=== PATIENT | female | born 1955 | race Caucasian/White ===

== ENCOUNTER 2016-09-13 17:02 | Inpatient (IN) | payer MEDICAID ==
[2016-09-13] VITALS (8 sets, daily range): BP systolic 85–119; BP diastolic 50–73; PULSE 99–142; RESP 16–20; TEMP 99.1–103; O2SAT 94–97
[~2016-09-13] VITALS: Ht 149.9 cm; Wt 50.1 kg
[~2016-09-13 17:02] MED LIST: 1-ME1LIQ PO; BENA40TA PO; ERGO2000 PO; SIMV40TA PO
[2016-09-13] MEDS ORDERED: SODIUM CHLOR 0.9% 1000 ML INJ 1,000 ML IV ONE ×2 (17:28)
[2016-09-13] MEDS ORDERED: SODIUM CHLOR 0.9% 1000 ML INJ 100 ML IV ONE (17:28)
[2016-09-13] MEDS ORDERED: ACETAMINOPHEN 325 MG TAB PO ONE (17:30)
[2016-09-13] MEDS ORDERED: CEFEPIME INJ 2,000 MG in SODIUM CHLORIDE 0.9% INJ 100 ML IV ONE (17:30)
--- NOTE | 2016-09-13 17:34 | PD ---
HPI Chief Complaint: Fever Time Seen by Provider: 17:17 Travel History International Travel<30 days: No Contact w/Intl Traveler<30days: No Traveled to known affect area: No History of Present Illness HPI The patient is a 61-year-old female who presents to the emergency department with her daughter for fever. The patient speaks limited Uzbek, however, the daughter translates per her request. The daughter states the patient has a history of endometrial stage II C cancers who is status post hysterectomy and currently undergoing chemotherapy by her oncologist, Dr. Gill. The patient last received chemotherapy on August 28. The patient has been complaining of urinary symptoms or last several days with frequency and urgency, however, with very little urine output. The patient then developed a fever earlier today, measured as 103.2 in the waiting room at the emergency department. The patient denies any sore throat, cough, but does complain of mild nausea. She denies any vomiting, diarrhea, or abdominal pain. She does have a history of chronic left knee pain. Patient denies any posterior neck pain. Symptoms are moderate, there are no current alleviating or exacerbating factors. The patient's primary physician is located in [place], [place]. PFSH Past Medical History Cancer: Yes (L BREAST 2003, UTERINE ) Cardiovascular Problems: No High Cholesterol: Yes Chemotherapy: Yes (last done 10 years ago ) Diabetes: No Endocrine: No Genitourinary: No Hepatitis: No Hiatal Hernia: No Immune Disorder: No Musculoskeletal: No Neurologic: No Psychiatric: No Reproductive: No Respiratory: No Immunizations Current: Yes Radiation Therapy: Yes (last done 10 years ago ) Thyroid Disease: No Past Surgical History Abdominal Surgery: Yes (CHOLECYSTECTOMY 1996) AICD: No Gynecologic Surgery: Yes (HYSTERECTOMY FEB 2014) Joint Replacement: No Pacemaker: No Thoracic Surgery: Yes (L BREAST MASTECTOMY WITH CHEMO/RADIATION 2003) Social History Tobacco Use: No Substance Use: No Allergies-Medications (Allergen,Severity, Reaction): Coded Allergies: Paclitaxel (Verified Allergy, Severe, Shortness of Breath, 09/13/16) Vancomycin (Unverified Allergy, Mild, ITCHING, 09/13/16) Reported Meds & Prescriptions Reported Meds & Active Scripts Active Reported K-Tab (Potassium Chloride) 10 Meq Tab 10 Meq PO DAILY Simvastatin 40 Mg Tab 40 Mg PO HS Drisdol (Ergocalciferol) 50,000 Unit Cap 50,000 Units PO Q7D Benazepril (Benazepril HCl) 40 Mg Tab 40 Mg PO DAILY Amlodipine (Amlodipine Besylate) 10 Mg Tab 10 Mg PO DAILY Review of Systems Except as stated in HPI: all other systems reviewed are Neg General / Constitutional: Positive: Fever, Chills HENT: No: Headaches, Sore Throat Respiratory: No: Cough, Shortness of Breath Gastrointestinal: Positive: Nausea, No: Vomiting, Diarrhea, Abdominal Pain Genitourinary: Positive: Urgency, Frequency, Decreased Urinary Output Musculoskeletal: Positive: Arthralgias Skin: No Rash Physical Exam Narrative GENERAL: Awake, alert, pleasant 61-year-old female who appears her stated age and is in no acute respiratory distress. SKIN: Warm and dry. HEAD: Atraumatic. Normocephalic. EYES: Pupils equal and round. No scleral icterus. No injection or drainage. ENT: No nasal bleeding or discharge. Mild erythema but no exudate. NECK: Trachea midline. No JVD. CARDIOVASCULAR: Regular, tachycardic with a heart rate in the 130s. Port in place right chest wall. RESPIRATORY: No accessory muscle use. Clear to auscultation. Breath sounds equal bilaterally. GASTROINTESTINAL: Abdomen soft, mild suprapubic tenderness. No rebound tenderness, guarding, or rigidity. Back: No CVA tenderness. MUSCULOSKELETAL: No obvious deformities. No clubbing. No cyanosis. No edema. Full range of motion with the left lower extremity with flexion of the hip and knee, no erythema over the left knee to suggest septic joint. Calves are soft bilaterally. NEUROLOGICAL: Awake and alert. No obvious cranial nerve deficits. Motor grossly within normal limits. Normal speech. PSYCHIATRIC: Appropriate mood and affect; insight and judgment normal. Data Data Last Documented VS Vital Signs Date Time Temp Pulse Resp B/P Pulse Ox O2 Delivery O2 Flow Rate FiO2 09/13/16 19:17 95 Room Air 09/13/16 17:19 130 20 119/61 09/13/16 17:04 103.0 Orders Electrocardiogram (09/13/16 17:28) Complete Blood Count With Diff (09/13/16 17:28) Comprehensive Metabolic Panel (09/13/16 17:28) Lactic Acid Sepsis Protocol (09/13/16 17:28) Magnesium (Mg) (09/13/16 17:28) Lipase (09/13/16 17:28) Urinalysis - C+S If Indicated (09/13/16 17:28) Influenzae A/B Antigen (09/13/16 17:28) Blood Culture (09/13/16 17:28) Chest, Single Ap (09/13/16 17:28) Blood Gas Venous (Vbg) (09/13/16 17:28) Blood Glucose (09/13/16 17:28) Ecg Monitoring (09/13/16:) Iv Access Insert/Monitor (09/13/16:28) Oximetry (09/13/16 17:28) Oxygen Administration (09/13/16 17:28) Acetaminophen (Tylenol) (09/13/16 17:30) Sodium Chlor 0.9% 1000 Ml Inj (Ns 1000 M (09/13/16 17:28) Sodium Chlor 0.9% 1000 Ml Inj (Ns 1000 M (09/13/16 17:28) Sodium Chlor 0.9% 1000 Ml Inj (Ns 1000 M (09/13/16 17:28) Cefepime Inj (Maxipime Inj) (09/13/16 17:30) Urine Culture (09/13/16 17:30) Admit Order (Ed Use Only) (09/13/16 19:33) Labs Laboratory Tests Test 09/13/16 09/13/16 09/13/16 17:30 17:40 17:50 Urine Color YELLOW Urine Turbidity CLEAR Urine pH 6.0 Urine Specific [place] 1.014 Urine Protein TRACE mg/dL Urine Glucose (UA) NEG mg/dL Urine Ketones NEG mg/dL Urine Occult Blood NEG Urine Nitrite NEG Urine Bilirubin NEG Urine Urobilinogen LESS THAN 2.0 MG/DL Urine Leukocyte Esterase MOD Urine WBC 11 /hpf Urine WBC Clumps RARE Urine Bacteria RARE /hpf Urine Hyaline Casts 2 /lpf Urine Mucus FEW /lpf Microscopic Urinalysis Comment CATH-CULTURE IND White Blood Count 3.4 TH/MM3 Red Blood Count 4.30 MIL/MM3 Hemoglobin 11.9 GM/DL Hematocrit 35.0 % Mean Corpuscular Volume 81.3 FL Mean Corpuscular Hemoglobin 27.7 PG Mean Corpuscular Hemoglobin 34.1 % Concent Red Cell Distribution Width 17.7 % Platelet Count 178 TH/MM3 Mean Platelet Volume 7.5 FL Neutrophils (%) (Auto) 87.4 % Lymphocytes (%) (Auto) 8.4 % Monocytes (%) (Auto) 3.7 % Eosinophils (%) (Auto) 0.5 % Basophils (%) (Auto) 0.0 % Neutrophils # (Auto) 3.0 TH/MM3 Lymphocytes # (Auto) 0.3 TH/MM3 Monocytes # (Auto) 0.1 TH/MM3 Eosinophils # (Auto) 0.0 TH/MM3 Basophils # (Auto) 0.0 TH/MM3 CBC Comment AUTO DIFF Sodium Level 133 MEQ/L Potassium Level 3.6 MEQ/L Chloride Level 96 MEQ/L Carbon Dioxide Level 27.9 MEQ/L Anion Gap 9 MEQ/L Blood Urea Nitrogen 12 MG/DL Creatinine 0.97 MG/DL Estimat Glomerular Filtration 58 ML/MIN Rate Random Glucose 207 MG/DL Lactic Acid Level 1.6 mmol/L Calcium Level 8.7 MG/DL Magnesium Level 1.3 MG/DL Total Bilirubin 0.4 MG/DL Aspartate Amino Transf 16 U/L (AST/SGOT) Alanine Aminotransferase 11 U/L (ALT/SGPT) Alkaline Phosphatase 76 U/L Total Protein 7.0 GM/DL Albumin 2.9 GM/DL Lipase 152 U/L Blood Gas Puncture Site VEIN Blood Gas Patient Temperature 98.6 Venous Blood pH 7.51 Venous Blood Partial Pressure 33 mmHg CO2 Venous Blood Partial Pressure 43 mmHg O2 Venous Blood HCO3 26 mmol/L Venous Blood Oxygen Saturation 79 % Venous Blood Oxygen Content 13.0 Vol % Venous Blood Base Excess 3.0 mmol/L Oxygen Delivery Device ROOM AIR Blood Gas Inspired Oxygen 21 % MDM Medical Decision Making Medical Screen Exam Complete: Yes Emergency Medical Condition: Yes Medical Record Reviewed: Yes Interpretation(s) EKG reveals sinus tachycardia with a heart rate of 119. LVH. Nonspecific ST depression, may be rate related. Last Impressions Chest X-Ray 09/13/16 4528 Signed Impressions: Service Date/Time: Tuesday, September 13, 2016 17:47 - CONCLUSION: No acute disease. Olayinka Kincaid MD Date/Time Procedure Status Source Growth 09/13/16 17:30 Urine Culture Received Urine Clean Catch Pending 09/13/16 17:40 Aerobic Blood Culture Received Blood Peripheral Pending 09/13/16 17:40 Anaerobic Blood Culture Received Blood Peripheral Pending 09/13/16 17:45 Aerobic Blood Culture Received Blood Peripheral Pending 09/13/16 17:45 Anaerobic Blood Culture Received Blood Peripheral Pending Laboratory Tests Test 09/13/16 09/13/16 09/13/16 17:30 17:40 17:50 Urine Color YELLOW Urine Turbidity CLEAR Urine pH 6.0 Urine Specific [place] 1.014 Urine Protein TRACE mg/dL Urine Glucose (UA) NEG mg/dL Urine Ketones NEG mg/dL Urine Occult Blood NEG Urine Nitrite NEG Urine Bilirubin NEG Urine Urobilinogen LESS THAN 2.0 MG/DL Urine Leukocyte Esterase MOD Urine WBC 11 /hpf Urine WBC Clumps RARE Urine Bacteria RARE /hpf Urine Hyaline Casts 2 /lpf Urine Mucus FEW /lpf Microscopic Urinalysis Comment CATH-CULTURE IND White Blood Count 3.4 TH/MM3 Red Blood Count 4.30 MIL/MM3 Hemoglobin 11.9 GM/DL Hematocrit 35.0 % Mean Corpuscular Volume 81.3 FL Mean Corpuscular Hemoglobin 27.7 PG Mean Corpuscular Hemoglobin 34.1 % Concent Red Cell Distribution Width 17.7 % Platelet Count 178 TH/MM3 Mean Platelet Volume 7.5 FL Neutrophils (%) (Auto) 87.4 % Lymphocytes (%) (Auto) 8.4 % Monocytes (%) (Auto) 3.7 % Eosinophils (%) (Auto) 0.5 % Basophils (%) (Auto) 0.0 % Neutrophils # (Auto) 3.0 TH/MM3 Lymphocytes # (Auto) 0.3 TH/MM3 Monocytes # (Auto) 0.1 TH/MM3 Eosinophils # (Auto) 0.0 TH/MM3 Basophils # (Auto) 0.0 TH/MM3 CBC Comment AUTO DIFF Sodium Level 133 MEQ/L Potassium Level 3.6 MEQ/L Chloride Level 96 MEQ/L Carbon Dioxide Level 27.9 MEQ/L Anion Gap 9 MEQ/L Blood Urea Nitrogen 12 MG/DL Creatinine 0.97 MG/DL Estimat Glomerular Filtration 58 ML/MIN Rate Random Glucose 207 MG/DL Lactic Acid Level 1.6 mmol/L Calcium Level 8.7 MG/DL Magnesium Level 1.3 MG/DL Total Bilirubin 0.4 MG/DL Aspartate Amino Transf 16 U/L (AST/SGOT) Alanine Aminotransferase 11 U/L (ALT/SGPT) Alkaline Phosphatase 76 U/L Total Protein 7.0 GM/DL Albumin 2.9 GM/DL Lipase 152 U/L Blood Gas Puncture Site VEIN Blood Gas Patient Temperature 98.6 Venous Blood pH 7.51 Venous Blood Partial Pressure 33 mmHg CO2 Venous Blood Partial Pressure 43 mmHg O2 Venous Blood HCO3 26 mmol/L Venous Blood Oxygen Saturation 79 % Venous Blood Oxygen Content 13.0 Vol % Venous Blood Base Excess 3.0 mmol/L Oxygen Delivery Device ROOM AIR Blood Gas Inspired Oxygen 21 % Differential Diagnosis Differential diagnosis includes sepsis, severe sepsis, septic shock, probable nephritis, UTI, neutropenic fever, pneumonia, influenza, dehydration. Narrative Course The patient's port was accessed, labs are drawn and sent, and the patient was placed on cardiac telemetry monitoring and continuous pulse oximetry monitoring. Chest x-ray was obtained. Lactic acid and blood cultures were sent to lab. UA was sent to lab. After cultures were obtained, cefepime 2 g IV was administered as the patient has a history of recent chemotherapy. The patient was also administered 3 L of IV fluids. Patient received Tylenol 650 mg orally for fever. The patient's chest x-ray was negative. UA is positive for WBCs, patient meets sepsis criteria. Blood cultures were pending. Influenza screen was pending. The patient will be admitted as she has a white count of 3.4, is immunocompromised with recent chemotherapy, and is septic. The on-call medical service was paged for admission. I discussed the patient Dr. Hale who agrees with admission. Patient will need admission until cultures are resulted and her symptoms have improved. Sepsis Criteria SIRS Criteria (2 or more): Temp > 100.9 or < 96.8, Heart rate over 90, WBC > 00774, < 4000 or > 10% bands Sepsis Criteria (SIRS+source): Infect source susp/known Criteria Outcome: Meets sepsis criteria Physician Communication Physician Communication The on-call medical service was paged for admission. I discussed the patient with Dr. Hale who agrees with admission. Diagnosis Primary Impression: Sepsis Qualified Code: A41.9 - Sepsis, due to unspecified organism Additional Impressions: UTI (urinary tract infection) Qualified Code: N30.00 - Acute cystitis without hematuria S/P chemotherapy, time since less than 4 weeks Condition: Stable Stewart Salinas MD Sep 13, 2016 17:34
--- NOTE | 2016-09-13 18:21 | RADRPT ---
EXAM DATE/TIME: 09/13/2016 17:47 [facility] COMPARISON: No previous studies available for comparison. INDICATIONS : Fever starting today MEDICAL HISTORY : Endometrial cancer SURGICAL HISTORY : Port placement ENCOUNTER: Initial ACUITY: 1 day PAIN SCORE: 0/10 LOCATION: Bilateral chest FINDINGS: A single view of the chest demonstrates the lungs to be symmetrically aerated without evidence of mas s, infiltrate or effusion. There is a CT compatible [id number] in place from the right internal j ugular approach. The cardiomediastinal contours are unremarkable. Osseous structures are intact. Cli ps are seen in the right upper quadrant of the abdomen presumably from prior cholecystectomy. CONCLUSION: No acute disease. Olayinka Kincaid MD on September 13, 2016 at 18:19 Board Certified Radiologist. This report was verified electronically.
[2016-09-13 18:30] LABS: BLOOD GAS VENOUS HCO3 26 mmol/L (22-26); BLOOD GAS VENOUS O2 HGB SAT 79 % (70-76); BLOOD GAS VENOUS PCO2 33 mmHg (44-48); BLOOD GAS VENOUS PO2 43 mmHg (35-40); BLOOD GAS VENOUS pH 7.51 (7.360-7.400); TEMP CORR TO 98.6
[2016-09-13 18:31] LABS: CRITICAL VALUE YES; DRAW SITE VEIN; FIO2 21 %; OXYGEN DEVICE ROOM AIR; STAT YES
[2016-09-13 18:40] LABS: BACTERIA, URINE RARE /hpf; BLOOD, URINE NEG (NEG); GLUCOSE,URINE NEG (NEG); HYALINE CAST, URINE 2 /lpf (RARE); KETONE, URINE NEG (NEG); MUCUS URINE FEW /lpf (OCC); NITRITE,URINE NEG (NEG); URINE COLOR YELLOW (YELLW/STRAW)
[2016-09-13 18:40] LABS: EOSINOPHIL % 0.5 % (0.0-4.0); LYMPH % 8.4 % (9.0-44.0); LYMPHOCYTE # 0.3 TH/MM3 (1.0-4.8); MEAN CELL VOLUME 81.3 FL (80.0-100.0); MEAN CORPUSCULAR HEMOGLOBIN 27.7 PG (27.0-34.0); MEAN CORPUSCULAR HGB CONC 34.1 % (32.0-36.0); MONO % 3.7 % (0.0-8.0); NEUT % 87.4 % (16.0-70.0); PLATELET COUNT 178 TH/MM3 (150-450); RED CELL DISTRIBUTION WIDTH 17.7 % (11.6-17.2); WHITE BLOOD COUNT 3.4 TH/MM3 (4.0-11.0)
[2016-09-13] MEDS ORDERED: K-TA10TA PO (18:40)
[2016-09-13] MEDS ORDERED: AMLO10TA2 PO (18:40)
[2016-09-13] MEDS ORDERED: SIMV40TA PO (18:40)
[2016-09-13] MEDS ORDERED: DRIS50002 PO (18:40)
[2016-09-13] MEDS ORDERED: BENA40TA PO (18:40)
[2016-09-13 18:41] LABS: COMMENT (UR) CATH-CULTURE IND; CULTURE IF INDICATED CATH CULTURE IND
[2016-09-13 18:50] LABS: ANION GAP 9 MEQ/L (5-15); AST (GOT) 16 U/L (15-37); BICARBONATE 27.9 MEQ/L (21.0-32.0); BLOOD UREA NITROGEN 12 MG/DL (7-18); CHLORIDE 96 MEQ/L (98-107); GLOMERULAR FILTRATION RATE 58 ML/MIN (>89); HEMO FLAGS AUTO DIFF; MAGNESIUM 1.3 MG/DL (1.5-2.5); POTASSIUM 3.6 MEQ/L (3.5-5.1); SODIUM (NA) 133 MEQ/L (136-145)
[2016-09-13 18:53] LABS: ALKALINE PHOSPHATASE 76 U/L (45-117); ALT (GPT) 11 U/L (10-53); TOTAL BILIRUBIN ADULT 0.4 MG/DL (0.2-1.0)
[2016-09-13] MEDS ORDERED: ONDANSETRON HCL 4 MG/2 ML VIAL IVP PRN (19:45)
[2016-09-13] MEDS ORDERED: NALOXONE HCL 0.4 MG/ML AMP IV PRN (19:45)
[2016-09-13] MEDS ORDERED: SODIUM CHLORIDE 0.9% FLUSH 5 ML FLUSH FLUSH PRN (19:45)
[2016-09-13] MEDS: SODIUM CHLORIDE 0.9% FLUSH 5 ML FLUSH FLUSH SCH (21:00)
[2016-09-13 21:20] LABS: CRENATED RBCS 1+ (NORMAL); KERATOCYTES 1+ (NORMAL); OVALOCYTES 1+ (NORMAL)
[2016-09-13 21:21] LABS: SCAN/DIFF AUTO DIFF CONFIRMED
--- NOTE | 2016-09-13 23:36 | HHI.HP ---
[facility] Admission Diagnosis sepsis, UTI, status post chemotherapy Diagnoses: Chief Complaint: Fever Travel History International Travel<30 Days: No Contact w/Intl Traveler <30 Da: No Traveled to Known Affected Are: No Sepsis Criteria SIRS Criteria (2 or more): Temp > 100.9 or < 96.8, Heart rate over 90 Sepsis Criteria (SIRS+source): Infect source susp/known History of Present Illness This is a 61-year-old female patient who is primarily Serbian-speaking translation per patient's daughter per patient request. Patient with past medical history which includes left breast cancer diagnosed 2003 status post left breast mastectomy chemotherapy and radiation, hyperlipidemia, hypertension , endometrial cancer diagnosed 2013 status post hysterectomy, currently undergoing chemotherapy. Patient's most recent chemotherapy was August 28, 2016. Patient reports that earlier today she began to have fever at home it was 101.9 and an elevated to 102 patient proceeded to the emergency department in the emergency room waiting room temperature noted to be 103.1. Patient also reports for the past approximately month she's been having dysuria as well as increased frequency of urination. Patient describes the dysuria more of a burning sensation after she urinates and while urinating. Patient also has had mild nausea. Patient denies cough or sputum production patient also denies shortness of breath chest pain diarrhea or constipation. Review of Systems Except as stated in HPI: all other systems reviewed are Neg Past Family Social History Past Medical History left breast cancer diagnosed 2003 status post left breast mastectomy chemotherapy and radiation, hyperlipidemia, hypertension, endometrial cancer diagnosed 2013 status post hysterectomy, currently undergoing chemotherapy Past Surgical History Left breast mastectomy 2003, cholecystectomy, tubal ligation, upper endoscopy, hysterectomy February 2014, bunionectomy, surgical repair of wrist fracture status post fall Reported Medications K-Tab (Potassium Chloride) 10 Meq Tab 10 Meq PO DAILY Simvastatin 40 Mg Tab 40 Mg PO HS Drisdol (Ergocalciferol) 50,000 Unit Cap 50,000 Units PO Q7D Benazepril (Benazepril HCl) 40 Mg Tab 40 Mg PO DAILY Amlodipine (Amlodipine Besylate) 10 Mg Tab 10 Mg PO DAILY Allergies: Coded Allergies: Paclitaxel (Verified Allergy, Severe, Shortness of Breath, 09/13/16) Vancomycin (Unverified Allergy, Mild, ITCHING, 09/13/16) Active Ordered Medications Current Medications Medications (Trade) Dose Ordered Sig/Tasha Route Start Time Stop Time Status Last Admin (NS Flush) 2 ml UNSCH PRN FLUSH 09/13/16 19:45 (NS Flush) 2 ml BID FLUSH 09/13/16 21:00 (Zofran Inj) 4 mg Q6H PRN IVP 09/13/16 19:45 (Lovenox Inj) 40 mg Q24H SQ 09/14/16 09:00 Naloxone HCl 0.4 mg 0.4 mg UNSCH PRN IV 09/13/16 19:45 Cefepime HCl 2000 mg/Sodium Chloride 100 ml @ 200 mls/hr Q8H IV 09/14/16 01:00 09/14/16 00:36 (NS 1000 ml Inj) 1,000 ml @ 100 mls/hr Q10H IV 09/14/16 00:00 09/14/16 00:36 Family History Mother has CAD status post [place] Also reports that ovarian as well as breast cancer run in the family patient's aunt and cousins Social History Denies EtOH use tobacco use or illicit drug use Physical Exam Vital Signs Vital Signs Date Time Temp Pulse Resp B/P Pulse Ox O2 Delivery O2 Flow Rate FiO2 09/13/16 22:45 99.3 99 17 85/50 95 09/13/16 21:52 102 16 104/66 96 09/13/16 20:56 99.1 112 16 110/68 97 09/13/16 19:30 124 18 108/66 96 09/13/16 19:17 95 Room Air 09/13/16 19:17 95 Room Air 09/13/16 17:50 95 Room Air 09/13/16 17:19 130 20 119/61 94 09/13/16 17:04 103.0 142 18 119/73 95 Physical Exam GENERAL: This is a 61-year-old female patient, in no apparent distress. SKIN: No rashes, ecchymoses or lesions. Cool and dry. HEAD: Atraumatic. Normocephalic. No temporal or scalp tenderness. EYES: Extraocular motions intact. No scleral icterus. No injection or drainage. ENT: Nose without bleeding, purulent drainage or septal hematoma. Throat without erythema, tonsillar hypertrophy or exudate. Uvula midline. Airway patent. NECK: Trachea midline. No JVD or lymphadenopathy. Supple, nontender, no meningeal signs. CARDIOVASCULAR: Regular rate and rhythm without murmurs, gallops, or rubs. RESPIRATORY: Clear to auscultation. Breath sounds equal bilaterally. No wheezes , rales, or rhonchi. GASTROINTESTINAL: Abdomen soft, non-tender, nondistended. No guarding. MUSCULOSKELETAL: Extremities without clubbing, cyanosis, or edema. No joint tenderness, effusion, or edema noted. No calf tenderness. Negative Homans sign bilaterally. NEUROLOGICAL: Awake and alert. No focal deficits identified. Motor and sensory grossly within normal limits. 4-5 out of 5 muscle strength in all muscle groups. Normal speech. Laboratory Laboratory Tests Test 09/13/16 09/13/16 09/13/16 17:30 17:40 17:50 Urine Color YELLOW Urine Turbidity CLEAR Urine pH 6.0 Urine Specific [place] 1.014 Urine Protein TRACE Urine Glucose (UA) NEG Urine Ketones NEG Urine Occult Blood NEG Urine Nitrite NEG Urine Bilirubin NEG Urine Urobilinogen LESS THAN 2.0 Urine Leukocyte Esterase MOD Urine WBC 11 Urine WBC Clumps RARE Urine Bacteria RARE Urine Hyaline Casts 2 Urine Mucus FEW Microscopic Urinalysis Comment CATH-CULTURE IND White Blood Count 3.4 Red Blood Count 4.30 Hemoglobin 11.9 Hematocrit 35.0 Mean Corpuscular Volume 81.3 Mean Corpuscular Hemoglobin 27.7 Mean Corpuscular Hemoglobin 34.1 Concent Red Cell Distribution Width 17.7 Platelet Count 178 Mean Platelet Volume 7.5 Neutrophils (%) (Auto) 87.4 Lymphocytes (%) (Auto) 8.4 Monocytes (%) (Auto) 3.7 Eosinophils (%) (Auto) 0.5 Basophils (%) (Auto) 0.0 Neutrophils # (Auto) 3.0 Lymphocytes # (Auto) 0.3 Monocytes # (Auto) 0.1 Eosinophils # (Auto) 0.0 Basophils # (Auto) 0.0 CBC Comment AUTO DIFF Differential Comment AUTO DIFF CONFIRMED Ovalocytes 1+ Crenated Cell 1+ Keratocytes 1+ Sodium Level 133 Potassium Level 3.6 Chloride Level 96 Carbon Dioxide Level 27.9 Anion Gap 9 Blood Urea Nitrogen 12 Creatinine 0.97 Estimat Glomerular Filtration 58 Rate Random Glucose 207 Lactic Acid Level 1.6 Calcium Level 8.7 Magnesium Level 1.3 Total Bilirubin 0.4 Aspartate Amino Transf 16 (AST/SGOT) Alanine Aminotransferase 11 (ALT/SGPT) Alkaline Phosphatase 76 Total Protein 7.0 Albumin 2.9 Lipase 152 Blood Gas Puncture Site VEIN Blood Gas Patient Temperature 98.6 Venous Blood pH 7.51 Venous Blood Partial Pressure 33 CO2 Venous Blood Partial Pressure 43 O2 Venous Blood HCO3 26 Venous Blood Oxygen Saturation 79 Venous Blood Oxygen Content 13.0 Venous Blood Base Excess 3.0 Oxygen Delivery Device ROOM AIR Blood Gas Inspired Oxygen 21 Date/Time Procedure Status Source Growth 09/13/16 20:11 Influenza Types A,B Antigen (AILEEN) - Final Complete Nasal Aspirate NEGATIVE FOR FLU A AND B ANTIGEN.... 09/13/16 17:45 Aerobic Blood Culture Received Blood Peripheral Pending 09/13/16 17:45 Anaerobic Blood Culture Received Blood Peripheral Pending 09/13/16 17:30 Urine Culture Worksheet Urine Clean Catch Pending Result Diagram: 09/13/16 1740 09/13/16 1740 Imaging Last Impressions Chest X-Ray 09/13/16 1728 Signed Impressions: Service Date/Time: Tuesday, September 13, 2016 17:47 - CONCLUSION: No acute disease. Olayinka Kincaid MD Septic Shock Reassessment Heart: Regular rate and rhythm Lungs: Clear Skin: Warm, Dry Peripheral Pulses: Bounding Right Radial Bounding Left Radial Bounding Right Dorsalis Pedis Bounding Left Dorsalis Pedis Capillary Refill: Brisk Assessment and Plan Assessment and Plan This is a 61-year-old female patient who is primarily Serbian-speaking translation per patient's daughter per patient request. Patient with past medical history which includes left breast cancer diagnosed 2003 status post left breast mastectomy chemotherapy and radiation, hyperlipidemia, hypertension , endometrial cancer diagnosed 2013 status post hysterectomy, currently undergoing chemotherapy. Patient's most recent chemotherapy was August 28, 2016. Patient reports that earlier today she began to have fever at home it was 101.9 and an elevated to 102 patient proceeded to the emergency department in the emergency room waiting room temperature noted to be 103.1. Sepsis, temperature 103.1, tachycardia and positive UA Continue cefepime IV Continue IV fluids status post bolus given in emergency department Blood cultures 2 obtained and pending Urine culture pending Chest x-ray reviewed by myself as well as Dr. Hale: no acute findings Hypertension takes enalapril and Norvasc at home will hold as patient is hypotensive at this time Hyperlipidemia continue atorvastatin 40 daily at bedtime DVT prophylaxis with Lovenox Discussed plan of care with patient and daughter ear provider and RN Written by Christina William, acting as scribe for Dr. Hale on 09/14/16 at 01: 36. All or portions of this note were transcribed by scribe [Christina William]. I , Dr. Mayda Hale personally performed the history, physical exam, and medical decision making; and confirmed the accuracy of the information in the transcribed note. Authenticated by Dr. Mayda Hale on 09/14/16 at 0136 Physician Certification 2 Midnight Certification Type: Admission for Inpatient Services Order for Inpatient Services The services are ordered in accordance with Medicare regulations or non- Medicare payer requirements, as applicable. In the case of services not specified as inpatient-only, they are appropriately provided as inpatient services in accordance with the 2-midnight benchmark. Estimated LOS (days): 3 days is the estimated time the patient will need to remain in the hospital, assuming treatment plan goals are met and no additional complications. Post-Hospital Plan: Not yet determined Christina William Sep 13, 2016 23:36 Mayda Hale MD Oct 02, 2016 08:16
[2016-09-14] VITALS (7 sets, daily range): BP systolic 93–99; BP diastolic 56–65; PULSE 85–114; RESP 16–18; TEMP 96.9–103.1; O2SAT 98–100
[2016-09-14] MEDS: CEFEPIME INJ 2,000 MG in SODIUM CHLORIDE 0.9% INJ 100 ML IV SCH ×3 (00:36→22:33)
[2016-09-14] MEDS: SODIUM CHLOR 0.9% 1000 ML INJ 1,000 ML IV SCH ×3 (00:36→22:34)
[2016-09-14] MEDS: ACETAMINOPHEN 325 MG TAB PO PRN (03:59)
[2016-09-14] MEDS ORDERED: LISINOPRIL 20 MG TAB PO SCH (09:00)
[2016-09-14] MEDS: SODIUM CHLORIDE 0.9% FLUSH 5 ML FLUSH FLUSH SCH ×2 (09:00→21:00)
[2016-09-14] MEDS: POTASSIUM CHLORIDE 10 MEQ CONTROLLED RELEASE TAB PO SCH (09:17)
[2016-09-14] MEDS: ENOXAPARIN SODIUM 40 MG/0.4 ML SYRINGE SQ SCH (09:17)
[2016-09-14 09:44] LABS: AUTOMATED NEUTROPHIL # 2.1 TH/MM3 (1.8-7.7); BASOPHIL % 0.3 % (0.0-2.0); EOSINOPHIL # 0.1 TH/MM3 (0-0.4); EOSINOPHIL % 2.7 % (0.0-4.0); HEMATOCRIT 32.5 % (35.0-46.0); HEMO FLAGS DIFF FINAL; LYMPHOCYTE # 0.6 TH/MM3 (1.0-4.8); MEAN CELL VOLUME 82.1 FL (80.0-100.0); MEAN CORPUSCULAR HEMOGLOBIN 27.6 PG (27.0-34.0); MEAN CORPUSCULAR HGB CONC 33.6 % (32.0-36.0); MONO % 7.5 % (0.0-8.0); NEUT % 69.5 % (16.0-70.0); PLATELET COUNT 171 TH/MM3 (150-450); RED BLOOD COUNT 3.95 MIL/MM3 (4.00-5.30); RED CELL DISTRIBUTION WIDTH 17.8 % (11.6-17.2)
--- NOTE | 2016-09-14 09:48 | HHI.PR ---
Subjective Remarks resting comfortably with no distress. T max 103.1. denies pain but has some urinary urgency. daughter at the bedside. Objective Vitals Vital Signs Date Time Temp Pulse Resp B/P Pulse Ox O2 Delivery O2 Flow Rate FiO2 09/14/16 08:00 96.9 89 16 98/56 98 09/14/16 06:00 99.7 09/14/16 04:00 103.1 114 17 94/56 100 09/13/16 22:45 99.3 99 17 85/50 95 09/13/16 22:30 102 09/13/16 21:52 102 16 104/66 96 09/13/16 20:56 99.1 112 16 110/68 97 09/13/16 19:30 124 18 108/66 96 09/13/16 19:17 95 Room Air 09/13/16 19:17 95 Room Air 09/13/16 17:50 95 Room Air 09/13/16 17:19 130 20 119/61 94 09/13/16 17:04 103.0 142 18 119/73 95 I/O 09/13/16 09/13/16 09/13/16 09/14/16 09/14/16 09/14/16 07:00 15:00 23:00 07:00 15:00 23:00 Intake Total 470 ml Balance 470 ml Intake IV Total 470 ml # Voids 3 # Bowel Movements 2 Result Diagram: 09/13/16 1740 09/13/16 1740 Imaging Last Impressions Chest X-Ray 09/13/16 1728 Signed Impressions: Service Date/Time: Tuesday, September 13, 2016 17:47 - CONCLUSION: No acute disease. Olayinka Kincaid MD Objective Remarks GENERAL: This is a well-nourished, well-developed patient, in no apparent distress. CARDIOVASCULAR: Regular rate and regular rhythm without murmurs, gallops, or rubs. RESPIRATORY: Clear to auscultation. Breath sounds equal bilaterally. No wheezes , rales, or rhonchi. GASTROINTESTINAL: Abdomen soft, non-tender, nondistended. Normal, active bowel sounds MUSCULOSKELETAL: Extremities without clubbing, cyanosis, or edema. NEURO: Alert & Oriented x4 to person, place, time, situation. Moves all ext x4 Procedures none Medications and IVs Current Medications Acetaminophen 650 mg 650 mg ONCE ONCE PO Last administered on 2/17/17at 18:31 ; Start 09/13/16 at 17:30; Stop 09/13/16 at 17:31; Status DC Sodium Chloride 1,000 ml @ 1,000 mls/hr Q1H ONCE IV Last administered on 18:31; Start 09/13/16 at 17:28; Stop 09/13/16 at 18:27; Status DC Sodium Chloride 1,000 ml @ 1,000 mls/hr Q1H ONCE IV Last administered on 18:31; Start 09/13/16 at 17:28; Stop 09/13/16 at 18:27; Status DC Sodium Chloride 100 ml @ 1,000 mls/hr Q6M ONCE IV Last administered on 18:32; Start 09/13/16 at 17:28; Stop 09/13/16 at 17:33; Status DC Cefepime HCl/ Sodium Chloride (Maxipime Inj/NS Inj) 100 ml @ 200 mls/hr ONCE ONCE IV Last administered on 09/13/16 20:08; Start 09/13/16 at 17:30; Stop at 17:59; Status DC IV Flush (NS Flush) 2 ml UNSCH PRN FLUSH FLUSH AFTER USING IV ACCESS; Start at 19:45 IV Flush (NS Flush) 2 ml BID FLUSH ; Start 09/13/16 at 21:00 Ondansetron HCl (Zofran Inj) 4 mg Q6H PRN IVP NAUSEA OR VOMITING Last administered on 09/14/16 03:06; Start 09/13/16 at 19:45 Enoxaparin Sodium (Lovenox Inj) 40 mg Q24H SQ Last administered on 09/14/16 09 :17; Start 09/14/16 at 09:00 Naloxone HCl 0.4 mg 0.4 mg UNSCH PRN IV SEE LABEL COMMENTS; Start 09/13/16 at 19:45 Cefepime HCl 2000 mg/Sodium Chloride 100 ml @ 200 mls/hr Q8H IV Last administered on 09/14/16 09:17; Start 09/14/16 at 01:00 Sodium Chloride (NS 1000 ml Inj) 1,000 ml @ 100 mls/hr Q10H IV Last administered on 09/14/16 00:36; Start 09/14/16 at 00:00 Amlodipine Besylate (Norvasc) 10 mg DAILY PO ; Start 09/14/16 at 09:00; Stop at 09:00; Status DC Lisinopril (Prinivil) 40 mg DAILY PO ; Start 09/14/16 at 09:00; Stop 09/14/16 at 09:00; Status DC Potassium Chloride (KCl) 10 meq DAILY PO Last administered on 09/14/16 09:17; Start 09/14/16 at 09:00 Pravastatin Sodium (Pravachol) 80 mg HS PO CM; Start 09/14/16 at 21:00 Acetaminophen (Tylenol) 650 mg Q4H PRN PO fever >101 Last administered on 03:59; Start 09/14/16 at 03:45 A/P Assessment and Plan A/P Sepsis, fever, tachycardia and positive UA Continue cefepime IV Continue IV fluids Blood cultures 2 obtained and pending Urine culture pending Chest x-ray reviewed with no acute findings Hypertension takes enalapril and Norvasc at home will hold as patient is hypotensive at this time Hyperlipidemia continue atorvastatin 40 daily at bedtime history of breast and endometrial cancer- f/u as outpatient DVT prophylaxis with Billy Benton MD Sep 14, 2016 09:48
[2016-09-14 10:02] LABS: BICARBONATE 25.1 MEQ/L (21.0-32.0); POTASSIUM 3.3 MEQ/L (3.5-5.1)
[2016-09-14] MEDS ORDERED: POTASSIUM CHLORIDE 10 MEQ CONTROLLED RELEASE TAB PO ONE (13:15)
--- NOTE | 2016-09-14 16:41 | EKG ---
Date Performed: 09/13/2016 Time Performed: 19:12:16 PTAGE: 61 years EKG: SINUS TACHYCARDIA Increased precordial voltage ABNORMAL ECG NO PREVIOUS TRACING DOCTOR: Micah Mendez Interpretating Date/Time 09/14/2016 16:40:13
[2016-09-14] MEDS: PRAVASTATIN SOD 40 MG TAB PO SCH (22:32)
[2016-09-15] VITALS (7 sets, daily range): BP systolic 103–112; BP diastolic 65–76; PULSE 89–101; RESP 14–18; TEMP 97.9–99.4; O2SAT 96–98
[2016-09-15] MEDS: SODIUM CHLOR 0.9% 1000 ML INJ 1,000 ML IV SCH ×2 (05:44→20:51)
--- NOTE | 2016-09-15 07:59 | HHI.PR ---
Subjective Remarks resting comfortably with no distress. had a low grade fever last night. denies pain. has urinary frequency. Objective Vitals Vital Signs Date Time Temp Pulse Resp B/P Pulse Ox O2 Delivery O2 Flow Rate FiO2 09/15/16 04:00 98.1 89 17 106/66 97 09/15/16 00:00 97.9 96 18 103/65 97 09/14/16 20:00 99.3 106 18 99/65 98 09/14/16 16:00 100.6 99 18 99/61 99 09/14/16 12:00 99.1 90 16 93/56 99 09/14/16 08:44 85 09/14/16 08:00 96.9 89 16 98/56 98 I/O 09/14/16 09/14/16 09/14/16 09/15/16 09/15/16 09/15/16 07:00 15:00 23:00 07:00 15:00 23:00 Intake Total 1070 ml 1006 ml 720 ml Balance 1070 ml 1006 ml 720 ml Intake Oral 600 ml 120 ml 720 ml IV Total 470 ml 886 ml # Voids 3 4 2 # Bowel Movements 2 3 Result Diagram: 09/14/16 0820 09/14/16 0820 Imaging Last Impressions Chest X-Ray 09/13/16 1728 Signed Impressions: Service Date/Time: Tuesday, September 13, 2016 17:47 - CONCLUSION: No acute disease. Olayinka Kincaid MD Objective Remarks GENERAL: This is a well-nourished, well-developed patient, in no apparent distress. CARDIOVASCULAR: Regular rate and regular rhythm without murmurs, gallops, or rubs. RESPIRATORY: Clear to auscultation. Breath sounds equal bilaterally. No wheezes , rales, or rhonchi. GASTROINTESTINAL: Abdomen soft, non-tender, nondistended. Normal, active bowel sounds MUSCULOSKELETAL: Extremities without clubbing, cyanosis, or edema. NEURO: Alert & Oriented x4 to person, place, time, situation. Moves all ext x4 Procedures none Medications and IVs Current Medications Acetaminophen 650 mg 650 mg ONCE ONCE PO Last administered on 09/13/16t 18:31 ; Start 09/13/16 at 17:30; Stop 09/13/16 at 17:31; Status DC Sodium Chloride 1,000 ml @ 1,000 mls/hr Q1H ONCE IV Last administered on 18:31; Start 09/13/16 at 17:28; Stop 09/13/16 at 18:27; Status DC Sodium Chloride 1,000 ml @ 1,000 mls/hr Q1H ONCE IV Last administered on 18:31; Start 09/13/16 at 17:28; Stop 09/13/16 at 18:27; Status DC Sodium Chloride 100 ml @ 1,000 mls/hr Q6M ONCE IV Last administered on 18:32; Start 09/13/16 at 17:28; Stop 09/13/16 at 17:33; Status DC Cefepime HCl/ Sodium Chloride (Maxipime Inj/NS Inj) 100 ml @ 200 mls/hr ONCE ONCE IV Last administered on 09/13/16 20:08; Start 09/13/16 at 17:30; Stop at 17:59; Status DC IV Flush (NS Flush) 2 ml UNSCH PRN FLUSH FLUSH AFTER USING IV ACCESS; Start at 19:45 IV Flush (NS Flush) 2 ml BID FLUSH ; Start 09/13/16 at 21:00 Ondansetron HCl (Zofran Inj) 4 mg Q6H PRN IVP NAUSEA OR VOMITING Last administered on 09/14/16 03:06; Start 09/13/16 at 19:45 Enoxaparin Sodium (Lovenox Inj) 40 mg Q24H SQ Last administered on 09/14/16 09 :17; Start 09/14/16 at 09:00 Naloxone HCl 0.4 mg 0.4 mg UNSCH PRN IV SEE LABEL COMMENTS; Start 09/13/16 at 19:45 Cefepime HCl 2000 mg/Sodium Chloride 100 ml @ 200 mls/hr Q8H IV Last administered on 09/14/16 09:17; Start 09/14/16 at 01:00; Stop 09/14/16 at 10:31 ; Status DC Sodium Chloride (NS 1000 ml Inj) 1,000 ml @ 100 mls/hr Q10H IV Last administered on 09/15/16 05:44; Start 09/14/16 at 00:00 Amlodipine Besylate (Norvasc) 10 mg DAILY PO ; Start 09/14/16 at 09:00; Stop at 09:00; Status DC Lisinopril (Prinivil) 40 mg DAILY PO ; Start 09/14/16 at 09:00; Stop 09/14/16 at 09:00; Status DC Potassium Chloride (KCl) 10 meq DAILY PO Last administered on 09/14/16 09:17; Start 09/14/16 at 09:00 Pravastatin Sodium (Pravachol) 80 mg HS PO CM Last administered on 09/14/16 22: 32; Start 09/14/16 at 21:00 Acetaminophen 650 mg 650 mg Q4H PRN PO fever >101 Last administered on 03:59; Start 09/14/16 at 03:45 Cefepime HCl/ Sodium Chloride (Maxipime Inj/NS Inj) 100 ml @ 200 mls/hr Q12H IV Last administered on 09/14/16 22:33; Start 09/14/16 at 21:00 Potassium Chloride (KCl) 30 meq ONCE ONCE PO Last administered on 09/14/16 16 :27; Start 09/14/16 at 13:15; Stop 09/14/16 at 13:16; Status DC A/P Assessment and Plan A/P Sepsis, fever, tachycardia and positive UA Continue cefepime IV Continue IV fluids Blood cultures and UC negative so far Chest x-ray reviewed with no acute findings Hypertension takes enalapril and Norvasc at home will hold as patient is hypotensive at this time Hyperlipidemia continue atorvastatin 40 daily at bedtime history of breast and endometrial cancer- f/u as outpatient DVT prophylaxis with Lovenox Discharge Planning possible dc home in am if no recurrent fever and stable. Billy Amaya MD Sep 15, 2016 07:59
[2016-09-15] MEDS: CEFEPIME INJ 2,000 MG in SODIUM CHLORIDE 0.9% INJ 100 ML IV SCH ×2 (08:40→20:49)
[2016-09-15] MEDS: SODIUM CHLORIDE 0.9% FLUSH 5 ML FLUSH FLUSH SCH ×2 (08:41→20:49)
[2016-09-15] MEDS: POTASSIUM CHLORIDE 10 MEQ CONTROLLED RELEASE TAB PO SCH (08:41)
[2016-09-15] MEDS: ENOXAPARIN SODIUM 40 MG/0.4 ML SYRINGE SQ SCH (08:41)
[2016-09-15 11:26] LABS: AUTOMATED NEUTROPHIL # 1.9 TH/MM3 (1.8-7.7); BASOPHIL % 0.6 % (0.0-2.0); EOSINOPHIL # 0.1 TH/MM3 (0-0.4); EOSINOPHIL % 3.3 % (0.0-4.0); HEMATOCRIT 32.8 % (35.0-46.0); HEMO FLAGS DIFF FINAL; LYMPH % 24.7 % (9.0-44.0); LYMPHOCYTE # 0.8 TH/MM3 (1.0-4.8); MEAN CELL VOLUME 81.7 FL (80.0-100.0); MEAN CORPUSCULAR HEMOGLOBIN 27.7 PG (27.0-34.0); MEAN CORPUSCULAR HGB CONC 33.9 % (32.0-36.0); MONO % 10.4 % (0.0-8.0); PLATELET COUNT 193 TH/MM3 (150-450); RED BLOOD COUNT 4.02 MIL/MM3 (4.00-5.30); RED CELL DISTRIBUTION WIDTH 17.7 % (11.6-17.2); WHITE BLOOD COUNT 3.1 TH/MM3 (4.0-11.0)
[2016-09-15] MEDS: PRAVASTATIN SOD 40 MG TAB PO SCH (20:49)
[2016-09-15] MEDS: ACETAMINOPHEN 325 MG TAB PO PRN (21:00)
[2016-09-16] VITALS: BP 116/72; PULSE 90; RESP 16; TEMP 97.4; O2SAT 97
[2016-09-16 04:00] VITALS: BP 114/86; PULSE 71; PULSE 86; RESP 17; TEMP 96.8; O2SAT 99
[2016-09-16 07:16] VITALS: PULSE 97
[2016-09-16 08:00] VITALS: BP 125/88; PULSE 98; RESP 18; TEMP 96.6; O2SAT 98
[2016-09-16 08:05] VITALS: PULSE 77
[2016-09-16 09:12] VITALS: PULSE 103
[2016-09-16] MEDS: SODIUM CHLORIDE 0.9% FLUSH 5 ML FLUSH FLUSH SCH (09:26)
[2016-09-16] MEDS: SODIUM CHLOR 0.9% 1000 ML INJ 1,000 ML IV SCH (09:26)
[2016-09-16] MEDS: CEFEPIME INJ 2,000 MG in SODIUM CHLORIDE 0.9% INJ 100 ML IV SCH (09:26)
[2016-09-16] MEDS: POTASSIUM CHLORIDE 10 MEQ CONTROLLED RELEASE TAB PO SCH (09:27)
[2016-09-16] MEDS ORDERED: CIPR-9 PO (09:30)
[2016-09-16] MEDS: ENOXAPARIN SODIUM 40 MG/0.4 ML SYRINGE SQ SCH (09:31)
--- NOTE | 2016-09-16 09:32 | HHI.DCPOC ---
Discharge Care Plan Diagnosis: (1) UTI (urinary tract infection) (2) Sepsis Your Health Problems Are: Urinary Difficulties Goals to Promote Your Health * To prevent worsening of your condition and complications * To maintain your health at the optimal level Directions to Meet Your Goals Take your medications as prescribed Follow your dietary instruction Follow activity as directed Keep your appointments as scheduled Take your immunizations and boosters as scheduled If your symptoms worsen call your PCP, if no PCP go to Urgent Care Center or Emergency Room Smoking is Dangerous to Your Health. Avoid second hand smoke Call the 24-hour hour crisis hotline for domestic abuse at Bilyl Amaya MD Sep 16, 2016 09:32
--- NOTE | 2016-09-16 09:32 | HHI.PR ---
Subjective Remarks resting comfortably with no distress. afebrile. denies pain. overall doing fine. d/w the RN and no acute issues over night. daughter at the bedside. Objective Vitals Vital Signs Date Time Temp Pulse Resp B/P Pulse Ox O2 Delivery O2 Flow Rate FiO2 09/16/16 04:00 96.8 86 17 114/86 99 09/16/16 04:00 71 09/16/16 00:00 97.4 90 16 116/72 97 09/15/16 20:00 98.4 96 17 112/71 97 09/15/16 16:00 99.4 97 14 104/70 98 09/15/16 12:00 98.1 101 16 112/68 98 I/O 09/15/16 09/15/16 09/15/16 09/16/16 09/16/16 09/16/16 07:00 15:00 23:00 07:00 15:00 23:00 Intake Total 720 ml 600 ml 240 ml Balance 720 ml 600 ml 240 ml Intake Oral 720 ml 600 ml 240 ml # Voids 2 3 6 # Bowel Movements 1 0 Result Diagram: 09/15/16 1041 09/14/16 0820 Imaging Last Impressions Chest X-Ray 09/13/16 1728 Signed Impressions: Service Date/Time: Tuesday, September 13, 2016 17:47 - CONCLUSION: No acute disease. Olayinka Kincaid MD Objective Remarks GENERAL: This is a well-nourished, well-developed patient, in no apparent distress. CARDIOVASCULAR: Regular rate and regular rhythm without murmurs, gallops, or rubs. RESPIRATORY: Clear to auscultation. Breath sounds equal bilaterally. No wheezes , rales, or rhonchi. GASTROINTESTINAL: Abdomen soft, non-tender, nondistended. Normal, active bowel sounds MUSCULOSKELETAL: Extremities without clubbing, cyanosis, or edema. NEURO: Alert & Oriented x4 to person, place, time, situation. Moves all ext x4 Procedures none Medications and IVs Current Medications Acetaminophen 650 mg 650 mg ONCE ONCE PO Last administered on 09/13/16 18:31 ; Start 09/13/16 at 17:30; Stop 09/13/16 at 17:31; Status DC Sodium Chloride 1,000 ml @ 1,000 mls/hr Q1H ONCE IV Last administered on 18:31; Start 09/13/16 at 17:28; Stop 09/13/16 at 18:27; Status DC Sodium Chloride 1,000 ml @ 1,000 mls/hr Q1H ONCE IV Last administered on 18:31; Start 09/13/16 at 17:28; Stop 09/13/16 at 18:27; Status DC Sodium Chloride 100 ml @ 1,000 mls/hr Q6M ONCE IV Last administered on 18:32; Start 09/13/16 at 17:28; Stop 09/13/16 at 17:33; Status DC Cefepime HCl/ Sodium Chloride (Maxipime Inj/NS Inj) 100 ml @ 200 mls/hr ONCE ONCE IV Last administered on 09/13/16 20:08; Start 09/13/16 at 17:30; Stop at 17:59; Status DC IV Flush (NS Flush) 2 ml UNSCH PRN FLUSH FLUSH AFTER USING IV ACCESS; Start at 19:45 IV Flush (NS Flush) 2 ml BID FLUSH Last administered on 09/15/16 08:41; Start 09/13/16 at 21:00 Ondansetron HCl (Zofran Inj) 4 mg Q6H PRN IVP NAUSEA OR VOMITING Last administered on 09/14/16 03:06; Start 09/13/16 at 19:45 Enoxaparin Sodium (Lovenox Inj) 40 mg Q24H SQ Last administered on 09/15/16 08 :41; Start 09/14/16 at 09:00 Naloxone HCl 0.4 mg 0.4 mg UNSCH PRN IV SEE LABEL COMMENTS; Start 09/13/16 at 19:45 Cefepime HCl 2000 mg/Sodium Chloride 100 ml @ 200 mls/hr Q8H IV Last administered on 09/14/16 09:17; Start 09/14/16 at 01:00; Stop 09/14/16 at 10:31 ; Status DC Sodium Chloride (NS 1000 ml Inj) 1,000 ml @ 100 mls/hr Q10H IV Last administered on 09/15/16 20:51; Start 09/14/16 at 00:00 Amlodipine Besylate (Norvasc) 10 mg DAILY PO ; Start 09/14/16 at 09:00; Stop at 09:00; Status DC Lisinopril (Prinivil) 40 mg DAILY PO ; Start 09/14/16 at 09:00; Stop 09/14/16 at 09:00; Status DC Potassium Chloride (KCl) 10 meq DAILY PO Last administered on 09/15/16 08:41; Start 09/14/16 at 09:00 Pravastatin Sodium (Pravachol) 80 mg HS PO CM Last administered on 09/15/16 20: 49; Start 09/14/16 at 21:00 Acetaminophen 650 mg 650 mg Q4H PRN PO fever >101 Last administered on 21:00; Start 09/14/16 at 03:45 Cefepime HCl/ Sodium Chloride (Maxipime Inj/NS Inj) 100 ml @ 200 mls/hr Q12H IV Last administered on 09/15/16 20:49; Start 09/14/16 at 21:00 Potassium Chloride (KCl) 30 meq ONCE ONCE PO Last administered on 09/14/16 16 :27; Start 09/14/16 at 13:15; Stop 09/14/16 at 13:16; Status DC A/P Assessment and Plan A/P Sepsis, fever, tachycardia and positive UA- resolved switch to po antibiotic Blood cultures and UC negative so far Chest x-ray reviewed with no acute findings Hypertension takes enalapril and Norvasc at home will hold at this time due to low-normal BP- f/u as outpatient with pcp. Hyperlipidemia continue atorvastatin 40 daily at bedtime history of breast and endometrial cancer- f/u as outpatient DVT prophylaxis with Lovenox Discharge Planning dc home today. see med list. f/u; pcp and [employer] SAL[employer]PRESENT[employer]IVE/oncology. d/w the patient, her daughter and RN. Billy Amaya MD Sep 16, 2016 09:32
--- NOTE | 2016-09-16 09:33 | HHI.DS ---
Discharge Summary Admission Date Sep 13, 2016 at 19:35 Discharge Date: Sep 16, 2016 Admitting Diagnosis sepsis, UTI, status post chemotherapy (1) Sepsis ICD Code: A41.9 Diagnosis: Principal (2) UTI (urinary tract infection) ICD Code: N39.0 Diagnosis: Principal Procedures none Brief History - From Admission This is a 61-year-old female patient who is primarily Faroese-speaking translation per patient's daughter per patient request. Patient with past medical history which includes left breast cancer diagnosed 2003 status post left breast mastectomy chemotherapy and radiation, hyperlipidemia, hypertension , endometrial cancer diagnosed 2013 status post hysterectomy, currently undergoing chemotherapy. Patient's most recent chemotherapy was August 28, 2016. Patient reports that earlier today she began to have fever at home it was 101.9 and an elevated to 102 patient proceeded to the emergency department in the emergency room waiting room temperature noted to be 103.1. Patient also reports for the past approximately month she's been having dysuria as well as increased frequency of urination. Patient describes the dysuria more of a burning sensation after she urinates and while urinating. Patient also has had mild nausea. Patient denies cough or sputum production patient also denies shortness of breath chest pain diarrhea or constipation. CBC/BMP: 09/15/16 1041 09/14/16 0820 Significant Findings Laboratory Tests Test 09/13/16 09/13/16 09/13/16 09/14/16 17:30 17:40 17:50 08:20 Urine Leukocyte Esterase MOD (NEG) Urine WBC 11 /hpf (0-5) Urine WBC Clumps RARE (NONE) Urine Bacteria RARE /hpf (NONE) Urine Mucus FEW /lpf (OCC) White Blood Count 3.4 TH/MM3 3.0 TH/MM3 (4.0-11.0) (4.0-11.0) Red Cell Distribution Width 17.7 % 17.8 % (11.6-17.2) (11.6-17.2) Neutrophils (%) (Auto) 87.4 % (16.0-70.0) Lymphocytes (%) (Auto) 8.4 % (9.0-44.0) Lymphocytes # (Auto) 0.3 TH/MM3 0.6 TH/MM3 (1.0-4.8) (1.0-4.8) Ovalocytes 1+ (NORMAL) Crenated Cell 1+ (NORMAL) Keratocytes 1+ (NORMAL) Sodium Level 133 MEQ/L (136-145) Chloride Level 96 MEQ/L (98-107) Estimat Glomerular Filtration 58 ML/MIN (>89) 60 ML/MIN (>89) Rate Random Glucose 207 MG/DL (74-106) Magnesium Level 1.3 MG/DL (1.5-2.5) Albumin 2.9 GM/DL (3.4-5.0) Venous Blood pH 7.51 (7.360-7.400) Venous Blood Partial Pressure 33 mmHg (44-48) CO2 Venous Blood Partial Pressure 43 mmHg (35-40) O2 Venous Blood Oxygen Saturation 79 % (70-76) Venous Blood Base Excess 3.0 mmol/L (-2-2) Red Blood Count 3.95 MIL/MM3 (4.00-5.30) Hemoglobin 10.9 GM/DL (11.6-15.3) Hematocrit 32.5 % (35.0-46.0) Potassium Level 3.3 MEQ/L (3.5-5.1) Calcium Level 8.1 MG/DL (8.5-10.1) Test 09/15/16 10:41 White Blood Count 3.1 TH/MM3 (4.0-11.0) Hemoglobin 11.1 GM/DL (11.6-15.3) Hematocrit 32.8 % (35.0-46.0) Red Cell Distribution Width 17.7 % (11.6-17.2) Monocytes (%) (Auto) 10.4 % (0.0-8.0) Lymphocytes # (Auto) 0.8 TH/MM3 (1.0-4.8) Imaging Last Impressions Chest X-Ray 09/13/16 8078 Signed Impressions: Service Date/Time: Tuesday, September 13, 2016 17:47 - CONCLUSION: No acute disease. Olayinka Kincaid MD PE at Discharge GENERAL: This is a well-nourished, well-developed patient, in no apparent distress. CARDIOVASCULAR: Regular rate and regular rhythm without murmurs, gallops, or rubs. RESPIRATORY: Clear to auscultation. Breath sounds equal bilaterally. No wheezes , rales, or rhonchi. GASTROINTESTINAL: Abdomen soft, non-tender, nondistended. Normal, active bowel sounds MUSCULOSKELETAL: Extremities without clubbing, cyanosis, or edema. NEURO: Alert & Oriented x4 to person, place, time, situation. Moves all ext x4 Hospital Course Sepsis, fever, tachycardia and positive UA- resolved switch to po antibiotic Blood cultures and UC negative so far Chest x-ray reviewed with no acute findings Hypertension takes enalapril and Norvasc at home will hold at this time due to low-normal BP- f/u as outpatient with pcp. Hyperlipidemia continue atorvastatin 40 daily at bedtime history of breast and endometrial cancer- f/u as outpatient DVT prophylaxis with Lovenox Pt Condition on Discharge: Good Discharge Disposition: Discharge Home Discharge Time: <= 30 minutes Discharge Instructions DIET: Follow Instructions for: Heart Healthy Diet Activities you can perform: Regular-No Restrictions Follow up Referrals: Oncology PCP Follow-up New Medications: Ciprofloxacin (Cipro) 500 Mg Tab 500 MG PO BID Infection Days 5 Ref 0 TAB Continued Medications: Ergocalciferol (Drisdol) 50,000 Unit Cap 28920 UNITS PO Q7D Nutritional Supplement #30 Ref 0 CAP Potassium Chloride ER (K-Tab) 10 Meq Tab 10 MEQ PO DAILY Electrolyte Replacement #30 Ref 0 TAB Simvastatin (Simvastatin) 40 Mg Tab 40 MG PO HS Cholesterol Management #30 Ref 0 TAB Discontinued Medications: Amlodipine (Amlodipine) 10 Mg Tab 10 MG PO DAILY Blood Pressure Management #30 Ref 0 TAB Benazepril (Benazepril) 40 Mg Tab 40 MG PO DAILY Blood Pressure Management #30 Ref 0 TAB Billy Amaya MD Sep 16, 2016 09:32
[2016-11-12] MEDS ORDERED: METF500T PO (22:58)
== END 2016-09-16 11:49 | disposition home or self-care (01) | DRG 872 ==
LOC: NEPA 17:02 → NEDA 19:35 → HOCA 22:23
PROVIDERS: ADMIT Internal Medicine; ATTEND Internal Medicine
DX: A41.9 Sepsis, unspecified organism (principal); I10 Essential (primary) hypertension; N39.0 Urinary tract infection, site not specified; E78.5 Hyperlipidemia, unspecified; C54.1 Malignant neoplasm of endometrium
CPT/HCPCS: 71010; 80048; 80053; 81001; 82805; 83605; 83690; 83735; 85025; 87040; 87086; 87804; 93005; 96360; J0692; J1650; J2405; J7030

== ENCOUNTER 2016-11-02 21:25 | Inpatient (IN) | payer MEDICAID ==
[~2016-11-02] VITALS: Ht 149.9 cm; Wt 49.0 kg
[~2016-11-02 21:25] MED LIST changes: -1-ME1LIQ PO; -BENA40TA PO; +CIPR-9 PO; +DRIS50002 PO; -ERGO2000 PO; +K-TA10TA PO
[2016-11-02 21:27] VITALS: BP 146/85; PULSE 141; RESP 16; TEMP 97.6; O2SAT 98
[2016-11-02 21:47] VITALS: BP 128/78; PULSE 128; RESP 34; O2SAT 98
[2016-11-02] MEDS ORDERED: AMLO5TAB2 PO (21:50)
[2016-11-02] MEDS ORDERED: [UNRECOGNIZED DRUG - CODE] (21:50)
[2016-11-02] MEDS ORDERED: SODIUM CHLOR 0.9% 1000 ML INJ 1,000 ML IV ONE (21:56)
[2016-11-02] MEDS ORDERED: SODIUM CHLOR 0.9% 1000 ML INJ 800 ML IV ONE (21:56)
--- NOTE | 2016-11-02 22:05 | PD ---
HPI Chief Complaint: GI Complaint Time Seen by Provider: 21:50 Travel History International Travel<30 days: No Contact w/Intl Traveler<30days: No Traveled to known affect area: No History of Present Illness HPI This is a 61-year-old female who has a history of endometrial cancer followed by Dr. Gill on chemotherapy, last treatment one week ago who presents to the emergency department with 3 days of nausea, vomiting and loose stools, constant , moderate severity associated with diffuse abdominal discomfort with 1 day of left lower extremity swelling. Her daughter reports that her left leg became purple earlier today. Now it appears to have better color but it is quite painful and swollen. She's never had a blood clot in the past. The patient denies any fevers or chills. PFSH Past Medical History Cancer: Yes (L BREAST 2003, UTERINE ) Cardiovascular Problems: No High Cholesterol: Yes Chemotherapy: Yes (DOXO) Diabetes: No Endocrine: No Gastrointestinal Disorders: Yes Genitourinary: No Hepatitis: No Hiatal Hernia: No Hypertension: Yes Immune Disorder: No Musculoskeletal: No Neurologic: No Psychiatric: No Reproductive: No Respiratory: No Immunizations Current: Yes Radiation Therapy: Yes (last done 10 years ago ) Thyroid Disease: No Past Surgical History Abdominal Surgery: Yes (CHOLECYSTECTOMY 1996) AICD: No Gynecologic Surgery: Yes (HYSTERECTOMY FEB 2014) Hysterectomy: Yes Joint Replacement: No Pacemaker: No Thoracic Surgery: Yes (L BREAST MASTECTOMY WITH CHEMO/RADIATION 2003) Other Surgery: Yes Social History Alcohol Use: No Tobacco Use: No Substance Use: No Allergies-Medications (Allergen,Severity, Reaction): Coded Allergies: Paclitaxel (Verified Allergy, Severe, Shortness of Breath, 11/02/16) Vancomycin (Unverified Allergy, Mild, ITCHING, 11/02/16) Reported Meds & Prescriptions Reported Meds & Active Scripts Active Reported Adriamycin (Doxorubicin HCl) 2 Mg/Ml Inj Unknown Dose Amlodipine (Amlodipine Besylate) 5 Mg Tab 5 Mg PO DAILY K-Tab (Potassium Chloride) 10 Meq Tab 10 Meq PO DAILY Simvastatin 40 Mg Tab 40 Mg PO HS Review of Systems Except as stated in HPI: all other systems reviewed are Neg Physical Exam Narrative GENERAL: Frail elderly female in no acute distress. SKIN: Dry with skin tenting. HEAD: Atraumatic. Normocephalic. EYES: Pupils equal and round. No injection or drainage. ENT: Dry mucous membranes. NECK: Trachea midline. CARDIOVASCULAR: Tachycardic. No murmur appreciated. 2+ left DP pulse with normal capillary refill. RESPIRATORY: Clear to auscultation. Breath sounds equal bilaterally. GASTROINTESTINAL: Abdomen soft, mildly diffusely tender with no rebound or guarding. MUSCULOSKELETAL: Tense edema of the left lower extremity NEUROLOGICAL: Awake and alert. No obvious cranial nerve deficits. Moving all extremities. PSYCHIATRIC: Appropriate mood and affect; insight and judgment normal. Data Data Last Documented VS Vital Signs Date Time Temp Pulse Resp B/P Pulse Ox O2 Delivery O2 Flow Rate FiO2 11/02/16 21:47 128 34 128/78 98 Room Air 11/02/16 21:27 97.6 Orders Electrocardiogram (11/02/16 21:56) Complete Blood Count With Diff (11/02/16 21:56) Comprehensive Metabolic Panel (11/02/16 21:56) Lactic Acid Sepsis Protocol (11/02/16 21:56) Lipase (11/02/16 21:56) Urinalysis - C+S If Indicated (11/02/16 21:56) Blood Culture (11/02/16 21:56) Blood Glucose (11/02/16 21:56) Ecg Monitoring (11/02/16 21:56) Iv Access Insert/Monitor (11/02/16 21:56) Oximetry (11/02/16 21:56) Oxygen Administration (11/02/16 21:56) Sodium Chlor 0.9% 1000 Ml Inj (Ns 1000 M (11/02/16 21:56) Sodium Chlor 0.9% 1000 Ml Inj (Ns 1000 M (11/02/16 21:56) Us Leg Venous Doppler (11/02/16 ) Prothrombin Time / Inr (Pt) (11/02/16 22:32) Act Partial Throm Time (Ptt) (11/02/16 22:32) Ondansetron Inj (Zofran Inj) (11/02/16 22:45) Ct Abd/Pel W/O Iv Contrast (11/02/16 ) Act Partial Throm Time (Ptt) (11/02/16 23:44) Admit Order (Ed Use Only) (11/03/16 01:55) Heparin Infusion BEN.Q1H (11/03/16 01:55) Heparin Inj (Heparin Inj) (11/03/16 02:00) Heparin-D5w Inj (Heparin-D5w Inj) (11/03/16 02:00) Cbc No Diff, Includes Plts (11/03/16 01:55) Cbc No Diff, Includes Plts (11/06/16 06:00) Act Partial Throm Time (Ptt) (11/03/16 08:55) Occult Blood (Hemoccult) Stool (11/03/16 01:55) Labs Laboratory Tests Test 11/02/16 11/03/16 22:20 00:15 White Blood Count 9.8 TH/MM3 Red Blood Count 3.58 MIL/MM3 Hemoglobin 9.9 GM/DL Hematocrit 28.8 % Mean Corpuscular Volume 80.5 FL Mean Corpuscular Hemoglobin 27.6 PG Mean Corpuscular Hemoglobin 34.3 % Concent Red Cell Distribution Width 17.7 % Platelet Count 227 TH/MM3 Mean Platelet Volume 7.7 FL Neutrophils (%) (Auto) 93.9 % Lymphocytes (%) (Auto) 3.4 % Monocytes (%) (Auto) 2.6 % Eosinophils (%) (Auto) 0.0 % Basophils (%) (Auto) 0.1 % Neutrophils # (Auto) 9.2 TH/MM3 Lymphocytes # (Auto) 0.3 TH/MM3 Monocytes # (Auto) 0.3 TH/MM3 Eosinophils # (Auto) 0.0 TH/MM3 Basophils # (Auto) 0.0 TH/MM3 CBC Comment DIFF FINAL Differential Comment Prothrombin Time 12.8 SEC Prothromb Time International 1.2 RATIO Ratio Activated Partial 97.7 SEC 30.7 SEC Thromboplast Time Sodium Level 128 MEQ/L Potassium Level 3.0 MEQ/L Chloride Level 88 MEQ/L Carbon Dioxide Level 27.7 MEQ/L Anion Gap 12 MEQ/L Blood Urea Nitrogen 12 MG/DL Creatinine 1.49 MG/DL Estimat Glomerular Filtration 36 ML/MIN Rate Random Glucose 203 MG/DL Lactic Acid Level 1.5 mmol/L Calcium Level 9.6 MG/DL Total Bilirubin 0.6 MG/DL Aspartate Amino Transf 16 U/L (AST/SGOT) Alanine Aminotransferase 10 U/L (ALT/SGPT) Alkaline Phosphatase 82 U/L Total Protein 7.5 GM/DL Albumin 3.0 GM/DL Lipase 198 U/L MDM Medical Decision Making Medical Screen Exam Complete: Yes Emergency Medical Condition: Yes Interpretation(s) Afebrile, tachycardic, mild hypertension Anemia similar to prior 93% neutrophils Hyponatremia Hypokalemia Renal insufficiency GFR is 36 Lactic acid is normal Lipase is normal Last 24 hours Impressions Lower Extremity Ultrasound 11/02/16 0000 Signed Impressions: Service Date/Time: Wednesday, November 02, 2016 22:35 - CONCLUSION: Acute DVT throughout the left lower extremity. Olayinka Kincaid MD CT abdomen and pelvis: Mass at the left psoas and iliacus muscle Differential Diagnosis DVT, cellulitis, sepsis, dehydration, bowel obstruction Narrative Course This is a 61-year-old female who presents to the emergency department with left lower extremity swelling, nausea, vomiting and loose stools. She is placed on a monitor and an IV was established. She was tachycardic and clinically appears dehydrated. She was given 2 L of IV hydration. Labs demonstrate some dehydration with hyponatremia and renal insufficiency. Ultrasound of the left lower extremity demonstrates an extensive acute DVT. Patient was started on heparin. CT abdomen and pelvis demonstrates a left pelvic mass. Patient will be admitted for continued hydration and anticoagulation. Physician Communication Physician Communication Discussed with Dr. Ramirez Diagnosis Primary Impression: DVT (deep venous thrombosis) Qualified Code: I82.402 - Acute deep vein thrombosis (DVT) of left lower extremity, unspecified vein Additional Impression: Dehydration Admitting Information Admitting Physician Requests: Admit Emy Parsons MD Nov 02, 2016 22:05
[2016-11-02] MEDS ORDERED: ONDANSETRON HCL 4 MG/2 ML VIAL IV PUSH ONE (22:45)
[2016-11-02 22:55] LABS: ANION GAP 12 MEQ/L (5-15); AST (GOT) 16 U/L (15-37); AUTOMATED NEUTROPHIL # 9.2 TH/MM3 (1.8-7.7); BASOPHIL % 0.1 % (0.0-2.0); BICARBONATE 27.7 MEQ/L (21.0-32.0); BLOOD UREA NITROGEN 12 MG/DL (7-18); CHLORIDE 88 MEQ/L (98-107); GLOMERULAR FILTRATION RATE 36 ML/MIN (>89); HEMATOCRIT 28.8 % (35.0-46.0); HEMO FLAGS DIFF FINAL; LYMPH % 3.4 % (9.0-44.0); LYMPHOCYTE # 0.3 TH/MM3 (1.0-4.8); MEAN CELL VOLUME 80.5 FL (80.0-100.0); MEAN CORPUSCULAR HEMOGLOBIN 27.6 PG (27.0-34.0); MEAN CORPUSCULAR HGB CONC 34.3 % (32.0-36.0); MONO % 2.6 % (0.0-8.0); NEUT % 93.9 % (16.0-70.0); PLATELET COUNT 227 TH/MM3 (150-450); RED BLOOD COUNT 3.58 MIL/MM3 (4.00-5.30); RED CELL DISTRIBUTION WIDTH 17.7 % (11.6-17.2); SODIUM (NA) 128 MEQ/L (136-145); WHITE BLOOD COUNT 9.8 TH/MM3 (4.0-11.0)
[2016-11-02 22:58] LABS: ALKALINE PHOSPHATASE 82 U/L (45-117); ALT (GPT) 10 U/L (10-53); TOTAL BILIRUBIN ADULT 0.6 MG/DL (0.2-1.0)
[2016-11-02 23:01] LABS: INTERNATIONAL NORMALIZED RATIO 1.2 RATIO; PROTHROMBIN TIME - PATIENT 12.8 SEC (9.8-11.6)
[2016-11-02 23:31] LABS: APTT (PATIENT) 97.7 SEC (24.3-30.1)
--- NOTE | 2016-11-02 23:40 | RADRPT ---
EXAM DATE/TIME: 11/02/2016 22:35 [facility] COMPARISON: No previous studies available for comparison. INDICATIONS : Left leg swelling. MEDICAL HISTORY : Hypercholesterolemia. Carcinoma, breast. Hypertension. Hearing loss. Chemotherapy. Radiation thera py. Uterine cancer. Blood transfusion. SURGICAL HISTORY : Cholecystectomy. Hysterectomy. Mastectomy, left. Bunionectomy. Right wrist fracture repair. ENCOUNTER: Initial ACUITY: 1 day PAIN SCORE: 3/10 LOCATION: Left leg. TECHNIQUE: Venous ultrasound of the leg was performed from the inguinal ligament to the proximal calf. Real-allison e, color Doppler and spectral tracing, compression and augmentation techniques were used. FINDINGS: There is occlusive thrombus in the external iliac vein through to the peroneal vein including the com mon femoral vein, femoral vein, greater saphenous vein, and popliteal veins. The veins do appear enla rged consistent with acute thrombus.CONCLUSION: Acute DVT throughout the left lower extremity. Olayinka Kincaid MD on November 02, 2016 at 23:37 Board Certified Radiologist. This report was verified electronically.
--- NOTE | 2016-11-03 00:54 | RADRPT ---
EXAM DATE/TIME: 11/03/2016 00:18 [place] Corrected on: November 03, 2016; [facility] COMPARISON: No previous studies available for comparison. INDICATIONS : Diffuse abdominal pain with nausea, vomiting and diarrhea x3 days. Left leg swelling today. ORAL CONTRAST: No oral contrast ingested. RADIATION DOSE: 4.85 CTDIvol (mGy) MEDICAL HISTORY : Left breast cancer. Endometrial cancer. SURGICAL HISTORY : Hysterectomy. Cholecystectomy. ENCOUNTER: Initial ACUITY: 3 days PAIN SCALE: 8/10 LOCATION: Bilateral abdomen. TECHNIQUE: Volumetric scanning of the abdomen and pelvis was performed. Using automated exposure control and ad justment of the mA and/or kV according to patient size, radiation dose was kept as low as reasonably achievable to obtain optimal diagnostic quality images. FINDINGS: LOWER CHEST: The visualized lower lungs are clear. The patient is status post left mastectomy. LIVER: Homogeneous density without lesion. There is no dilation of the biliary tree. The patient is status post cholecystectomy. SPLEEN: Normal size without lesion. PANCREAS: Within normal limits. KIDNEYS: There is severe dilatation of the left collecting system and proximal left ureter. The more distal le ft ureter is not dilated. The transition occurs at the level of a low density mass at the left psoas. The right kidney is unremarkable. ADRENAL GLANDS: Within normal limits. VASCULAR: There is no aortic aneurysm. Atherosclerotic calcifications are seen throughout the arterial system. BOWEL/MESENTERY: The stomach, small bowel, and colon demonstrate no acute abnormality. There is a moderate amount of a scites seen. There is increased density seen throughout the mesentery. ABDOMINAL WALL: Within normal limits. RETROPERITONEUM: There is a 5 cm low-density mass seen at the posterior left psoas muscle. This appears to extend into the left iliacus muscle with the left iliacus muscle appearing larger than the right side. BLADDER: No wall thickening or mass. REPRODUCTIVE: The patient is status post hysterectomy. INGUINAL: There is no lymphadenopathy or hernia. Some induration seen around the fat at the left femoral vessel s at the left groin. This is likely secondary to edema. MUSCULOSKELETAL: Within normal limits for patient age. CONCLUSION: 1. Left retroperitoneal low-density mass at the left psoas and iliacus muscle. This is nonspecific. A metastatic lesion could have this appearance. Abscess or old hemorrhage could have this appearance. No high density material to suggest acute hemorrhage is present. This is likely causing the dilatatio n of the left collecting system and proximal left ureter. It also may be contributing to the left low er extremity edema. 2. Moderate ascites with increased density seen throughout the mesentery concerning for omental cakin g and metastatic disease. Olayinka Kincaid MD on November 03, 2016 at 0:43 Board Certified Radiologist. This report was verified electronically. Olayinka Kincaid MD on November 03, 2016 at 0:56 Board Certified Radiologist. This report was verified electronically.
[2016-11-03 01:27] LABS: APTT (PATIENT) 30.7 SEC (24.3-30.1)
[2016-11-03] MEDS ORDERED: HEPARIN SODIUM - IV 10,000 UNITS/10 ML VIAL IV ONE (02:00)
[2016-11-03] MEDS ORDERED: ACETAMINOPHEN 325 MG TAB PO PRN (02:15)
[2016-11-03] MEDS ORDERED: PANTOPRAZOLE SODIUM 40 MG VIAL IV PUSH ONE (02:15)
[2016-11-03] MEDS ORDERED: BISACODYL 10 MG SUPP RECTAL PRN (02:15)
[2016-11-03] MEDS ORDERED: SODIUM CHLORIDE 0.9% FLUSH 10 ML FLUSH IV FLUSH PRN (02:15)
[2016-11-03] MEDS ORDERED: MORPHINE SULFATE 4 MG/ML INJ IV PRN (02:15)
--- NOTE | 2016-11-03 02:46 | HHI.HP ---
HPI Service [facility] Primary Care Physician Juancarlos Corrigan MD Admission Diagnosis dehydration, dvt Diagnoses: (1) DVT (deep venous thrombosis) Diagnosis: Principal (2) LAST (acute kidney injury) Diagnosis: Principal (3) Nausea & vomiting Diagnosis: Principal (4) Hyperglycemia Diagnosis: Principal (5) Hyponatremia Diagnosis: Principal (6) Hypokalemia Diagnosis: Principal (7) Endometrial ca Diagnosis: Principal Travel History International Travel<30 Days: No Contact w/Intl Traveler <30 Da: No Traveled to Known Affected Are: No History of Present Illness This is a 61-year-old female with a PMH of Endometrial CA, Breast CA s/ p Chemo/Radiation 2003 and HTN who is brought into the ER by her Daughter for complaints of abdominal pain, nausea and vomiting x1 day. Currently on Chemo, following w/ Dr. Gill, states last Chemo was on Friday, next Chemo scheduled for November 13. Pt states she also noted swelling to left leg and significant pain starting earlier today. Denies fever, chills or diarrhea. On arrival, BP 146/85, HR 141, O2 sat 98% on RA, Afebrile. WBC normal, elevated neutrophil count. Hgb 9.9. Creatinine 1.49, produces 0.95 on 09/14/16. Na 128. K+ 3.0. BS 203. Lactic Acid 1.5. CT Abd/Pelvis w/ left retroperitoneal mass, likely causing dilatation of left collecting system and proximal left ureter, likely contributing to left lower extremity edema, moderate ascites with increased density of mesentery concerning for omental caking and metastatic disease. LLE Doppler w/ acute DVT throughout left lower extremity. No h/o DVT/PE. Started on Heparin gtt in ER. Review of Systems Except as stated in HPI: all other systems reviewed are Neg ROS: 14 point review of systems otherwise negative. Past Family Social History Past Medical History PMH: Endometrial CA on Chemo, Breast CA s/p Chemo/Radiation 2003 and HTN Past Surgical History PAST SURGICAL HISTORY: Cholecystectomy, Hysterectomy, Left Breast Mastectomy s/ p Chemo/Radiation Allergies: Coded Allergies: Paclitaxel (Verified Allergy, Severe, Shortness of Breath, 11/02/16) Vancomycin (Unverified Allergy, Mild, ITCHING, 11/02/16) Family History PAST FAMILY HISTORY: Reviewed. No h/o DM or CAD Social History PAST SOCIAL HISTORY: Negative for alcohol, tobacco or drugs. Physical Exam Vital Signs Vital Signs Date Time Temp Pulse Resp B/P Pulse Ox O2 Delivery O2 Flow Rate FiO2 11/02/16 21:47 128 34 128/78 98 Room Air 11/02/16 21:27 97.6 141 16 146/85 98 Room Air Physical Exam PE: GENERAL: Very pleasant middle-aged female in no acute distress, thin. Daughter at bedside. HEENT: PERRLA, EOMI. No scleral icterus or conjunctival pallor. No lid lag or facial droop. CARDIOVASCULAR: Regular rate and rhythm. No obvious murmurs to auscultation. No chest tenderness to palpation. RESPIRATORY: No obvious rhonchi or wheezing. Clear to auscultation. Breath sounds equal bilaterally. GASTROINTESTINAL: Abdomen soft, mild generalized tenderness to palpation, nondistended. BS normal. MUSCULOSKELETAL: Extremities without clubbing, cyanosis, or edema RLE. LLE w/ + edema, tenderness to palpation. No obvious deformities. NEUROLOGICAL: Awake, alert and oriented x4. No focal neurologic deficits. Moving both upper and lower extremities spontaneously. Laboratory Laboratory Tests Test 11/02/16 11/03/16 22:20 00:15 White Blood Count 9.8 Red Blood Count 3.58 Hemoglobin 9.9 Hematocrit 28.8 Mean Corpuscular Volume 80.5 Mean Corpuscular Hemoglobin 27.6 Mean Corpuscular Hemoglobin 34.3 Concent Red Cell Distribution Width 17.7 Platelet Count 227 Mean Platelet Volume 7.7 Neutrophils (%) (Auto) 93.9 Lymphocytes (%) (Auto) 3.4 Monocytes (%) (Auto) 2.6 Eosinophils (%) (Auto) 0.0 Basophils (%) (Auto) 0.1 Neutrophils # (Auto) 9.2 Lymphocytes # (Auto) 0.3 Monocytes # (Auto) 0.3 Eosinophils # (Auto) 0.0 Basophils # (Auto) 0.0 CBC Comment DIFF FINAL Differential Comment Prothrombin Time 12.8 Prothromb Time International 1.2 Ratio Activated Partial 97.7 30.7 Thromboplast Time Sodium Level 128 Potassium Level 3.0 Chloride Level 88 Carbon Dioxide Level 27.7 Anion Gap 12 Blood Urea Nitrogen 12 Creatinine 1.49 Estimat Glomerular Filtration 36 Rate Random Glucose 203 Lactic Acid Level 1.5 Calcium Level 9.6 Total Bilirubin 0.6 Aspartate Amino Transf 16 (AST/SGOT) Alanine Aminotransferase 10 (ALT/SGPT) Alkaline Phosphatase 82 Total Protein 7.5 Albumin 3.0 Lipase 198 Date/Time Procedure Status Source Growth 11/02/16 22:20 Aerobic Blood Culture Received Blood Peripheral Pending 11/02/16 22:20 Anaerobic Blood Culture Received Blood Peripheral Pending Result Diagram: 11/02/16221911/02/162219 Assessment and Plan Problem List: (1) DVT (deep venous thrombosis) ICD Code: I82.409 Status: Acute (2) Nausea & vomiting ICD Code: R11.2 Status: Acute (3) LAST (acute kidney injury) ICD Code: N17.9 Status: Acute (4) Hyponatremia ICD Code: E87.1 Status: Acute (5) Hypokalemia ICD Code: E87.6 Status: Acute (6) Hyperglycemia ICD Code: R73.9 Status: Acute (7) Endometrial ca ICD Code: C54.1 Status: Acute Assessment and Plan A/P: 1. LLE DVT: acute onset of LLE swelling/pain, LLE Doppler w/ acute DVT throughout left lower extremity, images reviewed by me. No h/o DVT/PE, likely secondary to compression from abdominal mass noted on CT Abd/Pelvis. Started on Heparin gtt in ER, will continue. 2. Nausea/Vomiting: acute onset of nausea/vomiting, unable to take PO, IVF, diet as tolerated, Protonix IV, analgesics/antiemetics as needed. 3. LAST: Creatinine 1.49, previously 0.95 on 09/14/16, likely secondary to dehydration from nausea/vomiting. Check UA, IVF for hydration, repeat labs in a.m. 4. Hyponatremia: Na 128, likely secondary to above. IVF for hydration, repeat labs in am. 5. Hypokalemia: K+ 3.0, will replace and recheck in am, additional replacement as needed. 6. Hyperglycemia: BS 203, no h/o DM. Check Hgb A1c, sliding scale w/ Accu- Cheks as needed. 7. Endometrial CA: On Chemo, following w/ Dr. Gill as outpatient, last Chemo on Friday, next session November 13. Will consult as needed. 8. DVT Prophylaxis: On Heparin gtt for Acute DVT as above. 9. Social work for d/c planning as needed. 10. Case discussed w/ ER physician at length. Physician Certification 2 Midnight Certification Type: Admission for Inpatient Services Order for Inpatient Services The services are ordered in accordance with Medicare regulations or non- Medicare payer requirements, as applicable. In the case of services not specified as inpatient-only, they are appropriately provided as inpatient services in accordance with the 2-midnight benchmark. Estimated LOS (days): 2 days is the estimated time the patient will need to remain in the hospital, assuming treatment plan goals are met and no additional complications. Post-Hospital Plan: Not yet determined Anita Brennan MD Nov 03, 2016 02:46
[2016-11-03] MEDS: ONDANSETRON HCL 4 MG/2 ML VIAL IV PUSH PRN ×3 (03:06→20:27)
[2016-11-03] MEDS: HEPARIN-D5W INJ 250 ML IV SCH (03:09)
[2016-11-03 03:11] VITALS: BP 133/86; PULSE 101; RESP 17; O2SAT 97
[2016-11-03 03:31] LABS: BACTERIA, URINE RARE /hpf; BLOOD, URINE SMALL (NEG); GLUCOSE,URINE NEG (NEG); KETONE, URINE NEG (NEG); MUCUS URINE FEW /lpf (OCC); NITRITE,URINE NEG (NEG); PH, URINE 6.5 (5.0-8.5); URINE COLOR YELLOW (YELLW/STRAW)
[2016-11-03 03:37] LABS: COMMENT (UR) CATH-CULTURE IND; CULTURE IF INDICATED CATH CULTURE IND
[2016-11-03 03:46] LABS: HEMATOCRIT 28.6 % (35.0-46.0); MEAN CELL VOLUME 79.2 FL (80.0-100.0); MEAN CORPUSCULAR HEMOGLOBIN 28.4 PG (27.0-34.0); MEAN CORPUSCULAR HGB CONC 35.8 % (32.0-36.0); PLATELET COUNT 245 TH/MM3 (150-450); RED BLOOD COUNT 3.61 MIL/MM3 (4.00-5.30); WHITE BLOOD COUNT 8.4 TH/MM3 (4.0-11.0)
[2016-11-03] MEDS: POTASSIUM CHLOR 20 MEQ PREMIX 100 ML IV SCH ×4 (04:45→12:29)
[2016-11-03 05:06] LABS: REVIEW FLAG FINAL
[2016-11-03] MEDS: SODIUM CHLOR 0.9% 1000 ML INJ 1,000 ML IV SCH ×3 (05:39→20:36)
[2016-11-03 06:30] VITALS: BP 125/76; PULSE 107; RESP 18; TEMP 97.7; O2SAT 100
[2016-11-03 07:11] LABS: ALKALINE PHOSPHATASE 66 U/L (45-117); ALT (GPT) 10 U/L (10-53); ANION GAP 9 MEQ/L (5-15); AST (GOT) 16 U/L (15-37); BLOOD UREA NITROGEN 9 MG/DL (7-18); CHLORIDE 98 MEQ/L (98-107); GLOMERULAR FILTRATION RATE 46 ML/MIN (>89); SODIUM (NA) 134 MEQ/L (136-145); TOTAL BILIRUBIN ADULT 0.4 MG/DL (0.2-1.0)
[2016-11-03 07:20] LABS: AUTOMATED NEUTROPHIL # 5.2 TH/MM3 (1.8-7.7); BASOPHIL % 0.2 % (0.0-2.0); EOSINOPHIL % 0.2 % (0.0-4.0); HEMATOCRIT 24.6 % (35.0-46.0); HEMO FLAGS DIFF FINAL; LYMPH % 12.5 % (9.0-44.0); LYMPHOCYTE # 0.8 TH/MM3 (1.0-4.8); MEAN CELL VOLUME 80.8 FL (80.0-100.0); MEAN CORPUSCULAR HEMOGLOBIN 27.5 PG (27.0-34.0); NEUT % 83.1 % (16.0-70.0); PLATELET COUNT 184 TH/MM3 (150-450); RED BLOOD COUNT 3.04 MIL/MM3 (4.00-5.30); RED CELL DISTRIBUTION WIDTH 17.7 % (11.6-17.2); WHITE BLOOD COUNT 6.3 TH/MM3 (4.0-11.0)
[2016-11-03 07:22] LABS: POTASSIUM 2.9 MEQ/L (3.5-5.1)
[2016-11-03 07:50] VITALS: BP 125/75; PULSE 96; RESP 20; TEMP 97.9; O2SAT 97
[2016-11-03 09:44] LABS: APTT (PATIENT) 49.2 SEC (24.3-30.1)
[2016-11-03] MEDS: ACETAMINOPHEN/HYDROcodone 325 MG/5 MG TAB PO PRN ×3 (09:59→18:07)
[2016-11-03] MEDS: SODIUM CHLORIDE 0.9% FLUSH 10 ML FLUSH IV FLUSH SCH ×2 (10:00→20:27)
--- NOTE | 2016-11-03 10:23 | EKG ---
Date Performed: 11/02/2016 Time Performed: 21:50:20 PTAGE: 61 years EKG: SINUS TACHYCARDIA NONSPECIFIC T-WAVE ABNORMALITY ABNORMAL RHYTHM ECG Compared to prior trac ing no significant change PREVIOUS TRACING : 09/13/2016 19.12 DOCTOR: Deejay Richard Interpretating Date/Time 11/03/2016 10:21:58
[2016-11-03] MEDS: MAGNESIUM SULFATE 1 GM PREMIX 100 ML IV SCH ×2 (11:22→13:32)
[2016-11-03 11:50] VITALS: BP 107/74; PULSE 96; RESP 20; TEMP 98.2; O2SAT 98
--- NOTE | 2016-11-03 13:26 | HHI.PR ---
Subjective Remarks Patient seen and examined. She agreed for her daughter to interpret. She complains of heartburn. She has chronic abdominal pain. Awaiting to receive a pain medication. Reports some cramps in the legs bilaterally. Denies vaginal bleeding. She tolerated minimal amount of her breakfast. Some nausea, no vomiting. Objective Vitals Vital Signs Date Time Temp Pulse Resp B/P Pulse Ox O2 Delivery O2 Flow Rate FiO2 11/03/16 07:50 97.9 96 20 125/75 97 11/03/16 06:30 97.7 107 18 125/76 100 11/03/16 03:11 101 17 133/86 97 Room Air 11/02/16 21:47 128 34 128/78 98 Room Air 11/02/16 21:27 97.6 141 16 146/85 98 Room Air Result Diagram: 11/03/16 0530 11/03/16 0530 Imaging Last Impressions Lower Extremity Ultrasound 11/02/16 0000 Signed Impressions: Service Date/Time: Wednesday, November 02, 2016 22:35 - CONCLUSION: Acute DVT throughout the left lower extremity. Olayinka Kincaid MD Abdomen/Pelvis CT 11/02/16 0000 Signed Impressions: Service Date/Time: Thursday, November 03, 2016 00:18 - CONCLUSION: 1. Left retroperitoneal low-density mass at the left psoas and iliacus muscle. This is nonspecific. A metastatic lesion could have this appearance. Abscess or old hemorrhage could have this appearance. No high density material to suggest acute hemorrhage is present. This is likely causing the dilatation of the left collecting system and proximal left ureter. It also may be contributing to the left lower extremity edema. 2. Moderate ascites with increased density seen throughout the mesentery concerning for omental caking and metastatic disease. Olayinka Kincaid MD Objective Remarks GENERAL: Patient appearing older than stated age, in no apparent distress. CARDIOVASCULAR: Normal rate and regular rhythm without murmurs, gallops, or rubs. RESPIRATORY: Good respiratory efforts. Breath sounds equal and clear to auscultation bilaterally. GASTROINTESTINAL: Abdomen soft, mild tenderness to palpation in the suprapubic area. Normal active bowel sounds MUSCULOSKELETAL: Left lower extremity is edematous up to the knees. Mild tenderness to palpation. NEURO: Alert & Oriented x4 to person, place, time, situation. Moves all ext x4 PSYCH: Appropriate mood and affect. A/P Problem List: (1) DVT (deep venous thrombosis) ICD Code: I82.409 Status: Acute (2) Nausea & vomiting ICD Code: R11.2 Status: Acute (3) LAST (acute kidney injury) ICD Code: N17.9 Status: Acute (4) Hyponatremia ICD Code: E87.1 Status: Acute (5) Hypokalemia ICD Code: E87.6 Status: Acute (6) Hyperglycemia ICD Code: R73.9 Status: Acute (7) Endometrial ca ICD Code: C54.1 Status: Acute Assessment and Plan 61-year-old female with history of recurrent uterine carcinoma and pelvic tumors admitted with new onset left lower extremity DVT, nausea, vomiting, dehydration and electrolyte abnormalities. LLE DVT: Acute onset of LLE swelling/pain, LLE Doppler w/ acute DVT throughout left lower extremity. No h/o DVT/PE, likely secondary to compression from abdominal mass noted on CT Abd/Pelvis. Patient has been more sedentary since she started Radiation. - Started on Heparin gtt in ER, will continue. Will consider transitioning to Lovenox or other anticoagulants pending further input from oncologist. H/O Uterine carcinoma recurrence/pelvic tumors: Currently undergoing radiation. She denies any vaginal bleeding since September. This has been an issue for her. No prior imaging here for comparison to rule out progression - Consult the patient oncologist, Dr. Gill for assistance. Nausea/Vomiting: acute onset of nausea/vomiting, unable to take PO, IVF, diet as tolerated, Protonix IV, analgesics/antiemetics as needed. LAST: Creatinine 1.49 on admission, previously 0.95 on 09/14/16, likely secondary to dehydration from nausea/vomiting. Mass also causing some dilation of the left collecting system. IVF for hydration, follow-up labs. Hyponatremia: Likely secondary to above. IVF for hydration, repeat labs in am. Hypokalemia: Replace and recheck in am, additional replacement as needed. Hypomagnesemia: Replace and monitor Hyperglycemia: BS 203, no h/o DM. Check Hgb A1c, sliding scale w/ Accu-Cheks as needed. DVT Prophylaxis: On Heparin gtt for Acute DVT as above. Problem Qualifiers (1) DVT (deep venous thrombosis): Qualified Code: I82.402 - Acute deep vein thrombosis (DVT) of left lower extremity, unspecified vein Iván Dorado MD Nov 03, 2016 13:26
[2016-11-03 13:30] LABS: HEMOGLOBIN A1a 3.5 %; HEMOGLOBIN A1b 1.8 %; HEMOGLOBIN Ao 81.5 %; HEMOGLOBIN LA1C 1.9 %
[2016-11-03 16:30] LABS: APTT (PATIENT) 54.4 SEC (24.3-30.1)
[2016-11-03 20:00] VITALS: BP 109/69; PULSE 92; RESP 16; TEMP 97.8; O2SAT 96
[2016-11-03] MEDS: PANTOPRAZOLE SODIUM 40 MG VIAL IV PUSH SCH (20:27)
[2016-11-04] VITALS (10 sets, daily range): BP systolic 98–134; BP diastolic 60–83; PULSE 76–104; RESP 14–20; TEMP 97.1–99.4; O2SAT 95–100
[2016-11-04] MEDS: ACETAMINOPHEN/HYDROcodone 325 MG/5 MG TAB PO PRN (04:54)
[2016-11-04 06:57] LABS: HEMATOCRIT 21.8 % (35.0-46.0); MEAN CELL VOLUME 81.7 FL (80.0-100.0); MEAN CORPUSCULAR HEMOGLOBIN 27.3 PG (27.0-34.0); MEAN CORPUSCULAR HGB CONC 33.4 % (32.0-36.0); PLATELET COUNT 172 TH/MM3 (150-450); RED BLOOD COUNT 2.67 MIL/MM3 (4.00-5.30); RED CELL DISTRIBUTION WIDTH 18.3 % (11.6-17.2); REVIEW FLAG FINAL; WHITE BLOOD COUNT 4.1 TH/MM3 (4.0-11.0)
[2016-11-04 07:11] LABS: BICARBONATE 25.2 MEQ/L (21.0-32.0); MAGNESIUM 1.5 MG/DL (1.5-2.5); POTASSIUM 3.6 MEQ/L (3.5-5.1)
[2016-11-04] MEDS: PANTOPRAZOLE SODIUM 40 MG VIAL IV PUSH SCH ×2 (07:55→20:47)
[2016-11-04] MEDS: SODIUM CHLORIDE 0.9% FLUSH 10 ML FLUSH IV FLUSH SCH ×2 (07:55→20:47)
[2016-11-04] MEDS: HEPARIN-D5W INJ 250 ML IV SCH (07:55)
[2016-11-04] MEDS: ONDANSETRON HCL 4 MG/2 ML VIAL IV PUSH PRN (08:02)
[2016-11-04] MEDS: SODIUM CHLOR 0.9% 1000 ML INJ 1,000 ML IV SCH ×2 (08:09→20:47)
[2016-11-04] MEDS ORDERED: SODIUM CHLOR 0.9% 250 ML INJ 250 ML IV ONE (08:15)
[2016-11-04] MEDS ORDERED: diphenhydrAMINE HCL 25 MG CAP PO PRN ×2 (08:15→13:15)
[2016-11-04] MEDS ORDERED: ACETAMINOPHEN 325 MG TAB PO PRN ×2 (08:15→13:15)
--- NOTE | 2016-11-04 09:22 | PD.CONS ---
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 She recently completed treatment with radiation of vaginal recurrent disease to control bleeding. Once she completed radiation she was restarted on IV chemo her last dose (and first since completed radiation ) was 10/23/16 Doxil. Her daughter reports that her mother was having nausea and vomiting with swelling to LLE that was causing her pain and pressure. She was brought to [place] ER for further evaluation. Ms. Lawson states that the nausea and vomiting started with the radiation and has continued since completed treatment. Imaging in ER shown LLE DVT, she was started on Heparin gtt and admitted for management. She was also found to have LAST and dehydration. Review of Systems Constitutional: COMPLAINS OF: Change in appetite Gastrointestinal: COMPLAINS OF: Diarrhea, Nausea, Vomiting LLE swelling and pain Past Family Social History Allergies: Coded Allergies: Paclitaxel (Verified Allergy, Severe, Shortness of Breath, 11/02/16) Vancomycin (Unverified Allergy, Mild, ITCHING, 11/02/16) Past Medical History endometrial cancer stage 3C grade 3 breast cancer HTN Past Surgical History RA lap hyst with BSO jahaira Left breast mastectomy Reported Medications Per EMR Active Ordered Medications Current Medications Sodium Chloride 1,000 ml @ 1,000 mls/hr Q1H ONCE IV Last administered on 22:31; Start 11/02/16 at 21:56; Stop 11/02/16 at 22:55; Status DC Sodium Chloride (NS 1000 ml Inj) 800 ml @ 1,000 mls/hr Q48M ONCE IV Last administered on 11/03/16 00:22; Start 11/02/16 at 21:56; Stop 11/02/16 at 22:43; Status DC Ondansetron HCl (Zofran Inj) 4 mg ONCE ONCE IV PUSH Last administered on 22:44; Start 11/02/16 at 22:45; Stop 11/02/16 at 22:46; Status DC Heparin Sodium (Porcine) 4000 units 4,000 units ONCE ONCE IV Last administered on 11/03/16 03:07; Start 11/03/16 at 02:00; Stop 11/03/16 at 02:01; Status DC Heparin Sodium/ Dextrose (Heparin-D5W Inj) 250 ml @ 0 mls/hr TITRATE IV Last administered on 11/04/16 07:55; Start 11/03/16 at 02:00 Pantoprazole Sodium (Protonix Inj) 40 mg ONCE ONCE IV PUSH Last administered on 11/03/16 03:06; Start 11/03/16 at 02:15; Stop 11/03/16 at 02:16; Status DC Pantoprazole Sodium (Protonix Inj) 40 mg Q12H IV PUSH Last administered on 11/04 07:55; Start 11/03/16 at 21:00 Ondansetron HCl 4 mg 4 mg Q6H PRN IV PUSH NAUSEA/VOMITING Last administered on 11/04/16 08:02; Start 11/03/16 at 02:15 Sodium Chloride (NS 1000 ml Inj) 1,000 ml @ 100 mls/hr Q10H IV Last administered on 11/03/16 20:36; Start 11/03/16 at 02:09 Sodium Chloride (NS Flush) 2 ml UNSCH PRN IV FLUSH FLUSH AFTER USING IV ACCESS ; Start 11/03/16 at 02:15 Sodium Chloride (NS Flush) 2 ml BID IV FLUSH Last administered on 11/04/16 07: 55; Start 11/03/16 at 09:00 Bisacodyl (Dulcolax Supp) 10 mg DAILY PRN RECTAL CONSTIPATION; Start 11/03/16 at 02:15 Acetaminophen (Tylenol) 650 mg Q6H PRN PO FEVER/PAIN SCALE 1 TO 2; Start at 02:15 Acetaminophen/ Hydrocodone Bitart ([place] 5-325 Mg) 1 tab Q4H PRN PO PAIN SCALE 3 TO 5 Last administered on 11/04/16 04:54; Start 11/03/16 at 02:15 Morphine Sulfate 2 mg 2 mg Q3H PRN IV Pain 6-10; Start 11/03/16 at 02:15 Potassium Chloride 100 ml @ 50 mls/hr Q2H IV Last administered on 11/03/16 04: 45; Start 11/03/16 at 02:45; Stop 11/03/16 at 06:44; Status DC Potassium Chloride 100 ml @ 50 mls/hr Q2H IV Last administered on 11/03/16 12: 29; Start 11/03/16 at 09:00; Stop 11/03/16 at 12:59; Status DC Magnesium Sulfate/ Dextrose 100 ml @ 100 mls/hr Q1H IV Last administered on t 13:32; Start 11/03/16 at 10:00; Stop 11/03/16 at 11:59; Status DC Sodium Chloride (NS 250 ml Inj) 250 ml @ 15 mls/hr ONCE ONCE IV ; Start at 08:15; Stop 11/05/16 at 00:54 Acetaminophen (Tylenol) 650 mg Q4H PRN PO SEE LABEL COMMENTS; Start 11/04/16 at 08:15; Stop 11/04/16 at 12:16 Diphenhydramine HCl (Benadryl) 25 mg Q4H PRN PO SEE LABEL COMMENTS; Start 11/04 at 08:15; Stop 11/04/16 at 12:16 Social History has a daughter denies any tobacco, alcohol Physical Exam Vital Signs Vital Signs Date Time Temp Pulse Resp B/P Pulse Ox O2 Delivery O2 Flow Rate FiO2 11/04/16 08:00 97.4 85 14 109/69 96 11/04/16 04:00 97.5 88 17 99/66 95 11/04/16 00:00 97.1 80 17 98/60 95 11/03/16 20:00 97.8 92 16 109/69 96 11/03/16 11:50 98.2 96 20 107/74 98 Physical Exam GENERAL: This is a well-nourished, well-developed patient, in no apparent distress. SKIN: No rashes, ecchymoses or lesions. Cool and dry. HEAD: Atraumatic. Normocephalic. No temporal or scalp tenderness. EYES: Pupils equal round and reactive. Extraocular motions intact. CARDIOVASCULAR: Regular rate and rhythm without murmurs, gallops, or rubs. RESPIRATORY: Clear to auscultation. Breath sounds equal bilaterally. No wheezes , rales, or rhonchi. MUSCULOSKELETAL: LLE with swelling from thigh to foot, equal DP pulses NEUROLOGICAL: Awake and alert. Laboratory Laboratory Tests Test 11/03/16 11/03/16 11/04/16 09:00 15:50 04:55 Activated Partial 49.2 54.4 77.0 Thromboplast Time White Blood Count 4.1 Red Blood Count 2.67 Hemoglobin 7.3 Hematocrit 21.8 Mean Corpuscular Volume 81.7 Mean Corpuscular Hemoglobin 27.3 Mean Corpuscular Hemoglobin 33.4 Concent Red Cell Distribution Width 18.3 Platelet Count 172 Mean Platelet Volume 7.6 Sodium Level 139 Potassium Level 3.6 Chloride Level 104 Carbon Dioxide Level 25.2 Anion Gap 10 Blood Urea Nitrogen 8 Creatinine 1.16 Estimat Glomerular Filtration 47 Rate Random Glucose 89 Calcium Level 8.2 Magnesium Level 1.5 Date/Time Procedure Status Source Growth 11/03/16 02:40 Urine Culture Received Urine Catheterized Urine Pending 11/02/16 22:20 Aerobic Blood Culture - Preliminary Resulted Blood Peripheral NO GROWTH IN 1 DAY 11/02/16 22:20 Anaerobic Blood Culture - Preliminary Resulted Blood Peripheral NO GROWTH IN 1 DAY Result Diagram: 11/04/16 0455 11/04/16 0455 Imaging Last Impressions Lower Extremity Ultrasound 11/02/16 0000 Signed Impressions: Service Date/Time: Wednesday, November 02, 2016 22:35 - CONCLUSION: Acute DVT throughout the left lower extremity. Olayinka Kincaid MD Abdomen/Pelvis CT 11/02/16 0000 Signed Impressions: Service Date/Time: Thursday, November 03, 2016 00:18 - CONCLUSION: 1. Left retroperitoneal low-density mass at the left psoas and iliacus muscle. This is nonspecific. A metastatic lesion could have this appearance. Abscess or old hemorrhage could have this appearance. No high density material to suggest acute hemorrhage is present. This is likely causing the dilatation of the left collecting system and proximal left ureter. It also may be contributing to the left lower extremity edema. 2. Moderate ascites with increased density seen throughout the mesentery concerning for omental caking and metastatic disease. Olayinka Kincaid MD Assessment and Plan Problem List: (1) Dehydration Status: Acute Plan: IVF supportive care encourage intake (2) DVT (deep venous thrombosis) Status: Acute Plan: on Heparin gtt will consult hem/onc for treatment and management. (3) LAST (acute kidney injury) Status: Acute Plan: IVF continue to monitor labs (4) Endometrial ca Status: Chronic Plan: will continue IV Doxil once discharged from hospital she has only had 2 cycles of Doxil, with radiation between the cycles 1 and 2, it is still too early to know how she is responding to treatment. (5) Anemia Status: Acute Plan: transfuse 2 units PRBCs monitor labs can be related to recent treatment with chemo Problem Qualifiers (1) DVT (deep venous thrombosis): Qualified Code: I82.402 - Acute deep vein thrombosis (DVT) of left lower extremity, unspecified vein (2) Anemia: Qualified Code: D64.9 - Anemia, unspecified type Lynn Ruiz [facility] Nov 04, 2016 09:22
--- NOTE | 2016-11-04 11:50 | HHI.PR ---
Subjective Remarks Patient seen and examined with her daughter at bedside. She does not want bsa/aml compliance officer service. Her daughter is translating for her. She reports feeling overall better. No nausea or vomiting. Tolerated most of breakfast. No vaginal bleeding. H&H down to 7.3/21.8. Blood transfusion has been ordered by oncologist. Objective Vitals Vital Signs Date Time Temp Pulse Resp B/P Pulse Ox O2 Delivery O2 Flow Rate FiO2 11/04/16 08:00 97.4 85 14 109/69 96 11/04/16 04:00 97.5 88 17 99/66 95 11/04/16 00:00 97.1 80 17 98/60 95 11/03/16 20:00 97.8 92 16 109/69 96 I/O 11/03/16 11/03/16 11/03/16 11/04/16 11/04/16 11/04/16 07:00 15:00 23:00 07:00 15:00 23:00 Intake Total 1440 ml 1112 ml 932 ml Balance 1440 ml 1112 ml 932 ml Intake Oral 240 ml 240 ml 60 ml IV Total 1200 ml 872 ml 872 ml # Voids 5 1 2 1 # Bowel Movements 0 0 0 Result Diagram: 11/04/16 0455 11/04/16 0455 Objective Remarks GENERAL: Patient appearing older than stated age, in no apparent distress. CARDIOVASCULAR: Normal rate and regular rhythm without murmurs, gallops, or rubs. RESPIRATORY: Good respiratory efforts. Breath sounds equal and clear to auscultation bilaterally. GASTROINTESTINAL: Abdomen soft, nontender, nondistended. Normal active bowel sounds MUSCULOSKELETAL: Left lower extremity is edematous up to the knees. Mild tenderness to palpation. NEURO: Alert & Oriented x4 to person, place, time, situation. Moves all ext x4 PSYCH: Appropriate mood and affect. A/P Problem List: (1) DVT (deep venous thrombosis) ICD Code: I82.409 Status: Acute (2) Nausea & vomiting ICD Code: R11.2 Status: Acute (3) LAST (acute kidney injury) ICD Code: N17.9 Status: Acute (4) Hyponatremia ICD Code: E87.1 Status: Acute (5) Hypokalemia ICD Code: E87.6 Status: Acute (6) Hyperglycemia ICD Code: R73.9 Status: Acute (7) Endometrial ca ICD Code: C54.1 Status: Chronic Assessment and Plan 61-year-old female with history of recurrent uterine carcinoma and pelvic tumors admitted with new onset left lower extremity DVT, nausea, vomiting, dehydration and electrolyte abnormalities. LLE DVT: Acute onset of LLE swelling/pain, LLE Doppler w/ acute DVT throughout left lower extremity. No h/o DVT/PE, likely secondary to compression from abdominal mass noted on CT Abd/Pelvis. Patient has been more sedentary since she started Radiation. - Started on Heparin gtt in ER, will continue. Hematology consulted for anticoagulation recs. H/O Uterine carcinoma recurrence/pelvic tumors: Currently undergoing radiation/ chemotherapy. She denies any vaginal bleeding since September. Too early to tell if she is responding to therapy - Oncologist, Dr. Gill following. Nausea/Vomiting: Resolved. diet as tolerated, analgesics/antiemetics as needed. LAST: Creatinine 1.49 on admission, previously 0.95 on 09/14/16, likely secondary to dehydration from nausea/vomiting. Mass also causing some dilation of the left collecting system. IVF for hydration, follow-up labs. Hyponatremia: Likely secondary to above. IVF for hydration, repeat labs in am. Hypokalemia: Replace and recheck in am, additional replacement as needed. Hypomagnesemia: Replace and monitor Hyperglycemia/New onset diabetes: BS 203, no h/o DM. Hgb A1c 6.9, sliding scale w/ Accu-Cheks as needed. Diabetic diet. May try diet and lifestyle modification +/- Metformin on discharge. Asymptomatic bacteriuria: Urine growing staph aureus species, 15-20k CFU's. Patient is asymptomatic. We'll repeat urinalysis and culture if indicated. DVT Prophylaxis: On Heparin gtt for Acute DVT as above. Problem Qualifiers (1) DVT (deep venous thrombosis): Qualified Code: I82.402 - Acute deep vein thrombosis (DVT) of left lower extremity, unspecified vein Iván Dorado MD Nov 04, 2016 11:50
[2016-11-04 14:10] LABS: APTT (PATIENT) 55.5 SEC (24.3-30.1)
[2016-11-04] MEDS: MAGNESIUM SULFATE 1 GM PREMIX 100 ML IV SCH ×2 (16:31→21:08)
[2016-11-04 20:47] LABS: APTT (PATIENT) 68.6 SEC (24.3-30.1)
[2016-11-04] MEDS ORDERED: MAGNESIUM SULFATE 1 GM PREMIX 100 ML IV ONE (21:00)
--- NOTE | 2016-11-04 22:58 | MB ---
cc: MARIA ELENA SALVADOR M.D. DATE OF CONSULTATION 11/04/16 REASON FOR CONSULTATION Consult requested by nurse practitioner, Lynn Ruiz for evaluation of acute DVT of the left lower extremity. HISTORY OF PRESENT ILLNESS Kiera is a pleasant 61-year-old female. She speaks Belarusian. Her daughter was present in the room who acted as bead filler. The patient was diagnosed with endometrial cancer 2 to 3 years ago for which she underwent surgery followed by chemotherapy by Dr. Gill. I believe it was in 2013. She was doing fine up until recently, she presented with vaginal bleeding and she was found to have recurrent disease with intra-abdominal metastasis. She was started on Doxil chemotherapy and then she had palliative radiation therapy to stop the bleeding. The bleeding successfully was stopped once she completed radiation treatment. Doxil chemotherapy was resumed recently. The patient was brought into the emergency room complaining of abdominal pain, nausea, vomiting and swelling of the left lower extremity. In the emergency room she had a Doppler ultrasound which showed acute DVT throughout the left lower extremity. The patient was started on heparin and she is admitted to the hospital. I have been asked to see the patient for further evaluation. The patient denies any previous history of thromboembolic disease. She does not have any family history of thromboembolic disease either. She had a CT scan of the abdomen which showed left retroperitoneal mass which is consistent with metastatic disease. However, abscess old hemorrhage could not be ruled out. There is a dilatation of the left collecting system and proximal left ureter. It may also be contributing to the left lower extremity edema. There are moderate ascites with increased density seen throughout the mesentery concerning for omental caking and metastatic disease. REVIEW OF SYSTEMS The patient states that her nausea and vomiting has improved but she still has abdominal pain. She is also complaining of severe swelling of the left lower extremity. She denies any chest pains or shortness of breath. When she came in her creatinine was elevated at 1.59 with hydration. It is improving and now it is 1.16. GFR is 47. The rest of the review of systems is negative. PAST MEDICAL HISTORY Endometrial cancer in 2013, breast cancer in 2004, hypertension. PAST SURGICAL HISTORY Cholecystectomy, complete hysterectomy, left mastectomy. ALLERGIES TAXOL AND VANCOMYCIN. MEDICATIONS Please see EMR. FAMILY HISTORY Family history is noncontributory. SOCIAL HISTORY The patient does not smoke cigarettes, does not drink alcohol. PHYSICAL EXAMINATION GENERAL: This is a well-developed, well-nourished female in no apparent distress. VITAL SIGNS: Temperature 98.5, heart rate is 98, blood pressure 134/83, O2 sat 98%. HEENT: PERRLA, EOMI, anicteric. No oral lesions are noted. NECK: Supple. LYMPH NODE SURVEY: There is no cervical, supraclavicular or axillary lymphadenopathy noted. LUNGS: Lungs are clear. No wheezing, rhonchi or rales. HEART: Heart is regular rate and rhythm. ABDOMEN: Abdomen is soft, diffusely tender. EXTREMITIES: Extensive swelling of the left lower extremity noted. NEUROLOGIC: Awake, alert, oriented x3. SKIN: No significant lesions noted. ASSESSMENT 1. Extensive acute DVT of the left lower extremity. This is most likely due to hypercoagulable state from malignancy as well as decreased mobilization due to recurrent endometrial cancer. 2. Recurrent endometrial cancer status post palliative radiation therapy, currently on palliative chemotherapy. PLAN I have reviewed her available records and I had an extensive discussion with the patient and daughter regarding the extensive acute DVT of the left lower extremity. She has no personal or family history of thromboembolic disease. Most likely the cause of thrombosis is hypercoagulable state from disseminated malignancy as well as mechanical obstruction by the pelvic tumor on the left side. Also immobilization may be contributing to the DVT as well. The patient has severe swelling of the left lower extremity and my recommendation is to consult interventional radiologist for catheter directed thrombolysis of the acute DVT. At this time continue with the heparin. Once her creatinine becomes normal then she could be placed on oral anticoagulant. The choices are Coumadin versus newer anticoagulant medications such as Xarelto or Eliquis. Further recommendations based on her hospital stay. Thank you for asking my opinion. Thong Salvador MD /[facility] /7:31 PM /10:37 PM
[2016-11-05] VITALS (9 sets, daily range): BP systolic 102–162; BP diastolic 67–91; PULSE 79–110; RESP 16–20; TEMP 96.9–100.3; O2SAT 90–100
[2016-11-05] MEDS: SODIUM CHLOR 0.9% 1000 ML INJ 1,000 ML IV SCH ×2 (04:46→14:09)
[2016-11-05 05:39] LABS: HEMATOCRIT 30.7 % (35.0-46.0); MEAN CELL VOLUME 80.9 FL (80.0-100.0); MEAN CORPUSCULAR HEMOGLOBIN 28.9 PG (27.0-34.0); MEAN CORPUSCULAR HGB CONC 35.7 % (32.0-36.0); PLATELET COUNT 200 TH/MM3 (150-450); RED BLOOD COUNT 3.79 MIL/MM3 (4.00-5.30); RED CELL DISTRIBUTION WIDTH 19.3 % (11.6-17.2); REVIEW FLAG FINAL; WHITE BLOOD COUNT 5.1 TH/MM3 (4.0-11.0)
[2016-11-05 06:05] LABS: BICARBONATE 24.7 MEQ/L (21.0-32.0); POTASSIUM 3.6 MEQ/L (3.5-5.1)
[2016-11-05] MEDS: PANTOPRAZOLE SODIUM 40 MG VIAL IV PUSH SCH ×2 (08:14→20:08)
[2016-11-05] MEDS: SODIUM CHLORIDE 0.9% FLUSH 10 ML FLUSH IV FLUSH SCH ×2 (08:14→20:08)
[2016-11-05] MEDS: DOCUSATE SODIUM 100 MG CAP PO SCH ×2 (08:17→20:08)
--- NOTE | 2016-11-05 09:35 | MB ---
cc: CECILIA PENA KELLY L. MD DATE OF CONSULTATION: 11/05/2016 REASON FOR CONSULTATION: Recurrent endometrial cancer. Patient known to us reason for hospitalization new onset deep vein thrombosis, anemia, dehydration, failure to thrive. HISTORY: This patient is seen her findings history are reviewed by me. She is counseled and examined by me in conjunction with our nurse practitioner (CAROL Horvath), I agree with her findings, assessment and plan of care. This is 61-year-old female under our care. She has known recurrent stage III CEA uterine papillary serous carcinoma systemic disease including disease manifesting and the central pelvis upper vagina with some with some bleeding. She was initiated on single-agent liposomal doxorubicin chemotherapy. She received one cycle, but was more troubled by the vaginal bleeding so we disrupted systemic chemotherapy and she underwent palliative pelvic radiation treatment which did reduce the bleeding. After completing the pelvic radiation sheet reinitiated Doxil. She had her last treatment on October 23 2016 (which would be her second total liposomal doxorubicin infusion). Communication is again facilitated by the presence of her daughter who is excellent with a Telugu and Honduran noted that her mom had been progressively feeling weaker and weaker and noticed swelling and pain in her left leg, appetite oral intake was diminished, she was brought to the emergency room found on exam and imaging to have a obviously swollen left lower extremity markedly so compared to right lower extremity the imaging confirmed deep vein thrombosis. She was anemic upon presentation hemoglobin of seven and findings suggesting dehydration. Since then she has been provide she has been admitted provided supportive care, IV hydration, correction of electrolytes transfusion, her hemoglobin this morning was 11. Her urine output is improving an overall she is improving in how she is feeling. PAST MEDICAL HISTORY/PAST SURGICAL HISTORY/REVIEW OF SYSTEMS/ FAMILY HISTORY/MEDICATIONS/ALLERGIES; Are all reviewed and as are documented in the chart. PHYSICAL EXAMINATION: On exam she said up on the edge of the bag. She is in bright spirits. She is in no acute distress. She states that she is feeling better compared to when she presented to the hospital pertinent on exam is clearly a markedly dilated lower extremity that extends from ankle all the way to the hip consistent with findings of deep vein thrombosis. DISCUSSION: In discussion with her and her family member. She is scheduled for thrombolysis procedure today with interventional radiology, certainly we hope that goes well that may help of expedite some improvement with the swelling. With respect to overall cancer care. We will continue the single agent Liposomal doxorubicin as it is too soon in her treatment to determine the efficacy she has tolerated the previous infusions without adverse effect. Discussion ensued questions were answered. They expressed good understanding, I am very grateful for the excellent care while she is in the hospital. We have no new or additional recommendations at this time from an oncology standpoint. ASSESSMENT 1. Recurrent stage III C uterine papillary serous carcinoma with ongoing treatment as summarized above. 2. Admitted the hospital with on new onset deep vein thrombosis in numbered 3. Additional issues anemia, dehydration, electrolyte abnormalities, failure to thrive. 4. Discussion. PLAN 1. Continue current management as steps taken for hydration, transfusion, correction of electrolytes, supportive care, have improved her overall status. She is to move forward with interventional radiology for possible thrombolysis today. 2. Continue present management. Follow up with us as an outpatient as well. 3. Continue treatment with single-agent, liposomal doxorubicin. 3. Thank for the consultation. We will follow along in her care. 4. Hematology/Oncology has been consulted for evaluation and management of her deep vein thrombosis. MD ISABELA Arreguin/angel /8:27 AM /9:24 AM
[2016-11-05] MEDS ORDERED: fentaNYL CITRATE 250 MCG/5 ML AMP ONE (11:10)
[2016-11-05] MEDS ORDERED: MIDAZOLAM HCL 5 MG/5 ML VIAL ONE (11:10)
[2016-11-05] MEDS ORDERED: ceFAZolin 2 GM PREMIX 50 ML ONE (11:14)
[2016-11-05 11:59] LABS: APTT (PATIENT) 96.3 SEC (24.3-30.1)
[2016-11-05] MEDS ORDERED: SODIUM BICARBONATE 154 MEQ/1000 ML NS IV SCH ×2 (13:00)
[2016-11-05 13:04] LABS: APTT (PATIENT) 58.9 SEC (24.3-30.1)
[2016-11-05] MEDS ORDERED: MIDAZOLAM HCL 2 MG/2 ML VIAL ONE (13:11)
[2016-11-05] MEDS ORDERED: ALTEPLASE RECOMBINANT 2 MG VIAL OTHER ONE (13:20)
[2016-11-05] MEDS ORDERED: IOHEXOL 350 MG/ML 50 ML BTL (for RAD DIAG) IV ONE (14:39)
[2016-11-05] MEDS ORDERED: SODIUM CHLORIDE 0.9% FLUSH 10 ML FLUSH IVF PRN (14:45)
--- NOTE | 2016-11-05 15:48 | PD.ONC.PN ---
Subjective Subjective Remarks T-max 100.3 this AM. s/p TPA administration in IR. Resting comfortably in ROPU with daughter at bedside. Objective Data Date Time Temp Pulse Resp B/P Pulse Ox O2 Delivery O2 Flow Rate FiO2 11/05/16 15:30 98 20 118/91 92 11/05/16 15:00 99 20 160/81 92 11/05/16 14:45 79 20 162/81 90 11/05/16 08:00 96.9 88 18 114/78 96 11/05/16 06:00 97.9 11/05/16 04:00 100.3 110 19 119/75 95 11/05/16 00:00 97.4 91 18 122/81 96 11/04/16 20:00 97.7 104 20 132/83 100 11/04/16 18:12 98.5 98 16 134/83 98 11/04/16 17:34 98.3 89 16 128/78 98 11/04/16 16:00 97.6 78 14 108/67 97 11/05/16 11/05/16 11/05/16 07:00 15:00 23:00 Intake Total 240 ml Balance 240 ml Result Diagram: 11/05/16 0450 11/05/16 0450 Laboratory Results Laboratory Tests Test 11/04/16 11/05/16 11/05/16 11/05/16 20:15 04:50 08:10 12:41 Activated Partial 68.6 SEC 96.3 SEC 58.9 SEC Thromboplast Time White Blood Count 5.1 TH/MM3 Red Blood Count 3.79 MIL/MM3 Hemoglobin 11.0 GM/DL Hematocrit 30.7 % Mean Corpuscular Volume 80.9 FL Mean Corpuscular Hemoglobin 28.9 PG Mean Corpuscular Hemoglobin 35.7 % Concent Red Cell Distribution Width 19.3 % Platelet Count 200 TH/MM3 Mean Platelet Volume 7.8 FL Sodium Level 137 MEQ/L Potassium Level 3.6 MEQ/L Chloride Level 102 MEQ/L Carbon Dioxide Level 24.7 MEQ/L Anion Gap 10 MEQ/L Blood Urea Nitrogen 8 MG/DL Creatinine 1.26 MG/DL Estimat Glomerular Filtration 43 ML/MIN Rate Random Glucose 100 MG/DL Calcium Level 8.0 MG/DL Culture Results Microbiology Date/Time Procedure Status Source Growth 11/02/16 22:15 Aerobic Blood Culture - Preliminary Resulted Blood Peripheral NO GROWTH IN 3 DAYS 11/02/16 22:15 Anaerobic Blood Culture - Preliminary Resulted Blood Peripheral NO GROWTH IN 3 DAYS 11/02/16 22:20 Aerobic Blood Culture - Preliminary Resulted Blood Peripheral NO GROWTH IN 3 DAYS 11/02/16 22:20 Anaerobic Blood Culture - Preliminary Resulted Blood Peripheral NO GROWTH IN 3 DAYS 11/03/16 02:40 Urine Culture - Final Complete Urine Catheterized Urine Staphylococcus Aureus Administered Medications Medications (Trade) Dose Ordered Sig/Tasha Route PRN Reason Start Time Stop Time Status Last Admin Dose Admin Heparin Sodium/ Dextrose (Heparin-D5W Inj) 250 ml @ 0 mls/hr TITRATE IV 11/03/16 02:00 11/04/16 07:55 Pantoprazole Sodium (Protonix Inj) 40 mg Q12H IV PUSH 11/03/16 21:00 11/05/16 08:14 Ondansetron HCl 4 mg 4 mg Q6H PRN IV PUSH NAUSEA/VOMITING 11/03/16 02:15 11/04/16 08:02 Sodium Chloride (NS 1000 ml Inj) 1,000 ml @ 100 mls/hr Q10H IV 11/03/16 02:09 11/05/16 04:46 Sodium Chloride (NS Flush) 2 ml BID IV FLUSH 11/03/16 09:00 11/05/16 08:14 Acetaminophen (Tylenol) 650 mg Q6H PRN PO FEVER/PAIN SCALE 1 TO 2 11/03/16 02:15 11/05/16 04:45 Acetaminophen/ Hydrocodone Bitart 1 tab 1 tab Q4H PRN PO PAIN SCALE 3 TO 5 11/03/16 02:15 11/04/16 04:54 Sodium Bicarbonate/ Sodium Chloride (Sodium Bicarbonate 8.4% Inj/NS 1000 ml Inj) 1,000 ml @ 0 mls/hr TITRATE IV 11/05/16 13:00 11/06/16 12:59 11/05/16 12:45 Objective Remarks GENERAL: Middle aged female, lying supine in bed, covered in multiple blankets. SKIN: Warm and dry., some oozing of blood from line, right chest wall. HEAD: Normocephalic. EYES: No injection or drainage. NECK: Supple, trachea midline. CARDIOVASCULAR: Regular rate and rhythm RESPIRATORY: Breath sounds equal bilaterally. No accessory muscle use. GASTROINTESTINAL: Abdomen soft, non-tender, nondistended. EXTREMITIES: No cyanosis MUSCULOSKELETAL: Adequate muscle tone. NEUROLOGICAL: awake and alert Assessment/Plan Problem List: (1) DVT (deep venous thrombosis) Status: Acute Plan: 11/05: catheter directed thrombolysis in IR. continue heparin per protocol. --Extensive acute DVT of the left lower extremity. --most likely due to hypercoagulable state from malignancy as well as decreased mobilization due to recurrent endometrial cancer. ++severe swelling of the left lower extremity therefore underwent catheter directed thrombolysis of the acute DVT on 11/06 in IR --Once her creatinine becomes normal then she could be placed on oral anticoagulant. Assessment 61y/o female with endometrial cancer admitted with abdominal pain, nausea vomiting and swelling of the LLE. Hematology consulted for acute DVT of the left lower extremity. h/o Endometrial cancer in 2013, breast cancer in 2003, hypertension. --Cholecystectomy, complete hysterectomy, left mastectomy. Attending Statement less leg swelling and pain s/p TPA and IVC filter d/w Radiologist. continue heparin/ d/w pt and daughter. Problem Qualifiers (1) DVT (deep venous thrombosis): Qualified Code: I82.402 - Acute deep vein thrombosis (DVT) of left lower extremity, unspecified vein [place] Nov 05, 2016 15:48 Vel Salvador MD Nov 05, 2016 20:41
--- NOTE | 2016-11-05 16:15 | RADRPT ---
EXAM DATE/TIME: 11/05/2016 11:18 [facility] COMPARISON: No previous studies available for comparison. INDICATIONS : Patient with left leg DVT in need of IVC filter placement. MEDICAL HISTORY : HTN Dyslipidemia Hx breast cancer 2003 Endometrial cancer 2013 Left leg DVT SURGICAL HISTORY : Left mastectomy 2003 Cholecystectomy 1996 Hysterectomy 2013 Right wrist repair Bunionectomy ENCOUNTER: Initial ACUITY: 4 - 6 days PAIN SCORE: 7/10 LOCATION: abdomen FLUORO TIME: 18.8 minutes IMAGE SERIES: 3 ACCESS SITE: Right Internal jugular vein SEDATION TIME: 120 minutes CONTRAST: 1.) 20 cc Omnipaque (iohexol) 350 MEDICATION(S): 1.) 6 mg midazolam (Versed) IV 2.) 300 mcg fentanyl (Sublimaze) IV DEVICE(S): 1.) Inferior vena cava Bard Chaves filter PROCEDURE : 1. Ultrasound-guided venipuncture. 2. Inferior venacavogram. 3. Inferior vena cava filter placement. 4. Conscious sedation with continuous EKG and oximetry monitoring. The risks, benefits and alternatives to the procedure were explained and verbal and written consent w as obtained. The site was prepped in sterile fashion. Full sterile technique was used, including ca p, mask, sterile gloves and gown and a large sterile sheet. Hand hygiene and 2% chlorhexidine and/or betadine/alcohol prep was utilized per protocol for cutaneous antisepsis. The skin and subcutaneous tissues were infiltrated with local anesthetic solution. With ultrasound and fluoroscopic guidance the targeted vein was punctured and a vascular sheath was p laced. Inferior venacavogram was performed to demonstrate level of renal veins. No caval thrombus was identified. The prescribed filter was deployed in the infrarenal inferior vena cava. Following deplo yment the filter was identified in good position. Conscious sedation was performed with the prescribed dosages and duration as above in the presence of an independent trained radiology nurse to assist in the monitoring of the patient. EKG and oximetry remained stable throughout the procedure. The patient tolerated the procedure well and there were n o complications. The patient was sent to post anesthesia recovery in stable condition. CONCLUSION: Uncomplicated inferior vena cava filter placement as above. Jerry Cerna MD on November 05, 2016 at 16:13 Board Certified Radiologist. This report was verified electronically.
--- NOTE | 2016-11-05 16:15 | RADRPT ---
EXAM DATE/TIME: 11/05/2016 11:18 [facility] COMPARISON: No previous studies available for comparison. INDICATIONS : Patient in need of central line for access. MEDICAL HISTORY : HTN Dyslipidemia Hx breast cancer 2003 Endometrial cancer 2013 Left leg DVT SURGICAL HISTORY : Left mastectomy 2003 Cholecystectomy 1996 Hysterectomy 2013 Right wrist repair Bunionectomy ENCOUNTER: Initial ACUITY: 4-6 days PAIN SCORE: 7/10 LOCATION: abdomen FLUORO TIME: 18.8 minutes IMAGE SERIES: 2 SEDATION TIME: 120minutes ACCESS: Right internal jugular vein MEDICATION(S): 1.) 6 mg midazolam (Versed) IV 2.) 300 mcg fentanyl (Sublimaze) IV DEVICE(S): 1.) 7 Setswana triple lumen 16 cm Arrow central line PROCEDURE : 1. Ultrasound guided venipuncture. 2. Fluoroscopic guidance. 3. Central line placement. The risks, benefits and alternatives to the procedure were explained and verbal and written consent w as obtained. The site was prepped in sterile fashion. Full sterile technique was used, including ca p, mask, sterile gloves and gown and a large sterile sheet. Hand hygiene and 2% chlorhexidine prep w as utilized per protocol for cutaneous antisepsis with appropriate dry time for site. The skin and subcutaneous tissues were infiltrated with local anesthetic solution. A suitable site a fernanda the vein was selected with ultrasound and fluoroscopic guidance. A small incision was made. Th e vein was accessed under direct ultrasound visualization using the micropuncture technique. The ulises ropuncture set was exchanged for a 0.035 wire. The tract was dilated. The catheter was advanced int o position under direct fluoroscopic visualization. The catheter was fixed in place with suture and a sterile dressing was applied. The patient tolerated the procedure well and there were no complications. CONCLUSION: Uncomplicated line placement as above. Jerry Cerna MD on November 05, 2016 at 16:13 Board Certified Radiologist. This report was verified electronically.
--- NOTE | 2016-11-05 16:18 | RADRPT ---
EXAM DATE/TIME: 11/05/2016 11:18 [place] Corrected on: November 05, 2016; [facility] COMPARISON: No previous studies available for comparison. INDICATIONS : Patient with left lower extremity DVT in need of venogram with thrombectomy. MEDICAL HISTORY : Endometrial cancer, Chemotherapy, Vaginal bleeding, Intra-abdominal metastasis, Breast cancer, HTN SURGICAL HISTORY : Cholecystectomy, Complete hysterectomy, Left mastectomy ENCOUNTER: Initial ACUITY: 1 day PAIN SCORE: 7/10 LOCATION: abdomen FLUORO TIME: 18.8 minutes IMAGE SERIES: 10 ACCESS SITE: Left Popliteal vein CONTRAST: 50 cc Omnipaque (iohexol) 350 MEDICATION(S): 1.) 6 mg midazolam (Versed) IV 2.) 300 mcg fentanyl (Sublimaze) IV 3.) Activase 20 mg administered intravenously. DEVICE(S): 1.) Left Superficial femoral vein, Common femoral vein, and Common iliac vein Mechanical thrombecto my [id number] Thrombectomy set 2.) Left Common iliac vein BAKER BISCUIT Balloon Inspector Dials [id number] 3.) Left Popliteal vein Syvek pad PROCEDURE : 1. Ultrasound-guided venipuncture. 2. Venogram. 3. Pulse spray thrombolysis delivered with an AngioJet. 4. Mechanical thrombectomy of the left superficial femoral vein, left common femoral vein and left il iac vein. 5. Percutaneous transluminal angioplasty of the left iliac vein was performed using a 12 mm balloon. The risks, benefits and alternatives to the procedure were explained and verbal and written consent w as obtained. The site was prepped in sterile fashion. Full sterile technique was used, including ca p, mask, sterile gloves and gown and a large sterile sheet. Hand hygiene and 2% chlorhexidine and/or betadine/alcohol prep was utilized per protocol for cutaneous antisepsis. The skin and subcutaneous tissues were infiltrated with local anesthetic solution. With ultrasound guidance the left popliteal vein was punctured and positive contrast was injected to demonstrate the venous anatomy of the affected extremity. Extensive thrombosis present throughout the deep venous system extending from the knee to the pelvis. A guidewire was advanced into the inferior vena cava and position confirmed. A pulse spray catheter w as then used to deliver a total of 20 mg of Activase into the left superficial femoral vein, left com mon femoral vein and left iliac vein. The Activase was left in place for 20 minutes for thrombolysis. The Possis AngioJet was then advanced into the venous system and mechanical thrombectomy performed fr om the knee to the pelvis. Venogram following thrombectomy demonstrated persistent narrowing in the iliac vein. A 12 mm x 4 cm a ngioplasty balloon was then advanced and placed across the iliac stenosis. At least 3 balloon dilatat ions were performed. A patent channel was reestablished through the iliac vein. Completion venogram demonstrates significant decrease in thrombus and reestablishment of a straight l ine channel through the deep venous system. CONCLUSION: Uncomplicated venogram as above. Extensive DVT noted in the left superficial femoral, common femoral and iliac veins. Flow reestablished in the left superficial femoral, common femoral and iliac veins following pulse sp ray thrombolysis, mechanical thrombectomy and left iliac BAKER BISCUIT. Patient tolerated procedure well. Heparin to be restarted 2 hours post procedure. Jerry Cerna MD on November 05, 2016 at 16:14 Board Certified Radiologist. This report was verified electronically. Jerry Cerna MD on November 05, 2016 at 16:34 Board Certified Radiologist. This report was verified electronically.
[2016-11-05 17:26] LABS: APTT (PATIENT) 35.7 SEC (24.3-30.1)
--- NOTE | 2016-11-05 17:35 | HHI.PR ---
Subjective Remarks Patient underwent catheter directed thrombolysis of the acute DVT. She is seen after the procedure. Her daughter at bedside. They report the left leg is still swollen but less tense. Pain is controlled. No new issues. Objective Vitals Vital Signs Date Time Temp Pulse Resp B/P Pulse Ox O2 Delivery O2 Flow Rate FiO2 11/05/16 16:00 98 20 102/77 92 11/05/16 16:00 99.3 108 18 105/67 100 11/05/16 15:30 98 20 118/91 92 11/05/16 15:00 99 20 160/81 92 11/05/16 14:45 79 20 162/81 90 11/05/16 08:00 96.9 88 18 114/78 96 11/05/16 06:00 97.9 11/05/16 04:00 100.3 110 19 119/75 95 11/05/16 00:00 97.4 91 18 122/81 96 11/04/16 20:00 97.7 104 20 132/83 100 11/04/16 18:12 98.5 98 16 134/83 98 11/04/16 17:34 98.3 89 16 128/78 98 I/O 11/04/16 11/04/16 11/04/16 11/05/16 11/05/16 11/05/16 07:00 15:00 23:00 07:00 15:00 23:00 Intake Total 932 ml 360 ml 240 ml 240 ml Balance 932 ml 360 ml 240 ml 240 ml Intake Oral 60 ml 360 ml 240 ml 240 ml IV Total 872 ml # Voids 2 4 2 # Bowel Movements 0 1 Result Diagram: 11/05/16 0450 11/05/16 0450 Objective Remarks GENERAL: Patient appearing older than stated age, in no apparent distress. CARDIOVASCULAR: Normal rate and regular rhythm without murmurs, gallops, or rubs. RESPIRATORY: Good respiratory efforts. Breath sounds equal and clear to auscultation bilaterally. GASTROINTESTINAL: Abdomen soft, nontender, nondistended. Normal active bowel sounds MUSCULOSKELETAL: Left lower extremity is edematous up to the thigh. Less tense compared to yesterday. Mild tenderness to palpation. NEURO: Alert & Oriented x4 to person, place, time, situation. Moves all ext x4 PSYCH: Appropriate mood and affect. A/P Problem List: (1) DVT (deep venous thrombosis) ICD Code: I82.409 Status: Acute (2) Nausea & vomiting ICD Code: R11.2 Status: Acute (3) LAST (acute kidney injury) ICD Code: N17.9 Status: Acute (4) Hyponatremia ICD Code: E87.1 Status: Acute (5) Hypokalemia ICD Code: E87.6 Status: Acute (6) Hyperglycemia ICD Code: R73.9 Status: Acute (7) Endometrial ca ICD Code: C54.1 Status: Chronic Assessment and Plan 61-year-old female with history of recurrent uterine carcinoma and pelvic tumors admitted with new onset left lower extremity DVT, nausea, vomiting, dehydration and electrolyte abnormalities. LLE DVT: Acute onset of LLE swelling/pain, LLE Doppler w/ acute DVT throughout left lower extremity. No h/o DVT/PE, secondary to hypercoagulable state and patient has been more sedentary since she started Radiation. - Started on Heparin gtt in ER - Appreciate hematology following. Patient underwent catheter directed thrombolysis of the acute DVT on 11/06 in IR. - Plan to transition to oral anticoagulant once her renal functions improved. H/O Uterine carcinoma recurrence/pelvic tumors: Currently undergoing radiation/ chemotherapy. She denies any vaginal bleeding since September. Too early to tell if she is responding to therapy - Oncologist, Dr. Gill following. Nausea/Vomiting: Resolved. diet as tolerated, analgesics/antiemetics as needed. LAST: Creatinine 1.49 on admission, previously 0.95 on 09/14/16, likely secondary to dehydration from nausea/vomiting. Mass also causing some dilation of the left collecting system. IVF for hydration. Will obtain renal ultrasound to better assess degree of hydronephrosis and obstruction. Hyponatremia: Likely secondary to above. IVF for hydration, repeat labs in am. Hypokalemia: Replace and recheck in am, additional replacement as needed. Hypomagnesemia: Replace and monitor Hyperglycemia/New onset diabetes: BS 203, no h/o DM. Hgb A1c 6.9, sliding scale w/ Accu-Cheks as needed. Diabetic diet. May try diet and lifestyle modification +/- Metformin on discharge. Asymptomatic bacteriuria: Urine growing staph aureus species, 15-20k CFU's. Patient is largely asymptomatic. We'll treat with Rocephin for now given her immunocompromise state and repeat a urinalysis. Anticipate a short treatment course. DVT Prophylaxis: On Heparin gtt for Acute DVT as above. Problem Qualifiers (1) DVT (deep venous thrombosis): Qualified Code: I82.402 - Acute deep vein thrombosis (DVT) of left lower extremity, unspecified vein Iván Dorado MD Nov 05, 2016 17:35
[2016-11-05] MEDS: cefTRIAXone INJ 1,000 MG in SODIUM CHLORIDE 0.9% INJ 100 ML IV SCH (18:00)
[2016-11-05] MEDS: HEPARIN-D5W INJ 250 ML IV SCH (18:11)
[2016-11-05] MEDS: ONDANSETRON HCL 4 MG/2 ML VIAL IV PUSH PRN (18:14)
[2016-11-05] MEDS: ACETAMINOPHEN/HYDROcodone 325 MG/5 MG TAB PO PRN (18:14)
--- NOTE | 2016-11-05 19:13 | RADRPT ---
EXAM DATE/TIME: 11/05/2016 17:59 [facility] COMPARISON: CT ABDOMEN & PELVIS W/O CONTRAST, November 03, 2016, 0:18. INDICATIONS : Increased BUN and Creatinine.. Abdominal pain and abnormal CT demonstrating severe dilatation of left collecting system and proximal ureter with a low density mass in the left psoas and iliac is muscula ture. MEDICAL HISTORY : Hypercholesterolemia. Hypertension. Hearing loss. Left breast cancer. Uterine cancer. Chemotherapy. Radiation therapy. Blood transfusion. SURGICAL HISTORY : Hysterectomy. Cholecystectomy. Mastectomy, left. Bunionectomy. Right wrist fracture repair. ENCOUNTER: Initial ACUITY: 1 day PAIN SCORE: 6/10 LOCATION: Bilateral flank MEASUREMENTS: RIGHT KIDNEY: 9.8 x 4.7 x 3.7 cm LEFT KIDNEY: 11.7 x 6.0 x 5.6 cm FINDINGS: RIGHT KIDNEY: The right kidney is mildly small and atrophic in appearance with increased echogenicity compared to t he adjacent liver. There is no focal mass or hydronephrosis. No renal calculi. There is adjacent asci nj. LEFT KIDNEY: The left kidney is normal in size and shape with moderate hydronephrosis. There is no focal lesion. T here is dilatation of the proximal ureter. BLADDER: A Glass catheters present in the bladder. CONCLUSION: 1. Moderate left hydronephrosis. 2. Smaller right kidney with increased echogenicity which could indicate medical renal disease. 3. Glass catheter in the bladder. Regis Jansen MD on November 05, 2016 at 19:09 Board Certified Radiologist. This report was verified electronically.
[2016-11-05 23:14] LABS: APTT (PATIENT) 40.1 SEC (24.3-30.1)
[2016-11-06] VITALS: BP 112/76; PULSE 92; RESP 16; TEMP 96; O2SAT 94
[2016-11-06] MEDS: SODIUM CHLOR 0.9% 1000 ML INJ 1,000 ML IV SCH ×3 (00:09→20:32)
[2016-11-06 04:48] VITALS: BP 107/73; PULSE 103; RESP 16; TEMP 98.1; O2SAT 99
[2016-11-06 05:03] LABS: HEMATOCRIT 28.6 % (35.0-46.0); MEAN CELL VOLUME 80.9 FL (80.0-100.0); MEAN CORPUSCULAR HEMOGLOBIN 27.5 PG (27.0-34.0); PLATELET COUNT 161 TH/MM3 (150-450); RED BLOOD COUNT 3.53 MIL/MM3 (4.00-5.30); RED CELL DISTRIBUTION WIDTH 19.7 % (11.6-17.2); REVIEW FLAG FINAL; WHITE BLOOD COUNT 4.5 TH/MM3 (4.0-11.0)
[2016-11-06 05:11] LABS: APTT (PATIENT) 47.3 SEC (24.3-30.1)
[2016-11-06 05:26] LABS: BICARBONATE 30.1 MEQ/L (21.0-32.0); POTASSIUM 3.4 MEQ/L (3.5-5.1)
--- NOTE | 2016-11-06 07:54 | PD.ONC.PN ---
Subjective Subjective Remarks HOME STAGER/ONC Pt is resting in bed states that she her leg swelling is improved s/p filter placement and TPA administration. Dr. Salvador is following no complaints once discharged from hospital and cleared by hem/onc will continue with Doxil for recurrent endometrial cancer. Objective Data Date Time Temp Pulse Resp B/P Pulse Ox O2 Delivery O2 Flow Rate FiO2 11/06/16 04:48 98.1 103 16 107/73 99 11/06/16 00:00 96.0 92 16 112/76 94 11/05/16 20:00 98.5 104 16 117/77 98 11/05/16 16:00 98 20 102/77 92 11/05/16 16:00 99.3 108 18 105/67 100 11/05/16 15:30 98 20 118/91 92 11/05/16 15:00 99 20 160/81 92 11/05/16 14:45 79 20 162/81 90 11/05/16 08:00 96.9 88 18 114/78 96 11/06/16 11/06/16 11/06/16 07:00 15:00 23:00 Intake Total 150 ml Output Total 450 ml Balance -300 ml Result Diagram: 11/06/16 0445 11/06/16 0445 Laboratory Results Laboratory Tests Test 11/05/16 11/05/16 11/05/16 11/05/16 08:10 12:41 16:45 22:45 Activated Partial 96.3 SEC 58.9 SEC 35.7 SEC 40.1 SEC Thromboplast Time Test 11/06/16 11/06/16 04:44 04:45 Activated Partial 47.3 SEC Thromboplast Time White Blood Count 4.5 TH/MM3 Red Blood Count 3.53 MIL/MM3 Hemoglobin 9.7 GM/DL Hematocrit 28.6 % Mean Corpuscular Volume 80.9 FL Mean Corpuscular Hemoglobin 27.5 PG Mean Corpuscular Hemoglobin 34.0 % Concent Red Cell Distribution Width 19.7 % Platelet Count 161 TH/MM3 Mean Platelet Volume 7.5 FL Sodium Level 140 MEQ/L Potassium Level 3.4 MEQ/L Chloride Level 103 MEQ/L Carbon Dioxide Level 30.1 MEQ/L Anion Gap 7 MEQ/L Blood Urea Nitrogen 11 MG/DL Creatinine 1.20 MG/DL Estimat Glomerular Filtration 46 ML/MIN Rate Random Glucose 94 MG/DL Calcium Level 8.3 MG/DL Administered Medications Medications (Trade) Dose Ordered Sig/Tasha Route PRN Reason Start Time Stop Time Status Last Admin Dose Admin Heparin Sodium/ Dextrose (Heparin-D5W Inj) 250 ml @ 0 mls/hr TITRATE IV 11/03/16 02:00 11/05/16 18:11 Pantoprazole Sodium (Protonix Inj) 40 mg Q12H IV PUSH 11/03/16 21:00 11/05/16 20:08 Ondansetron HCl 4 mg 4 mg Q6H PRN IV PUSH NAUSEA/VOMITING 11/03/16 02:15 11/05/16 18:14 Sodium Chloride (NS 1000 ml Inj) 1,000 ml @ 100 mls/hr Q10H IV 11/03/16 02:09 11/05/16 04:46 Sodium Chloride (NS Flush) 2 ml BID IV FLUSH 11/03/16 09:00 11/05/16 08:14 Acetaminophen (Tylenol) 650 mg Q6H PRN PO FEVER/PAIN SCALE 1 TO 2 11/03/16 02:15 11/05/16 04:45 Acetaminophen/ Hydrocodone Bitart (Arcade 5-325 Mg) 1 tab Q4H PRN PO PAIN SCALE 3 TO 5 11/03/16 02:15 11/05/16 18:14 Docusate Sodium 100 mg 100 mg BID PO 11/05/16 09:00 11/05/16 20:08 Sodium Bicarbonate 154 meq/Sodium Chloride 1,000 ml @ 0 mls/hr TITRATE IV 11/05/16 13:00 11/06/16 12:59 11/05/16 12:45 Ceftriaxone Sodium/Sodium Chloride (Rocephin Inj/NS Inj) 100 ml @ 200 mls/hr Q24H IV 11/05/16 18:00 11/05/16 18:00 Objective Remarks GENERAL: Well-nourished, well-developed patient. SKIN: Warm and dry. HEAD: Normocephalic. EYES: No scleral icterus. No injection or drainage. CARDIOVASCULAR: Regular rate and rhythm without murmurs. RESPIRATORY: Breath sounds equal bilaterally. No accessory muscle use. EXTREMITIES: left leg with swelling overall improvement MUSCULOSKELETAL: Adequate muscle tone. NEUROLOGICAL: No obvious focal deficit. Awake, alert, and oriented x3. PSYCHIATRIC: Appropriate mood and affect; insight and judgment normal. Assessment/Plan Problem List: (1) DVT (deep venous thrombosis) Status: Acute Plan: 11/06: s/p catheter directed thrombolysis in IR. continue heparin per protocol. will change to oral anticoagulant once creat has normalized. --Extensive acute DVT of the left lower extremity. --most likely due to hypercoagulable state from malignancy as well as decreased mobilization due to recurrent endometrial cancer. (2) Endometrial ca Status: Chronic Plan: will continue Doxil once she is cleared and discharged from hospital s/p 2 cycles of IV Doxil and radiation for vaginal mass causing bleeding. pt denies any vaginal bleeding since completion of radiation. Assessment 61y/o female with endometrial cancer admitted with abdominal pain, nausea vomiting and swelling of the LLE. Hematology consulted for acute DVT of the left lower extremity. h/o Endometrial cancer in 2013, breast cancer in 2003, hypertension. --Cholecystectomy, complete hysterectomy, left mastectomy. Attending Statement D/W: Dr. Gill and DR. Salvador Problem Qualifiers (1) DVT (deep venous thrombosis): Qualified Code: I82.402 - Acute deep vein thrombosis (DVT) of left lower extremity, unspecified vein Lynn Ruiz Nov 06, 2016 07:53
[2016-11-06 08:00] VITALS: BP 107/76; PULSE 122; RESP 20; TEMP 97.2; O2SAT 96
[2016-11-06] MEDS: DOCUSATE SODIUM 100 MG CAP PO SCH ×2 (08:05→20:17)
[2016-11-06] MEDS: SODIUM CHLORIDE 0.9% FLUSH 10 ML FLUSH IV FLUSH SCH ×2 (08:06→20:16)
[2016-11-06] MEDS: PANTOPRAZOLE SODIUM 40 MG VIAL IV PUSH SCH ×2 (08:06→20:17)
[2016-11-06] MEDS ORDERED: POTASSIUM CHLORIDE 10 MEQ CONTROLLED RELEASE TAB PO ONE (08:15)
[2016-11-06 08:46] LABS: MAGNESIUM 1.6 MG/DL (1.5-2.5)
[2016-11-06] MEDS: SODIUM CHLORIDE 0.9% FLUSH 10 ML FLUSH IVF SCH (09:00)
--- NOTE | 2016-11-06 10:08 | PD.ONC.PN ---
Subjective Subjective Remarks no bleeding less pain and swelling left leg Objective Data Date Time Temp Pulse Resp B/P Pulse Ox O2 Delivery O2 Flow Rate FiO2 11/06/16 04:48 98.1 103 16 107/73 99 11/06/16 00:00 96.0 92 16 112/76 94 11/05/16 20:00 98.5 104 16 117/77 98 11/05/16 16:00 98 20 102/77 92 11/05/16 16:00 99.3 108 18 105/67 100 11/05/16 15:30 98 20 118/91 92 11/05/16 15:00 99 20 160/81 92 11/05/16 14:45 79 20 162/81 90 11/06/16 11/06/16 11/06/16 07:00 15:00 23:00 Intake Total 150 ml Output Total 450 ml Balance -300 ml Result Diagram: 11/06/16 0445 11/06/16 0445 Laboratory Results Laboratory Tests Test 11/05/16 11/05/16 11/05/16 11/06/16 12:41 16:45 22:45 04:44 Activated Partial 58.9 SEC 35.7 SEC 40.1 SEC 47.3 SEC Thromboplast Time Test 11/06/16 04:45 White Blood Count 4.5 TH/MM3 Red Blood Count 3.53 MIL/MM3 Hemoglobin 9.7 GM/DL Hematocrit 28.6 % Mean Corpuscular Volume 80.9 FL Mean Corpuscular Hemoglobin 27.5 PG Mean Corpuscular Hemoglobin 34.0 % Concent Red Cell Distribution Width 19.7 % Platelet Count 161 TH/MM3 Mean Platelet Volume 7.5 FL Sodium Level 140 MEQ/L Potassium Level 3.4 MEQ/L Chloride Level 103 MEQ/L Carbon Dioxide Level 30.1 MEQ/L Anion Gap 7 MEQ/L Blood Urea Nitrogen 11 MG/DL Creatinine 1.20 MG/DL Estimat Glomerular Filtration 46 ML/MIN Rate Random Glucose 94 MG/DL Calcium Level 8.3 MG/DL Magnesium Level 1.6 MG/DL Administered Medications Medications (Trade) Dose Ordered Sig/Tasha Route PRN Reason Start Time Stop Time Status Last Admin Dose Admin Heparin Sodium/ Dextrose (Heparin-D5W Inj) 250 ml @ 0 mls/hr TITRATE IV 11/03/16 02:00 11/05/16 18:11 Pantoprazole Sodium (Protonix Inj) 40 mg Q12H IV PUSH 11/03/16 21:00 11/06/16 08:06 Ondansetron HCl 4 mg 4 mg Q6H PRN IV PUSH NAUSEA/VOMITING 11/03/16 02:15 11/05/16 18:14 Sodium Chloride (NS 1000 ml Inj) 1,000 ml @ 100 mls/hr Q10H IV 11/03/16 02:09 11/05/16 04:46 Sodium Chloride (NS Flush) 2 ml BID IV FLUSH 11/03/16 09:00 11/06/16 08:06 Acetaminophen (Tylenol) 650 mg Q6H PRN PO FEVER/PAIN SCALE 1 TO 2 11/03/16 02:15 11/05/16 04:45 Acetaminophen/ Hydrocodone Bitart ([place] 5-325 Mg) 1 tab Q4H PRN PO PAIN SCALE 3 TO 5 11/03/16 02:15 11/05/16 18:14 Docusate Sodium 100 mg 100 mg BID PO 11/05/16 09:00 11/06/16 08:05 Sodium Bicarbonate 154 meq/Sodium Chloride 1,000 ml @ 0 mls/hr TITRATE IV 11/05/16 13:00 11/06/16 12:59 11/05/16 12:45 Ceftriaxone Sodium/Sodium Chloride (Rocephin Inj/NS Inj) 100 ml @ 200 mls/hr Q24H IV 11/05/16 18:00 11/05/16 18:00 Objective Remarks GENERAL: Middle aged female, lying supine in bed, covered in multiple blankets. SKIN: Warm and dry., some oozing of blood from line, right chest wall. HEAD: Normocephalic. EYES: No injection or drainage. NECK: Supple, trachea midline. CARDIOVASCULAR: Regular rate and rhythm RESPIRATORY: Breath sounds equal bilaterally. No accessory muscle use. GASTROINTESTINAL: Abdomen soft, non-tender, nondistended. EXTREMITIES: No cyanosis, LLE edema improved. NEUROLOGICAL: awake and alert Assessment/Plan Problem List: (1) DVT (deep venous thrombosis) Status: Acute Plan: 11/06 s/p IVC filter and cath directed TPA thrombolysis. She has good results continue heparin. start eliquis tomorrow or friday if no further procedure. I will be OOT. DR Acevedo to follow. 11/05: s/p catheter directed thrombolysis in IR. continue heparin per protocol. will change to oral anticoagulant once creat has normalized. --Extensive acute DVT of the left lower extremity. --most likely due to hypercoagulable state from malignancy as well as decreased mobilization due to recurrent endometrial cancer. (2) Endometrial ca Status: Chronic Plan: will continue Doxil once she is cleared and discharged from hospital s/p 2 cycles of IV Doxil and radiation for vaginal mass causing bleeding. pt denies any vaginal bleeding since completion of radiation. Assessment 61y/o female with endometrial cancer admitted with abdominal pain, nausea vomiting and swelling of the LLE. Hematology consulted for acute DVT of the left lower extremity. h/o Endometrial cancer in 2013, breast cancer in 2003, hypertension. --Cholecystectomy, complete hysterectomy, left mastectomy. Problem Qualifiers (1) DVT (deep venous thrombosis): Qualified Code: I82.402 - Acute deep vein thrombosis (DVT) of left lower extremity, unspecified vein Vel Salvador MD Nov 06, 2016 10:08
--- NOTE | 2016-11-06 10:08 | HHI.PR ---
Subjective Remarks Patient reports she is doing ok. Left leg is less painful. No fevers or chills. Objective Vitals Vital Signs Date Time Temp Pulse Resp B/P Pulse Ox O2 Delivery O2 Flow Rate FiO2 11/06/16 04:48 98.1 103 16 107/73 99 11/06/16 00:00 96.0 92 16 112/76 94 11/05/16 20:00 98.5 104 16 117/77 98 11/05/16 16:00 98 20 102/77 92 11/05/16 16:00 99.3 108 18 105/67 100 11/05/16 15:30 98 20 118/91 92 11/05/16 15:00 99 20 160/81 92 11/05/16 14:45 79 20 162/81 90 I/O 11/05/16 11/05/16 11/05/16 11/06/16 11/06/16 11/06/16 07:00 15:00 23:00 07:00 15:00 23:00 Intake Total 240 ml 150 ml Output Total 450 ml Balance 240 ml -300 ml Intake Oral 240 ml 150 ml Output Urine Total 450 ml # Voids 2 # Bowel Movements 0 Result Diagram: 11/06/16 0445 11/06/16 0445 Objective Remarks GENERAL: Patient appearing older than stated age, in no apparent distress. CARDIOVASCULAR: Normal rate and regular rhythm without murmurs, gallops, or rubs. RESPIRATORY: Good respiratory efforts. Breath sounds equal and clear to auscultation bilaterally. GASTROINTESTINAL: Abdomen soft, nontender, nondistended. Normal active bowel sounds MUSCULOSKELETAL: Left lower extremity is edematous up to the thigh. Less tense compared to yesterday. Mild tenderness to palpation. NEURO: Alert & Oriented x4 to person, place, time, situation. Moves all ext x4 PSYCH: Appropriate mood and affect. A/P Problem List: (1) DVT (deep venous thrombosis) ICD Code: I82.409 Status: Acute (2) Nausea & vomiting ICD Code: R11.2 Status: Acute (3) LAST (acute kidney injury) ICD Code: N17.9 Status: Acute (4) Hyponatremia ICD Code: E87.1 Status: Acute (5) Hypokalemia ICD Code: E87.6 Status: Acute (6) Hyperglycemia ICD Code: R73.9 Status: Acute (7) Endometrial ca ICD Code: C54.1 Status: Chronic Assessment and Plan 61-year-old female with history of recurrent uterine carcinoma and pelvic tumors admitted with new onset left lower extremity DVT, nausea, vomiting, dehydration and electrolyte abnormalities. LLE DVT: Acute onset of LLE swelling/pain, LLE Doppler w/ acute DVT throughout left lower extremity. No h/o DVT/PE, secondary to hypercoagulable state and patient has been more sedentary since she started Radiation. - Started on Heparin gtt in ER - Appreciate hematology following. Patient underwent catheter directed thrombolysis of the acute DVT on 11/06 in IR. - Hematology following with plan to transition to oral anticoagulant H/O Uterine carcinoma recurrence/pelvic tumors: Currently undergoing radiation/ chemotherapy. She denies any vaginal bleeding since September. Too early to tell if she is responding to therapy - Oncologist, Dr. Gill following. Nausea/Vomiting: Resolved. diet as tolerated, analgesics/antiemetics as needed. LAST: Creatinine 1.49 on admission, previously 0.95 on 09/14/16, likely secondary to dehydration from nausea/vomiting. Mass also causing some hydronephrosis. - Improving. Continue to monitor. Hypokalemia: Replace and recheck in am, additional replacement as needed. Hyperglycemia/New onset diabetes: BS 203, no h/o DM. Hgb A1c 6.9, sliding scale w/ Accu-Cheks as needed. Diabetic diet. May try diet and lifestyle modification +/- Metformin on discharge. Asymptomatic bacteriuria: Urine growing staph aureus species, 15-20k CFU's. Patient is largely asymptomatic. We'll treat with Rocephin for now given her immunocompromise state and repeat a urinalysis DVT Prophylaxis: On Heparin gtt for Acute DVT as above. Problem Qualifiers (1) DVT (deep venous thrombosis): Qualified Code: I82.402 - Acute deep vein thrombosis (DVT) of left lower extremity, unspecified vein Iván Dorado MD Nov 06, 2016 10:08 (1) DVT (deep venous thrombosis): Qualified Code: I82.402 - Acute deep vein thrombosis (DVT) of left lower extremity, unspecified vein Iván Dorado MD Nov 06, 2016 10:08
[2016-11-06 11:28] LABS: BACTERIA, URINE RARE /hpf; BLOOD, URINE SMALL (NEG); COMMENT (UR) CULTURE INDICATED; CULTURE IF INDICATED CULTURE INDICATED; GLUCOSE,URINE NEG (NEG); KETONE, URINE NEG (NEG); MUCUS URINE FEW /lpf (OCC); NITRITE,URINE NEG (NEG); PH, URINE 6.5 (5.0-8.5); SQUAMOUS EPITHELIAL CELL URINE <1 /hpf (0-5); URINE COLOR LIGHT-YELLOW (YELLW/STRAW)
[2016-11-06 12:00] VITALS: BP 102/66; PULSE 105; RESP 20; TEMP 98.6; O2SAT 99
[2016-11-06] MEDS: cefTRIAXone INJ 1,000 MG in SODIUM CHLORIDE 0.9% INJ 100 ML IV SCH (17:22)
[2016-11-06 18:00] VITALS: BP 118/78; PULSE 120; RESP 20; TEMP 98.6; O2SAT 99
[2016-11-06] MEDS: ACETAMINOPHEN/HYDROcodone 325 MG/5 MG TAB PO PRN (20:16)
[2016-11-06] MEDS: ONDANSETRON HCL 4 MG/2 ML VIAL IV PUSH PRN (20:32)
[2016-11-06 21:21] VITALS: BP 110/78; PULSE 111; RESP 16; TEMP 99.5; O2SAT 100
[2016-11-07 00:06] VITALS: BP 117/74; PULSE 105; RESP 16; TEMP 98.1; O2SAT 100
[2016-11-07] MEDS: SODIUM CHLOR 0.9% 1000 ML INJ 1,000 ML IV SCH ×2 (05:25→21:32)
[2016-11-07] MEDS: ACETAMINOPHEN/HYDROcodone 325 MG/5 MG TAB PO PRN ×2 (05:29→21:24)
[2016-11-07 05:30] VITALS: BP 123/80; PULSE 101; RESP 16; TEMP 98.2; O2SAT 99
[2016-11-07 06:41] LABS: HEMATOCRIT 27.1 % (35.0-46.0); MEAN CELL VOLUME 81.5 FL (80.0-100.0); MEAN CORPUSCULAR HEMOGLOBIN 27.6 PG (27.0-34.0); MEAN CORPUSCULAR HGB CONC 33.9 % (32.0-36.0); PLATELET COUNT 161 TH/MM3 (150-450); RED BLOOD COUNT 3.32 MIL/MM3 (4.00-5.30); RED CELL DISTRIBUTION WIDTH 19.5 % (11.6-17.2); REVIEW FLAG FINAL; WHITE BLOOD COUNT 3.3 TH/MM3 (4.0-11.0)
[2016-11-07 06:57] LABS: APTT (PATIENT) 41.8 SEC (24.3-30.1)
[2016-11-07 07:29] LABS: BICARBONATE 31.2 MEQ/L (21.0-32.0); POTASSIUM 3.5 MEQ/L (3.5-5.1)
[2016-11-07 08:00] VITALS: BP 112/78; PULSE 98; RESP 18; TEMP 97.6; O2SAT 100
[2016-11-07] MEDS: SODIUM CHLORIDE 0.9% FLUSH 10 ML FLUSH IVF SCH (09:00)
[2016-11-07] MEDS: PANTOPRAZOLE SODIUM 40 MG VIAL IV PUSH SCH ×2 (10:48→21:25)
[2016-11-07] MEDS: SODIUM CHLORIDE 0.9% FLUSH 10 ML FLUSH IV FLUSH SCH ×2 (10:49→21:26)
[2016-11-07] MEDS: DOCUSATE SODIUM 100 MG CAP PO SCH ×2 (10:49→21:25)
[2016-11-07 12:00] VITALS: BP 129/75; PULSE 99; RESP 18; TEMP 98.1; O2SAT 100
--- NOTE | 2016-11-07 13:04 | HHI.PR ---
Subjective Remarks Patient reports she is feeling okay today. Pain in the left leg is less. Leg is more soft and less tense. No dysuria, no fevers or lower abdominal pain. Objective Vitals Vital Signs Date Time Temp Pulse Resp B/P Pulse Ox O2 Delivery O2 Flow Rate FiO2 11/07/16 08:00 97.6 98 18 112/78 100 11/07/16 05:30 98.2 101 16 123/80 99 11/07/16 00:06 98.1 105 16 117/74 100 11/06/16 21:21 99.5 111 16 110/78 100 11/06/16 18:00 98.6 120 20 118/78 99 I/O 11/06/16 11/06/16 11/06/16 11/07/16 11/07/16 11/07/16 07:00 15:00 23:00 07:00 15:00 23:00 Intake Total 150 ml 1280 ml 990 ml Output Total 450 ml Balance -300 ml 1280 ml 990 ml Intake Oral 150 ml 1040 ml 150 ml IV Total 240 ml 840 ml Output Urine Total 450 ml # Voids 6 1 # Bowel Movements 0 1 1 Result Diagram: 11/07/16 0530 11/07/16 0530 Objective Remarks GENERAL: Patient appearing older than stated age, in no apparent distress. CARDIOVASCULAR: Normal rate and regular rhythm without murmurs, gallops, or rubs. RESPIRATORY: Good respiratory efforts. Breath sounds equal and clear to auscultation bilaterally. GASTROINTESTINAL: Abdomen soft, nontender, nondistended. Normal active bowel sounds MUSCULOSKELETAL: Left lower extremity is edematous up to the thigh. Less tense. Mild tenderness to palpation. NEURO: Alert & Oriented x4 to person, place, time, situation. Moves all ext x4 PSYCH: Appropriate mood and affect. A/P Problem List: (1) DVT (deep venous thrombosis) ICD Code: I82.409 Status: Acute (2) Nausea & vomiting ICD Code: R11.2 Status: Acute (3) LAST (acute kidney injury) ICD Code: N17.9 Status: Acute (4) Hyponatremia ICD Code: E87.1 Status: Acute (5) Hypokalemia ICD Code: E87.6 Status: Acute (6) Hyperglycemia ICD Code: R73.9 Status: Acute (7) Endometrial ca ICD Code: C54.1 Status: Chronic Assessment and Plan 61-year-old female with history of recurrent uterine carcinoma and pelvic tumors admitted with new onset left lower extremity DVT, nausea, vomiting, dehydration and electrolyte abnormalities. LLE DVT: Acute onset of LLE swelling/pain, LLE Doppler w/ acute DVT throughout left lower extremity. No h/o DVT/PE, secondary to hypercoagulable state and patient has been more sedentary since she started Radiation. - Started on Heparin gtt in ER - Appreciate hematology following. Patient underwent catheter directed thrombolysis of the acute DVT on 11/06 in IR. -Transition to Eliquis today per hematology recommendations. H/O Uterine carcinoma recurrence/pelvic tumors: Currently undergoing radiation/ chemotherapy. She denies any vaginal bleeding since September. Too early to tell if she is responding to therapy - Oncologist, Dr. Gill following. Nausea/Vomiting: Resolved. diet as tolerated, analgesics/antiemetics as needed. LAST: Creatinine 1.49 on admission, previously 0.95 on 09/14/16, likely secondary to dehydration from nausea/vomiting. Mass also causing some hydronephrosis. -Resolved. Continue to monitor. Hypokalemia: Resolved. Hyperglycemia/New onset diabetes: BS 203, no h/o DM. Hgb A1c 6.9, sliding scale w/ Accu-Cheks as needed. Diabetic diet. May try diet and lifestyle modification +/- Metformin on discharge. Asymptomatic bacteriuria: Urine growing staph aureus species, 15-20k CFU's. Patient is largely asymptomatic. Continue Rocephin. So far repeat urinalysis is negative. DVT Prophylaxis: Patient is on Eliquis Discharge Planning Probable discharge tomorrow if she remains stable. Problem Qualifiers (1) DVT (deep venous thrombosis): Qualified Code: I82.402 - Acute deep vein thrombosis (DVT) of left lower extremity, unspecified vein Iván Dorado MD Nov 07, 2016 13:04
[2016-11-07] MEDS: APIXABAN 5 MG TABLET PO SCH ×2 (14:11→21:24)
--- NOTE | 2016-11-07 15:36 | PD.ONC.PN ---
Subjective Subjective Remarks patient is resting in bed with daughter at bedside no complaints Objective Data Date Time Temp Pulse Resp B/P Pulse Ox O2 Delivery O2 Flow Rate FiO2 11/07/16 12:00 98.1 99 18 129/75 100 11/07/16 08:00 97.6 98 18 112/78 100 11/07/16 05:30 98.2 101 16 123/80 99 11/07/16 00:06 98.1 105 16 117/74 100 11/06/16 21:21 99.5 111 16 110/78 100 11/06/16 18:00 98.6 120 20 118/78 99 11/07/16 11/07/16 11/07/16 07:00 15:00 23:00 Intake Total 990 ml 720 ml Balance 990 ml 720 ml Result Diagram: 11/07/16 0530 11/07/16 0530 Laboratory Results Laboratory Tests Test 11/07/16 05:30 White Blood Count 3.3 TH/MM3 Red Blood Count 3.32 MIL/MM3 Hemoglobin 9.2 GM/DL Hematocrit 27.1 % Mean Corpuscular Volume 81.5 FL Mean Corpuscular Hemoglobin 27.6 PG Mean Corpuscular Hemoglobin 33.9 % Concent Red Cell Distribution Width 19.5 % Platelet Count 161 TH/MM3 Mean Platelet Volume 7.8 FL Activated Partial 41.8 SEC Thromboplast Time Sodium Level 139 MEQ/L Potassium Level 3.5 MEQ/L Chloride Level 102 MEQ/L Carbon Dioxide Level 31.2 MEQ/L Anion Gap 6 MEQ/L Blood Urea Nitrogen 8 MG/DL Creatinine 0.98 MG/DL Estimat Glomerular Filtration 58 ML/MIN Rate Random Glucose 96 MG/DL Calcium Level 8.1 MG/DL Culture Results Microbiology Date/Time Procedure Status Source Growth 11/06/16 08:10 Urine Culture - Preliminary Resulted Urine Clean Catch NO GROWTH IN 24 HOURS. Administered Medications Medications (Trade) Dose Ordered Sig/Tasha Route PRN Reason Start Time Stop Time Status Last Admin Dose Admin Pantoprazole Sodium (Protonix Inj) 40 mg Q12H IV PUSH 11/03/16 21:00 11/07/16 10:48 Ondansetron HCl 4 mg 4 mg Q6H PRN IV PUSH NAUSEA/VOMITING 11/03/16 02:15 11/06/16 20:32 Sodium Chloride (NS 1000 ml Inj) 1,000 ml @ 100 mls/hr Q10H IV 11/03/16 02:09 11/07/16 05:25 Sodium Chloride (NS Flush) 2 ml BID IV FLUSH 11/03/16 09:00 11/07/16 10:49 Acetaminophen (Tylenol) 650 mg Q6H PRN PO FEVER/PAIN SCALE 1 TO 2 11/03/16 02:15 11/05/16 04:45 Acetaminophen/ Hydrocodone Bitart ([place] 5-325 Mg) 1 tab Q4H PRN PO PAIN SCALE 3 TO 5 11/03/16 02:15 11/07/16 05:29 Docusate Sodium 100 mg 100 mg BID PO 11/05/16 09:00 11/07/16 10:49 Ceftriaxone Sodium/Sodium Chloride (Rocephin Inj/NS Inj) 100 ml @ 200 mls/hr Q24H IV 11/05/16 18:00 11/06/16 17:22 Apixaban (Eliquis) 10 mg BID PO 11/07/16 14:00 11/14/16 10:00 11/07/16 14:11 Objective Remarks GENERAL: Well-nourished, well-developed patient. SKIN: Warm and dry. HEAD: Normocephalic. EYES: No scleral icterus. No injection or drainage. EXTREMITIES: edema to LLE MUSCULOSKELETAL: Adequate muscle tone. NEUROLOGICAL: No obvious focal deficit. Awake, alert, and oriented x3. PSYCHIATRIC: Appropriate mood and affect; insight and judgment normal. Assessment/Plan Problem List: (1) DVT (deep venous thrombosis) Status: Acute Plan: 11/07: pt will be started on oral anticoagulant prior to discharge home creat improved Eliquist ordered and pt may be discharged in next 24 hours 11/06 s/p IVC filter and cath directed TPA thrombolysis. She has good results continue heparin. start eliquis tomorrow or deb if no further procedure. I will be OOT. DR Acevedo to follow. 11/05: s/p catheter directed thrombolysis in IR. continue heparin per protocol. will change to oral anticoagulant once creat has normalized. --Extensive acute DVT of the left lower extremity. --most likely due to hypercoagulable state from malignancy as well as decreased mobilization due to recurrent endometrial cancer. (2) Endometrial ca Status: Chronic Plan: 11/07: ok to be discharged home once Ok'd with hem/onc and med team confirmed with daughter that she will continue with weekly lab work as scheduled once discharged. 11/06: will continue Doxil once she is cleared and discharged from hospital s/p 2 cycles of IV Doxil and radiation for vaginal mass causing bleeding. pt denies any vaginal bleeding since completion of radiation. Assessment 61y/o female with endometrial cancer admitted with abdominal pain, nausea vomiting and swelling of the LLE. Hematology consulted for acute DVT of the left lower extremity. h/o Endometrial cancer in 2013, breast cancer in 2003, hypertension. --Cholecystectomy, complete hysterectomy, left mastectomy. Problem Qualifiers (1) DVT (deep venous thrombosis): Qualified Code: I82.402 - Acute deep vein thrombosis (DVT) of left lower extremity, unspecified vein Lynn Ruiz Nov 07, 2016 15:36
[2016-11-07 16:00] VITALS: BP 118/84; PULSE 110; RESP 20; TEMP 99; O2SAT 97
[2016-11-07 20:00] VITALS: BP 132/81; PULSE 111; RESP 16; TEMP 99.4; O2SAT 99
[2016-11-07] MEDS: ONDANSETRON HCL 4 MG/2 ML VIAL IV PUSH PRN (21:25)
[2016-11-07] MEDS: cefTRIAXone INJ 1,000 MG in SODIUM CHLORIDE 0.9% INJ 100 ML IV SCH (21:26)
[2016-11-08 00:06] VITALS: BP 126/73; PULSE 102; RESP 16; TEMP 97.7; O2SAT 100
[2016-11-08] MEDS: SODIUM CHLOR 0.9% 1000 ML INJ 1,000 ML IV SCH (04:37)
[2016-11-08 05:19] VITALS: BP 118/79; PULSE 100; RESP 16; TEMP 98.9; O2SAT 100
[2016-11-08 05:36] LABS: AUTOMATED NEUTROPHIL # 1.5 TH/MM3 (1.8-7.7); BASOPHIL % 0.9 % (0.0-2.0); EOSINOPHIL # 0.1 TH/MM3 (0-0.4); EOSINOPHIL % 3.6 % (0.0-4.0); HEMATOCRIT 25.5 % (35.0-46.0); HEMO FLAGS DIFF FINAL; LYMPH % 18.7 % (9.0-44.0); LYMPHOCYTE # 0.4 TH/MM3 (1.0-4.8); MEAN CELL VOLUME 82.4 FL (80.0-100.0); MEAN CORPUSCULAR HEMOGLOBIN 27.2 PG (27.0-34.0); MONO % 11.9 % (0.0-8.0); NEUT % 64.9 % (16.0-70.0); PLATELET COUNT 151 TH/MM3 (150-450); RED BLOOD COUNT 3.09 MIL/MM3 (4.00-5.30); RED CELL DISTRIBUTION WIDTH 19.3 % (11.6-17.2); WHITE BLOOD COUNT 2.4 TH/MM3 (4.0-11.0)
[2016-11-08 05:49] LABS: ALT (GPT) 6 U/L (10-53); ANION GAP 6 MEQ/L (5-15); AST (GOT) 18 U/L (15-37); BICARBONATE 31.9 MEQ/L (21.0-32.0); BLOOD UREA NITROGEN 7 MG/DL (7-18); CHLORIDE 102 MEQ/L (98-107); GLOMERULAR FILTRATION RATE 64 ML/MIN (>89); POTASSIUM 3.7 MEQ/L (3.5-5.1); SODIUM (NA) 140 MEQ/L (136-145)
[2016-11-08 05:51] LABS: ALKALINE PHOSPHATASE 71 U/L (45-117); TOTAL BILIRUBIN ADULT 0.2 MG/DL (0.2-1.0)
[2016-11-08 08:00] VITALS: BP 121/84; PULSE 90; RESP 16; TEMP 97.1; O2SAT 97
[2016-11-08] MEDS: ACETAMINOPHEN/HYDROcodone 325 MG/5 MG TAB PO PRN ×2 (10:01→18:19)
[2016-11-08] MEDS: PANTOPRAZOLE SODIUM 40 MG VIAL IV PUSH SCH (10:02)
[2016-11-08] MEDS: APIXABAN 5 MG TABLET PO SCH (10:02)
[2016-11-08] MEDS: DOCUSATE SODIUM 100 MG CAP PO SCH (10:02)
[2016-11-08] MEDS: SODIUM CHLORIDE 0.9% FLUSH 10 ML FLUSH IVF SCH (10:03)
[2016-11-08] MEDS: SODIUM CHLORIDE 0.9% FLUSH 10 ML FLUSH IV FLUSH SCH (10:03)
[2016-11-08 12:00] VITALS: BP 126/82; PULSE 102; RESP 16; TEMP 96.7; O2SAT 100
[2016-11-08] MEDS ORDERED: ZOFR4TAB3 SL ×2 (12:27→17:34)
[2016-11-08] MEDS ORDERED: APIX5TAB PO ×2 (12:27→17:34)
[2016-11-08] MEDS ORDERED: HYDR-3516 PO (12:27)
[2016-11-08] MEDS ORDERED: PROT40TA PO ×2 (12:27→17:34)
--- NOTE | 2016-11-08 12:27 | HHI.DCPOC ---
Discharge Care Plan Diagnosis: (1) DVT (deep venous thrombosis) (2) Dehydration (3) LAST (acute kidney injury) (4) Anemia (5) Nausea & vomiting (6) UTI (urinary tract infection) Goals to Promote Your Health * To prevent worsening of your condition and complications * To maintain your health at the optimal level Directions to Meet Your Goals Take your medications as prescribed Follow your dietary instruction Follow activity as directed Keep your appointments as scheduled Take your immunizations and boosters as scheduled If your symptoms worsen call your PCP, if no PCP go to Urgent Care Center or Emergency Room Smoking is Dangerous to Your Health. Avoid second hand smoke Call the 24-hour hour crisis hotline for domestic abuse at Iván Dorado MD Nov 08, 2016 12:27
[2016-11-08] MEDS ORDERED: BACT800T5 PO ×2 (12:28→17:34)
--- NOTE | 2016-11-08 12:29 | HHI.DS ---
Discharge Summary Admission Date Nov 03, 2016 at 01:57 Discharge Date: Nov 08, 2016 Admitting Diagnosis dehydration, dvt (1) DVT (deep venous thrombosis) ICD Code: I82.409 (2) Nausea & vomiting ICD Code: R11.2 (3) LAST (acute kidney injury) ICD Code: N17.9 (4) Hyponatremia ICD Code: E87.1 (5) Hypokalemia ICD Code: E87.6 (6) Hyperglycemia ICD Code: R73.9 (7) Endometrial ca ICD Code: C54.1 Procedures Thrombolysis Brief History - From Admission This is a 61-year-old female with a PMH of Endometrial CA, Breast CA s/ p Chemo/Radiation 2003 and HTN who is brought into the ER by her Daughter for complaints of abdominal pain, nausea and vomiting x1 day. Currently on Chemo, following w/ Dr. Gill, states last Chemo was on Friday, next Chemo scheduled for November 13. Pt states she also noted swelling to left leg and significant pain starting earlier today. Denies fever, chills or diarrhea. On arrival, BP 146/85, HR 141, O2 sat 98% on RA, Afebrile. WBC normal, elevated neutrophil count. Hgb 9.9. Creatinine 1.49, produces 0.95 on 09/14/16. Na 128. K+ 3.0. BS 203. Lactic Acid 1.5. CT Abd/Pelvis w/ left retroperitoneal mass, likely causing dilatation of left collecting system and proximal left ureter, likely contributing to left lower extremity edema, moderate ascites with increased density of mesentery concerning for omental caking and metastatic disease. LLE Doppler w/ acute DVT throughout left lower extremity. No h/o DVT/PE. Started on Heparin gtt in ER. CBC/BMP: 11/08/16 0441 11/08/16 0441 Significant Findings Laboratory Tests Test 11/05/16 11/05/16 11/05/16 11/06/16 12:41 16:45 22:45 04:44 Activated Partial 58.9 SEC 35.7 SEC 40.1 SEC 47.3 SEC Thromboplast Time (24.3-30.1) (24.3-30.1) (24.3-30.1) (24.3-30.1) Test 11/06/16 11/06/16 11/07/16 11/08/16 04:45 08:10 05:30 04:41 Red Blood Count 3.53 MIL/MM3 3.32 MIL/MM3 3.09 MIL/MM3 (4.00-5.30) (4.00-5.30) (4.00-5.30) Hemoglobin 9.7 GM/DL 9.2 GM/DL 8.4 GM/DL (11.6-15.3) (11.6-15.3) (11.6-15.3) Hematocrit 28.6 % 27.1 % 25.5 % (35.0-46.0) (35.0-46.0) (35.0-46.0) Red Cell Distribution Width 19.7 % 19.5 % 19.3 % (11.6-17.2) (11.6-17.2) (11.6-17.2) Potassium Level 3.4 MEQ/L (3.5-5.1) Creatinine 1.20 MG/DL (0.50-1.00) Estimat Glomerular Filtration 46 ML/MIN (>89) 58 ML/MIN (>89) 64 ML/MIN (>89) Rate Calcium Level 8.3 MG/DL 8.1 MG/DL 8.2 MG/DL (8.5-10.1) (8.5-10.1) (8.5-10.1) Urine Occult Blood SMALL (NEG) Urine Leukocyte Esterase SMALL (NEG) Urine RBC 18 /hpf (0-3) Urine WBC 12 /hpf (0-5) Urine Bacteria RARE /hpf (NONE) Urine Mucus FEW /lpf (OCC) White Blood Count 3.3 TH/MM3 2.4 TH/MM3 (4.0-11.0) (4.0-11.0) Activated Partial 41.8 SEC Thromboplast Time (24.3-30.1) Monocytes (%) (Auto) 11.9 % (0.0-8.0) Neutrophils # (Auto) 1.5 TH/MM3 (1.8-7.7) Lymphocytes # (Auto) 0.4 TH/MM3 (1.0-4.8) Alanine Aminotransferase 6 U/L (10-53) (ALT/SGPT) Total Protein 5.5 GM/DL (6.4-8.2) Albumin 1.9 GM/DL (3.4-5.0) Imaging Last Impressions Venogram 11/05/16 Signed Impressions: Service Date/Time: Saturday, November 05, 2016 11:18 - CONCLUSION: Uncomplicated venogram as above. Extensive DVT noted in the left superficial femoral, common femoral and iliac veins. Flow reestablished in the left superficial femoral, common femoral and iliac veins following pulse spray thrombolysis, mechanical thrombectomy and left iliac [employer]. Patient tolerated procedure well. Heparin to be restarted 2 hours post procedure. Jerry Cerna MD Renal Ultrasound 11/05/16 Signed Impressions: Service Date/Time: Saturday, November 05, 2016 17:59 - CONCLUSION: 1. Moderate left hydronephrosis. 2. Smaller right kidney with increased echogenicity which could indicate medical renal disease. 3. Glass catheter in the bladder. Regis Jansen MD IVC Filter Placement X-Ray 11/05/16 Signed Impressions: Service Date/Time: Saturday, November 05, 2016 11:18 - CONCLUSION: Uncomplicated inferior vena cava filter placement as above. Jerry Cerna MD Central Venous Line 11/05/16 Signed Impressions: Service Date/Time: Saturday, November 05, 2016 11:18 - CONCLUSION: Uncomplicated line placement as above. Jerry Cerna MD Lower Extremity Ultrasound 11/02/16 Signed Impressions: Service Date/Time: Wednesday, November 02, 2016 22:35 - CONCLUSION: Acute DVT throughout the left lower extremity. Olayinka Kincaid MD Abdomen/Pelvis CT 11/02/16 Signed Impressions: Service Date/Time: Thursday, November 03, 2016 00:18 - CONCLUSION: 1. Left retroperitoneal low-density mass at the left psoas and iliacus muscle. This is nonspecific. A metastatic lesion could have this appearance. Abscess or old hemorrhage could have this appearance. No high density material to suggest acute hemorrhage is present. This is likely causing the dilatation of the left collecting system and proximal left ureter. It also may be contributing to the left lower extremity edema. 2. Moderate ascites with increased density seen throughout the mesentery concerning for omental caking and metastatic disease. Olayinka Kincaid MD PE at Discharge GENERAL: Patient appearing older than stated age, in no apparent distress. CARDIOVASCULAR: Normal rate and regular rhythm without murmurs, gallops, or rubs. RESPIRATORY: Good respiratory efforts. Breath sounds equal and clear to auscultation bilaterally. GASTROINTESTINAL: Abdomen soft, nontender, nondistended. Normal active bowel sounds MUSCULOSKELETAL: Left lower extremity is edematous up to the thigh. Less tense. Mild tenderness to palpation. NEURO: Alert & Oriented x4 to person, place, time, situation. Moves all ext x4 PSYCH: Appropriate mood and affect. Pt update on day of discharge Patient reports she is feeling OK. Pain is controlled. No shortness of breath. Swelling improved. No fevers. Fells comfortable with going home. Hospital Course 61-year-old female with history of recurrent uterine carcinoma and pelvic tumors admitted with new onset left lower extremity DVT, nausea, vomiting, dehydration and electrolyte abnormalities. Evaluations and treatment course as detailed below: LLE DVT: Acute onset of LLE swelling/pain, LLE Doppler w/ acute DVT throughout left lower extremity. No h/o DVT/PE, secondary to hypercoagulable state and patient has been more sedentary since she started Radiation. Patient was started on Heparin drip. She was followed by Hematology. She underwent catheter directed thrombolysis of the acute DVT on 11/06 in IR. Patient was transitioned to Eliquis. H/O Uterine carcinoma recurrence/pelvic tumors: Currently undergoing radiation/ chemotherapy. She denies any vaginal bleeding since September. Too early to tell if she is responding to therapy. Patient was followed by her [facility] oncologist. She will resume chemotherapy after discharge. Nausea/Vomiting: Resolved. diet as tolerated, analgesics/antiemetics as needed. LAST: Creatinine 1.49 on admission, previously 0.95 on 09/14/16, likely secondary to dehydration from nausea/vomiting. Mass also causing some hydronephrosis. -Resolved with hydration. Hypokalemia: Resolved. Hyperglycemia/New onset diabetes: BS 203, no h/o DM. Hgb A1c 6.9, sliding scale w/ Accu-Cheks as needed. Diabetic diet. Metformin sent to the patient's pharmacy. Advised outpatient follow up. Asymptomatic bacteriuria: Urine growing staph aureus species, 15-20k CFU's. Patient is largely asymptomatic. She was treated with Rocephin and discharged on Bactrim per sensitivity profile. Pt Condition on Discharge: Stable Discharge Disposition: Discharge Home Discharge Time: > 30 minutes Discharge Instructions DIET: Follow Instructions for: As Tolerated, No Restrictions Activities you can perform: Regular-No Restrictions Follow up Referrals: [facility] Oncology with Jackelin Gill MD New Medications: Metformin (Metformin) 500 Mg Tab 500 MG PO BIDPC With meals Blood Sugar Management #60 Ref 0 TAB Ondansetron Odt (Zofran Odt) 4 Mg Tab 4 MG SL Q6HR PRN Nausea/Vomiting #30 Ref 0 TAB Pantoprazole (Protonix) 40 Mg Tab 40 MG PO DAILY Reflux #30 Ref 0 TAB Sulfamethoxazole-Trimethoprim (Bactrim DS) 800-160 Mg Tab 1 TAB PO BID Infection #6 Ref 0 TAB Apixaban (Eliquis) 5 Mg Tab 10 MG PO BID #12 TAB Apixaban (Eliquis) 5 Mg Tab 5 MG PO BID #60 TAB Hydrocodone-Acetaminophen (Hydrocodone-Acetaminophen) 5-325 mg Tab 1 TAB PO Q4H PRN PAIN GREATER THAN 5 #30 TAB Continued Medications: Doxorubicin HCl (Adriamycin) 2 Mg/Ml Inj Unknown Dose Potassium Chloride ER (K-Tab) 10 Meq Tab 10 MEQ PO DAILY Electrolyte Replacement #30 Ref 0 TAB Simvastatin (Simvastatin) 40 Mg Tab 40 MG PO HS Cholesterol Management #30 Ref 0 TAB Discontinued Medications: Amlodipine (Amlodipine) 5 Mg Tab 5 MG PO DAILY Blood Pressure Management #30 Ref 0 TAB Iván Dorado MD Nov 08, 2016 12:29
[2016-11-08 16:00] VITALS: BP 124/79; PULSE 105; RESP 16; TEMP 98.5; O2SAT 97
[2016-11-08] MEDS: ONDANSETRON HCL 4 MG/2 ML VIAL IV PUSH PRN (18:18)
[2016-11-12] MEDS ORDERED: METF500T PO (22:58)
[2016-11-14] MEDS ORDERED: APIXABAN 5 MG TABLET PO SCH (21:00)
== END 2016-11-08 18:35 | disposition home or self-care (01) | DRG 271 ==
LOC: NEPE 21:25 → NEDA 11-03 01:57 → HOCA 11-03 06:33
PROVIDERS: ADMIT Family Medicine; ATTEND Family Medicine
PROC: 30233N1 Transfusion of Nonautologous Red Blood Cells into Peripheral Vein, Percutaneous Approach (ICD-10-PCS; 2016-11-04)
PROC: 06CN3ZZ Extirpation of Matter from Left Femoral Vein, Percutaneous Approach (ICD-10-PCS; principal; 2016-11-05)
PROC: 06CD3ZZ Extirpation of Matter from Left Common Iliac Vein, Percutaneous Approach (ICD-10-PCS; 2016-11-05)
PROC: 047D3ZZ Dilation of Left Common Iliac Artery, Percutaneous Approach (ICD-10-PCS; 2016-11-05)
PROC: 06H03DZ Insertion of Intraluminal Device into Inferior Vena Cava, Percutaneous Approach (ICD-10-PCS; 2016-11-05)
PROC: 3E03317 Introduction of Other Thrombolytic into Peripheral Vein, Percutaneous Approach (ICD-10-PCS; 2016-11-05)
PROC: B5191ZZ Fluoroscopy of Inferior Vena Cava using Low Osmolar Contrast (ICD-10-PCS; 2016-11-05)
PROC: B543ZZA Ultrasonography of Right Jugular Veins, Guidance (ICD-10-PCS; 2016-11-05)
PROC: 02HV33Z Insertion of Infusion Device into Superior Vena Cava, Percutaneous Approach (ICD-10-PCS; 2016-11-05)
PROC: B543ZZA Ultrasonography of Right Jugular Veins, Guidance (ICD-10-PCS; 2016-11-05)
PROC: B513YZA Fluoroscopy of Right Jugular Veins using Other Contrast, Guidance (ICD-10-PCS; 2016-11-05)
DX: I82.412 Acute embolism and thrombosis of left femoral vein (principal); E87.1 Hypo-osmolality and hyponatremia; R18.0 Malignant ascites; N17.9 Acute kidney failure, unspecified; C78.6 Secondary malignant neoplasm of retroperitoneum and peritoneum; D68.59 Other primary thrombophilia; I82.432 Acute embolism and thrombosis of left popliteal vein; E83.42 Hypomagnesemia; N13.30 Unspecified hydronephrosis; E86.0 Dehydration; D64.81 Anemia due to antineoplastic chemotherapy; I10 Essential (primary) hypertension; C54.1 Malignant neoplasm of endometrium; I82.812 Embolism and thrombosis of superficial veins of left lower extremity; R19.00 Intra-abdominal and pelvic swelling, mass and lump, unspecified site; R73.9 Hyperglycemia, unspecified; E87.6 Hypokalemia; E11.65 Type 2 diabetes mellitus with hyperglycemia; R82.71 Bacteriuria; R62.7 Adult failure to thrive; T45.1X5A Adverse effect of antineoplastic and immunosuppressive drugs, initial encounter; Z85.3 Personal history of malignant neoplasm of breast; Z92.3 Personal history of irradiation; Z90.12 Acquired absence of left breast and nipple
CPT/HCPCS: 36430; 36556; 37187; 37191; 37212; 74176; 76775; 76937; 77001; 80048; 80053; 81001; 83036; 83605; 83690; 83735; 85025; 85027; 85347; 85610; 85730; 86403; 86850; 86900; 86901; 86920; 87040; 87077; 87086; 87186; 93005; 93971; 96361; 96374; 99152; 99153; C1725; C1757; C1769; C1880; C1887; C1894; C9113; J0690; J0696; J1644; J2250; J2405; J2997; J3010; J3475; J3480; J7030; P9016; Q9967

== ENCOUNTER 2016-11-18 12:36 | Inpatient (IN) | payer MEDICAID ==
[~2016-11-18] VITALS: Ht 149.9 cm; Wt 47.2 kg
[2016-11-18] VITALS (9 sets, daily range): BP systolic 124–164; BP diastolic 71–102; PULSE 101–138; RESP 13–22; TEMP 97–97.7; O2SAT 95–98
[~2016-11-18 12:36] MED LIST changes: +APIX5TAB PO; +BACT800T5 PO; -CIPR-9 PO; -DRIS50002 PO; +HYDR-3516 PO; +METF500T PO; +PROT40TA PO; +ZOFR4TAB3 SL; +[UNRECOGNIZED DRUG - CODE]
--- NOTE | 2016-11-18 13:02 | PD ---
HPI Chief Complaint: Abdominal Pain Time Seen by Provider: 13:02 Travel History International Travel<30 days: No Contact w/Intl Traveler<30days: No History of Present Illness HPI 61-year-old female with history of hypertension, endometrial cancer, DVT (admit 11/02/16, DC'd 11/08) followed by Dr. Deepak SILVER presents to the ED for evaluation of anorexia, nausea, vomiting, abdominal pain, right-sided back pain and shortness of breath. The patient is [place]-speaking only, daughter is at bedside and helps provide the history. Daughter states that the patient has been unable to keep anything down for 3-4 days. She states that even drinking water induces nausea despite by mouth Zofran. She states her mother's also been complaining of increasing abdominal pain and swelling. She endorses small , hard NBNB stools daily. Endorses increasing dyspnea. She denies chest pain, dysuria, hematuria, vaginal bleeding. Endorses swelling of the left leg which is improved since her previous discharge. PCP Dr. Shekhar WOO Past Medical History Cancer: Yes (L BREAST 2003, UTERINE ) Cardiovascular Problems: No High Cholesterol: Yes Chemotherapy: Yes (Last Chemo 10/23) Diabetes: No Endocrine: No Gastrointestinal Disorders: Yes Genitourinary: No Hepatitis: No Hiatal Hernia: No Hypertension: Yes Immune Disorder: No Musculoskeletal: No Neurologic: No Psychiatric: No Reproductive: No Respiratory: No Immunizations Current: Yes Radiation Therapy: Yes (last done 10 years ago . Just started 10 treatments ) Thyroid Disease: No Past Surgical History Abdominal Surgery: Yes (CHOLECYSTECTOMY 1996) AICD: No Gynecologic Surgery: Yes (HYSTERECTOMY FEB 2014) Hysterectomy: Yes Joint Replacement: No Pacemaker: No Thoracic Surgery: Yes (L BREAST MASTECTOMY WITH CHEMO/RADIATION 2003) Other Surgery: Yes Social History Alcohol Use: No Tobacco Use: No Substance Use: No Allergies-Medications (Allergen,Severity, Reaction): Coded Allergies: Paclitaxel (Verified Allergy, Severe, Shortness of Breath, 11/18/16) Vancomycin (Unverified Allergy, Mild, ITCHING, 11/18/16) Reported Meds & Prescriptions Reported Meds & Active Scripts Active Metformin (Metformin HCl) 500 Mg Tab 500 Mg PO BIDPC With meals Bactrim DS (Sulfamethoxazole-Trimethoprim) 800-160 Mg Tab 1 Tab PO BID Zofran Odt (Ondansetron Odt) 4 Mg Tab 4 Mg SL Q6HR PRN Protonix (Pantoprazole Sodium) 40 Mg Tab 40 Mg PO DAILY Eliquis (Apixaban) 5 Mg Tab 5 Mg PO BID Eliquis (Apixaban) 5 Mg Tab 10 Mg PO BID Hydrocodone-Acetaminophen 5-325 mg Tab 1 Tab PO Q4H PRN Reported Adriamycin (Doxorubicin HCl) 2 Mg/Ml Inj Unknown Dose K-Tab (Potassium Chloride) 10 Meq Tab 10 Meq PO DAILY Simvastatin 40 Mg Tab 40 Mg PO HS Review of Systems Except as stated in HPI: all other systems reviewed are Neg Physical Exam Narrative GENERAL: Frail female in no acute distress. SKIN: Focused skin assessment warm/dry. HEAD: Normocephalic. EYES: No scleral icterus. No injection or drainage. NECK: Supple, trachea midline. No JVD or lymphadenopathy. CARDIOVASCULAR: Regular rate and rhythm without murmurs, gallops, or rubs. RESPIRATORY: Breath sounds clear and equal bilaterally. No accessory muscle use. GASTROINTESTINAL: Abdomen protuberant, tense. No fluid wave. MUSCULOSKELETAL: No cyanosis, or edema. 2+ edema of the left leg to the mid calf. Negative Homans sign. BACK: No obvious deformity. + right sided CVA tenderness. Data Data Last Documented VS Vital Signs Date Time Temp Pulse Resp B/P Pulse Ox O2 Delivery O2 Flow Rate FiO2 11/18/16 14:30 121 22 139/86 97 Room Air 11/18/16 12:40 97.7 Orders Complete Blood Count With Diff (11/18/16 13:10) Comprehensive Metabolic Panel (11/18/16 13:10) Lipase (11/18/16 13:10) Lactic Acid (11/18/16 13:10) Prothrombin Time / Inr (Pt) (11/18/16 13:10) Act Partial Throm Time (Ptt) (11/18/16 13:10) Urinalysis - C+S If Indicated (11/18/16 13:10) Iv Access Insert/Monitor (11/18/16 13:10) Ecg Monitoring (11/18/16 13:10) Oximetry (11/18/16 13:10) NPO (11/18/16 13:10) Morphine Inj (Morphine Inj) (11/18/16 13:15) Ondansetron Inj (Zofran Inj) (11/18/16 13:15) Sodium Chlor 0.9% 1000 Ml Inj (Ns 1000 M (11/18/16 13:10) Sodium Chloride 0.9% Flush (Ns Flush) (11/18/16 13:15) Electrocardiogram (11/18/16 13:10) Chest, Single Ap (11/18/16 13:10) Ct Pulmonary Angiogram (11/18/16 13:26) Sodium Chloride 0.9% Flush (Ns Flush) (11/18/16 13:30) Ct Abd/Pel W Iv Contrast(Rout) (11/18/16 13:29) Troponin I (11/18/16 13:30) Urine Culture (11/18/16 13:37) Iodixanol 320 Inj (Rad Ct) (Visipaque 32 (11/18/16 15:44) Admit Order (Ed Use Only) (11/18/16 16:36) Consult [employer] Operator Oncology (11/18/16 ) Invasive Rad Dept Consult (11/18/16 ) Labs Laboratory Tests Test 11/18/16 11/18/16 13:30 13:37 White Blood Count 7.2 TH/MM3 Red Blood Count 3.87 MIL/MM3 Hemoglobin 10.5 GM/DL Hematocrit 31.7 % Mean Corpuscular Volume 81.9 FL Mean Corpuscular Hemoglobin 27.0 PG Mean Corpuscular Hemoglobin 33.0 % Concent Red Cell Distribution Width 18.8 % Platelet Count 473 TH/MM3 Mean Platelet Volume 7.6 FL Neutrophils (%) (Auto) 77.4 % Lymphocytes (%) (Auto) 9.3 % Monocytes (%) (Auto) 12.7 % Eosinophils (%) (Auto) 0.2 % Basophils (%) (Auto) 0.4 % Neutrophils # (Auto) 5.6 TH/MM3 Lymphocytes # (Auto) 0.7 TH/MM3 Monocytes # (Auto) 0.9 TH/MM3 Eosinophils # (Auto) 0.0 TH/MM3 Basophils # (Auto) 0.0 TH/MM3 CBC Comment DIFF FINAL Differential Comment Prothrombin Time 14.4 SEC Prothromb Time International 1.3 RATIO Ratio Activated Partial 66.7 SEC Thromboplast Time Sodium Level 129 MEQ/L Potassium Level 3.6 MEQ/L Chloride Level 89 MEQ/L Carbon Dioxide Level 30.1 MEQ/L Anion Gap 10 MEQ/L Blood Urea Nitrogen 17 MG/DL Creatinine 1.61 MG/DL Estimat Glomerular Filtration 33 ML/MIN Rate Random Glucose 135 MG/DL Lactic Acid Level 1.0 mmol/L Calcium Level 8.9 MG/DL Total Bilirubin 0.4 MG/DL Aspartate Amino Transf 18 U/L (AST/SGOT) Alanine Aminotransferase 11 U/L (ALT/SGPT) Alkaline Phosphatase 82 U/L Troponin I LESS THAN 0.02 NG/ML Total Protein 7.3 GM/DL Albumin 2.6 GM/DL Lipase 124 U/L Urine Color YELLOW Urine Turbidity HAZY Urine pH 6.0 Urine Specific [place] 1.027 Urine Protein 100 mg/dL Urine Glucose (UA) NEG mg/dL Urine Ketones NEG mg/dL Urine Occult Blood TRACE Urine Nitrite NEG Urine Bilirubin NEG Urine Urobilinogen 2.0 MG/DL Urine Leukocyte Esterase NEG Urine RBC 1 /hpf Urine WBC 4 /hpf Urine Squamous Epithelial <1 /hpf Cells Urine Transitional Epithelial <1 /hpf Cells Urine Bacteria RARE /hpf Urine Hyaline Casts 1 /lpf Urine Granular Casts 2 /lpf Urine White Blood Cell Casts 1 /lpf Urine Mucus FEW /lpf Microscopic Urinalysis Comment CATH-CULTURE IND MDM Medical Decision Making Medical Screen Exam Complete: Yes Emergency Medical Condition: Yes Differential Diagnosis Ascites versus SBP versus bowel obstruction versus UTI versus pneumonia versus PE versus other Narrative Course 61-year-old female with history of hypertension, endometrial cancer, DVT (admit 11/02/16, DC'd 11/08) followed by Dr. Deepak [facility] presents to the ED for evaluation of anorexia, nausea, vomiting, abdominal pain, right-sided back pain and shortness of breath. The patient is [place]-speaking only, daughter is at bedside and helps provide the history. Daughter states that the patient has been unable to keep anything down for 3-4 days despite taking Zofran. She states her mother's also been complaining of increasing abdominal pain and swelling. She endorses small, hard NBNB stools daily. Endorses increasing dyspnea. Endorses swelling of the left leg which is improved since her previous discharge. She denies chest pain, dysuria, hematuria, vaginal bleeding. Vitals reviewed, pulse 126, respiratory rate 20 on presentation. Physical exam reveals a frail woman in no acute distress. Chest is CTAP. Patient is taking short, shallow breaths. The abdomen is distended, tense, tender. There is positive right-sided CVA tenderness. There is 2+ edema of the left lower extremity. Homans sign negative. IV was established. Patient was placed on continuous monitoring administered IV Zofran and a 1 L NS bolus. CBC: WBC 7.2, hemoglobin 10.5. INR 1.3. CMP: Sodium 129, chloride 89. Creatinine 1.61. BUN 17. Lipase 124. Lactic acid 1.0. Cardiac enzymes negative 1. UA: Hazy, trace occult blood, rare bacteria. Culture pending. CXR: No acute cardio pulmonary process. EKG: Rate 118, sinus rhythm. OR 118, QRS 82, QTC 370. Normal axis. [place] waves in V2 and V3. Reviewed by Dr. Interiano. CTA: No PE. Positive for ascites. CT abdomen: Moderate to large amount of ascites. Moderate Left hydronephrosis and dilatation of the ureter to the level of the pelvis with no definite calcification. Nonspecific gas pattern crushable mild ileus. Hiatal hernia with distal dilatation of the esophagus. Plan to admit to medicine with IR consult for paracentesis. Consulted with Dr. Gill. Consult placed with IR. I spoke with Dr. Dorado who agrees to accept this patient to the medicine service. Please see medicine notes for disposition. Stefanie Olivarez Nov 18, 2016 13:02
[2016-11-18] MEDS ORDERED: SODIUM CHLOR 0.9% 1000 ML INJ 1,000 ML IV SCH (13:10)
[2016-11-18] MEDS ORDERED: MORPHINE SULFATE 4 MG/ML INJ IV PUSH ONE (13:15)
[2016-11-18] MEDS ORDERED: ONDANSETRON HCL 4 MG/2 ML VIAL IVP ONE (13:15)
[2016-11-18] MEDS ORDERED: SODIUM CHLORIDE 0.9% FLUSH 10 ML FLUSH IV FLUSH PRN ×3 (13:15→17:15)
--- NOTE | 2016-11-18 14:00 | RADRPT ---
EXAM DATE/TIME: 11/18/2016 13:30 [facility] COMPARISON: CHEST SINGLE AP, September 13, 2016, 17:47. INDICATIONS : Short of breath, swollen abdomen. MEDICAL HISTORY : endometrial cancer SURGICAL HISTORY : Hysterectomy. ENCOUNTER: Initial ACUITY: 1 day PAIN SCORE: 0/10 LOCATION: Bilateral chest FINDINGS: A single view of the chest demonstrates the lungs to be symmetrically aerated without evidence of mas s, infiltrate or effusion. A number of semi-radiopaque objects overlie the right chest. There are no effusions. Right IJ Yizznr-w-Avid is stable in position. The cardiomediastinal contours are unremarka ble. Osseous structures are intact. CONCLUSION: 1. No acute cardiac pulmonary process. 2. Stable position of right IJ Kwynzc-y-Odxw catheter. Clinton Thompson MD on November 18, 2016 at 13:50 Board Certified Radiologist. This report was verified electronically.
[2016-11-18 14:12] LABS: AUTOMATED NEUTROPHIL # 5.6 TH/MM3 (1.8-7.7); BASOPHIL % 0.4 % (0.0-2.0); EOSINOPHIL % 0.2 % (0.0-4.0); HEMATOCRIT 31.7 % (35.0-46.0); HEMO FLAGS DIFF FINAL; LYMPH % 9.3 % (9.0-44.0); LYMPHOCYTE # 0.7 TH/MM3 (1.0-4.8); MEAN CELL VOLUME 81.9 FL (80.0-100.0); MONO % 12.7 % (0.0-8.0); NEUT % 77.4 % (16.0-70.0); PLATELET COUNT 473 TH/MM3 (150-450); RED BLOOD COUNT 3.87 MIL/MM3 (4.00-5.30); RED CELL DISTRIBUTION WIDTH 18.8 % (11.6-17.2); WHITE BLOOD COUNT 7.2 TH/MM3 (4.0-11.0)
[2016-11-18 14:22] LABS: APTT (PATIENT) 66.7 SEC (24.3-30.1); INTERNATIONAL NORMALIZED RATIO 1.3 RATIO; PROTHROMBIN TIME - PATIENT 14.4 SEC (9.8-11.6)
[2016-11-18 14:28] LABS: BACTERIA, URINE RARE /hpf; BLOOD, URINE TRACE (NEG); GLUCOSE,URINE NEG (NEG); GRANULAR CAST, URINE 2 /lpf; HYALINE CAST, URINE 1 /lpf (RARE); KETONE, URINE NEG (NEG); MUCUS URINE FEW /lpf (OCC); NITRITE,URINE NEG (NEG); SQUAMOUS EPITHELIAL CELL URINE <1 /hpf (0-5); TRANSITIONAL EPI CELLS, URINE <1 /hpf; URINE COLOR YELLOW (YELLW/STRAW); WHITE BLOOD CELL CAST, URINE 1 /lpf
[2016-11-18 14:29] LABS: ALT (GPT) 11 U/L (10-53); ANION GAP 10 MEQ/L (5-15); AST (GOT) 18 U/L (15-37); BICARBONATE 30.1 MEQ/L (21.0-32.0); BLOOD UREA NITROGEN 17 MG/DL (7-18); CHLORIDE 89 MEQ/L (98-107); GLOMERULAR FILTRATION RATE 33 ML/MIN (>89); POTASSIUM 3.6 MEQ/L (3.5-5.1); SODIUM (NA) 129 MEQ/L (136-145)
[2016-11-18 14:31] LABS: ALKALINE PHOSPHATASE 82 U/L (45-117); TOTAL BILIRUBIN ADULT 0.4 MG/DL (0.2-1.0)
[2016-11-18 14:37] LABS: COMMENT (UR) CATH-CULTURE IND; CULTURE IF INDICATED CATH CULTURE IND
[2016-11-18] MEDS ORDERED: IODIXANOL 320 MG/ML 10 ML VIAL (for Rad CT) IV ONE (15:44)
--- NOTE | 2016-11-18 15:51 | RADRPT ---
EXAM DATE/TIME: 11/18/2016 15:07 [facility] COMPARISON: No previous studies available for comparison. INDICATIONS : Embolism, abdominal pain. IV CONTRAST: 50 cc Visipaque (iodixanol) IV RADIATION DOSE: 14.1 CTDIvol (mGy) MEDICAL HISTORY : Carcinoma, breast. SURGICAL HISTORY : Mastectomy, left. ENCOUNTER: Initial ACUITY: 1 day PAIN SCALE: 2/10 LOCATION: TECHNIQUE: Volumetric scanning of the chest was performed using a pulmonary embolism protocol MIP images were re constructed. Using automated exposure control and adjustment of the mA and/or kV according to patien t size, radiation dose was kept as low as reasonably achievable to obtain optimal diagnostic quality images. FINDINGS: Examination of the pulmonary vasculature demonstrates good filling of the main, lobar and segmental b ranches. There are no filling defects to suggest pulmonary embolism. Multiplanar reconstructions are also unremarkable. There is peripheral scarring in the left apex with volume loss. No pulmonary nodules are identified. No pleural effusions are identified. Gdsrkt-t-Kgtx is in place via right internal jugular approach wi th its tip in the superior vena cava. Large volume of ascites is present in the upper abdomen. CONCLUSION: 1. No evidence of pulmonary embolism. 2. Ascites Johan Rojas MD on November 18, 2016 at 15:42 Board Certified Radiologist. This report was verified electronically.
--- NOTE | 2016-11-18 16:00 | RADRPT ---
EXAM DATE/TIME: 11/18/2016 15:07 [place] Corrected on: November 22, 2016; corrected location [facility] COMPARISON: No previous studies available for comparison. INDICATIONS : Abdomen pain. IV CONTRAST: 50 cc Omnipaque 350 (iohexol) IV ORAL CONTRAST: No oral contrast ingested. RADIATION DOSE: 3.42 CTDIvol (mGy) MEDICAL HISTORY : Carcinoma, breast. Uterine Cancer SURGICAL HISTORY : Mastectomy, left. Cholecystectomy. Hysterectomy. ENCOUNTER: Initial ACUITY: 1 day PAIN SCALE: 2/10 LOCATION: Abdominal pain TECHNIQUE: Volumetric scanning of the abdomen and pelvis was performed. Using automated exposure control and ad justment of the mA and/or kV according to patient size, radiation dose was kept as low as reasonably achievable to obtain optimal diagnostic quality images. FINDINGS: LOWER LUNGS: The visualized lower lungs are clear. The patient is noted to be status post left mastectomy. LIVER: Homogeneous density without lesion. There is no dilation of the biliary tree. The patient is status post cholecystectomy. SPLEEN: Normal size without lesion. PANCREAS: Within normal limits. KIDNEYS: The right kidney is unremarkable in appearance. The left kidney appears mildly prominent with moderat e hydronephrosis and delayed nephrogram. There is dilatation of the proximal left ureter down to the level of the upper pelvis. There is no definite calculus or mass identified. ADRENAL GLANDS: Within normal limits. VASCULAR: There is no aortic aneurysm. An inferior vena caval filter is present. BOWEL/MESENTERY: There is dilatation of the distal esophagus which is filled with fluid. There is an apparent hiatal h ernia. There is a moderate to large amount of ascitic fluid throughout the abdomen and pelvis. The dell wel loops are displaced by the ascitic fluid with no obstruction or free air. No oral contrast was gi meenakshi limiting the sensitivity. There is multiple air fluid levels. ABDOMINAL WALL: Within normal limits. RETROPERITONEUM: There is no lymphadenopathy. BLADDER: No wall thickening or mass. REPRODUCTIVE: Within normal limits. INGUINAL: There is no lymphadenopathy or hernia. MUSCULOSKELETAL: Within normal limits for patient age. CONCLUSION: 1. Moderate to large amount of ascitic fluid throughout the abdomen and pelvis. 2. Moderate left hydronephrosis with delayed nephrogram and dilatation of the left ureter down to lev el of the pelvis with no distinct renal calculi or mass identified. 3. Mildly nonspecific, nonobstructive bowel gas pattern which may represent a mild ileus. There is di latation of the distal esophagus and a hiatal hernia is present. Regis Jansen MD on November 18, 2016 at 15:50 Board Certified Radiologist. This report was verified electronically.
--- NOTE | 2016-11-18 16:40 | PD ---
Data Data Last Documented VS Vital Signs Date Time Temp Pulse Resp B/P Pulse Ox O2 Delivery O2 Flow Rate FiO2 11/18/16 14:30 121 22 139/86 97 Room Air 11/18/16 12:40 97.7 Orders Complete Blood Count With Diff (11/18/16 13:10) Comprehensive Metabolic Panel (11/18/16 13:10) Lipase (11/18/16 13:10) Lactic Acid (11/18/16 13:10) Prothrombin Time / Inr (Pt) (11/18/16 13:10) Act Partial Throm Time (Ptt) (11/18/16 13:10) Urinalysis - C+S If Indicated (11/18/16 13:10) Iv Access Insert/Monitor (11/18/16 13:10) Ecg Monitoring (11/18/16 13:10) Oximetry (11/18/16 13:10) NPO (11/18/16 13:10) Morphine Inj (Morphine Inj) (11/18/16 13:15) Ondansetron Inj (Zofran Inj) (11/18/16 13:15) Sodium Chlor 0.9% 1000 Ml Inj (Ns 1000 M (11/18/16 13:10) Sodium Chloride 0.9% Flush (Ns Flush) (11/18/16 13:15) Electrocardiogram (11/18/16 13:10) Chest, Single Ap (11/18/16 13:10) Ct Pulmonary Angiogram (11/18/16 13:26) Sodium Chloride 0.9% Flush (Ns Flush) (11/18/16 13:30) Ct Abd/Pel W Iv Contrast(Rout) (11/18/16 13:29) Troponin I (11/18/16 13:30) Urine Culture (11/18/16 13:37) Iodixanol 320 Inj (Rad Ct) (Visipaque 32 (11/18/16 15:44) Labs Laboratory Tests Test 11/18/16 11/18/16 13:30 13:37 White Blood Count 7.2 TH/MM3 Red Blood Count 3.87 MIL/MM3 Hemoglobin 10.5 GM/DL Hematocrit 31.7 % Mean Corpuscular Volume 81.9 FL Mean Corpuscular Hemoglobin 27.0 PG Mean Corpuscular Hemoglobin 33.0 % Concent Red Cell Distribution Width 18.8 % Platelet Count 473 TH/MM3 Mean Platelet Volume 7.6 FL Neutrophils (%) (Auto) 77.4 % Lymphocytes (%) (Auto) 9.3 % Monocytes (%) (Auto) 12.7 % Eosinophils (%) (Auto) 0.2 % Basophils (%) (Auto) 0.4 % Neutrophils # (Auto) 5.6 TH/MM3 Lymphocytes # (Auto) 0.7 TH/MM3 Monocytes # (Auto) 0.9 TH/MM3 Eosinophils # (Auto) 0.0 TH/MM3 Basophils # (Auto) 0.0 TH/MM3 CBC Comment DIFF FINAL Differential Comment Prothrombin Time 14.4 SEC Prothromb Time International 1.3 RATIO Ratio Activated Partial 66.7 SEC Thromboplast Time Sodium Level 129 MEQ/L Potassium Level 3.6 MEQ/L Chloride Level 89 MEQ/L Carbon Dioxide Level 30.1 MEQ/L Anion Gap 10 MEQ/L Blood Urea Nitrogen 17 MG/DL Creatinine 1.61 MG/DL Estimat Glomerular Filtration 33 ML/MIN Rate Random Glucose 135 MG/DL Lactic Acid Level 1.0 mmol/L Calcium Level 8.9 MG/DL Total Bilirubin 0.4 MG/DL Aspartate Amino Transf 18 U/L (AST/SGOT) Alanine Aminotransferase 11 U/L (ALT/SGPT) Alkaline Phosphatase 82 U/L Troponin I LESS THAN 0.02 NG/ML Total Protein 7.3 GM/DL Albumin 2.6 GM/DL Lipase 124 U/L Urine Color YELLOW Urine Turbidity HAZY Urine pH 6.0 Urine Specific [place] 1.027 Urine Protein 100 mg/dL Urine Glucose (UA) NEG mg/dL Urine Ketones NEG mg/dL Urine Occult Blood TRACE Urine Nitrite NEG Urine Bilirubin NEG Urine Urobilinogen 2.0 MG/DL Urine Leukocyte Esterase NEG Urine RBC 1 /hpf Urine WBC 4 /hpf Urine Squamous Epithelial <1 /hpf Cells Urine Transitional Epithelial <1 /hpf Cells Urine Bacteria RARE /hpf Urine Hyaline Casts 1 /lpf Urine Granular Casts 2 /lpf Urine White Blood Cell Casts 1 /lpf Urine Mucus FEW /lpf Microscopic Urinalysis Comment CATH-CULTURE IND MDM Supervised Visit with SERENITY: Yes Narrative Course I, Dr. Interiano, have reviewed the advance practice practioner's documentation and am in agreement, met with the patient face to face, made the diagnosis, and the medical decision making was done by me. *My assessment and Findings: 61-year-old female with history of endometrial cancer, DVT in the left lower extremity here with increasing pain in the abdomen , shortness of breath with poor oral intake. She is also having some pain in the back. There is evidence of retroperitoneal mass on previous CT imaging. Patient quite dyspneic on exam, tachycardic in the 120s to 130s initially. Patient has fairly tense ascites, and the abdomen is uncomfortable but certainly not peritoneal. My suspicion for SBP is low, though of concern for possible PE versus pleural effusion versus anemia, symptomatic large volume ascites. Laboratory workup, CT pulmonary injury gram and CT of the abdomen and pelvis were unremarkable other than large volume ascites. Patient EKG is concerning with evidence of Wellens waves in precordial leads, but her troponin is negative and she denies any chest pain, only the dyspnea. Patient will be admitted for serial cardiac enzymes, paracentesis. Janett Interiano MD Nov 18, 2016 16:40
[2016-11-18] MEDS ORDERED: DEXTROSE 50% IN WATER 50 ML VIAL(D50) IV PUSH PRN (17:15)
[2016-11-18] MEDS ORDERED: GLUCAGON 1 MG/ML VIAL OTHER PRN (17:15)
[2016-11-18] MEDS ORDERED: NALOXONE HCL 0.4 MG/ML AMP IV PRN (17:15)
--- NOTE | 2016-11-18 17:39 | HHI.HP ---
HPI Service [facility] Primary Care Physician Juancarlos Corrigan MD Admission Diagnosis abdominal ascites, tachycardia Diagnoses: Chief Complaint: Abdominal pain, shortness of breath, intractable nausea and vomiting Travel History International Travel<30 Days: No Contact w/Intl Traveler <30 Da: No Traveled to Known Affected Are: No History of Present Illness 61-year-old female with a medical history significant for recurrent uterine cancer/pelvic tumors, breast cancer status post radiation and chemotherapy, diabetes, recently discharged from the hospital on Eliquis for left lower extremity DVT. The patient is accompanied by her daughter who provided translation per the patient's request. She was discharged from the hospital on 11/08/16. Left lower extremity swelling resolved. However her abdomen has been increasingly distended. She has been increasingly complaining of difficulty with deep breathing, persistent nausea and vomiting. She is not eating or drinking much. She continues to have persistent abdominal pain. Last bowel movement was yesterday which she described as small but soft. Workup in the emergency room revealed large amount of ascites, acute renal failure. Review of Systems Constitutional: COMPLAINS OF: Fatigue, Weight loss, DENIES: Fever, Chills Endocrine: DENIES: Polydipsia, Polyuria Respiratory: COMPLAINS OF: Shortness of breath, DENIES: Cough Cardiovascular: COMPLAINS OF: Dyspnea on Exertion, DENIES: Chest pain, Palpitations, Syncope Gastrointestinal: COMPLAINS OF: Abdominal pain, Nausea, Vomiting, DENIES: Diarrhea Neurologic: COMPLAINS OF: Poor Balance, DENIES: Abnormal gait, Headache Except as stated in HPI: all other systems reviewed are Neg Past Family Social History Past Medical History recurrent uterine cancer/pelvic tumors, breast cancer status post radiation and chemotherapy, diabetes, recently discharged from the hospital on Eliquis for left lower extremity DVT New-onset diabetes diagnosed at the last hospitalization, was discharged on metformin. Past Surgical History Cholecystectomy, Hysterectomy, Left Breast Mastectomy s/p Chemo/Radiation Allergies: Coded Allergies: Paclitaxel (Verified Allergy, Severe, Shortness of Breath, 11/18/16) Vancomycin (Unverified Allergy, Mild, ITCHING, 11/18/16) Family History Reviewed and noncontributory. Social History No history of tobacco, alcohol, or illicit drugs use. Physical Exam Vital Signs Vital Signs Date Time Temp Pulse Resp B/P Pulse Ox O2 Delivery O2 Flow Rate FiO2 11/18/16 14:30 121 22 139/86 97 Room Air 11/18/16 14:11 18 11/18/16 13:30 125 20 154/102 97 Room Air 11/18/16 13:12 96 Room Air 11/18/16 13:07 20 11/18/16 12:55 126 20 124/71 95 11/18/16 12:40 97.7 138 20 142/97 98 Physical Exam GENERAL: Frail, appear older than stated age. SKIN: No rashes, ecchymoses or lesions. Cool and dry. HEAD: Atraumatic. Normocephalic. No temporal or scalp tenderness. EYES: Pupils equal round and reactive. Extraocular motions intact. No scleral icterus. No injection or drainage. ENT: Nose without bleeding, purulent drainage or septal hematoma. Throat without erythema, tonsillar hypertrophy or exudate. Uvula midline. Airway patent. NECK: Trachea midline. No JVD or lymphadenopathy. Supple, nontender, no meningeal signs. CARDIOVASCULAR: Regular rate and rhythm without murmurs, gallops, or rubs. RESPIRATORY: Clear to auscultation. Breath sounds equal bilaterally. No wheezes , rales, or rhonchi. GASTROINTESTINAL: Abdomen is distended, mild tenderness to palpation. No guarding or rebound tenderness. MUSCULOSKELETAL: Extremities without clubbing, cyanosis, or edema. No joint tenderness, effusion, or edema noted. No calf tenderness. Negative Homans sign bilaterally. NEUROLOGICAL: Awake and alert. Cranial nerves II through XII intact. Motor and sensory grossly within normal limits. Five out of 5 muscle strength in all muscle groups. Normal speech. Laboratory Laboratory Tests Test 11/18/16 11/18/16 13:30 13:37 White Blood Count 7.2 Red Blood Count 3.87 Hemoglobin 10.5 Hematocrit 31.7 Mean Corpuscular Volume 81.9 Mean Corpuscular Hemoglobin 27.0 Mean Corpuscular Hemoglobin 33.0 Concent Red Cell Distribution Width 18.8 Platelet Count 473 Mean Platelet Volume 7.6 Neutrophils (%) (Auto) 77.4 Lymphocytes (%) (Auto) 9.3 Monocytes (%) (Auto) 12.7 Eosinophils (%) (Auto) 0.2 Basophils (%) (Auto) 0.4 Neutrophils # (Auto) 5.6 Lymphocytes # (Auto) 0.7 Monocytes # (Auto) 0.9 Eosinophils # (Auto) 0.0 Basophils # (Auto) 0.0 CBC Comment DIFF FINAL Differential Comment Prothrombin Time 14.4 Prothromb Time International 1.3 Ratio Activated Partial 66.7 Thromboplast Time Sodium Level 129 Potassium Level 3.6 Chloride Level 89 Carbon Dioxide Level 30.1 Anion Gap 10 Blood Urea Nitrogen 17 Creatinine 1.61 Estimat Glomerular Filtration 33 Rate Random Glucose 135 Lactic Acid Level 1.0 Calcium Level 8.9 Total Bilirubin 0.4 Aspartate Amino Transf 18 (AST/SGOT) Alanine Aminotransferase 11 (ALT/SGPT) Alkaline Phosphatase 82 Troponin I LESS THAN 0.02 Total Protein 7.3 Albumin 2.6 Lipase 124 Urine Color YELLOW Urine Turbidity HAZY Urine pH 6.0 Urine Specific [place] 1.027 Urine Protein 100 Urine Glucose (UA) NEG Urine Ketones NEG Urine Occult Blood TRACE Urine Nitrite NEG Urine Bilirubin NEG Urine Urobilinogen 2.0 Urine Leukocyte Esterase NEG Urine RBC 1 Urine WBC 4 Urine Squamous Epithelial <1 Cells Urine Transitional Epithelial <1 Cells Urine Bacteria RARE Urine Hyaline Casts 1 Urine Granular Casts 2 Urine White Blood Cell Casts 1 Urine Mucus FEW Microscopic Urinalysis Comment CATH-CULTURE IND Date/Time Procedure Status Source Growth 11/18/16 13:37 Urine Culture Received Urine Catheterized Urine Pending Result Diagram: 11/18/16 1330 11/18/16 1330 Imaging Last Impressions Abdomen/Pelvis CT 11/18/16 1329 Signed Impressions: Service Date/Time: Friday, November 18, 2016 15:07 - CONCLUSION: 1. Moderate to large amount of ascitic fluid throughout the abdomen and pelvis. 2. Moderate left hydronephrosis with delayed nephrogram and dilatation of the left ureter down to level of the pelvis with no distinct renal calculi or mass identified. 3. Mildly nonspecific, nonobstructive bowel gas pattern which may represent a mild ileus. There is dilatation of the distal esophagus and a hiatal hernia is present. Regis Jansen MD CT Angiography 11/18/16 1326 Signed Impressions: Service Date/Time: Friday, November 18, 2016 15:07 - CONCLUSION: 1. No evidence of pulmonary embolism. 2. Ascites Johan Rojas MD Chest X-Ray 11/18/16 1310 Signed Impressions: Service Date/Time: Friday, November 18, 2016 13:30 - CONCLUSION: 1. No acute cardiac pulmonary process. 2. Stable position of right IJ [id number] catheter. Clinton Thompson MD Assessment and Plan Problem List: (1) Nausea & vomiting ICD Code: R11.2 Status: Acute (2) Ascites ICD Code: R18.8 Status: Acute (3) UTI (urinary tract infection) ICD Code: N39.0 Status: Acute (4) DVT (deep venous thrombosis) ICD Code: I82.409 Status: Acute (5) Dehydration ICD Code: E86.0 Status: Acute Assessment and Plan 61-year-old female with history of recurrent uterine carcinoma and pelvic tumors who presented with new onset ascites, nausea, vomiting, dehydration, and ARF. Ascites: New-onset. Could be malignant. No history of liver disease or heart failure. LFTs within normal limits. CT scan did not reveal any liver abnormalities. - Consult IR for paracentesis. Obtain fluid studies, cultures and cytology - Obtain a 2-D echocardiogram to rule out cardiac etiology H/O Uterine carcinoma recurrence/pelvic tumors: Last chemotherapy treatment in September. She denies any vaginal bleeding since September. Too early to tell if she is responding to therapy. 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 Bridget FERNANDEZ DVT: No stool earlier this month, he underwent catheter directed thrombolysis of the acute DVT on 11/06. Patient is on Eliquis. Hold for paracentesis. Intractable Nausea/Vomiting: Likely secondary to ascites. Consult GI. diet as tolerated, analgesics/antiemetics as needed. LAST: Likely secondary to dehydration from nausea/vomiting. Hydronephrosis may be contributing as well. -Gentle hydration with IV fluid. Repeat BMP in a.m.. Diabetes: Hgb A1c 6.9 earlier this month, sliding scale w/ Accu-Cheks as needed. Diabetic diet. Metformin on hold given renal failure. Abnormal urinalysis: Patient is asymptomatic from that standpoint, monitor off antibiotics. Follow urine cultures. Anemia: Chronic, stable. Monitor. GI prophylaxis: PPI. Stool softener PRN constipation. DVT PPx: Patient has been on Eliquis. Hold for possible paracentesis in a.m./ SCDs. 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 Physician Certification 2 Midnight Certification Type: Admission for Inpatient Services Order for Inpatient Services The services are ordered in accordance with Medicare regulations or non- Medicare payer requirements, as applicable. In the case of services not specified as inpatient-only, they are appropriately provided as inpatient services in accordance with the 2-midnight benchmark. Estimated LOS (days): 4 days is the estimated time the patient will need to remain in the hospital, assuming treatment plan goals are met and no additional complications. Post-Hospital Plan: Not yet determined Iván Dorado MD Nov 18, 2016 17:39
[2016-11-18] MEDS ORDERED: ACETAMINOPHEN 325 MG TAB PO PRN (18:00)
[2016-11-18] MEDS ORDERED: SODIUM CHLOR 0.45% 1000 ML INJ 1,000 ML IV SCH (18:00)
[2016-11-18] MEDS ORDERED: CHOL1TAB16 PO (18:45)
[2016-11-18] MEDS ORDERED: ZOCO80TA PO (18:45)
[2016-11-18] MEDS ORDERED: AMLO5TAB2 PO (18:45)
[2016-11-18] MEDS ORDERED: PROT40TA PO (18:45)
[2016-11-18] MEDS: DOCUSATE SODIUM 100 MG CAP PO SCH (18:51)
[2016-11-18] MEDS: INSULIN ASPART SUPPLEMENTAL SCALE SQ SCH (20:34)
[2016-11-18] MEDS: SODIUM CHLORIDE 0.9% FLUSH 10 ML FLUSH IV FLUSH SCH (20:34)
[2016-11-18] MEDS: PRAVASTATIN SOD 80 MG TAB PO SCH (20:34)
[2016-11-19] VITALS (9 sets, daily range): BP systolic 119–134; BP diastolic 72–94; PULSE 103–127; RESP 14–20; TEMP 96.7–98.4; O2SAT 95–100
[2016-11-19] MEDS: ACETAMINOPHEN/HYDROcodone 325 MG/5 MG TAB PO PRN ×2 (03:49→20:24)
[2016-11-19] MEDS: ONDANSETRON HCL 4 MG/2 ML VIAL IVP PRN ×2 (05:11→20:24)
[2016-11-19] MEDS: DOCUSATE SODIUM 100 MG CAP PO SCH ×2 (05:11→17:48)
[2016-11-19] MEDS: INSULIN ASPART SUPPLEMENTAL SCALE SQ SCH ×4 (05:38→20:19)
[2016-11-19 07:02] LABS: AUTOMATED NEUTROPHIL # 4.3 TH/MM3 (1.8-7.7); BASOPHIL # 0.1 TH/MM3 (0-0.2); EOSINOPHIL % 0.4 % (0.0-4.0); HEMATOCRIT 27.7 % (35.0-46.0); HEMO FLAGS DIFF FINAL; LYMPH % 9.2 % (9.0-44.0); LYMPHOCYTE # 0.5 TH/MM3 (1.0-4.8); MEAN CELL VOLUME 80.9 FL (80.0-100.0); MEAN CORPUSCULAR HEMOGLOBIN 27.5 PG (27.0-34.0); MONO % 13.2 % (0.0-8.0); NEUT % 76.2 % (16.0-70.0); PLATELET COUNT 425 TH/MM3 (150-450); RED BLOOD COUNT 3.43 MIL/MM3 (4.00-5.30); RED CELL DISTRIBUTION WIDTH 19.2 % (11.6-17.2); WHITE BLOOD COUNT 5.7 TH/MM3 (4.0-11.0)
[2016-11-19 07:44] LABS: ALKALINE PHOSPHATASE 75 U/L (45-117); ALT (GPT) 11 U/L (10-53); ANION GAP 10 MEQ/L (5-15); AST (GOT) 18 U/L (15-37); BICARBONATE 30.3 MEQ/L (21.0-32.0); BLOOD UREA NITROGEN 16 MG/DL (7-18); CHLORIDE 90 MEQ/L (98-107); GLOMERULAR FILTRATION RATE 36 ML/MIN (>89); LDH SERUM 281 U/L (84-246); POTASSIUM 3.4 MEQ/L (3.5-5.1); SODIUM (NA) 130 MEQ/L (136-145); TOTAL BILIRUBIN ADULT 0.4 MG/DL (0.2-1.0)
--- NOTE | 2016-11-19 09:03 | EKG ---
Date Performed: 11/18/2016 Time Performed: 14:02:19 PTAGE: 61 years EKG: SINUS TACHYCARDIA WITH SHORT IN INTERVAL POSSIBLE LEFT VENTRICULAR HYPERTROPHY ANTERIOR [address] ABNORMALITY, CONSIDER ISCHEMIA ABNORMAL ECG NO PREVIOUS TRACING DOCTOR: Buck Bhakta Interpretating Date/Time 11/19/2016 09:01:46
[2016-11-19] MEDS: SODIUM CHLORIDE 0.9% FLUSH 10 ML FLUSH IV FLUSH SCH ×2 (09:47→20:23)
[2016-11-19] MEDS: POTASSIUM CHLORIDE 10 MEQ CONTROLLED RELEASE TAB PO SCH (09:47)
[2016-11-19] MEDS: PANTOPRAZOLE SOD 40 MG DELAYED RELEASE TAB PO SCH (09:47)
--- NOTE | 2016-11-19 12:06 | PD.CONS ---
HPI History of Present Illness This is a 61 year old Tajik-speaking, [her daughter is translating] [lady] with endometrial cancer who started having nausea and vomiting 2 weeks ago. She has not been able to keep anything down and becomes nauseous and vomits even with water. She has been able to consume some ensure, but only 1/2 can at a time and spits up the rest. She was in the hospital 2w ago adn treated for DVT , after which the n/v started. She was having lower and right side abdominal pain but just came back from paracentesis and denies any pain or nausea at this time. She has been having infreqent, scant BMs. She was getting chemo for endometrial cancer, her last tx was 10/23 adn she is scheduled to start chemo again tomorrow. She completed radiation in September. She last had EGD and colonoscopy in 2013 in [place], EGD was normal per pt, and colonoscopy showed polyps, was told to repeat colonoscopy in 5y. No blood in BM, no n/v at this time. (Renetta Madden) PFSH Past Medical History recurrent uterine cancer/pelvic tumors, breast cancer status post radiation and chemotherapy, diabetes, recently discharged from the hospital on Eliquis for left lower extremity DVT New-onset diabetes diagnosed at the last hospitalization, was discharged on metformin. Past Surgical History Cholecystectomy, Hysterectomy, Left Breast Mastectomy s/p Chemo/Radiation ( Renetta Madden) Coded Allergies: Paclitaxel (Verified Allergy, Severe, Shortness of Breath, 11/18/16) Vancomycin (Unverified Allergy, Mild, ITCHING, 11/18/16) Medications Current Medications Medications (Trade) Dose Ordered Sig/Tasha Route PRN Reason Start Time Stop Time Status Last Admin Dose Admin Apixaban (Eliquis) 5 mg BID PO 11/18/16 21:00 Hold Pantoprazole Sodium (Protonix) 40 mg DAILY PO 11/19/16 09:00 11/19/16 09:47 Potassium Chloride (KCl) 10 meq DAILY PO 11/19/16 09:00 11/19/16 09:47 Pravastatin Sodium (Pravachol) 80 mg HS PO 11/18/16 21:00 11/18/16 20:34 Sodium Chloride (NS Flush) 2 ml UNSCH PRN IV FLUSH FLUSH AFTER USING IV ACCESS 11/18/16 17:15 Sodium Chloride (NS Flush) 2 ml BID IV FLUSH 11/18/16 21:00 11/19/16 09:47 Acetaminophen (Tylenol) 650 mg Q4H PRN PO TEMP > 100.4 11/18/16 18:00 Ondansetron HCl (Zofran Inj) 4 mg Q6H PRN IVP NAUSEA OR VOMITING 11/18/16 18:00 11/19/16 05:11 Docusate Sodium (Colace) 100 mg Q12H PO 11/18/16 18:00 11/19/16 05:11 Naloxone HCl (Narcan Inj) 0.4 mg UNSCH PRN IV SEE LABEL COMMENTS 11/18/16 17:15 Dextrose (D50w (Vial) Inj) 25 ml UNSCH PRN IV PUSH HYPOGLYCEMIA-SEE COMMENTS 11/18/16 17:15 Glucagon (Glucagon Inj) 1 mg UNSCH PRN OTHER HYPOGLYCEMIA-SEE COMMENTS 11/18/16 17:15 Acetaminophen/ Hydrocodone Bitart ([place] 5-325 Mg) 1 tab Q4H PRN PO PAIN GREATER THAN 5 11/19/16 03:45 11/19/16 03:49 Family History none to speak of Social History No history of tobacco, alcohol, or illicit drugs use. (Renetta Madden) Review of Systems Constitutional: DENIES: Fever Eyes: DENIES: Blurred vision Ears, nose, mouth, throat: DENIES: Hearing loss Respiratory: DENIES: Cough Cardiovascular: COMPLAINS OF: Lower Extremity Edema, DENIES: Chest pain Gastrointestinal: COMPLAINS OF: Abdominal pain, Constipation, Nausea, Vomiting , Swelling of Abdomen, DENIES: Bloody stools, Diarrhea Musculoskeletal: DENIES: Joint pain Integumentary: DENIES: Abnormal pigmentation, Rash Hematologic/lymphatic: DENIES: Bruising Psychiatric: DENIES: Confusion (Renetta Madden) GI Exam Vitals I&O Vital Signs Date Time Temp Pulse Resp B/P Pulse Ox O2 Delivery O2 Flow Rate FiO2 11/19/16 11:19 97.0 103 14 125/79 97 11/19/16 11:16 97.0 103 14 119/72 99 11/19/16 10:02 97.0 112 16 132/94 100 11/19/16 08:18 97 21 11/19/16 07:33 98.2 106 14 124/90 96 11/19/16 05:08 96.8 127 20 129/85 97 11/19/16 01:10 98.4 110 16 130/82 97 11/18/16 21:06 97.0 105 17 125/79 95 11/18/16 18:30 101 18 131/87 98 Room Air 11/18/16 18:00 94 20 164/99 96 11/18/16 15:30 102 13 131/79 98 Room Air 11/18/16 14:30 121 22 139/86 97 Room Air 11/18/16 14:11 18 11/18/16 13:30 125 20 154/102 97 Room Air 11/18/16 13:12 96 Room Air 11/18/16 13:07 20 11/18/16 12:55 126 20 124/71 95 11/18/16 12:40 97.7 138 20 142/97 98 I/O 11/18/16 11/18/16 11/18/16 11/19/16 11/19/16 11/19/16 07:00 15:00 23:00 07:00 15:00 23:00 Intake Total 120 ml Balance 120 ml Intake Oral 120 ml # Voids 2 2 Imaging Last Impressions Abdomen/Pelvis CT 11/18/16 1329 Signed Impressions: Service Date/Time: Friday, November 18, 2016 15:07 - CONCLUSION: 1. Moderate to large amount of ascitic fluid throughout the abdomen and pelvis. 2. Moderate left hydronephrosis with delayed nephrogram and dilatation of the left ureter down to level of the pelvis with no distinct renal calculi or mass identified. 3. Mildly nonspecific, nonobstructive bowel gas pattern which may represent a mild ileus. There is dilatation of the distal esophagus and a hiatal hernia is present. Regis Jansen MD CT Angiography 11/18/16 1326 Signed Impressions: Service Date/Time: Friday, November 18, 2016 15:07 - CONCLUSION: 1. No evidence of pulmonary embolism. 2. Ascites Johan Rojas MD Chest X-Ray 11/18/16 1310 Signed Impressions: Service Date/Time: Friday, November 18, 2016 13:30 - CONCLUSION: 1. No acute cardiac pulmonary process. 2. Stable position of right IJ Lexybi-o-Bsom catheter. Clinton Thompson MD Laboratory Test 11/18/16 11/18/16 11/19/16 13:30 13:37 06:09 White Blood Count 7.2 TH/MM3 5.7 TH/MM3 Red Blood Count 3.87 MIL/MM3 3.43 MIL/MM3 Hemoglobin 10.5 GM/DL 9.4 GM/DL Hematocrit 31.7 % 27.7 % Mean Corpuscular Volume 81.9 FL 80.9 FL Mean Corpuscular Hemoglobin 27.0 PG 27.5 PG Mean Corpuscular Hemoglobin 33.0 % 34.0 % Concent Red Cell Distribution Width 18.8 % 19.2 % Platelet Count 473 TH/MM3 425 TH/MM3 Mean Platelet Volume 7.6 FL 7.5 FL Neutrophils (%) (Auto) 77.4 % 76.2 % Lymphocytes (%) (Auto) 9.3 % 9.2 % Monocytes (%) (Auto) 12.7 % 13.2 % Eosinophils (%) (Auto) 0.2 % 0.4 % Basophils (%) (Auto) 0.4 % 1.0 % Neutrophils # (Auto) 5.6 TH/MM3 4.3 TH/MM3 Lymphocytes # (Auto) 0.7 TH/MM3 0.5 TH/MM3 Monocytes # (Auto) 0.9 TH/MM3 0.8 TH/MM3 Eosinophils # (Auto) 0.0 TH/MM3 0.0 TH/MM3 Basophils # (Auto) 0.0 TH/MM3 0.1 TH/MM3 CBC Comment DIFF FINAL DIFF FINAL Differential Comment Prothrombin Time 14.4 SEC Prothromb Time International 1.3 RATIO Ratio Activated Partial 66.7 SEC Thromboplast Time Sodium Level 129 MEQ/L 130 MEQ/L Potassium Level 3.6 MEQ/L 3.4 MEQ/L Chloride Level 89 MEQ/L 90 MEQ/L Carbon Dioxide Level 30.1 MEQ/L 30.3 MEQ/L Anion Gap 10 MEQ/L 10 MEQ/L Blood Urea Nitrogen 17 MG/DL 16 MG/DL Creatinine 1.61 MG/DL 1.48 MG/DL Estimat Glomerular Filtration 33 ML/MIN 36 ML/MIN Rate Random Glucose 135 MG/DL 105 MG/DL Lactic Acid Level 1.0 mmol/L Calcium Level 8.9 MG/DL 8.0 MG/DL Total Bilirubin 0.4 MG/DL 0.4 MG/DL Aspartate Amino Transf 18 U/L 18 U/L (AST/SGOT) Alanine Aminotransferase 11 U/L 11 U/L (ALT/SGPT) Alkaline Phosphatase 82 U/L 75 U/L Troponin I LESS THAN 0.02 NG/ML Total Protein 7.3 GM/DL 6.3 GM/DL Albumin 2.6 GM/DL 2.3 GM/DL Lipase 124 U/L Urine Color YELLOW Urine Turbidity HAZY Urine pH 6.0 Urine Specific [place] 1.027 Urine Protein 100 mg/dL Urine Glucose (UA) NEG mg/dL Urine Ketones NEG mg/dL Urine Occult Blood TRACE Urine Nitrite NEG Urine Bilirubin NEG Urine Urobilinogen 2.0 MG/DL Urine Leukocyte Esterase NEG Urine RBC 1 /hpf Urine WBC 4 /hpf Urine Squamous Epithelial <1 /hpf Cells Urine Transitional Epithelial <1 /hpf Cells Urine Bacteria RARE /hpf Urine Hyaline Casts 1 /lpf Urine Granular Casts 2 /lpf Urine White Blood Cell Casts 1 /lpf Urine Mucus FEW /lpf Microscopic Urinalysis Comment CATH-CULTURE IND Lactate Dehydrogenase 281 U/L Date/Time Procedure Status Source Growth 11/18/16 13:37 Urine Culture Received Urine Catheterized Urine Pending Physical Examination HEENT:;EOMI normocephalic; atraumatic; no jaundice. Throat is clear. CHEST: Chest is clear to auscultation and percussion. CARDIAC: Tachycardic, regular rhythm no murmurs. ABDOMEN: Soft, nondistended, LLQ TTP and firmness; no hepatosplenomegaly; bowel sounds are present in all four quadrants. EXTREMITIES: No clubbing, cyanosis, 1+ BLE pitting edema. SKIN: Normal; no rash; no jaundice. 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 (Renetta Madden) Assessment and Plan Plan ASSESSMENT: - intractable nausea & vomiting- ileus? Pt has some relief of sx after paracentesis. CT 11/18 ---> mdoerate to large amt ascitic fluid throughout the abdomen and pelvis, mildly nonspecific nonobstructive bowel gas patttern which may represent a mild ileus. THere is dilatation of the distal esophagus and a hiatal hernia is present EGD 2014 normal per pt. - ascites - s/p paracentesis. CT 11/18 ---> mdoerate to large amt ascitic fluid throughout the abdomen and pelvis, PLAN: - clears for now - see how pt does with clears, following paracentesis - if no improvement or worsening, consider SBFT, reglan - further recommendations to follow after Dr Baptiste sees pt This pt was seen by myself and Dr Baptiste and this note is written on his behalf (Renetta Madden) Physician Comments Patient seen and examined Apparently patient with known endometrial cancer which is probably advanced with new onset ascites probably malignant with also noted hydronephrosis possibly related to metastases and endometrial cancer All the above is definitely a contribution factor to her nausea and vomiting and in fact this has improved post-paracentesis At this point not much to add from a GI perspective as her symptoms of nausea and vomiting are mostly related to her underlying malignancy and therefore we will defer mostly to the oncology team Considerations can be made to rule out central nervous system metastases as a potential cause also bowel obstruction could be another cause and so a small bowel follow through could be considered Anemia is also noted and probably this is multifactorial related to chemotherapy and underlying malignancy with a degree of malnutrition therefore we will recommend nutritional supplements I will defer to oncology and attending to pursue further workup as deemed necessary We will sign off at this point please reconsult as needed (Callum Baptiste MD) Renetta Madden Nov 19, 2016 12:06 Callum Baptiste MD Nov 19, 2016 20:50
[2016-11-19 13:39] LABS: PERITONEAL LYMPHS 72 %; PERITONEAL MONOS 6 %; PERITONEAL POLYS(SEGS) 7 %; PERITONEAL WBC 219 /MM3 (0-10)
[2016-11-19 13:40] LABS: PERITONEAL BASO 1 %; PERITONEAL HISTIOCYTES 13 %
--- NOTE | 2016-11-19 14:13 | PD.CONS ---
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 Dorado Reason for Consult nausea and vomiting recurrent endometrial cancer ascites Primary Care Physician Juancarlos Corrigan MD Diagnoses: (1) LAST (acute kidney injury) (2) Nausea & vomiting (3) Ascites (4) Endometrial ca History of Present Illness This is a 61 year old female known to obstetrician/gynecologist/onc for recurrent uterine papillary serous carcinoma. She is currently being treated with IV Doxil and is due for cycle #3 tomorrow 11/20/16. She was recently hospitalized for bilat LE edema, LAST and dehydration aprox 2 weeks ago. She was found to have DVT was seen by hem/onc and started on Eliquist once her creat improved. She was discharged home, came back to ER yesterday for SOA, abdominal distention, nausea/vomiting, and back pain. Ct scan obtained in ER shown moderate to large amount of ascites, left hydronephrosis with no obstruction or mass identified, possible mild ileus. She is seen now in the ER s/p therapeutic and diagnostic paracentesis. Her daughter is at her bedside and is interpreting for Mrs. Lawson. She states that she feels much better now that she has had the paracentesis. She no longer has back or abdominal pain and the nausea/vomiting has improved. I explained to Mrs. Lawson and her daughter that Dr. Gill may want to change her chemotherapy regimen because the sudden build up of ascites could be advancement of disease, since she has not had ascites in the past. She also needs hydration to hopefully improve her kidney function. Once she is discharge we can arrange to have PRN paracentesis when she needs it. Finally I discussed with her continued treatment vs. comfort measures and Mrs. Lawson assures me that she wants to continue with treatment. Review of Systems Gastrointestinal: COMPLAINS OF: Abdominal pain, Nausea, Vomiting, Anorexia Musculoskeletal: COMPLAINS OF: Back pain Past Family Social History Allergies: Coded Allergies: Paclitaxel (Verified Allergy, Severe, Shortness of Breath, 11/18/16) Vancomycin (Unverified Allergy, Mild, ITCHING, 11/18/16) Past Medical History recurrent uterine cancer breast cancer diabetes LLE DVT Past Surgical History RA lap hyst with BSO left breast mastectomy jahaira Reported Medications per EMR Active Ordered Medications Current Medications Morphine Sulfate (Morphine Inj) 4 mg ONCE ONCE IV PUSH Last administered on 14:06; Start 11/18/16 at 13:15; Stop 11/18/16 at 13:16; Status DC Ondansetron HCl 4 mg 4 mg ONCE ONCE IVP Last administered on 11/18/16 14:06; Start 11/18/16 at 13:15; Stop 11/18/16 at 13:16; Status DC Sodium Chloride (NS 1000 ml Inj) 1,000 ml @ 1,000 mls/hr Q1H IV Last administered on 11/18/16 14:05; Start 11/18/16 at 13:10; Stop 11/18/16 at 14:09 ; Status DC Sodium Chloride (NS Flush) 2 ml UNSCH PRN IV FLUSH FLUSH AFTER USING IV ACCESS ; Start 11/18/16 at 13:15; Stop 11/18/16 at 17:20; Status DC Sodium Chloride (NS Flush) 2 ml UNSCH PRN IV FLUSH FLUSH AFTER USING IV ACCESS ; Start 11/18/16 at 13:30; Stop 11/18/16 at 13:31; Status DC Iodixanol (VISIPAQUE 320 INJ (Rad CT)) 50 ml STK-MED ONCE IV ; Start 11/18/16 at 15:44; Stop 11/18/16 at 15:45; Status DC Apixaban (Eliquis) 5 mg BID PO ; Start 11/18/16 at 21:00; Status Hold Pantoprazole Sodium (Protonix) 40 mg DAILY PO Last administered on 11/19/16 09 :47; Start 11/19/16 at 09:00 Potassium Chloride (KCl) 10 meq DAILY PO Last administered on 11/19/16 09:47; Start 11/19/16 at 09:00 Pravastatin Sodium 80 mg 80 mg HS PO Last administered on 11/18/16 20:34; Start 11/18/16 at 21:00 Sodium Chloride (1/2 NS 1000 ml Inj) 1,000 ml @ 75 mls/hr [id number] IV Last administered on 11/18/16 20:34; Start 11/18/16 at 18:00; Stop 11/19/16 at 07:19 ; Status DC Sodium Chloride (NS Flush) 2 ml UNSCH PRN IV FLUSH FLUSH AFTER USING IV ACCESS ; Start 11/18/16 at 17:15 Sodium Chloride (NS Flush) 2 ml BID IV FLUSH Last administered on 11/19/16 09: 47; Start 11/18/16 at 21:00 Acetaminophen (Tylenol) 650 mg Q4H PRN PO TEMP > 100.4; Start 11/18/16 at 18:00 Ondansetron HCl (Zofran Inj) 4 mg Q6H PRN IVP NAUSEA OR VOMITING Last administered on 11/19/16 05:11; Start 11/18/16 at 18:00 Docusate Sodium (Colace) 100 mg Q12H PO Last administered on 11/19/16 05:11; Start 11/18/16 at 18:00 Naloxone HCl (Narcan Inj) 0.4 mg UNSCH PRN IV SEE LABEL COMMENTS; Start at 17:15 Dextrose (D50w (Vial) Inj) 25 ml UNSCH PRN IV PUSH HYPOGLYCEMIA-SEE COMMENTS; Start 11/18/16 at 17:15 Glucagon (Glucagon Inj) 1 mg UNSCH PRN OTHER HYPOGLYCEMIA-SEE COMMENTS; Start 11/18/16 at 17:15 Insulin Aspart (NovoLOG SUPPLEMENTAL SCALE) 1 ACHS SLIDING SCALE SQ ; Start at 21:00 Acetaminophen/ Hydrocodone Bitart ([place] 5-325 Mg) 1 tab Q4H PRN PO PAIN GREATER THAN 5 Last administered on 11/19/16 03:49; Start 11/19/16 at 03:45 Family History per EMR Social History denies tobacco denies alcohol Physical Exam Vital Signs Vital Signs Date Time Temp Pulse Resp B/P Pulse Ox O2 Delivery O2 Flow Rate FiO2 11/19/16 11:19 97.0 103 14 125/79 97 11/19/16 11:16 97.0 103 14 119/72 99 11/19/16 10:02 97.0 112 16 132/94 100 11/19/16 08:18 97 21 11/19/16 07:33 98.2 106 14 124/90 96 11/19/16 05:08 96.8 127 20 129/85 97 11/19/16 01:10 98.4 110 16 130/82 97 11/18/16 21:06 97.0 105 17 125/79 95 11/18/16 18:30 101 18 131/87 98 Room Air 11/18/16 18:00 94 20 164/99 96 11/18/16 15:30 102 13 131/79 98 Room Air 11/18/16 14:30 121 22 139/86 97 Room Air 11/18/16 14:11 18 Physical Exam GENERAL: This is a well-nourished, well-developed patient, in no apparent distress. SKIN: No rashes, ecchymoses or lesions. Cool and dry. HEAD: Atraumatic. Normocephalic. No temporal or scalp tenderness. EYES: Pupils equal round and reactive. Extraocular motions intact. No scleral icterus. No injection or drainage. CARDIOVASCULAR: Regular rate and rhythm without murmurs, gallops, or rubs. RESPIRATORY: Clear to auscultation. Breath sounds equal bilaterally. No wheezes , rales, or rhonchi. GASTROINTESTINAL: Abdomen soft, non-tender, nondistended. + BS X 4, dressing c /d/i MUSCULOSKELETAL: Extremities without clubbing, cyanosis, or edema. NEUROLOGICAL: Awake and alert. Laboratory Laboratory Tests Test 11/19/16 11/19/16 06:09 10:30 White Blood Count 5.7 Red Blood Count 3.43 Hemoglobin 9.4 Hematocrit 27.7 Mean Corpuscular Volume 80.9 Mean Corpuscular Hemoglobin 27.5 Mean Corpuscular Hemoglobin 34.0 Concent Red Cell Distribution Width 19.2 Platelet Count 425 Mean Platelet Volume 7.5 Neutrophils (%) (Auto) 76.2 Lymphocytes (%) (Auto) 9.2 Monocytes (%) (Auto) 13.2 Eosinophils (%) (Auto) 0.4 Basophils (%) (Auto) 1.0 Neutrophils # (Auto) 4.3 Lymphocytes # (Auto) 0.5 Monocytes # (Auto) 0.8 Eosinophils # (Auto) 0.0 Basophils # (Auto) 0.1 CBC Comment DIFF FINAL Differential Comment Sodium Level 130 Potassium Level 3.4 Chloride Level 90 Carbon Dioxide Level 30.3 Anion Gap 10 Blood Urea Nitrogen 16 Creatinine 1.48 Estimat Glomerular Filtration 36 Rate Random Glucose 105 Calcium Level 8.0 Total Bilirubin 0.4 Aspartate Amino Transf 18 (AST/SGOT) Alanine Aminotransferase 11 (ALT/SGPT) Alkaline Phosphatase 75 Lactate Dehydrogenase 281 Total Protein 6.3 Albumin 2.3 Peritoneal Fluid WBC 219 Peritoneal Fluid RBC 208 Peritoneal Fluid Neutrophils 7 Peritoneal Fluid Lymphocytes 72 Peritoneal Fluid Monocytes 6 Peritoneal Fluid Basophils 1 Peritoneal Fluid Histiocytes 13 Peritoneal Fluid Other Cells 1 Peritoneal Fluid Total Protein 4.8 Peritoneal Fluid Albumin 2.2 Peritoneal Fluid LDH 464 Peritoneal Fluid Glucose 103 Date/Time Procedure Status Source Growth 11/19/16 10:30 Gram Stain Received Fluid Peritoneal Fluid Pending 11/19/16 10:30 Body Fluid Culture Received Fluid Peritoneal Fluid Pending 11/18/16 13:37 Urine Culture - Preliminary Resulted Urine Catheterized Urine NO GROWTH IN 24 HOURS. Result Diagram: 11/19/16 0609 11/19/16 0609 Imaging Last Impressions Abdomen/Pelvis CT 11/18/16 1329 Signed Impressions: Service Date/Time: Friday, November 18, 2016 15:07 - CONCLUSION: 1. Moderate to large amount of ascitic fluid throughout the abdomen and pelvis. 2. Moderate left hydronephrosis with delayed nephrogram and dilatation of the left ureter down to level of the pelvis with no distinct renal calculi or mass identified. 3. Mildly nonspecific, nonobstructive bowel gas pattern which may represent a mild ileus. There is dilatation of the distal esophagus and a hiatal hernia is present. Regis Jansen MD CT Angiography 11/18/16 1326 Signed Impressions: Service Date/Time: Friday, November 18, 2016 15:07 - CONCLUSION: 1. No evidence of pulmonary embolism. 2. Ascites Johan Rojas MD Chest X-Ray 11/18/16 1310 Signed Impressions: Service Date/Time: Friday, November 18, 2016 13:30 - CONCLUSION: 1. No acute cardiac pulmonary process. 2. Stable position of right IJ [id number] catheter. Clinton Thompson MD Assessment and Plan Problem List: (1) Nausea & vomiting Status: Acute Plan: Has improved since hospitalization, continue to monitor, liquid diet contributing factor ascites and we will arrange for her to have therapeutic paracentesis weekly/PRN as outpt (2) Ascites Status: Acute Plan: s/p diagnostic and therapeutic paracentesis can have drainage as out pt, will arrange (3) Endometrial ca Status: Chronic Plan: currently on IV Doxil due for cycle #3 tomorrow sudden onset of ascites most likely has proven advancement of disease despite current treatment (and recent completion of radiation) Dr. Gill may change her chemotherapy as pt continues to desire treatment. (4) LAST (acute kidney injury) Status: Acute Plan: IV hydration s/p paracentesis continue to monitor labs encourage PO intake Discussed Condition With RN pt and family Physician Attestation This consult will be discussed in detail with Dr. Gill and any further orders will follow. Problem Qualifiers (1) Nausea & vomiting: (2) Ascites: Qualified Code: R18.0 - Malignant ascites Lynn Ruiz [facility] Nov 19, 2016 14:13
--- NOTE | 2016-11-19 16:15 | RADRPT ---
EXAM DATE/TIME: 11/19/2016 08:54 [place] COMPARISON: No previous studies available for comparison. EXTERNAL COMPARISON: [facility], PET/CT - TUMOR METABOLISM, Aug 02 2016. INDICATIONS : Ascites. MEDICAL HISTORY : Hypercholesterolemia. Hypertension. Hearing loss. Left breast cancer. Uterine cancer. Chemotherapy. Radiation therapy. Blood transfusion. SURGICAL HISTORY : Hysterectomy. Cholecystectomy. Mastectomy, left. Bunionectomy. Right wrist fracture repair. ENCOUNTER: Subsequent ACUITY: 1 week PAIN SCORE: 0/10 LOCATION: Right lower quadrant FLUID: Total volume of 4,400 cc of clear, yellow fluid was removed. Fluid was sent to lab for ordered studies. Post procedure scanning reveals no hematoma or other complication. TECHNIQUE: 1. Ultrasound guidance for abdominal paracentesis. 2. Paracentesis. The risks, benefits, and alternatives to ultrasound guided paracentesis were explained to the patient in detail including the risk of bleeding and infection. Written and verbal informed consent was obt ained. With the patient on the ultrasound table, ultrasound imaging was used to select the most appropriate approach for paracentesis. Overlying skin was prepped and draped in the usual sterile fashion and wi th a local anesthetic, a dermatotomy was made with an 11 blade scalpel. A 6 [place] [id number] ca theter was introduced into the peritoneal cavity and fluid was collected. The patient tolerated the procedure well and left the ultrasound suite in stable condition. CONCLUSION: Uncomplicated ultrasound guided paracentesis. Olayinka Beltrán MD on November 19, 2016 at 16:13 Board Certified Radiologist. This report was verified electronically.
--- NOTE | 2016-11-19 19:02 | EC ---
Study Study Date:11/19/2016 STUDY CONCLUSIONS SUMMARY - Left ventricle: The cavity size was normal. Wall thickness was normal. Systolic function was severely reduced. The estimated ejection fraction was in the range of 25% to 30%. Diffuse hypokinesis. - Mitral valve: Mild regurgitation. - Tricuspid valve: Mild regurgitation. If LV function is below 40, please consider prescribing an ACEI or ARB or document rationale for non-use. PROCEDURE DATA STUDY STATUS: Elective. Procedure: Transthoracic echocardiography. Image quality was good. Scanning was performed from the parasternal, apical, and subcostal acoustic windows. Study completion: The patient tolerated the procedure well. Transthoracic echocardiography. M-mode, complete 2D, complete spectral Doppler, and color Doppler. Patient status: Inpatient. CARDIAC ANATOMY LEFT VENTRICLE: The cavity size was normal. Wall thickness was normal. Systolic function was severely reduced. The estimated ejection fraction was in the range of 25% to 30%. Diffuse hypokinesis. AORTIC VALVE: Trileaflet; normal thickness leaflets. Doppler: Transvalvular velocity was within the normal range. There was no stenosis. No regurgitation. AORTA: Aortic root: The aortic root was normal in size. MITRAL VALVE: Structurally normal valve. Doppler: Transvalvular velocity was within the normal range. There was no evidence for stenosis. Mild regurgitation. LEFT ATRIUM: The atrium was normal in size. RIGHT VENTRICLE: The cavity size was normal. Wall thickness was normal. PULMONIC VALVE: Doppler: Transvalvular velocity was within the normal range. There was no evidence for stenosis. No regurgitation. TRICUSPID VALVE: Structurally normal valve. Doppler: Transvalvular velocity was within the normal range. Mild regurgitation. PULMONARY ARTERY: The main pulmonary artery was normal-sized. Systolic pressure was within the normal range. RIGHT ATRIUM: The atrium was normal in size. PERICARDIUM: There was no pericardial effusion. SYSTEMIC VEINS: Inferior vena cava: The vessel was normal in size. BASIC MEASUREMENTS ADULT NORMAL Left ventricle LV internal dimension, ED, chordal level, *33.7 mm 43-52 PLAX LV internal dimension, ES, chordal level, 30.1 mm 23-38 PLAX Fractional shortening, chordal level, PLAX *11 % >29 LV posterior wall thickness, ED 11.1 mm IVS/LVPW ratio, ED 0.92 <1.3 Ventricular septum Septal thickness, ED 10.2 mm Aortic valve Leaflet separation 17 mm 15-26 Right ventricle RV internal dimension, ED, PLAX 23.1 mm 19-38 BASIC MEASUREMENTS ADULT NORMAL Aortic valve Leaflet separation 17 mm 15-26 Aorta Root diameter, ED 30 mm 20-37 Left atrium Anterior-posterior dimension, ES 26 mm 19-40 LA/aortic root ratio 0.87 LEGEND: Mean values are shown as u=mean value. Asterisk (*) castrejon values outside specified normal range. Prepared and signed by Korin Valentine [id number]
[2016-11-19] MEDS: PRAVASTATIN SOD 80 MG TAB PO SCH ×2 (20:24→20:26)
--- NOTE | 2016-11-19 20:59 | HHI.PR ---
Subjective Remarks Delayed entry. Patient seen earlier today. On the way to have paracentesis. No significant change in pain. Objective Vitals Vital Signs Date Time Temp Pulse Resp B/P Pulse Ox O2 Delivery O2 Flow Rate FiO2 11/19/16 19:29 115 20 134/72 95 11/19/16 15:06 96.7 105 14 123/76 95 11/19/16 11:19 97.0 103 14 125/79 97 11/19/16 11:16 97.0 103 14 119/72 99 11/19/16 10:02 97.0 112 16 132/94 100 11/19/16 08:18 97 21 11/19/16 07:33 98.2 106 14 124/90 96 11/19/16 05:08 96.8 127 20 129/85 97 11/19/16 01:10 98.4 110 16 130/82 97 11/18/16 21:06 97.0 105 17 125/79 95 I/O 11/18/16 11/18/16 11/18/16 11/19/16 11/19/16 11/19/16 07:00 15:00 23:00 07:00 15:00 23:00 Intake Total 120 ml 954 ml Balance 120 ml 954 ml Intake Oral 120 ml IV Total 954 ml # Voids 2 2 Result Diagram: 11/19/16 0609 11/19/16 0609 Objective Remarks GENERAL: Ill appearing female in no acute distress. CARDIOVASCULAR: Regular rate and rhythm without murmurs, gallops, or rubs. RESPIRATORY: Clear to auscultation. Breath sounds equal bilaterally. No wheezes , rales, or rhonchi. GASTROINTESTINAL: Abdomen soft, non-tender, nondistended. Normal active bowel sounds MUSCULOSKELETAL: LLE with trace edema compared to the right. NEURO: Alert & Oriented. Moves all ext x4 A/P Problem List: (1) Nausea & vomiting ICD Code: R11.2 Status: Acute (2) Ascites ICD Code: R18.8 Status: Acute (3) UTI (urinary tract infection) ICD Code: N39.0 Status: Acute (4) DVT (deep venous thrombosis) ICD Code: I82.409 Status: Acute (5) Dehydration ICD Code: E86.0 Status: Acute Assessment and Plan 61-year-old female with history of recurrent uterine carcinoma and pelvic tumors who presented with new onset ascites, nausea, vomiting, dehydration, and ARF. Ascites: New-onset. Could be malignant. No history of liver disease or heart failure. LFTs within normal limits. CT scan did not reveal any liver abnormalities. - Paracentesis today. Obtain fluid studies, cultures and cytology - Obtain a 2-D echocardiogram to rule out cardiac etiology H/O Uterine carcinoma recurrence/pelvic tumors: Last chemotherapy treatment in September. She denies any vaginal bleeding since September. Too early to tell if she is responding to therapy. Consult patient's [facility] oncologist, Dr. Bridget FERNANDEZ DVT: Diagnosed earlier this month, he underwent catheter directed thrombolysis of the acute DVT on 11/06. Patient is on Eliquis. Hold for paracentesis. Plan to restart tomorrow. Intractable Nausea/Vomiting: Likely secondary to ascites. Consult GI. diet as tolerated, analgesics/antiemetics as needed. LAST: Likely secondary to dehydration from nausea/vomiting. Hydronephrosis may be contributing as well. -Gentle hydration with IV fluid. Repeat BMP in a.m.. Diabetes: Hgb A1c 6.9 earlier this month, sliding scale w/ Accu-Cheks as needed. Diabetic diet. Metformin on hold given renal failure. Abnormal urinalysis: Patient is asymptomatic from that standpoint, monitor off antibiotics. Follow urine cultures. Anemia: Chronic, stable. Monitor. GI prophylaxis: PPI. Stool softener PRN constipation. DVT PPx: Patient has been on Eliquis. Hold for paracentesis. SCDs. Problem Qualifiers (1) Nausea & vomiting: (2) Ascites: Qualified Code: R18.0 - Malignant ascites Iván Dorado MD Nov 19, 2016 20:59
[2016-11-20] VITALS (9 sets, daily range): BP systolic 99–127; BP diastolic 68–85; PULSE 90–118; RESP 14–21; TEMP 97.4–99; O2SAT 93–100
[2016-11-20] MEDS: DOCUSATE SODIUM 100 MG CAP PO SCH ×2 (05:28→18:25)
[2016-11-20] MEDS: INSULIN ASPART SUPPLEMENTAL SCALE SQ SCH ×4 (06:03→20:20)
[2016-11-20] MEDS: PANTOPRAZOLE SOD 40 MG DELAYED RELEASE TAB PO SCH (08:53)
[2016-11-20] MEDS: POTASSIUM CHLORIDE 10 MEQ CONTROLLED RELEASE TAB PO SCH (08:53)
[2016-11-20] MEDS: SODIUM CHLORIDE 0.9% FLUSH 10 ML FLUSH IV FLUSH SCH ×2 (08:53→20:17)
[2016-11-20] MEDS: ACETAMINOPHEN/HYDROcodone 325 MG/5 MG TAB PO PRN (09:17)
--- NOTE | 2016-11-20 09:40 | HHI.PR ---
Subjective Remarks Patient seen and examined. Her son provided translation per the patient's request. She reports feeling better since paracentesis yesterday. Still having abdominal discomfort. Some nausea but no vomiting. No fevers or chills. Objective Vitals Vital Signs Date Time Temp Pulse Resp B/P Pulse Ox O2 Delivery O2 Flow Rate FiO2 11/20/16 07:09 97.4 95 14 99/74 97 11/20/16 04:41 98.9 118 20 118/82 100 11/20/16 00:41 90 21 107/68 97 11/19/16 19:29 115 20 134/72 95 11/19/16 15:06 96.7 105 14 123/76 95 11/19/16 11:19 97.0 103 14 125/79 97 11/19/16 11:16 97.0 103 14 119/72 99 11/19/16 10:02 97.0 112 16 132/94 100 I/O 11/19/16 11/19/16 11/19/16 11/20/16 11/20/16 11/20/16 07:00 15:00 23:00 07:00 15:00 23:00 Intake Total 954 ml Balance 954 ml IV Total 954 ml # Voids 2 2 2 Result Diagram: 11/19/16 0609 11/19/16 0609 Imaging Last Impressions Cyst Biopsy Asp-Paracentesis US 11/19/16 0000 Signed Impressions: Service Date/Time: Saturday, November 19, 2016 08:54 - CONCLUSION: Uncomplicated ultrasound guided paracentesis. Olayinka Beltrán MD Abdomen/Pelvis CT 11/18/16 1329 Signed Impressions: Service Date/Time: Friday, November 18, 2016 15:07 - CONCLUSION: 1. Moderate to large amount of ascitic fluid throughout the abdomen and pelvis. 2. Moderate left hydronephrosis with delayed nephrogram and dilatation of the left ureter down to level of the pelvis with no distinct renal calculi or mass identified. 3. Mildly nonspecific, nonobstructive bowel gas pattern which may represent a mild ileus. There is dilatation of the distal esophagus and a hiatal hernia is present. Regis Jansen MD CT Angiography 11/18/16 1326 Signed Impressions: Service Date/Time: Friday, November 18, 2016 15:07 - CONCLUSION: 1. No evidence of pulmonary embolism. 2. Ascites Johan Rojas MD Chest X-Ray 11/18/16 1310 Signed Impressions: Service Date/Time: Friday, November 18, 2016 13:30 - CONCLUSION: 1. No acute cardiac pulmonary process. 2. Stable position of right IJ [id number]-r-[id number] catheter. Clinton Thompson MD Objective Remarks GENERAL: Chronically ill appearing female in no acute distress. CARDIOVASCULAR: Regular rate and rhythm without murmurs, gallops, or rubs. RESPIRATORY: Clear to auscultation. Breath sounds equal bilaterally. No wheezes , rales, or rhonchi. GASTROINTESTINAL: Abdomen soft, some diffuse abdominal discomfort. Normal active bowel sounds MUSCULOSKELETAL: LLE with trace edema compared to the right. NEURO: Alert & Oriented. Moves all ext x4 A/P Problem List: (1) Nausea & vomiting ICD Code: R11.2 Status: Acute (2) Ascites ICD Code: R18.8 Status: Acute (3) UTI (urinary tract infection) ICD Code: N39.0 Status: Acute (4) DVT (deep venous thrombosis) ICD Code: I82.409 Status: Acute (5) Dehydration ICD Code: E86.0 Status: Acute Assessment and Plan 61-year-old female with history of recurrent uterine carcinoma and pelvic tumors who presented with new onset ascites, nausea, vomiting, dehydration, and ARF. Ascites: New-onset. Could be malignant versus cardiogenic. No history of liver disease or heart failure. LFTs within normal limits. CT scan did not reveal any liver abnormalities. -Status post paracentesis on 11/19/16. Fluid studies, cultures and cytology pending. -2-D echocardiogram significant for CHF with LVEF of 20-25% Newly diagnosed Systolic congestive Heart failure: - DW patient's daughter, no history of heart disease or heart failure. She presented with new onset ascites. Progression of malignancy not excluded. - Consult cardiology -Plan to start low dose Coreg with BP parameters, and low dose Lasix if potassium in good range. Labs pending. Follow renal functions. Consider spironolactone if BP can tolerate. H/O Uterine carcinoma recurrence/pelvic tumors: Last chemotherapy treatment in September. She denies any vaginal bleeding since September. Dr. Gill to follow. ? progression. LLE DVT: Diagnosed earlier this month, she underwent catheter directed thrombolysis of the acute DVT on 11/06. Patient is on Eliquis. Restart today Intractable Nausea/Vomiting: Likely secondary to ascites. GI following, patient started on clear diet, analgesics/antiemetics as needed. - Appreciate further plans from GI. LAST: Likely secondary to dehydration from nausea/vomiting, heart failure may be contributing as well. She does have some level of hydronephrosis which also may be contributing. -Renal function with slight improvement today. Follow renal functions closely with the diuretics. Consider nephrology and/or urology consult if no improvement. Diabetes: Hgb A1c 6.9 earlier this month, sliding scale w/ Accu-Cheks as needed. Diabetic diet. Metformin on hold given renal failure. Abnormal urinalysis: Patient is asymptomatic from that standpoint, monitor off antibiotics. Urine cultures so far negative. Anemia: Chronic, stable. Monitor. GI prophylaxis: PPI. Stool softener PRN constipation. DVT PPx: Resume Eliquis today. SCDs. Problem Qualifiers (1) Nausea & vomiting: (2) Ascites: Qualified Code: R18.0 - Malignant ascites Iván Dorado MD Nov 20, 2016 09:40
[2016-11-20] MEDS: ONDANSETRON HCL 4 MG/2 ML VIAL IVP PRN (16:37)
--- NOTE | 2016-11-20 17:16 | MB ---
cc: TWIN JUSTIN DATE OF CONSULTATION 11/20/2016 INDICATION Cardiomyopathy. HISTORY OF THE PRESENT ILLNESS This is a very nice Citizen Of [place]-speaking 61-year-old female with daughter at the bedside for translation. She has recent diagnosis of uterine cancer and pelvic tumors. She also has prior history of breast cancer status post radiation and chemotherapy. She was diagnosed with left lower extremity DVT on Eliquis. Then she presented now with increasing abdominal distension and nausea, vomiting, difficulty breathing. A CT scan in the ER showed moderate to large ascites, left hydronephrosis without obstruction or mass, possible ileus. She underwent therapy with diagnostic paracentesis and symptomatically feels better. She had an echocardiogram at the time of her presentation on 11/18 and shows an ejection fraction of 20%. According to her she does not have any history of any known cardiac disease or heart problems. We do not have any prior echocardiograms at least within the chart records to document her ejection fraction. PAST MEDICAL HISTORY 1. Recurrent uterine cancer. 2. Breast cancer. 3. Diabetes. 4. Left lower extremity DVT. FAMILY HISTORY Denies any family history of early coronary artery disease or sudden cardiac . SOCIAL HISTORY Denies alcohol, tobacco or drug use. REVIEW OF SYSTEMS A 12-point review of systems was performed and negative unless otherwise noted is history of present illness. MEDICATIONS See med reconciliation. PHYSICAL EXAMINATION VITAL SIGNS: Temperature 97, heart rates 95, blood pressure 114/82 mmHg. GENERAL: Alert and oriented times three. In no acute distress. HEENT: Exam shows pupils reactive to light and accommodation. Extraocular muscles intact. NECK: No elevation of jugular venous distension. No thyromegaly or lymphadenopathy. No carotid bruits. LUNGS: Clear to auscultation bilaterally. CARDIOVASCULAR: Tachycardic, regular. No murmurs, rubs or gallops. ABDOMEN: Nontender. EXTREMITIES: No clubbing, cyanosis or edema. Good peripheral pulses. NEUROLOGIC: Cranial nerves intact. Motor and sensory grossly intact. LABORATORY DATA WBC 5.7, hemoglobin 9.4, platelet count 425. Sodium 130, potassium 3.4, chloride 90, BUN 16, creatinine is 1.48. ASSESSMENT 1. New cardiomyopathy. 2. History of uterine cancer status post chemotherapy. 3. History of breast cancer status post radiation and chemotherapy. 4. Diabetes. 5. Hypertension. 6. Ascites status post therapeutic diagnostic paracentesis. PLAN She seems fairly well-compensated for her cardiomyopathy. She does not have any overt symptoms of congestive heart failure. We will wait for return on the fluid studies with cultures and cytology from her paracentesis but this likely represents a malignant etiology rather than cardiac source. Her liver function tests were within normal limits. There is no evidence of passive liver congestion which would be consistent with right heart failure. Echocardiogram does not show any evidence of right heart involvement. Lungs are relatively clear. The cardiomyopathy most likely is nonischemic in etiology. Her IV Doxil does have potential cardiotoxicity. I do not know if her cumulative dose has approached 550 mg/m2. She follows with Dr. iGll. I do not know if there are other cancer treatment alternatives that are not cardiotoxic. I do not feel strongly that we need to do an ischemic workup, which would probably involve a stress test. Given her recent hydronephrosis, renal function impairment, and comorbidities, I do not think we want to the entertain the option of doing a heart catheterization. She has not had any symptoms or regional wall motion abnormalities on echo to suggest an acute coronary event. Therefore I think we treat her conservatively with medical therapy. Additionally she is on anticoagulation which would make an invasive approach more difficult. For right now we will hold KAVEH inhibitor but we will initiate a low dose of beta cheri. Oncology will have to make a decision on chemotherapy regimen going forward and weigh the cardiotoxicity versus the therapeutic effect for her cancer treatment. She should minimize salt, monitor daily weights. She has not had any arrhythmias on telemetry. She should have a follow-up 2-D echocardiogram in approximately 3 months to monitor for any change in her ejection fraction. I do not feel strongly that she needs a LifeVest since I do not think we will be moving in the direction of a defibrillator if the ejection fraction does not improve in 3 months. If there are any further questions from a cardiac perspective, feel free to call, otherwise we will sign off. MD ENRIQUETA Justice/KK /3:10 PM /4:49 PM JEB
[2016-11-20 19:04] LABS: BICARBONATE 30.6 MEQ/L (21.0-32.0); POTASSIUM 3.7 MEQ/L (3.5-5.1)
[2016-11-20] MEDS: PRAVASTATIN SOD 80 MG TAB PO SCH (20:17)
[2016-11-20] MEDS: CARVEDILOL 3.125 MG TAB PO SCH (20:17)
[2016-11-20] MEDS: APIXABAN 5 MG TABLET PO SCH (21:48)
[2016-11-21] VITALS (9 sets, daily range): BP systolic 95–145; BP diastolic 55–81; PULSE 53–103; RESP 16–20; TEMP 95.9–98.6; O2SAT 94–99
[2016-11-21] MEDS: DOCUSATE SODIUM 100 MG CAP PO SCH ×2 (05:34→15:07)
[2016-11-21 06:50] LABS: HEMATOCRIT 27.8 % (35.0-46.0); MEAN CELL VOLUME 80.9 FL (80.0-100.0); MEAN CORPUSCULAR HEMOGLOBIN 27.5 PG (27.0-34.0); PLATELET COUNT 416 TH/MM3 (150-450); RED BLOOD COUNT 3.43 MIL/MM3 (4.00-5.30); RED CELL DISTRIBUTION WIDTH 18.9 % (11.6-17.2); REVIEW FLAG FINAL; WHITE BLOOD COUNT 6.4 TH/MM3 (4.0-11.0)
[2016-11-21] MEDS: INSULIN ASPART SUPPLEMENTAL SCALE SQ SCH ×4 (07:00→20:55)
[2016-11-21 07:20] LABS: BICARBONATE 30.3 MEQ/L (21.0-32.0); POTASSIUM 3.4 MEQ/L (3.5-5.1)
[2016-11-21] MEDS: POTASSIUM CHLORIDE 10 MEQ CONTROLLED RELEASE TAB PO SCH (09:38)
[2016-11-21] MEDS: APIXABAN 5 MG TABLET PO SCH ×2 (09:38→20:54)
[2016-11-21] MEDS: PANTOPRAZOLE SOD 40 MG DELAYED RELEASE TAB PO SCH (09:38)
[2016-11-21] MEDS: CARVEDILOL 3.125 MG TAB PO SCH ×2 (09:38→20:54)
[2016-11-21] MEDS: ONDANSETRON HCL 4 MG/2 ML VIAL IVP PRN ×2 (09:45→16:25)
[2016-11-21] MEDS: SODIUM CHLORIDE 0.9% FLUSH 10 ML FLUSH IV FLUSH SCH ×2 (09:50→20:58)
--- NOTE | 2016-11-21 14:00 | EKG ---
Date Performed: 11/21/2016 Time Performed: 03:21:01 PTAGE: 61 years EKG: Sinus rhythm MINIMAL VOLTAGE CRITERIA FOR LVH, CONSIDER NORMAL VARIANT NONSPECIFIC T-WAVE ABNORMALITY BORDERLINE ECG Compared to prior tracing no significant change PREVIOUS TRACING : 11/18/2016 14.02 DOCTOR: Johan Canales Interpretating Date/Time 11/21/2016 13:57:54
--- NOTE | 2016-11-21 14:10 | HHI.PR ---
Subjective Remarks Patient denies abdominal pain denies fevers/chills states feels very nauseous and medication currently being administered is not working daughter is at bedside denies cp/sob denies cough Potassium slightly low at 3.4 Objective Vitals Vital Signs Date Time Temp Pulse Resp B/P Pulse Ox O2 Delivery O2 Flow Rate FiO2 11/21/16 11:50 98.1 93 20 95/62 98 11/21/16 11:44 94 21 11/21/16 08:18 99 11/21/16 07:50 97.6 103 20 113/79 99 11/21/16 05:14 95.9 100 16 116/81 98 11/21/16 00:26 96.4 90 16 110/72 95 11/20/16 23:55 93 21 11/20/16 20:23 99.0 107 16 118/72 97 11/20/16 20:00 97 11/20/16 17:25 97.9 94 20 123/75 98 11/20/16 15:19 98.3 104 14 127/85 96 I/O 11/20/16 11/20/16 11/20/16 11/21/16 11/21/16 11/21/16 07:00 15:00 23:00 07:00 15:00 23:00 Intake Total 200 ml 200 ml Output Total 500 ml Balance 200 ml -300 ml Intake Oral 200 ml 200 ml Output Urine Total 500 ml # Voids 2 4 # Bowel Movements 0 2 Result Diagram: 11/21/16 0530 11/21/16 0530 Imaging Last Impressions Cyst Biopsy Asp-Paracentesis US 11/19/16 0000 Signed Impressions: Service Date/Time: Saturday, November 19, 2016 08:54 - CONCLUSION: Uncomplicated ultrasound guided paracentesis. Olayinka Beltrán MD Abdomen/Pelvis CT 11/18/16 1329 Signed Impressions: Service Date/Time: Friday, November 18, 2016 15:07 - CONCLUSION: 1. Moderate to large amount of ascitic fluid throughout the abdomen and pelvis. 2. Moderate left hydronephrosis with delayed nephrogram and dilatation of the left ureter down to level of the pelvis with no distinct renal calculi or mass identified. 3. Mildly nonspecific, nonobstructive bowel gas pattern which may represent a mild ileus. There is dilatation of the distal esophagus and a hiatal hernia is present. Regis Jansen MD CT Angiography 11/18/16 1326 Signed Impressions: Service Date/Time: Friday, November 18, 2016 15:07 - CONCLUSION: 1. No evidence of pulmonary embolism. 2. Ascites Johan Rojas MD Chest X-Ray 11/18/16 1310 Signed Impressions: Service Date/Time: Friday, November 18, 2016 13:30 - CONCLUSION: 1. No acute cardiac pulmonary process. 2. Stable position of right IJ [id number]-j-[id number] catheter. Clinton Thompson MD Objective Remarks GENERAL: Chronically ill appearing female in no acute distress. CARDIOVASCULAR: Regular rate and rhythm without murmurs, gallops, or rubs. RESPIRATORY: Clear to auscultation. Breath sounds equal bilaterally. No wheezes , rales, or rhonchi. GASTROINTESTINAL: Abdomen soft, some diffuse abdominal discomfort. Normal active bowel sounds MUSCULOSKELETAL: LLE is swollen when compared to the right lower extremity. NEURO: Alert & Oriented. Moves all ext x4 Procedures None Medications and IVs Current Medications Medications (Trade) Dose Ordered Sig/Tasha Route Start Time Stop Time Status Last Admin (Eliquis) 5 mg BID PO 11/18/16 21:00 11/21/16 09:38 (Protonix) 40 mg DAILY PO 11/19/16 09:00 11/21/16 09:38 (KCl) 10 meq DAILY PO 11/19/16 09:00 11/21/16 09:38 (Pravachol) 80 mg HS PO 11/18/16 21:00 11/20/16 20:17 (NS Flush) 2 ml UNSCH PRN IV FLUSH 11/18/16 17:15 (NS Flush) 2 ml BID IV FLUSH 11/18/16 21:00 11/21/16 09:50 (Tylenol) 650 mg Q4H PRN PO 11/18/16 18:00 (Zofran Inj) 4 mg Q6H PRN IVP 11/18/16 18:00 11/21/16 09:45 (Colace) 100 mg Q12H PO 11/18/16 18:00 11/20/16 18:25 (Narcan Inj) 0.4 mg UNSCH PRN IV 11/18/16 17:15 (D50w (Vial) Inj) 25 ml UNSCH PRN IV PUSH 11/18/16 17:15 (Glucagon Inj) 1 mg UNSCH PRN OTHER 11/18/16 17:15 (Heath 5-325 Mg) 1 tab Q4H PRN PO 11/19/16 03:45 11/20/16 09:17 (Coreg) 3.125 mg Q12HR PO 11/20/16 21:00 11/21/16 09:38 (Reglan) 10 mg ACHS PO 11/21/16 16:00 Urinary Catheter: No Vascular Central Line Catheter: No A/P Problem List: (1) Ascites ICD Code: R18.8 Status: Acute Plan: New-onset ascites. Most likely malignant. No history of prior liver disease of heart failure. LFTs within normal limits. CT scan did not reveal any abnormalities in the liver. The patient status post paracentesis on 11/19/16. Studies, cultures and cytology pending. Case discussed with Dr. Gill from [facility] on. He feels that likely the ascites is malignant and that chemotherapy will likely need to be changed. (2) Nausea & vomiting ICD Code: R11.2 Status: Acute Plan: still with intractable nausea, vomiting resolved Patient currently on IV Zofran which is not relieving the nausea effectively as per patient. Reglan will be added to the patient's treatment. Continue IV Zofran when necessary. GI consulted on following. Follow-up recommendations. Patient to with clear liquid diet, just 6, antiemetics as needed. (3) DVT (deep venous thrombosis) ICD Code: I82.409 Status: Acute Plan: On Eliquis. (4) Dehydration ICD Code: E86.0 Status: Resolved Plan: Resolved after IV fluid administration. Dehydration likely secondary to nausea and vomiting. (5) LAST (acute kidney injury) ICD Code: N17.9 Status: Acute Plan: Likely secondary to dehydration from nausea and vomiting. The patient also has some level of hydronephrosis which could be contributing. Renal function improving since creatinine trending down. Patient has good urine output. Continue to monitor renal function closely. I will consult urology to further assess hydronephrosis. KAVEH inhibitor discontinued due to LAST. (6) Hydronephrosis of left kidney ICD Code: N13.30 Status: Acute Plan: As seen on CT of the abdomen and pelvis. No mass identified. I will consult urology for further recommendations. This was discussed with Dr. Gill. (7) Diabetes ICD Code: E11.9 Status: Chronic Plan: 11 A1c 6.9 earlier this month. Continue coverage with SSI with insulin NovoLog and continue to monitor blood sugars with Accu-Cheks. Continue diabetic diet. Metformin has been placed on hold given renal failure. (8) Anemia ICD Code: D64.9 Status: Chronic Plan: Patient with normocytic anemia with MCV in the lower end of normal. I will check iron studies and ferritin. Anemia is chronic, hemoglobin has remained stable. Continue to monitor CBC. (9) Cardiomyopathy ICD Code: I42.9 Status: Acute Plan: Patient with nonischemic cardiomyopathy. Related by cardiology. Echocardiogram showed an EF of 20-25%. Continue low-dose beta cheri. Assessment and Plan GI prophylaxis: PPI. DVT prophylaxis: On Eliquis. Discharge Planning Continue to monitor in the oncology floor. Pending urology evaluation and [facility]/ ONC clearance. Problem Qualifiers (1) Ascites: Qualified Code: R18.0 - Malignant ascites (2) Nausea & vomiting: Qualified Code: R11.2 - Intractable vomiting with nausea, unspecified vomiting type (3) Diabetes: Qualified Code: E11.8 - Type 2 diabetes mellitus with complication, without long-term current use of insulin (4) Anemia: Qualified Code: D64.9 - Anemia, unspecified type Bull Ardon MD Nov 21, 2016 14:10
[2016-11-21] MEDS: METOCLOPRAMIDE HCL 10 MG TAB PO SCH ×2 (15:10→20:55)
[2016-11-21 16:19] LABS: FERRITIN 1109 NG/ML (8-252); TRANSFERRIN IRON PROFILE 102 MG/DL (200-360)
--- NOTE | 2016-11-21 16:59 | MB ---
cc: CECILIA DORADO MD,AISHWARYA Kaur MD DATE OF CONSULTATION 11/21/16 REQUESTING PHYSICIAN Cecilia Dorado REASON FOR CONSULTATION Recurrent uterine papillary serous cancer. Patient known to us. REASON FOR ADMISSION Nausea, vomiting, accumulation of ascites, failure to thrive. HISTORY OF PRESENT ILLNESS This patient is seen. Her findings are reviewed. She is counseled by me and examined by me in conjunction with our nurse practitioner (Lynn Ruiz). I agree with the findings, assessment and plan of care. This is a 61-year-old female with known recurrent metastatic uterine papillary serous carcinoma who has most recently been on single-agent liposomal doxorubicin chemotherapy. She has received two infusions of this with a total cumulative dose of 80 mg/m2. The aforementioned treatments were by pelvic radiation, because her biggest symptomatic complaint at that time was persistent vaginal bleeding and there was biopsy proven infiltrative tumor in the vagina contributing to the bleeding such that after she had a single cycle of liposomal doxorubicin she underwent pelvic radiation to palliate the bleeding and then had another cycle of liposomal doxorubicin chemotherapy. Treatment has been delayed due to recent hospitalization. She was admitted in recent time with a new onset deep vein thrombosis. Hematology oncology has been gracious in overseeing her care and put her on Eliquis anticoagulation. She was scheduled for another cycle of Doxil chemotherapy yesterday but is now admitted with the aforementioned symptomatology. She has undergone a paracentesis. The fluid has been sent for cytology. The results are pending. She has been seen by cardiology due to some changes suggestive of congestive heart failure without evidence of an acute myocardial infarction. Liver functions seemed adequate. She does have unilateral hydronephrosis and elevated creatinine upon admission which may also be contributing to her findings. PAST SURGICAL HISTORY, PAST SURGICAL HISTORY, MEDICATIONS, ALLERGIES, REVIEW OF SYSTEMS All reviewed and are as documented in the chart. The only recent change to her medication is starting of Eliquis for her deep vein thrombosis, otherwise. the record is up-to-date. LABORATORY DATA H&H 9.4, 27.8, white count 6.4, platelets 416. Electrolytes notable for BUN and creatinine of 13 and1.28 (was 17 and 1.61 on admission). Paracentesis removed 4400 mL of clear yellow fluid. Cytology from the paracentesis is pending. Cultures of the peritoneal fluid and urine no growth in 48 hours. IMAGING STUDIES Chest x-ray showed no acute cardiac or pulmonary process. The Port-A-Cath is in place. CT angiogram with no evidence of pulmonary embolism. Ascites was noted. CT abdomen and pelvis - ascites, moderate left hydronephrosis with no distinct mass and nonspecific bowel gas pattern. Hiatal hernia as noted, possible ileus. PHYSICAL EXAMINATION VITAL SIGNS: She is afebrile, pulse 90-103, respirations 16-20, blood pressure 110-116/72-81, O2 saturations greater than or equal to 94%. GENERAL: She is resting comfortably, bright spirits, usual pleasant affect and communication is facilitated by her daughter who is excellent with Haitian-Sinhala communication. ABDOMEN: Her abdomen has a small amount of residual ascites but is nonacute nontender. BACK: Without spinal tenderness or CVA tenderness. RESPIRATORY: She is comfortable in bed. Her respirations are unlabored. Apices are clear, mild rales at the bases. CARDIOVASCULAR: Regular rate and rhythm. She has bilateral lower extremity swelling, left greater than right Both of which are improved compared to recent prior hospitalization. Time is spent in discussion with her and her daughter reviewing the findings in her case to date. It is uncertain if this fluid is directly related to the cancer, but it certainly could be. A noncontrasted CAT scan does not show overt measurable mass, but there are likely carcinomatous implants diffusely that are the manifestation of disease recurrence. There are other non-oncology contributing factors that may cause fluid to accumulate. This has been addressed by her primary medical team and cardiology. She has not received enough Doxil to be anywhere near a cardiotoxic threshold as her accumulative total dose has been 80 mg/m2 but with changes suggestive of possible congestive heart failure. We explained that we may need to change chemotherapy both because of cumulative dosing may contribute to cardiac toxicity over time and it may be that the current treatment is not effective as manifest as made evident by ascites and the pathology will help clarify whether or not this is cancer related. Her biggest complaint is that she feels she has an upset stomach. She often gags and is nauseated from simple things such as drinking or brushing her teeth. She may have quite an element of reflux associated with hiatal hernia. The current medications help but do not completely relieve those symptoms and we will add Reglan to her medication and ensure that she is on Protonix or similar formulation. I hope that she feels better. We agreed to see her back in our office within a week after discharge so that we can reassess her overall status, determine if she is still philosophically in line with treatment (at the present time she states that she is) and we can reevaluate for possible change in her chemotherapy. I also discussed my concerns stating that the recent hospitalization the new problems such as deep vein thrombosis, significant symptomatic ascites, failure to thrive, decreased oral nutrition and other factors are all directly or indirectly related to the underlying cancer and these findings concern us that the cancer may be progressing with limited response to recent treatment and questions were answered regarding this and regarding overall prognosis and concerns. They expressed good understanding. ASSESSMENT 1. Recurrent metastatic uterine papillary serous carcinoma. 2. Admitted for symptomatic ascites, failure to thrive, nausea, vomiting. 3. Symptomatic improvement with supportive care and status post paracentesis. 4. Cytology from paracentesis pending. 5. Extensive discussion. PLAN 1. Grateful for excellent care from primary medical team, cardiology and others 2. Continue supportive care. 3. We will add Reglan and ensure that she is receiving Protonix for symptomatic management. 4. We will await cytology from recent ascites fluid. 5. We will follow along in her care with plans to see her back a week after hospital discharge so that we may discuss a potential change in her chemotherapy. Thank for the consultation. MD ISABELA Arreguin/ /1:19 PM /4:30 PM
--- NOTE | 2016-11-21 19:13 | PD.CONS ---
HPI Service Urology Consult Requested By Reason for Consult Left hydronephrosis Primary Care Physician Juancarlos Corrigan MD Diagnosis: (1) Ascites ICD Code: R18.8 (2) Nausea & vomiting ICD Code: R11.2 (3) DVT (deep venous thrombosis) ICD Code: I82.409 (4) Dehydration ICD Code: E86.0 (5) LAST (acute kidney injury) ICD Code: N17.9 (6) Hydronephrosis of left kidney ICD Code: N13.30 (7) Diabetes ICD Code: E11.9 (8) Anemia ICD Code: D64.9 (9) Cardiomyopathy ICD Code: I42.9 History of Present Illness 61yo female with history of metastatic papillary serous uterine cancer seen in consultation for left hydronephrosis, with a history of DVT and currently on Eliquis. Patient has bambi treated previously with chemotherapy and radiation. However she recently developed abdominal pain and was found to have significant ascites throughout her abdomen. This was recently aspirated with cytology pending. CT scan also identified left hydronephrosis. Upon admit, the patient was with Nausea and vomiting with an elevated creatinine. This has improved with hydration. Patient reports occasional left flank pain that is rather mild and intermittent in nature, but does report generalized abdominal pain that is more bothersome. No hematuria, no dysuria. 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 Review of Systems ROS Limitations: Clinical Condition Constitutional: COMPLAINS OF: Weight loss, Change in appetite Eyes: DENIES: Blurred vision Ears, nose, mouth, throat: DENIES: Hearing loss Respiratory: DENIES: Apneas, Cough Cardiovascular: DENIES: Chest pain Gastrointestinal: COMPLAINS OF: Abdominal pain, Nausea, Vomiting Genitourinary: DENIES: Urinary frequency, Urinary incontinence, Hematuria, Dysuria Musculoskeletal: COMPLAINS OF: Back pain Integumentary: DENIES: Rash Hematologic/lymphatic: DENIES: Bruising Immunologic/allergic: DENIES: Eczema Neurologic: DENIES: Headache Psychiatric: DENIES: Anxiety Except as stated in HPI: all other systems reviewed are Neg Past Family Social History Past Medical History recurrent uterine cancer/pelvic tumors, breast cancer status post radiation and chemotherapy, diabetes, recently discharged from the hospital on Eliquis for left lower extremity DVT New-onset diabetes diagnosed at the last hospitalization Past Surgical History Cholecystectomy, Hysterectomy, Left Breast Mastectomy s/p Chemo/Radiation Reported Medications Reported Meds & Active Scripts Active Metformin (Metformin HCl) 500 Mg Tab 500 Mg PO BIDPC With meals Zofran Odt (Ondansetron Odt) 4 Mg Tab 4 Mg SL Q6HR PRN Eliquis (Apixaban) 5 Mg Tab 5 Mg PO BID Hydrocodone-Acetaminophen 5-325 mg Tab 1 Tab PO Q4H PRN Reported Protonix (Pantoprazole Sodium) 40 Mg Tab 40 Mg PO BID Amlodipine (Amlodipine Besylate) 5 Mg Tab 5 Mg PO DAILY Vitamin D3 (Cholecalciferol) 50,000 Unit Tab 50,000 Units PO WEEKLY Zocor (Simvastatin) 80 Mg Tab 80 Mg PO HS K-Tab (Potassium Chloride) 10 Meq Tab 10 Meq PO DAILY Allergies: Coded Allergies: Paclitaxel (Verified Allergy, Severe, Shortness of Breath, 11/18/16) Vancomycin (Unverified Allergy, Mild, ITCHING, 11/18/16) Active Ordered Medications Current Medications Medications (Trade) Dose Ordered Sig/Tasha Route Start Time Stop Time Status Last Admin (Eliquis) 5 mg BID PO 11/18/16 21:00 11/21/16 09:38 (Protonix) 40 mg DAILY PO 11/19/16 09:00 11/21/16 09:38 (KCl) 10 meq DAILY PO 11/19/16 09:00 11/21/16 09:38 (Pravachol) 80 mg HS PO 11/18/16 21:00 11/20/16 20:17 (NS Flush) 2 ml UNSCH PRN IV FLUSH 11/18/16 17:15 (NS Flush) 2 ml BID IV FLUSH 11/18/16 21:00 11/21/16 09:50 (Tylenol) 650 mg Q4H PRN PO 11/18/16 18:00 (Zofran Inj) 4 mg Q6H PRN IVP 11/18/16 18:00 11/21/16 16:25 (Colace) 100 mg Q12H PO 11/18/16 18:00 11/20/16 18:25 (Narcan Inj) 0.4 mg UNSCH PRN IV 11/18/16 17:15 (D50w (Vial) Inj) 25 ml UNSCH PRN IV PUSH 11/18/16 17:15 (Glucagon Inj) 1 mg UNSCH PRN OTHER 11/18/16 17:15 ([place] 5-325 Mg) 1 tab Q4H PRN PO 11/19/16 03:45 11/20/16 09:17 (Coreg) 3.125 mg Q12HR PO 11/20/16 21:00 11/21/16 09:38 (Reglan) 10 mg ACHS PO 11/21/16 16:00 11/21/16 15:10 Family History Family History reviewed and noncontributory to present illness. Social History No history of tobacco, alcohol, or illicit drugs use. Physical Exam Vital Signs Date Time Temp Pulse Resp B/P Pulse Ox O2 Delivery O2 Flow Rate FiO2 11/21/16 15:50 98.6 96 20 119/70 96 11/21/16 11:50 98.1 93 20 95/62 98 11/21/16 11:50 97.4 53 20 111/58 95 11/21/16 11:44 94 21 11/21/16 08:18 99 11/21/16 07:50 97.6 103 20 113/79 99 11/21/16 05:14 95.9 100 16 116/81 98 11/21/16 00:26 96.4 90 16 110/72 95 11/20/16 23:55 93 21 11/20/16 20:23 99.0 107 16 118/72 97 11/20/16 20:00 97 Physical Exam GENERAL: This is a well-developed patient, in no apparent distress SKIN: No rashes, ecchymoses or lesions. Cool and dry. HEAD: Atraumatic. Normocephalic. EYES: Extraocular motions intact. No scleral icterus. No injection or drainage. ENT: Nose without bleeding, purulent drainage. Airway patent. NECK: Trachea midline. No JVD or lymphadenopathy.. CARDIOVASCULAR: Extremities well perfused RESPIRATORY: Nonlabored respirations GASTROINTESTINAL: Abdomen soft, tender, ascites MUSCULOSKELETAL: Extremities without clubbing, cyanosis; no obvious edema.. NEUROLOGICAL: Awake and alert. Motor and sensory grossly within normal limits. Normal speech. Lab results reviewed: Yes Laboratory Tests Test 11/21/16 05:30 White Blood Count 6.4 Red Blood Count 3.43 Hemoglobin 9.4 Hematocrit 27.8 Mean Corpuscular Volume 80.9 Mean Corpuscular Hemoglobin 27.5 Mean Corpuscular Hemoglobin 34.0 Concent Red Cell Distribution Width 18.9 Platelet Count 416 Mean Platelet Volume 7.4 Sodium Level 132 Potassium Level 3.4 Chloride Level 93 Carbon Dioxide Level 30.3 Anion Gap 9 Blood Urea Nitrogen 13 Creatinine 1.28 Estimat Glomerular Filtration 42 Rate Random Glucose 102 Calcium Level 7.5 Iron Level 21 Total Iron Binding Capacity 143 Percent Iron Saturation 14.7 Ferritin 1109 Date/Time Procedure Status Source Growth 11/19/16 10:30 Gram Stain - Final Resulted Fluid Peritoneal Fluid 11/19/16 10:30 Body Fluid Culture - Preliminary Resulted Fluid Peritoneal Fluid NO GROWTH IN 48 HOURS. 11/18/16 13:37 Urine Culture - Final Complete Urine Catheterized Urine NO GROWTH IN 48 HOURS. Result Diagram: 11/21/16 0530 11/21/16 0530 Personally reviewed images: Yes Imaging Last Impressions Cyst Biopsy Asp-Paracentesis US 11/19/16 0000 Signed Impressions: Service Date/Time: Saturday, November 19, 2016 08:54 - CONCLUSION: Uncomplicated ultrasound guided paracentesis. Olayinka Beltrán MD Abdomen/Pelvis CT 11/18/16 1329 Signed Impressions: Service Date/Time: Friday, November 18, 2016 15:07 - CONCLUSION: 1. Moderate to large amount of ascitic fluid throughout the abdomen and pelvis. 2. Moderate left hydronephrosis with delayed nephrogram and dilatation of the left ureter down to level of the pelvis with no distinct renal calculi or mass identified. 3. Mildly nonspecific, nonobstructive bowel gas pattern which may represent a mild ileus. There is dilatation of the distal esophagus and a hiatal hernia is present. Regis Jansen MD CT Angiography 11/18/16 1326 Signed Impressions: Service Date/Time: Friday, November 18, 2016 15:07 - CONCLUSION: 1. No evidence of pulmonary embolism. 2. Ascites Johan Rojas MD Chest X-Ray 11/18/16 1310 Signed Impressions: Service Date/Time: Friday, November 18, 2016 13:30 - CONCLUSION: 1. No acute cardiac pulmonary process. 2. Stable position of right IJ [id number]-g-Amya catheter. Clinton Thompson MD Assessment and Plan Problem List: (1) Hydronephrosis of left kidney ICD Code: N13.30 Status: Acute (2) LAST (acute kidney injury) ICD Code: N17.9 Status: Acute (3) Endometrial ca ICD Code: C54.1 Status: Chronic Assessment and Plan 61 yo female with left hydronephrosis and history of uterine cancer -CT scan reviewed with left moderate hydronephrosis. There appears to be cortical thinning of this left kidney as well, suggesting a chronic process, along with a delayed nephrogram. No obvious mass or obstruction, however the ureter does appear dilated down to the pelvis at which point it is difficult to follow. Hydronephrosis may be due to obstruction from extrinsic compression of a pelvic mass (although no obvious large mass is identifiable) vs intrinsic ureteral stricture, possibly from history of radiation -Cr continues to improve daily -Discussed in great detail the left hydronephrosis. At this time, the patient is comfortable with improving Cr. -No emergent surgical intervention indicated at this time -Discuss ureteral stent placement vs nephrostomy tube. We discussed a stent may allow drainage of the left kidney, however if there is extrinsic compression of the ureter a left nephrostomy tube would provide the best drainage -Discussed with family that no immediate intervention is indicated at this time. However, if there is plans to under go any further chemotherapy, intervention with stent vs nephrostomy tube may be beneficial. -If she acutely worsens with increased left flank pain and/or renal failure, may then pursue intervention immediately with stent vs nephrostomy -Recommend follow-up with Oncology to determine any further treatment plan and prognosis. Based on plan, we may then determine if she would benefit from any intervention for her left hydronephrosis. -May consider Nuclear medicine Renal scan to confirm obstruction, however given delayed nephrogram picture on CT scan, it would likely not provide any extra information -Follow-up with [facility] after discharge and discussion with her Oncologist to determine next best course of action -Please call with questions or if there is any acute change/worsening of renal function Problem Qualifiers (1) Ascites: Qualified Code: R18.0 - Malignant ascites (2) Nausea & vomiting: Qualified Code: R11.2 - Intractable vomiting with nausea, unspecified vomiting type (3) Diabetes: Qualified Code: E11.8 - Type 2 diabetes mellitus with complication, without long-term current use of insulin (4) Anemia: Qualified Code: D64.9 - Anemia, unspecified type Jabier Ng MD Nov 21, 2016 19:13
[2016-11-21] MEDS: PRAVASTATIN SOD 80 MG TAB PO SCH (20:55)
[2016-11-21] MEDS: ACETAMINOPHEN/HYDROcodone 325 MG/5 MG TAB PO PRN (23:23)
[2016-11-22] VITALS (8 sets, daily range): BP systolic 108–125; BP diastolic 62–81; PULSE 74–107; RESP 16–18; TEMP 97.2–98.2; O2SAT 95–99
[2016-11-22] MEDS: METOCLOPRAMIDE HCL 10 MG TAB PO SCH (05:28)
[2016-11-22] MEDS: DOCUSATE SODIUM 100 MG CAP PO SCH ×2 (05:28→16:24)
[2016-11-22] MEDS: INSULIN ASPART SUPPLEMENTAL SCALE SQ SCH ×4 (05:28→20:08)
[2016-11-22 06:11] LABS: HEMATOCRIT 28.2 % (35.0-46.0); MEAN CELL VOLUME 81.5 FL (80.0-100.0); MEAN CORPUSCULAR HGB CONC 33.2 % (32.0-36.0); PLATELET COUNT 408 TH/MM3 (150-450); RED BLOOD COUNT 3.46 MIL/MM3 (4.00-5.30); RED CELL DISTRIBUTION WIDTH 18.7 % (11.6-17.2); REVIEW FLAG FINAL; WHITE BLOOD COUNT 6.3 TH/MM3 (4.0-11.0)
[2016-11-22 06:29] LABS: BICARBONATE 30.5 MEQ/L (21.0-32.0); MAGNESIUM 1.3 MG/DL (1.5-2.5); POTASSIUM 3.3 MEQ/L (3.5-5.1)
[2016-11-22] MEDS: POTASSIUM CHLORIDE 10 MEQ CONTROLLED RELEASE TAB PO SCH (09:02)
[2016-11-22] MEDS: CARVEDILOL 3.125 MG TAB PO SCH ×2 (09:02→20:09)
[2016-11-22] MEDS: PANTOPRAZOLE SOD 40 MG DELAYED RELEASE TAB PO SCH (09:02)
[2016-11-22] MEDS: APIXABAN 5 MG TABLET PO SCH ×2 (09:03→20:09)
[2016-11-22] MEDS: SODIUM CHLORIDE 0.9% FLUSH 10 ML FLUSH IV FLUSH SCH ×2 (09:04→20:10)
[2016-11-22] MEDS ORDERED: PROCHLORPERAZINE INJ 10 MG/2 ML VIAL IV PUSH PRN (11:00)
[2016-11-22] MEDS ORDERED: POTASSIUM CHLORIDE 10 MEQ CONTROLLED RELEASE TAB PO ONE (12:00)
--- NOTE | 2016-11-22 13:40 | HHI.PR ---
Subjective Remarks Patient denies nausea denies cp/sob states feels better Potassium low as per RN had an episode of diarrhea after Reglan. Patient and daughter who is at bedside stated that diarrhea has resolved. Objective Vitals Vital Signs Date Time Temp Pulse Resp B/P Pulse Ox O2 Delivery O2 Flow Rate FiO2 11/22/16 12:00 98.1 89 16 108/62 96 11/22/16 08:18 96 11/22/16 08:00 97.5 98 18 125/81 99 11/22/16 04:00 97.4 74 18 118/75 95 11/22/16 00:00 97.5 92 17 117/75 99 11/21/16 20:02 97 11/21/16 20:00 97.3 76 17 145/73 95 11/21/16 15:50 98.6 96 20 119/70 96 I/O 11/21/16 11/21/16 11/21/16 11/22/16 11/22/16 11/22/16 07:00 15:00 23:00 07:00 15:00 23:00 Intake Total 200 ml 300 ml 120 ml Output Total 500 ml 200 ml Balance -300 ml 100 ml 120 ml Intake Oral 200 ml 300 ml 120 ml Output Urine Total 500 ml 200 ml # Voids 1 4 2 # Bowel Movements 2 2 1 0 Result Diagram: 11/22/16 0515 11/22/16 0515 Imaging Last Impressions Cyst Biopsy Asp-Paracentesis US 11/19/16 0000 Signed Impressions: Service Date/Time: Saturday, November 19, 2016 08:54 - CONCLUSION: Uncomplicated ultrasound guided paracentesis. Olayinka Beltrán MD Abdomen/Pelvis CT 11/18/16 1329 Signed Impressions: Service Date/Time: Friday, November 18, 2016 15:07 - CONCLUSION: 1. Moderate to large amount of ascitic fluid throughout the abdomen and pelvis. 2. Moderate left hydronephrosis with delayed nephrogram and dilatation of the left ureter down to level of the pelvis with no distinct renal calculi or mass identified. 3. Mildly nonspecific, nonobstructive bowel gas pattern which may represent a mild ileus. There is dilatation of the distal esophagus and a hiatal hernia is present. Regis Jansen MD CT Angiography 11/18/16 1326 Signed Impressions: Service Date/Time: Friday, November 18, 2016 15:07 - CONCLUSION: 1. No evidence of pulmonary embolism. 2. Ascites Johan Rojas MD Chest X-Ray 11/18/16 1310 Signed Impressions: Service Date/Time: Friday, November 18, 2016 13:30 - CONCLUSION: 1. No acute cardiac pulmonary process. 2. Stable position of right IJ Falyeb-j-Govy catheter. Clinton Thompson MD Objective Remarks GENERAL: Chronically ill appearing female in no acute distress. CARDIOVASCULAR: Regular rate and rhythm without murmurs, gallops, or rubs. RESPIRATORY: Clear to auscultation. Breath sounds equal bilaterally. No wheezes , rales, or rhonchi. GASTROINTESTINAL: Abdomen soft, some diffuse abdominal discomfort. Normal active bowel sounds MUSCULOSKELETAL: LLE is swollen when compared to the right lower extremity. NEURO: Alert & Oriented. Moves all ext x4 Procedures None Medications and IVs Current Medications Medications (Trade) Dose Ordered Sig/Tasha Route Start Time Stop Time Status Last Admin (Eliquis) 5 mg BID PO 11/18/16 21:00 11/22/16 09:03 (Protonix) 40 mg DAILY PO 11/19/16 09:00 11/22/16 09:02 (KCl) 10 meq DAILY PO 11/19/16 09:00 11/22/16 09:02 (Pravachol) 80 mg HS PO 11/18/16 21:00 11/20/16 20:17 (NS Flush) 2 ml UNSCH PRN IV FLUSH 11/18/16 17:15 (NS Flush) 2 ml BID IV FLUSH 11/18/16 21:00 11/22/16 09:04 (Tylenol) 650 mg Q4H PRN PO 11/18/16 18:00 (Zofran Inj) 4 mg Q6H PRN IVP 11/18/16 18:00 11/21/16 16:25 (Colace) 100 mg Q12H PO 11/18/16 18:00 11/20/16 18:25 (Narcan Inj) 0.4 mg UNSCH PRN IV 11/18/16 17:15 (D50w (Vial) Inj) 25 ml UNSCH PRN IV PUSH 11/18/16 17:15 (Glucagon Inj) 1 mg UNSCH PRN OTHER 11/18/16 17:15 ([place] 5-325 Mg) 1 tab Q4H PRN PO 11/19/16 03:45 11/21/16 23:23 (Coreg) 3.125 mg Q12HR PO 11/20/16 21:00 11/22/16 09:02 (Compazine Inj) 5 mg Q6H PRN IV PUSH 11/22/16 11:00 Urinary Catheter: No Vascular Central Line Catheter: No A/P Problem List: (1) Ascites ICD Code: R18.8 Status: Acute Plan: New-onset ascites. Most likely malignant. No history of prior liver disease of heart failure. LFTs within normal limits. CT scan did not reveal any abnormalities in the liver. The patient status post paracentesis on 11/19/16. Studies, cultures and cytology pending. Case discussed with Dr. Gill from [facility] on. He feels that likely the ascites is malignant and that chemotherapy will likely need to be changed. (2) Nausea & vomiting ICD Code: R11.2 Status: Acute Plan: still with intractable nausea, vomiting resolved Patient currently on IV Zofran which is not relieving the nausea effectively as per patient. Reglan will be added to the patient's treatment. Continue IV Zofran when necessary. GI consulted on following. Follow-up recommendations. Patient to with clear liquid diet, just 6, antiemetics as needed. 11/22 nausea has resolved. Patient did not tolerate Reglan. I will Rx Compazine as needed in case nausea comes back. (3) DVT (deep venous thrombosis) ICD Code: I82.409 Status: Acute Plan: On Eliquis. (4) Dehydration ICD Code: E86.0 Status: Resolved Plan: Resolved after IV fluid administration. Dehydration likely secondary to nausea and vomiting. (5) LAST (acute kidney injury) ICD Code: N17.9 Status: Acute Plan: Likely secondary to dehydration from nausea and vomiting. The patient also has some level of hydronephrosis which could be contributing. Renal function improving since creatinine trending down. Patient has good urine output. Continue to monitor renal function closely. KAVEH inhibitor discontinued due to LAST. 11/22 Appreciate urology consultation. Urology recommends nonemergent stent placement versus nephrostomy tube depending on the position on oncologic treatment. However if the creatinine starts to rise, or the patient started complaining of increased flank pain then the stent versus nephrostomy tube should be placed immediately. Creatinine however is slightly elevated today from 1.2-1.3. Continue to monitor BUN/creatinine and if it continues to increase then we'll need to contact urology. (6) Hydronephrosis of left kidney ICD Code: N13.30 Status: Acute Plan: As seen on CT of the abdomen and pelvis. No mass identified. Urology consultation appreciated. Management as stated above. (7) Diabetes ICD Code: E11.9 Status: Chronic Plan: 11 A1c 6.9 earlier this month. Continue coverage with SSI with insulin NovoLog and continue to monitor blood sugars with Accu-Cheks. Continue diabetic diet. Metformin has been placed on hold given renal failure. (8) Anemia ICD Code: D64.9 Status: Chronic Plan: Patient with normocytic anemia with MCV in the lower end of normal. I will check iron studies and ferritin. Anemia is chronic, hemoglobin has remained stable. Continue to monitor CBC. (9) Cardiomyopathy ICD Code: I42.9 Status: Acute Plan: Patient with nonischemic cardiomyopathy. Patient evaluated by cardiology. Echocardiogram showed an EF of 20-25%. Continue low-dose beta cheri. Assessment and Plan GI prophylaxis: PPI. DVT prophylaxis: On Eliquis. Discharge Planning Continue to monitor in the oncology floor. Pending [facility] and stabilization of creatinine. So will discharge in 1 or 2 days. Problem Qualifiers (1) Ascites: Qualified Code: R18.0 - Malignant ascites (2) Nausea & vomiting: Qualified Code: R11.2 - Intractable vomiting with nausea, unspecified vomiting type (3) Diabetes: Qualified Code: E11.8 - Type 2 diabetes mellitus with complication, without long-term current use of insulin (4) Anemia: Qualified Code: D64.9 - Anemia, unspecified type Bull Ardon MD Nov 22, 2016 13:40
[2016-11-22] MEDS: PRAVASTATIN SOD 80 MG TAB PO SCH (20:09)
[2016-11-23] VITALS (7 sets, daily range): BP systolic 105–120; BP diastolic 64–82; PULSE 90–109; RESP 16–18; TEMP 96.4–99.1; O2SAT 96–98
[2016-11-23] MEDS: ACETAMINOPHEN/HYDROcodone 325 MG/5 MG TAB PO PRN (05:11)
[2016-11-23] MEDS: DOCUSATE SODIUM 100 MG CAP PO SCH ×2 (05:29→16:58)
[2016-11-23] MEDS: INSULIN ASPART SUPPLEMENTAL SCALE SQ SCH ×4 (05:30→21:00)
[2016-11-23 05:46] LABS: AUTOMATED NEUTROPHIL # 4.3 TH/MM3 (1.8-7.7); BASOPHIL # 0.1 TH/MM3 (0-0.2); BASOPHIL % 0.9 % (0.0-2.0); EOSINOPHIL % 0.6 % (0.0-4.0); HEMO FLAGS DIFF FINAL; LYMPH % 11.7 % (9.0-44.0); LYMPHOCYTE # 0.7 TH/MM3 (1.0-4.8); MEAN CORPUSCULAR HEMOGLOBIN 27.3 PG (27.0-34.0); MEAN CORPUSCULAR HGB CONC 33.3 % (32.0-36.0); MONO % 12.1 % (0.0-8.0); NEUT % 74.7 % (16.0-70.0); PLATELET COUNT 393 TH/MM3 (150-450); RED BLOOD COUNT 3.41 MIL/MM3 (4.00-5.30); RED CELL DISTRIBUTION WIDTH 18.7 % (11.6-17.2); WHITE BLOOD COUNT 5.7 TH/MM3 (4.0-11.0)
[2016-11-23 06:15] LABS: ANION GAP 8 MEQ/L (5-15); AST (GOT) 16 U/L (15-37); BICARBONATE 28.9 MEQ/L (21.0-32.0); BLOOD UREA NITROGEN 11 MG/DL (7-18); CHLORIDE 96 MEQ/L (98-107); GLOMERULAR FILTRATION RATE 44 ML/MIN (>89); POTASSIUM 3.9 MEQ/L (3.5-5.1); SODIUM (NA) 133 MEQ/L (136-145)
[2016-11-23 06:20] LABS: ALKALINE PHOSPHATASE 81 U/L (45-117); ALT (GPT) 7 U/L (10-53); TOTAL BILIRUBIN ADULT 0.3 MG/DL (0.2-1.0)
[2016-11-23] MEDS: POTASSIUM CHLORIDE 10 MEQ CONTROLLED RELEASE TAB PO SCH (08:57)
[2016-11-23] MEDS: CARVEDILOL 3.125 MG TAB PO SCH ×2 (08:57→21:52)
[2016-11-23] MEDS: PANTOPRAZOLE SOD 40 MG DELAYED RELEASE TAB PO SCH (08:57)
[2016-11-23] MEDS: SODIUM CHLORIDE 0.9% FLUSH 10 ML FLUSH IV FLUSH SCH ×2 (08:57→21:52)
[2016-11-23] MEDS: APIXABAN 5 MG TABLET PO SCH ×2 (08:58→21:52)
[2016-11-23] MEDS ORDERED: CARV3.125 PO (14:25)
--- NOTE | 2016-11-23 14:31 | HHI.DCPOC ---
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 Avoid second hand smoke Call the 24-hour hour crisis hotline for domestic abuse at Bull Ardon MD Nov 23, 2016 14:31
--- NOTE | 2016-11-23 14:39 | HHI.DS ---
Discharge Summary Admission Date Nov 18, 2016 at 16:42 Discharge Date: Nov 23, 2016 Admitting Diagnosis abdominal ascites, tachycardia (1) Ascites ICD Code: R18.8 Diagnosis: Principal (2) Nausea & vomiting ICD Code: R11.2 Diagnosis: Principal (3) DVT (deep venous thrombosis) ICD Code: I82.409 Diagnosis: Principal (4) Dehydration ICD Code: E86.0 Diagnosis: Principal (5) LAST (acute kidney injury) ICD Code: N17.9 Diagnosis: Principal (6) Hydronephrosis of left kidney ICD Code: N13.30 Diagnosis: Principal (7) Diabetes ICD Code: E11.9 Diagnosis: Secondary (8) Anemia ICD Code: D64.9 Diagnosis: Secondary (9) Cardiomyopathy ICD Code: I42.9 Diagnosis: Secondary Procedures None Brief History - From Admission 61-year-old female with a medical history significant for recurrent uterine cancer/pelvic tumors, breast cancer status post radiation and chemotherapy, diabetes, recently discharged from the hospital on Eliquis for left lower extremity DVT. The patient is accompanied by her daughter who provided translation per the patient's request. She was discharged from the hospital on 11/08/16. Left lower extremity swelling resolved. However her abdomen has been increasingly distended. She has been increasingly complaining of difficulty with deep breathing, persistent nausea and vomiting. She is not eating or drinking much. She continues to have persistent abdominal pain. Last bowel movement was yesterday which she described as small but soft. Workup in the emergency room revealed large amount of ascites, acute renal failure. CBC/BMP: 11/23/16 0505 11/23/16 0505 Significant Findings Laboratory Tests Test 11/20/16 11/21/16 11/22/16 11/23/16 18:27 05:30 05:15 05:05 Sodium Level 130 MEQ/L 132 MEQ/L 133 MEQ/L 133 MEQ/L (136-145) (136-145) (136-145) (136-145) Chloride Level 90 MEQ/L 93 MEQ/L 95 MEQ/L 96 MEQ/L (98-107) (98-107) (98-107) (98-107) Creatinine 1.31 MG/DL 1.28 MG/DL 1.32 MG/DL 1.23 MG/DL (0.50-1.00) (0.50-1.00) (0.50-1.00) (0.50-1.00) Estimat Glomerular Filtration 41 ML/MIN (>89) 42 ML/MIN (>89) 41 ML/MIN (>89) 44 ML/MIN (>89) Rate Calcium Level 7.5 MG/DL 7.5 MG/DL 7.6 MG/DL 7.8 MG/DL (8.5-10.1) (8.5-10.1) (8.5-10.1) (8.5-10.1) Red Blood Count 3.43 MIL/MM3 3.46 MIL/MM3 3.41 MIL/MM3 (4.00-5.30) (4.00-5.30) (4.00-5.30) Hemoglobin 9.4 GM/DL 9.4 GM/DL 9.3 GM/DL (11.6-15.3) (11.6-15.3) (11.6-15.3) Hematocrit 27.8 % 28.2 % 28.0 % (35.0-46.0) (35.0-46.0) (35.0-46.0) Red Cell Distribution Width 18.9 % 18.7 % 18.7 % (11.6-17.2) (11.6-17.2) (11.6-17.2) Potassium Level 3.4 MEQ/L 3.3 MEQ/L (3.5-5.1) (3.5-5.1) Iron Level 21 MCG/DL (50-170) Total Iron Binding Capacity 143 MCG/DL (250-450) Percent Iron Saturation 14.7 % (20-50) Ferritin 1109 NG/ML (8-252) Magnesium Level 1.3 MG/DL (1.5-2.5) Neutrophils (%) (Auto) 74.7 % (16.0-70.0) Monocytes (%) (Auto) 12.1 % (0.0-8.0) Lymphocytes # (Auto) 0.7 TH/MM3 (1.0-4.8) Alanine Aminotransferase 7 U/L (10-53) (ALT/SGPT) Total Protein 5.5 GM/DL (6.4-8.2) Albumin 1.8 GM/DL (3.4-5.0) Imaging Last Impressions Cyst Biopsy Asp-Paracentesis US 11/19/16 0000 Signed Impressions: Service Date/Time: Saturday, November 19, 2016 08:54 - CONCLUSION: Uncomplicated ultrasound guided paracentesis. Olayinka Beltrán MD Abdomen/Pelvis CT 11/18/16 1329 Signed Impressions: Service Date/Time: Friday, November 18, 2016 15:07 - CONCLUSION: 1. Moderate to large amount of ascitic fluid throughout the abdomen and pelvis. 2. Moderate left hydronephrosis with delayed nephrogram and dilatation of the left ureter down to level of the pelvis with no distinct renal calculi or mass identified. 3. Mildly nonspecific, nonobstructive bowel gas pattern which may represent a mild ileus. There is dilatation of the distal esophagus and a hiatal hernia is present. Regis Jansen MD CT Angiography 11/18/16 1326 Signed Impressions: Service Date/Time: Friday, November 18, 2016 15:07 - CONCLUSION: 1. No evidence of pulmonary embolism. 2. Ascites Johan Rojas MD Chest X-Ray 11/18/16 1310 Signed Impressions: Service Date/Time: Friday, November 18, 2016 13:30 - CONCLUSION: 1. No acute cardiac pulmonary process. 2. Stable position of right IJ Magzlh-l-Pfah catheter. Clinton Thompson MD PE at Discharge GENERAL: Chronically ill appearing female in no acute distress. CARDIOVASCULAR: Regular rate and rhythm without murmurs, gallops, or rubs. RESPIRATORY: Clear to auscultation. Breath sounds equal bilaterally. No wheezes , rales, or rhonchi. GASTROINTESTINAL: Abdomen soft, some diffuse abdominal discomfort. Normal active bowel sounds MUSCULOSKELETAL: LLE is swollen when compared to the right lower extremity. NEURO: Alert & Oriented. Moves all ext x4 Pt update on day of discharge Patient complains of mild abdominal bloating, denies nausea and vomiting. tolerated diet. denies cp/sob. Will Dc home if patient tolerates regular diet. Hospital Course (1) Ascites New-onset ascites. Most likely malignant. No history of prior liver disease of heart failure. LFTs within normal limits. CT scan did not reveal any abnormalities in the liver. The patient status post paracentesis on 11/19/16. Cytology positive for malignant cells suggestive for adenocarcinoma. Case discussed with Dr. Gill from [facility] - chemotherapy regime to be changed once patient discharged. (2) Nausea & vomiting Patient with intractable nausea, vomiting on presentation which was treated initially with IV Zofran which did not relieve nausea effectively. Reglan was added by [facility] oncology, however the patient did not tolerate Reglan. Reglan was discontinued and Compazine was started which helped to treat the nausea. GI consulted on following. Follow-up recommendations. Patient to with clear liquid diet. Antiemetics as needed. Nausea resolved on 11/14/16. (3) DVT (deep venous thrombosis) On Eliquis. (4) Dehydration Resolved after IV fluid administration. Dehydration likely secondary to nausea and vomiting. (5) LAST (acute kidney injury) Likely secondary to dehydration from nausea and vomiting. The patient also has some level of hydronephrosis which could be contributing. Renal function improving since creatinine trending down. Patient had good urine output. Renal function was monitored closely during hospital stay. KAVEH inhibitor discontinued due to LAST. John consulted. Recommended nonemergent stent placement versus nephrostomy tube depending on the position on oncologic treatment. However if the creatinine starts to rise, or the patient started complaining of increased flank pain then the stent versus nephrostomy tube should be placed immediately. Creatinine initially went up to 1.3 however the patient had an episode of diarrhea on the day prior to the rise of creatinine. The patient was given IV fluids and the creatinine came down to 1.2. The patient was then discharged home. (6) Hydronephrosis of left kidney As seen on CT of the abdomen and pelvis. No mass identified. Urology consultation appreciated. Management as stated above. (7) Diabetes 11 A1c 6.9 earlier this month. Continue coverage with SSI with insulin NovoLog and continue to monitor blood sugars with Accu-Cheks. Continue diabetic diet. Metformin was held due to LAST. (8) Anemia Patient with normocytic anemia with MCV in the lower end of normal. I will check iron studies and ferritin. Anemia is chronic, hemoglobin has remained stable. CBC monitored during hospital stay. (9) Cardiomyopathy Patient with nonischemic cardiomyopathy. Patient evaluated by cardiology. Echocardiogram showed an EF of 20-25%. Continue low-dose beta cheri. GI prophylaxis: PPI. DVT prophylaxis: On Eliquis. Pt Condition on Discharge: Stable Discharge Disposition: Discharge Home Discharge Time: > 30 minutes Discharge Instructions DIET: Follow Instructions for: Diabetic Diet Activities you can perform: Regular-No Restrictions Activities to Avoid: Prolonged Standing, Strenuous Activity Follow up Referrals: Oncology - 1 Week with Jackelin Gill MD Urology - 2 Weeks with Jabier Ng MD New Medications: Carvedilol (Coreg) 3.125 Mg Tab 3.125 MG PO Q12HR cardiomyopathy #62 TAB Continued Medications: Apixaban (Eliquis) 5 Mg Tab 5 MG PO BID #60 TAB Cholecalciferol (Vitamin D3) 50,000 Unit Tab 69366 UNITS PO WEEKLY Nutritional Supplement #1 Ref 0 BOTTLE Hydrocodone-Acetaminophen (Hydrocodone-Acetaminophen) 5-325 mg Tab 1 TAB PO Q4H PRN PAIN GREATER THAN 5 #30 TAB Metformin (Metformin) 500 Mg Tab 500 MG PO BIDPC With meals Blood Sugar Management #60 Ref 0 TAB Ondansetron Odt (Zofran Odt) 4 Mg Tab 4 MG SL Q6HR PRN Nausea/Vomiting #30 Ref 0 TAB Pantoprazole (Protonix) 40 Mg Tab 40 MG PO BID Reflux #30 Ref 0 TAB Potassium Chloride ER (K-Tab) 10 Meq Tab 10 MEQ PO DAILY Electrolyte Replacement #30 Ref 0 TAB Simvastatin (Zocor) 80 Mg Tab 80 MG PO HS Cholesterol Management #30 Ref 0 TAB Discontinued Medications: Amlodipine (Amlodipine) 5 Mg Tab 5 MG PO DAILY Blood Pressure Management #30 Ref 0 TAB Bull Ardon MD Nov 23, 2016 14:39
[2016-11-23] MEDS: PRAVASTATIN SOD 80 MG TAB PO SCH (21:00)
== END 2016-11-23 22:36 | disposition home or self-care (01) | DRG 755 ==
LOC: NEPE 12:36 → NEDA 16:42 → NEPGCP 19:02 → HOCA 11-20 17:34
PROVIDERS: ADMIT Hospitalist; ATTEND Hospitalist
PROC: 0W9G3ZX Drainage of Peritoneal Cavity, Percutaneous Approach, Diagnostic (ICD-10-PCS; principal; 2016-11-19)
DX: C54.1 Malignant neoplasm of endometrium (principal); R18.0 Malignant ascites; N17.9 Acute kidney failure, unspecified; I42.9 Cardiomyopathy, unspecified; E46 Unspecified protein-calorie malnutrition; I50.20 Unspecified systolic (congestive) heart failure; N13.30 Unspecified hydronephrosis; I11.0 Hypertensive heart disease with heart failure; E86.0 Dehydration; E11.9 Type 2 diabetes mellitus without complications; E78.00 Pure hypercholesterolemia, unspecified; H91.90 Unspecified hearing loss, unspecified ear; K44.9 Diaphragmatic hernia without obstruction or gangrene; Z85.3 Personal history of malignant neoplasm of breast; Z86.718 Personal history of other venous thrombosis and embolism; Z79.01 Long term (current) use of anticoagulants; Z85.42 Personal history of malignant neoplasm of other parts of uterus; Z79.84 Long term (current) use of oral hypoglycemic drugs
CPT/HCPCS: 49083; 71010; 71275; 74177; 80048; 80053; 81001; 82042; 82728; 82945; 82948; 83540; 83550; 83605; 83615; 83690; 83735; 84100; 84157; 84484; 85025; 85027; 85610; 85730; 87070; 87086; 87205; 88112; 88305; 89051; 93005; 93306; 96361; 96374; 96375; C1729; J2270; J2405; J7030; Q9967

== ENCOUNTER 2016-11-28 09:59 | Day surgery (SDC) | payer MEDICAID ==
[~2016-11-28 09:59] MED LIST changes: -BACT800T5 PO; +CARV3.125 PO; +CHOL1TAB16 PO; -SIMV40TA PO; +ZOCO80TA PO; -[UNRECOGNIZED DRUG - CODE]
[2016-11-28 11:01] VITALS: BP 107/74; PULSE 97; RESP 14; TEMP 97.1; O2SAT 100
[2016-11-28 13:05] VITALS: BP 123/69; PULSE 106; RESP 20; TEMP 97.4; O2SAT 99
[2016-11-28 13:14] VITALS: BP 123/69; PULSE 106; RESP 18; TEMP 97.4; O2SAT 99
[2016-11-28 13:29] VITALS: BP 121/67; PULSE 100; RESP 19; O2SAT 100
--- NOTE | 2016-11-28 16:36 | RADRPT ---
EXAM DATE/TIME: 11/28/2016 11:43 [facility] COMPARISON: US GUIDED ABD PARACENTESIS, November 19, 2016, 8:54. INDICATIONS : Ascites. MEDICAL HISTORY : Hypercholesterolemia. Hypertension. Hypercholesterolemia. Hypertension. Hearing loss. Left breast ca ncer. Uterine cancer. Chemotherapy. Radiation therapy. Blood transfusion SURGICAL HISTORY : Hysterectomy. Cholecystectomy. Mastectomy, left. Bunionectomy. Right wrist fracture repair. ENCOUNTER: Subsequent ACUITY: 2 weeks PAIN SCORE: 0/10 LOCATION: Right lower quadrant FLUID: Total volume of 3100 cc of clear, yellow fluid was removed. Fluid was discarded. Paracentesis was therapeutic only. Post procedure scanning reveals no hematoma or other complication. TECHNIQUE: 1. Ultrasound guidance for abdominal paracentesis. 2. Paracentesis. The risks, benefits, and alternatives to ultrasound guided paracentesis were explained to the patient in detail including the risk of bleeding and infection. Written and verbal informed consent was obt ained. With the patient on the ultrasound table, ultrasound imaging was used to select the most appropriate approach for paracentesis. Overlying skin was prepped and draped in the usual sterile fashion and wi th a local anesthetic, a dermatotomy was made with an 11 blade scalpel. A 6 [place] Yxm-M-ujjaabvy ca theter was introduced into the peritoneal cavity and fluid was collected. The patient tolerated the procedure well and left the ultrasound suite in stable condition. CONCLUSION: Uncomplicated ultrasound guided paracentesis. Olayinka Beltrán MD on November 28, 2016 at 16:34 Board Certified Radiologist. This report was verified electronically.
== END 2016-11-28 13:50 | disposition home or self-care (01) ==
LOC: HRAD 09:59 → HRIP 10:04 → HRAD 13:50
PROVIDERS: ATTEND Obstetrics & Gynecology Gynecologic Oncology
DX: R18.8 Other ascites (principal); I10 Essential (primary) hypertension; E78.00 Pure hypercholesterolemia, unspecified; Z85.3 Personal history of malignant neoplasm of breast; Z85.42 Personal history of malignant neoplasm of other parts of uterus
CPT/HCPCS: 49083; C1729

== ENCOUNTER 2016-12-05 10:41 | Observation (INO) | payer MEDICAID ==
[~2016-12-05] VITALS: Ht 149.9 cm; Wt 44.5 kg
[2016-12-05 10:42] VITALS: BP 132/83; PULSE 98; RESP 20; TEMP 97.4; O2SAT 97
[2016-12-05 11:14] VITALS: O2SAT 99
[2016-12-05] MEDS ORDERED: SODIUM CHLOR 0.9% 1000 ML INJ 1,000 ML IV SCH (11:32)
[2016-12-05] MEDS ORDERED: ONDANSETRON HCL 4 MG/2 ML VIAL IVP ONE (11:45)
[2016-12-05] MEDS ORDERED: MORPHINE SULFATE 4 MG/ML INJ IV PUSH ONE (11:45)
[2016-12-05 11:52] LABS: AUTOMATED NEUTROPHIL # 10.5 TH/MM3 (1.8-7.7); HEMATOCRIT 26.3 % (35.0-46.0); HEMO FLAGS DIFF FINAL; LYMPH % 6.5 % (9.0-44.0); LYMPHOCYTE # 0.8 TH/MM3 (1.0-4.8); MEAN CELL VOLUME 82.2 FL (80.0-100.0); MEAN CORPUSCULAR HEMOGLOBIN 27.4 PG (27.0-34.0); MEAN CORPUSCULAR HGB CONC 33.4 % (32.0-36.0); MONO % 8.4 % (0.0-8.0); NEUT % 85.1 % (16.0-70.0); PLATELET COUNT 428 TH/MM3 (150-450); RED BLOOD COUNT 3.19 MIL/MM3 (4.00-5.30); RED CELL DISTRIBUTION WIDTH 18.7 % (11.6-17.2); WHITE BLOOD COUNT 12.3 TH/MM3 (4.0-11.0)
[2016-12-05 12:01] LABS: BLOOD, URINE NEG (NEG); COMMENT (UR) CULT NOT INDICATED; CULTURE IF INDICATED CULT NOT INDICATED; GLUCOSE,URINE NEG (NEG); KETONE, URINE NEG (NEG); MUCUS URINE FEW /lpf (OCC); NITRITE,URINE NEG (NEG); PH, URINE 6.5 (5.0-8.5); SQUAMOUS EPITHELIAL CELL URINE <1 /hpf (0-5); URINE COLOR YELLOW (YELLW/STRAW)
[2016-12-05 12:15] VITALS: BP 117/69; PULSE 90; RESP 17; O2SAT 99
--- NOTE | 2016-12-05 12:31 | PD ---
HPI Chief Complaint: Abdominal Pain Time Seen by Provider: 12:26 Travel History International Travel<30 days: No Contact w/Intl Traveler<30days: No Traveled to known affect area: No History of Present Illness HPI 61-year-old female with a chronic history of endometrial cancer to has metastasized to presents to the ED for evaluation of possible ascites. Per patient she was supposedly having an appointment today to get a paracentesis. Per patient she was told today at the Center that she did not have an appointment today but they rescheduled for tomorrow. Per patient she was having a lot of pain and fluid and she thought that she could just come here and get the procedure done. She states that she's been nauseous. Per patient she is currently going her chemotherapy. Per patient her last chemotherapy was yesterday. Patient comes here with family member she does not speak any Kuwaiti and the family member translates for her. Loom Fixer Apprentice services were offered but patient declined feeling comfortable my Khmer as well as with her family member translating. She does report that she's been nauseous and has been vomiting for the past 2 days. Per patient her vomitus is yellow. No blood. No diarrhea. No urinary issues other than urinary less. Patient does have a history of kidney problems secondary to dehydration and this is one of the concerns that they had secondary to not having the paracentesis today. The patient her pain is 4 out of 10. She denies any other medical prongs. She follows with Dr. Santana for the cancer. ON LICENSE OF [facility] Past Medical History Blood Disorders: No Heart Rhythm Problems: No Cancer: Yes (L BREAST 2003, UTERINE ) Cardiovascular Problems: Yes High Cholesterol: Yes Chemotherapy: Yes Chest Pain: No Congestive Heart Failure: No Diabetes: No Endocrine: No Gastrointestinal Disorders: Yes Genitourinary: No Hepatitis: No Hiatal Hernia: No Hypertension: Yes Immune Disorder: No Implanted Vascular Access Dvce: No Medical other: No Musculoskeletal: No Neurologic: No Psychiatric: No Reproductive: No Respiratory: No Immunizations Current: Yes Radiation Therapy: Yes (last done 10 years ago. Just started 10 treatments ) Thyroid Disease: No Past Surgical History Abdominal Surgery: Yes (CHOLECYSTECTOMY 1996) AICD: No Gynecologic Surgery: Yes (HYSTERECTOMY FEB 2014) Hysterectomy: Yes Joint Replacement: No Pacemaker: No Thoracic Surgery: Yes (L BREAST MASTECTOMY WITH CHEMO/RADIATION 2003) Other Surgery: Yes Social History Alcohol Use: No Tobacco Use: No Substance Use: No Allergies-Medications (Allergen,Severity, Reaction): Coded Allergies: Paclitaxel (Verified Allergy, Severe, Shortness of Breath, 12/05/16) Vancomycin (Unverified Allergy, Mild, ITCHING, 12/05/16) Reported Meds & Prescriptions Reported Meds & Active Scripts Active Coreg (Carvedilol) 3.125 Mg Tab 3.125 Mg PO Q12HR Metformin (Metformin HCl) 500 Mg Tab 500 Mg PO BIDPC With meals Zofran Odt (Ondansetron Odt) 4 Mg Tab 4 Mg SL Q6HR PRN Eliquis (Apixaban) 5 Mg Tab 5 Mg PO BID Hydrocodone-Acetaminophen 5-325 mg Tab 1 Tab PO Q4H PRN Reported Protonix (Pantoprazole Sodium) 40 Mg Tab 40 Mg PO BID Vitamin D3 (Cholecalciferol) 50,000 Unit Tab 50,000 Units PO WEEKLY Zocor (Simvastatin) 80 Mg Tab 80 Mg PO HS K-Tab (Potassium Chloride) 10 Meq Tab 10 Meq PO DAILY Review of Systems Except as stated in HPI: all other systems reviewed are Neg Physical Exam Narrative GENERAL: SKIN: Warm and dry. HEAD: Atraumatic. Normocephalic. EYES: Pupils equal and round. No scleral icterus. No injection or drainage. ENT: No nasal bleeding or discharge. Mucous membranes pink and moist. Tongue is midline. No uvula deviation. NECK: Trachea midline. No JVD. CARDIOVASCULAR: Regular rate and rhythm. No murmurs, S3, S4. RESPIRATORY: No accessory muscle use. Clear to auscultation. Breath sounds equal bilaterally. GASTROINTESTINAL: Abdomen soft, non-tender, mild fluid noted on the abdomen as well, slightly distended. Hepatic and splenic margins not palpable. MUSCULOSKELETAL: Extremities without clubbing, cyanosis, or edema. No obvious deformities. Full range of motion of the upper and lower extremities bilaterally. 2+ pulses bilaterally. NEUROLOGICAL: Awake and alert. No obvious cranial nerve deficits. Motor grossly within normal limits. Five out of 5 muscle strength in the arms and legs. Normal speech. PSYCHIATRIC: Appropriate mood and affect; insight and judgment normal. Data Data Last Documented VS Vital Signs Date Time Temp Pulse Resp B/P Pulse Ox O2 Delivery O2 Flow Rate FiO2 12/05/16 13:17 16 12/05/16 12:15 90 117/69 99 Room Air 12/05/16 10:42 97.4 Orders Complete Blood Count With Diff (12/05/16 11:08) Comprehensive Metabolic Panel (12/05/16 11:08) Urinalysis - C+S If Indicated (12/05/16 11:08) Lipase (12/05/16 11:08) Iv Access Insert/Monitor (12/05/16 11:08) Oximetry (12/05/16 11:08) Morphine Inj (Morphine Inj) (12/05/16 11:45) Ondansetron Inj (Zofran Inj) (12/05/16 11:45) Sodium Chlor 0.9% 1000 Ml Inj (Ns 1000 M (12/05/16 11:32) Ammonia (12/05/16 11:49) Chest, Single Ap (12/05/16 ) Metoclopramide Inj (Reglan Inj) (12/05/16 13:15) Ceftriaxone Inj (Rocephin Inj) (12/05/16 15:30) Apixaban (Eliquis) (12/05/16 21:00) Carvedilol (Coreg) (12/05/16 21:00) Acetamin-Hydrocod 325-5 Mg ([place] 5-325 (12/05/16 16:00) Pantoprazole (Protonix) (12/05/16 21:00) Potassium Chloride (Kcl) (12/06/16 09:00) (Nf) Simvastatin (Zocor) (12/05/16 21:00) Admit Order (Ed Use Only) (12/05/16 15:38) Consult Medical Oncology (12/05/16 ) Cholecalciferol (Vitamin D3) (12/08/16 09:00) Labs Laboratory Tests Test 12/05/16 12/05/16 11:33 12:10 White Blood Count 12.3 TH/MM3 Red Blood Count 3.19 MIL/MM3 Hemoglobin 8.8 GM/DL Hematocrit 26.3 % Mean Corpuscular Volume 82.2 FL Mean Corpuscular Hemoglobin 27.4 PG Mean Corpuscular Hemoglobin 33.4 % Concent Red Cell Distribution Width 18.7 % Platelet Count 428 TH/MM3 Mean Platelet Volume 7.4 FL Neutrophils (%) (Auto) 85.1 % Lymphocytes (%) (Auto) 6.5 % Monocytes (%) (Auto) 8.4 % Eosinophils (%) (Auto) 0.0 % Basophils (%) (Auto) 0.0 % Neutrophils # (Auto) 10.5 TH/MM3 Lymphocytes # (Auto) 0.8 TH/MM3 Monocytes # (Auto) 1.0 TH/MM3 Eosinophils # (Auto) 0.0 TH/MM3 Basophils # (Auto) 0.0 TH/MM3 CBC Comment DIFF FINAL Differential Comment Urine Color YELLOW Urine Turbidity CLEAR Urine pH 6.5 Urine Specific [place] 1.021 Urine Protein 30 mg/dL Urine Glucose (UA) NEG mg/dL Urine Ketones NEG mg/dL Urine Occult Blood NEG Urine Nitrite NEG Urine Bilirubin NEG Urine Urobilinogen LESS THAN 2.0 MG/DL Urine Leukocyte Esterase NEG Urine RBC LESS THAN 1 /hpf Urine WBC 3 /hpf Urine Squamous Epithelial <1 /hpf Cells Urine Mucus FEW /lpf Microscopic Urinalysis Comment CULT NOT INDICATED Sodium Level 135 MEQ/L Potassium Level 3.7 MEQ/L Chloride Level 94 MEQ/L Carbon Dioxide Level 31.4 MEQ/L Anion Gap 10 MEQ/L Blood Urea Nitrogen 18 MG/DL Creatinine 1.21 MG/DL Estimat Glomerular Filtration 45 ML/MIN Rate Random Glucose 126 MG/DL Calcium Level 8.5 MG/DL Total Bilirubin 0.3 MG/DL Aspartate Amino Transf 22 U/L (AST/SGOT) Alanine Aminotransferase 12 U/L (ALT/SGPT) Alkaline Phosphatase 90 U/L Ammonia 16 MCMOL/L Total Protein 6.5 GM/DL Albumin 2.2 GM/DL Lipase 74 U/L [facility] Medical Decision Making Medical Screen Exam Complete: Yes Emergency Medical Condition: Yes Medical Record Reviewed: Yes Interpretation(s) UA shows no sign of UTI. CBC Diagram 12/05/16 11:33 Last Impressions Chest X-Ray 12/05/16 0000 Signed Impressions: Service Date/Time: , December 05, 2016 12:15 - CONCLUSION: Small bilateral effusions and mild congestion versus airspace disease in right base. Jerry Cerna MD BMP Diagram 12/05/16 12:10 Differential Diagnosis Ascites versus acute on chronic fluid overload versus kidney injury versus dehydration versus metastatic cancer disease versus UTI versus intractable nausea and vomiting Narrative Course 61-year-old female that presents to the ED for evaluation of possible paracentesis. Patient was properly examined and was found to have signs and symptoms consistent appears to be ascites secondary to metastatic cancer. No sign of acute infection at this time. Patient just had chemotherapy 2 days ago. Patient apparently had possible appointment today but he was rescheduled for tomorrow. She complains of pain on the abdomen as well as nausea and vomiting. No other disease reported. At this time I do recommend basic labs and imaging. Patient was given IV fluids as well as antiemetics and pain medication. Unfortunately we cannot perform the paracentesis at bedside as she does not have severe amount of fluid at this time. She is a little bit distended but not enough to drain emergently. I do believe that she can still wait until tomorrow to get the fluid taken out. She is in agreement with this plan. Labs and imaging here showed leukocytosis, otherwise unremarcable. Unclear if this is related to recent Chemo. Case discussed with my attending Dr Santos who evaluated the patient with me and recommends consult to Dr Gill. Around 3:30 we have not had a call back from the patient's oncologist. Chest x- ray did show what appears to be possible consolidation versus edema. My attending Dr Santos recommends because of the patient's bubbles account and chest xray results to treat as pneumonia inpatient. This was discussed with Dr. Fritz who agrees to admission. Sepsis Criteria SIRS Criteria (2 or more): WBC > 80413, < 4000 or > 10% bands Diagnosis Primary Impression: Pneumonia Qualified Code: J18.1 - Pneumonia of right lower lobe due to infectious organism Admitting Information Admitting Physician Requests: Christiano Escamilla December 05, 2016 12:30
[2016-12-05 12:39] LABS: ALT (GPT) 12 U/L (10-53); ANION GAP 10 MEQ/L (5-15); AST (GOT) 22 U/L (15-37); BICARBONATE 31.4 MEQ/L (21.0-32.0); BLOOD UREA NITROGEN 18 MG/DL (7-18); CHLORIDE 94 MEQ/L (98-107); GLOMERULAR FILTRATION RATE 45 ML/MIN (>89); POTASSIUM 3.7 MEQ/L (3.5-5.1); SODIUM (NA) 135 MEQ/L (136-145)
[2016-12-05 12:41] LABS: ALKALINE PHOSPHATASE 90 U/L (45-117); TOTAL BILIRUBIN ADULT 0.3 MG/DL (0.2-1.0)
--- NOTE | 2016-12-05 13:07 | RADRPT ---
EXAM DATE/TIME: 12/05/2016 12:15 [place] COMPARISON: CHEST SINGLE AP, November 18, 2016, 13:30. INDICATIONS : Cough MEDICAL HISTORY : endometrial cancer SURGICAL HISTORY : Hysterectomy. Infusa port ENCOUNTER: Initial ACUITY: 4 - 6 days PAIN SCORE: 0/10 LOCATION: Bilateral chest FINDINGS: Small bilateral effusions are noted. There is mild haziness in the right lung base. Heart and mediastinal structures are stable. [id number]-r-[id number] catheter remains in good position. CONCLUSION: Small bilateral effusions and mild congestion versus airspace disease in right base. Jerry Cerna MD on December 05, 2016 at 13:03 Board Certified Radiologist. This report was verified electronically.
[2016-12-05] MEDS ORDERED: METOCLOPRAMIDE HCL 10 MG/2 ML VIAL IV PUSH ONE (13:15)
[2016-12-05] MEDS ORDERED: cefTRIAXone INJ 1,000 MG in SODIUM CHLORIDE 0.9% INJ 100 ML IV ONE (15:30)
[2016-12-05] MEDS ORDERED: ACETAMINOPHEN 325 MG TAB PO PRN (15:45)
[2016-12-05] MEDS ORDERED: NALOXONE HCL 0.4 MG/ML AMP IV PRN (15:45)
[2016-12-05] MEDS ORDERED: BISACODYL 10 MG SUPP RECTAL PRN (15:45)
[2016-12-05] MEDS ORDERED: SODIUM CHLORIDE 0.9% FLUSH 10 ML FLUSH IV FLUSH PRN (15:45)
[2016-12-05] MEDS: DOCUSATE SODIUM 100 MG CAP PO SCH ×2 (15:45→23:02)
--- NOTE | 2016-12-05 15:51 | PD ---
Physical Exam Narrative GENERAL: Well-nourished, well-developed patient. SKIN: Warm and dry. HEAD: Normocephalic and atraumatic. EYES: No injection or drainage. ENT: No nasal drainage noted. NECK: Supple, trachea midline. CARDIOVASCULAR: Regular rate and rhythm RESPIRATORY: No increased effort. No accessory muscle use. NEUROLOGICAL: Awake and alert. Motor and sensory grossly within normal limits. Normal speech. Data Data Last Documented VS Vital Signs Date Time Temp Pulse Resp B/P Pulse Ox O2 Delivery O2 Flow Rate FiO2 12/05/16 13:17 16 12/05/16 12:15 90 117/69 99 Room Air 12/05/16 10:42 97.4 Orders Complete Blood Count With Diff (12/05/16 11:08) Comprehensive Metabolic Panel (12/05/16 11:08) Urinalysis - C+S If Indicated (12/05/16 11:08) Lipase (12/05/16 11:08) Iv Access Insert/Monitor (12/05/16 11:08) Oximetry (12/05/16 11:08) Morphine Inj (Morphine Inj) (12/05/16 11:45) Ondansetron Inj (Zofran Inj) (12/05/16 11:45) Sodium Chlor 0.9% 1000 Ml Inj (Ns 1000 M (12/05/16 11:32) Ammonia (12/05/16 11:49) Chest, Single Ap (12/05/16 ) Metoclopramide Inj (Reglan Inj) (12/05/16 13:15) Ceftriaxone Inj (Rocephin Inj) (12/05/16 15:30) Apixaban (Eliquis) (12/05/16 21:00) Carvedilol (Coreg) (12/05/16 21:00) Acetamin-Hydrocod 325-5 Mg ([place] 5-325 (12/05/16 16:00) Pantoprazole (Protonix) (12/05/16 21:00) Potassium Chloride (Kcl) (12/06/16 09:00) Pravastatin (Pravachol) (12/05/16 21:00) Admit Order (Ed Use Only) (12/05/16 15:38) Consult Medical Oncology (12/05/16 ) Cholecalciferol (Vitamin D3) (12/08/16 09:00) Labs Laboratory Tests Test 12/05/16 12/05/16 11:33 12:10 White Blood Count 12.3 TH/MM3 Red Blood Count 3.19 MIL/MM3 Hemoglobin 8.8 GM/DL Hematocrit 26.3 % Mean Corpuscular Volume 82.2 FL Mean Corpuscular Hemoglobin 27.4 PG Mean Corpuscular Hemoglobin 33.4 % Concent Red Cell Distribution Width 18.7 % Platelet Count 428 TH/MM3 Mean Platelet Volume 7.4 FL Neutrophils (%) (Auto) 85.1 % Lymphocytes (%) (Auto) 6.5 % Monocytes (%) (Auto) 8.4 % Eosinophils (%) (Auto) 0.0 % Basophils (%) (Auto) 0.0 % Neutrophils # (Auto) 10.5 TH/MM3 Lymphocytes # (Auto) 0.8 TH/MM3 Monocytes # (Auto) 1.0 TH/MM3 Eosinophils # (Auto) 0.0 TH/MM3 Basophils # (Auto) 0.0 TH/MM3 CBC Comment DIFF FINAL Differential Comment Urine Color YELLOW Urine Turbidity CLEAR Urine pH 6.5 Urine Specific [place] 1.021 Urine Protein 30 mg/dL Urine Glucose (UA) NEG mg/dL Urine Ketones NEG mg/dL Urine Occult Blood NEG Urine Nitrite NEG Urine Bilirubin NEG Urine Urobilinogen LESS THAN 2.0 MG/DL Urine Leukocyte Esterase NEG Urine RBC LESS THAN 1 /hpf Urine WBC 3 /hpf Urine Squamous Epithelial <1 /hpf Cells Urine Mucus FEW /lpf Microscopic Urinalysis Comment CULT NOT INDICATED Sodium Level 135 MEQ/L Potassium Level 3.7 MEQ/L Chloride Level 94 MEQ/L Carbon Dioxide Level 31.4 MEQ/L Anion Gap 10 MEQ/L Blood Urea Nitrogen 18 MG/DL Creatinine 1.21 MG/DL Estimat Glomerular Filtration 45 ML/MIN Rate Random Glucose 126 MG/DL Calcium Level 8.5 MG/DL Total Bilirubin 0.3 MG/DL Aspartate Amino Transf 22 U/L (AST/SGOT) Alanine Aminotransferase 12 U/L (ALT/SGPT) Alkaline Phosphatase 90 U/L Ammonia 16 MCMOL/L Total Protein 6.5 GM/DL Albumin 2.2 GM/DL Lipase 74 U/L MDM Supervised Visit with SERENITY: Yes Interpretation(s) CBC & BMP Diagram 12/05/16 11:33 12/05/16 12:10 Last 24 hours Impressions Chest X-Ray 12/05/16 0000 Signed Impressions: Service Date/Time: November 12:15 - CONCLUSION: Small bilateral effusions and mild congestion versus airspace disease in right base. Jerry Cerna MD Narrative Course I, Dr. darnell, have reviewed the advance practice practitioner's documentation and am in agreement, met with the patient face to face, made the diagnosis, and the medical decision making was done by me. *My assessment and Findings: 61-year-old female presents with general ill feeling and needing a paracentesis. Workup shows new elevated white blood cell count and chest x-ray with possible consolidation. Patient has been having cough. Given recent chemotherapy she will need admission for IV antibiotic therapy. Lactate will be added on. Family agrees to workup. Call placed to Dr. sanabria to have her follow along to coordinate care Sepsis Criteria SIRS Criteria (2 or more): Heart rate over 90, WBC > 92609, < 4000 or > 10% bands Sepsis Criteria (SIRS+source): Infect source susp/known Criteria Outcome: Meets sepsis criteria Diagnosis Primary Impression: Pneumonia Qualified Code: J18.1 - Pneumonia of right lower lobe due to infectious organism Additional Impression: Sepsis Qualified Code: A41.9 - Sepsis, due to unspecified organism Alexia Darnell MD December 05, 2016 15:51
--- NOTE | 2016-12-05 15:53 | HHI.HP ---
[facility] Unknown Admission Diagnosis acute pneumonia with leukocystosis Diagnoses: Chief Complaint: Abdominal pain and wanted to get Paracentesis. Travel History International Travel<30 Days: No Contact w/Intl Traveler <30 Da: No Traveled to Known Affected Are: No History of Present Illness This is a pleasant 61 y/o Female with chronic history of endometrial Cancer with metastatic disease came to the Hospital for Schedule Paracentesis but because no appointment she was re scheduled for tomorrow, because of pain she decided to come to ER for evaluation, she though that she could just come and get the procedure performed, with nausea, Per patient she is currently going her chemotherapy. Per patient her last chemotherapy was yesterday. She has been Nauseated and vomiting for the last two days, past 2 days. abdominal pain was 4/10 in intensity, consulted to her Primary Farm Machinery Assembler Oncology Doctor Ney Gill. Seen in ER discussed in B[place]an at this time no complaint states she improve her abdominal pain that was generalized. No nausea, or vomit at this time. no respiratory issues. pain was 7/10 in intensity. as a Colicky pain. Just recently discharged from this facility now for readmission. Past Family Social History Past Medical History Left breast Cancer 2003 and uterine Hyperlipidemia Hypertension Past Surgical History Cholecystectomy 1996 Hysterectomy 02/2014 Thoracic Surgery Left Breast mastectomy with chemo/radiation 2003 Reported Medications Reported Meds & Active Scripts Active Coreg (Carvedilol) 3.125 Mg Tab 3.125 Mg PO Q12HR Metformin (Metformin HCl) 500 Mg Tab 500 Mg PO BIDPC With meals Zofran Odt (Ondansetron Odt) 4 Mg Tab 4 Mg SL Q6HR PRN Eliquis (Apixaban) 5 Mg Tab 5 Mg PO BID Hydrocodone-Acetaminophen 5-325 mg Tab 1 Tab PO Q4H PRN Reported Protonix (Pantoprazole Sodium) 40 Mg Tab 40 Mg PO BID Vitamin D3 (Cholecalciferol) 50,000 Unit Tab 50,000 Units PO WEEKLY Zocor (Simvastatin) 80 Mg Tab 80 Mg PO HS K-Tab (Potassium Chloride) 10 Meq Tab 10 Meq PO DAILY Allergies: Coded Allergies: Paclitaxel (Verified Allergy, Severe, Shortness of Breath, 12/05/16) Vancomycin (Unverified Allergy, Mild, ITCHING, 12/05/16) Active Ordered Medications Current Medications Medications (Trade) Dose Ordered Sig/Tasha Route Start Time Stop Time Status Last Admin (Rocephin Inj/NS Inj) 100 ml @ 200 mls/hr ONCE ONCE IV 12/05/16 15:30 12/05/16 15:59 Family History Asked and denied. Social History Denies any toxic habits. Physical Exam Vital Signs Vital Signs Date Time Temp Pulse Resp B/P Pulse Ox O2 Delivery O2 Flow Rate FiO2 12/05/16 13:17 16 12/05/16 12:15 90 17 117/69 99 Room Air 12/05/16 11:16 15 12/05/16 11:14 99 Room Air 12/05/16 10:42 97.4 98 20 132/83 97 Room Air Physical Exam GENERAL: No acute distress SKIN: Warm and dry. HEAD: Atraumatic. Normocephalic. EYES: Pupils equal and round. No scleral icterus. No injection or drainage. ENT: No nasal bleeding or discharge. Mucous membranes pink and moist. Tongue is midline. No uvula deviation. NECK: Trachea midline. No JVD. CARDIOVASCULAR: Regular rate and rhythm. No murmurs, S3, S4. RESPIRATORY: No accessory muscle use. Clear to auscultation. Breath sounds equal bilaterally. GASTROINTESTINAL: Abdomen soft, distended, no abdominal pain on palpation. MUSCULOSKELETAL: Extremities without clubbing, cyanosis, or edema. No obvious deformities. Full range of motion of the upper and lower extremities bilaterally. 2+ pulses bilaterally. NEUROLOGICAL: Awake and alert. No obvious cranial nerve deficits. Motor grossly within normal limits. Five out of 5 muscle strength in the arms and legs. Normal speech. PSYCHIATRIC: Appropriate mood and affect; insight and judgment normal. Laboratory Laboratory Tests Test 12/05/16 12/05/16 11:33 12:10 White Blood Count 12.3 Red Blood Count 3.19 Hemoglobin 8.8 Hematocrit 26.3 Mean Corpuscular Volume 82.2 Mean Corpuscular Hemoglobin 27.4 Mean Corpuscular Hemoglobin 33.4 Concent Red Cell Distribution Width 18.7 Platelet Count 428 Mean Platelet Volume 7.4 Neutrophils (%) (Auto) 85.1 Lymphocytes (%) (Auto) 6.5 Monocytes (%) (Auto) 8.4 Eosinophils (%) (Auto) 0.0 Basophils (%) (Auto) 0.0 Neutrophils # (Auto) 10.5 Lymphocytes # (Auto) 0.8 Monocytes # (Auto) 1.0 Eosinophils # (Auto) 0.0 Basophils # (Auto) 0.0 CBC Comment DIFF FINAL Differential Comment Urine Color YELLOW Urine Turbidity CLEAR Urine pH 6.5 Urine Specific [place] 1.021 Urine Protein 30 Urine Glucose (UA) NEG Urine Ketones NEG Urine Occult Blood NEG Urine Nitrite NEG Urine Bilirubin NEG Urine Urobilinogen LESS THAN 2.0 Urine Leukocyte Esterase NEG Urine RBC LESS THAN 1 Urine WBC 3 Urine Squamous Epithelial <1 Cells Urine Mucus FEW Microscopic Urinalysis Comment CULT NOT INDICATED Sodium Level 135 Potassium Level 3.7 Chloride Level 94 Carbon Dioxide Level 31.4 Anion Gap 10 Blood Urea Nitrogen 18 Creatinine 1.21 Estimat Glomerular Filtration 45 Rate Random Glucose 126 Calcium Level 8.5 Total Bilirubin 0.3 Aspartate Amino Transf 22 (AST/SGOT) Alanine Aminotransferase 12 (ALT/SGPT) Alkaline Phosphatase 90 Ammonia 16 Total Protein 6.5 Albumin 2.2 Lipase 74 Result Diagram: 12/05/16 1133 12/05/16 1210 Imaging Last Impressions Chest X-Ray 12/05/16 0000 Signed Impressions: Service Date/Time: November 12:15 - CONCLUSION: Small bilateral effusions and mild congestion versus airspace disease in right base. Jerry Cerna MD Assessment and Plan Assessment and Plan 1. Ascites follow scheduled for tomorrow for Paracentesis. 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 continue Chemotherapy by Oncology 2. Ascites secondary to #1 on paracentesis scheduled for tomorrow by Interventional Radiology 3. DVT on Eliquis 4. Hydronephrosis on the left kidney Urology specialist followed 5. DM II to continue sliding scale. 6 Anemia on chronic disease. 7. Cardiomyopathy Echocardiogram EF 20-25%. GI prophylaxis: PPI. DVT prophylaxis: Eliquis on hold for procedure in am tomorrow. Code Status Full code discussed with patient she states do everything to keep me alive. Discussed Condition With Patient and nurse in ER Guanaco Alvarez MD December 05, 2016 15:52
[2016-12-05] MEDS ORDERED: ACETAMINOPHEN/HYDROcodone 325 MG/5 MG TAB PO PRN (16:00)
[2016-12-05] MEDS ORDERED: SODIUM CHLORID 0.9% 500 ML INJ 500 ML IV ONE (16:00)
[2016-12-05 16:20] VITALS: BP 120/70; PULSE 85; RESP 17; O2SAT 99
[2016-12-05] MEDS: SODIUM CHLOR 0.9% 1000 ML INJ 1,000 ML IV SCH (16:22)
[2016-12-05 18:53] VITALS: BP 111/72; PULSE 80; RESP 16; TEMP 98; O2SAT 99
[2016-12-05] MEDS: SODIUM CHLORIDE 0.9% FLUSH 10 ML FLUSH IV FLUSH SCH (19:45)
[2016-12-05 20:53] LABS: CREATINE KINASE 44 U/L (26-192)
[2016-12-05] MEDS ORDERED: PRAVASTATIN SOD 80 MG TAB PO SCH (21:00)
[2016-12-05] MEDS ORDERED: APIXABAN 5 MG TABLET PO SCH (21:00)
[2016-12-05] MEDS: PANTOPRAZOLE SOD 40 MG DELAYED RELEASE TAB PO SCH (21:18)
[2016-12-05] MEDS: ONDANSETRON HCL 4 MG/2 ML VIAL IVP PRN (21:18)
[2016-12-05] MEDS: CARVEDILOL 3.125 MG TAB PO SCH (21:18)
[2016-12-06 00:44] VITALS: BP 102/62; PULSE 86; RESP 18; TEMP 98.4; O2SAT 96
[2016-12-06] MEDS: SODIUM CHLOR 0.9% 1000 ML INJ 1,000 ML IV SCH (03:39)
[2016-12-06 04:49] VITALS: RESP 18
[2016-12-06 04:52] VITALS: BP 120/71; PULSE 89; RESP 18; TEMP 98.4; O2SAT 94
[2016-12-06 07:25] LABS: AUTOMATED NEUTROPHIL # 5.3 TH/MM3 (1.8-7.7); BASOPHIL % 0.4 % (0.0-2.0); EOSINOPHIL % 0.7 % (0.0-4.0); HEMATOCRIT 24.8 % (35.0-46.0); HEMO FLAGS DIFF FINAL; LYMPH % 16.2 % (9.0-44.0); LYMPHOCYTE # 1.2 TH/MM3 (1.0-4.8); MEAN CELL VOLUME 83.3 FL (80.0-100.0); MEAN CORPUSCULAR HEMOGLOBIN 27.5 PG (27.0-34.0); MONO % 10.4 % (0.0-8.0); NEUT % 72.3 % (16.0-70.0); PLATELET COUNT 347 TH/MM3 (150-450); RED BLOOD COUNT 2.97 MIL/MM3 (4.00-5.30); RED CELL DISTRIBUTION WIDTH 18.5 % (11.6-17.2); WHITE BLOOD COUNT 7.3 TH/MM3 (4.0-11.0)
[2016-12-06 08:03] LABS: ANION GAP 6 MEQ/L (5-15); BICARBONATE 31.3 MEQ/L (21.0-32.0); BLOOD UREA NITROGEN 14 MG/DL (7-18); CHLORIDE 101 MEQ/L (98-107); GLOMERULAR FILTRATION RATE 44 ML/MIN (>89); POTASSIUM 3.7 MEQ/L (3.5-5.1); SODIUM (NA) 138 MEQ/L (136-145)
[2016-12-06 08:17] LABS: CREATINE KINASE 21 U/L (26-192)
[2016-12-06] MEDS: SODIUM CHLORIDE 0.9% FLUSH 10 ML FLUSH IV FLUSH SCH (08:17)
[2016-12-06] MEDS: CARVEDILOL 3.125 MG TAB PO SCH (08:17)
[2016-12-06] MEDS: PANTOPRAZOLE SOD 40 MG DELAYED RELEASE TAB PO SCH (08:17)
--- NOTE | 2016-12-06 08:29 | MB ---
cc: AISHWARYA POWELL MD, JEFFREY D. MD SANCHEZ DELACRUZ, GUILLERMO MD DATE OF CONSULTATION: 12/06/2016 REASON FOR CONSULTATION Patient known to us with recurrent uterine papillary serous carcinoma. REASON FOR HOSPITALIZATION Pain, ascites, possible pneumonia, failure to thrive. Her findings are reviewed. She is seen and counseled by me and examined by me in conjunction with our nurse practitioner (Lynn Ruiz), and I agree with her findings, assessment and plan of care. HISTORY OF PRESENT ILLNESS A 61-year-old female with known recurrent metastatic uterine papillary serous carcinoma, has had a series of recent hospitalizations, problems associated with ascites, pain, deep vein thrombosis, hydronephrosis, progression of disease and failure to thrive. A series of discussions have been focused on trying to maximize comfort measures, offering palliative care, hospice care. She remains steadfast in her wish to continue to take treatment for the underlying cancer despite what seems to be progression of disease and limited treatment options. She was recently treated with dose-reduced single-agent cisplatin chemotherapy. She had the understanding that she was stable for an outpatient paracentesis yesterday, presented to radiology but apparently there was no confirmed appointment. Because she was feeling poorly and had abdominal distention she presented to the emergency room. Once in the emergency room confirmation of the following day's appointment and interventional radiology consult for a therapeutic paracentesis was confirmed. Other findings are that of an elevated white count at time of presentation of 12.3. Repeat white count today is 7.3, current H&H 8.2 and 24.8, platelets 347. Cultures have no growth thus far, less than 24 hours. Chest x-ray shows small bilateral pleural effusions, mild congestion. Potassium 3.7, BUN and creatinine 18 and 1.21. PAST MEDICAL HISTORY, PAST SURGICAL HISTORY, MEDICATIONS, ALLERGIES AND OTHER OBJECTIVE DATA: Are reviewed as documented in the chart. Recent changes are that of initiation of Eliquis for treatment of her deep vein thrombosis. She takes as-needed medications for nausea and pain given her underlying cancer and ongoing treatment. PHYSICAL EXAMINATION VITAL SIGNS: Since admission she has been afebrile, pulse 80-89, respirations 16-18, blood pressure 111-120/62-71. GENERAL: Communication is facilitated by her daughter. She is chronically ill and appears to feel poorly but in no acute distress. She is in her usual bright spirits. LUNGS: Rales at the bases with some decreased air exchange. CARDIOVASCULAR: Distant heart sounds. Regular rate and rhythm. ABDOMEN: Prominent, some distension, nonacute. BACK: No CVA tenderness or spinal point tenderness. LYMPH NODE SURVEY: Confirms palpable adenopathy in the left supraclavicular region. DISCUSSION Time is spent in discussion with her, reviewing the findings in her case to date, in follow-up to prior discussions as well as recent discussion where she was seen in the oncology office. Her constellation of medical problems are either directly or indirectly related to her underlying cancer. There is evidence of disease progression with new palpable disease in the left supraclavicular region. She was recently changed from microsomal doxorubicin after two cycles with uncertainty regarding effectiveness but concern about lack of efficacy as well as potential cardiac toxicity given recent apparent congestive heart failure. She has been placed on dose-reduced single-agent cisplatin and I believe she was treated two days ago. Some of her feeling poorly and nausea may be related to treatment. Certainly other symptoms are related to her underlying disease including the reaccumulation of ascites. From an oncology standpoint we have no new or different recommendations. She is not neutropenic so does not appear to be undue decreased resistance for infection. She is afebrile but white count was elevated at the time of presentation and seems improved to some extent with hydration. Cultures pending. She is receiving treatment and supportive care. Discussion ensued. Questions were answered. She has not changed her stance towards trying to be aggressive with treatment. She seems to understand the pertinent aspects of our discussion and the difficult nature of her situation, and is not yet ready to meet with Hospice or consider following under hospice care. ASSESSMENT 1. Recurrent metastatic uterine papillary serous carcinoma with findings as summarized above. 2. Admitted for abdominal pain, reaccumulation of symptomatic ascites, elevated white count and probable pneumonia. 3. Discussion. PLAN 1. Very grateful for the excellent medical care. Continue present management. 2. From an oncology standpoint no change in recommendations at this time. Agree with moving forward with therapeutic paracentesis, symptomatic care and ongoing follow-up with us in the oncology office as scheduled for weekly blood draw, port flush and ongoing assessment. Thank for the consultation. MD ELPIDIO Arreguin /7:51 AM /8:08 AM
--- NOTE | 2016-12-06 08:39 | PD.CONS ---
History of Present Illness Service risk management director/onc Consult Requested By Reason for Consult pt known to us recurrent endometrial cancer Primary Care Physician Unknown Diagnoses: (1) Pneumonia (2) Ascites (3) Endometrial ca History of Present Illness This is a 61 year old known to risk management director oncology for recurrent uterine papillary serous carcinoma. She is currently on line 5 IV chemotherapy with single agent Cisplatin. She had cycle #1 on December 04. She has been having frequent therapeutic paracentesis for recurrent malignant ascites. Her daughter brought her into the hospital yesterday for drainage of ascites but was told she was not on IR's schedule. She states that her mother was complaining of abdominal pain, had nausea and vomiting X 2 days, was not eating or drinking and was having SOA so she brought her over to the ER for evaluation. Chest x ray reported pneumonia with elevated WBC count, she was stated on IV ABX. She is seen now in the ER and she tells me that she is supposed to be getting the paracentesis this morning. She is still having nausea and vomiting but states that her pain is improved since admission. She denies any vaginal bleeding. She hopes to be discharged after her paracentesis today. I explained that when her med team feels she is ready to be discharged it is OK with risk management director/onc. Review of Systems Constitutional: COMPLAINS OF: Change in appetite Respiratory: COMPLAINS OF: Shortness of breath Gastrointestinal: COMPLAINS OF: Abdominal pain, Nausea, Vomiting Past Family Social History Allergies: Coded Allergies: Paclitaxel (Verified Allergy, Severe, Shortness of Breath, 12/05/16) Vancomycin (Unverified Allergy, Mild, ITCHING, 12/05/16) Past Medical History left breast cancer uterine papillary serious carcinoma, recurrent hyperlipidemia hypertension Past Surgical History jahaira hysterectomy left mastectomy Reported Medications per EMR Active Ordered Medications Current Medications Morphine Sulfate (Morphine Inj) 2 mg ONCE ONCE IV PUSH Last administered on 12:16; Start 12/05/16 at 11:45; Stop 12/05/16 at 11:46; Status DC Ondansetron HCl 4 mg 4 mg ONCE ONCE IVP Last administered on 12/05/16 12:17; Start 12/05/16 at 11:45; Stop 12/05/16 at 11:46; Status DC Sodium Chloride (NS 1000 ml Inj) 1,000 ml @ 1,000 mls/hr Q1H IV Last administered on 12/05/16 12:16; Start 12/05/16 at 11:32; Stop 12/05/16 at 12:31 ; Status DC Metoclopramide HCl 10 mg 10 mg ONCE ONCE IV PUSH Last administered on 13:17; Start 12/05/16 at 13:15; Stop 12/05/16 at 13:16; Status DC Ceftriaxone Sodium/Sodium Chloride (Rocephin Inj/NS Inj) 100 ml @ 200 mls/hr ONCE ONCE IV Last administered on 12/05/16 16:22; Start 12/05/16 at 15:30; Stop 12/05/16 at 15:59; Status DC Apixaban (Eliquis) 5 mg BID PO ; Start 12/05/16 at 21:00; Stop 12/05/16 at 21:00 ; Status DC Carvedilol (Coreg) 3.125 mg Q12HR PO Last administered on 12/05/16 21:18; Start 12/05/16 at 21:00 Acetaminophen/ Hydrocodone Bitart ([place] 5-325 Mg) 1 tab Q4H PRN PO PAIN GREATER THAN 5; Start 12/05/16 at 16:00 Pantoprazole Sodium (Protonix) 40 mg BID PO Last administered on 12/05/16 21: 18; Start 12/05/16 at 21:00 Potassium Chloride (KCl) 10 meq DAILY PO ; Start 12/06/16 at 09:00 Cholecalciferol (Vitamin D3) 50,000 units Q7D PO ; Start 12/08/16 at 09:00 Pravastatin Sodium 80 mg 80 mg HS PO ; Start 12/05/16 at 21:00 Sodium Chloride (NS 1000 ml Inj) 1,000 ml @ 83 mls/hr Q12H3M IV Last administered on 12/06/16 03:39; Start 12/05/16 at 15:36 Sodium Chloride (NS Flush) 2 ml UNSCH PRN IV FLUSH FLUSH AFTER USING IV ACCESS ; Start 12/05/16 at 15:45 Sodium Chloride (NS Flush) 2 ml BID IV FLUSH ; Start 12/05/16 at 21:00 Acetaminophen (Tylenol) 650 mg Q4H PRN PO TEMP > 100.4; Start 12/05/16 at 15:45 Ondansetron HCl (Zofran Inj) 4 mg Q6H PRN IVP NAUSEA OR VOMITING Last administered on 12/05/16t 21:18; Start 12/05/16 at 15:45 Bisacodyl (Dulcolax Supp) 10 mg DAILY PRN RECTAL CONSTIPATION; Start 12/05/16 at 15:45 Docusate Sodium (Colace) 100 mg Q12H PO ; Start 12/05/16 at 15:45 Naloxone HCl 0.4 mg 0.4 mg UNSCH PRN IV SEE LABEL COMMENTS; Start 12/05/16 at 15:45 Sodium Chloride (NS 500 ml Inj) 500 ml @ 500 mls/hr BOLUS ONCE IV ; Start 06/13 at 16:00; Stop 12/05/16 at 16:59; Status DC Social History lives with her daughter denies tobacco Physical Exam Vital Signs Vital Signs Date Time Temp Pulse Resp B/P Pulse Ox O2 Delivery O2 Flow Rate FiO2 12/06/16 04:52 98.4 89 18 120/71 94 12/06/16 04:49 18 12/06/16 00:44 98.4 86 18 102/62 96 12/05/16 18:53 98.0 80 16 111/72 99 12/05/16 16:20 85 17 120/70 99 Room Air 12/05/16 13:17 16 12/05/16 12:15 90 17 117/69 99 Room Air 12/05/16 11:16 15 12/05/16 11:14 99 Room Air 12/05/16 10:42 97.4 98 20 132/83 97 Room Air Physical Exam GENERAL: frail, well-developed patient, in no apparent distress. SKIN: No rashes, ecchymoses or lesions. Cool and dry. HEAD: Atraumatic. Normocephalic. No temporal or scalp tenderness. EYES: Pupils equal round and reactive. Extraocular motions intact. No scleral icterus. No injection or drainage. CARDIOVASCULAR: Regular rate and rhythm without murmurs, gallops, or rubs. RESPIRATORY: Clear to auscultation. Breath sounds equal bilaterally. No wheezes , rales, or rhonchi. GASTROINTESTINAL: Abdomen firm MUSCULOSKELETAL: Extremities without clubbing, cyanosis, or edema. No joint tenderness, effusion, or edema noted. No calf tenderness. Negative Homans sign bilaterally. NEUROLOGICAL: Awake and alert. Laboratory Laboratory Tests Test 12/05/16 12/05/16 12/05/16 12/05/16 11:33 12:10 16:13 20:01 White Blood Count 12.3 Red Blood Count 3.19 Hemoglobin 8.8 Hematocrit 26.3 Mean Corpuscular Volume 82.2 Mean Corpuscular Hemoglobin 27.4 Mean Corpuscular Hemoglobin 33.4 Concent Red Cell Distribution Width 18.7 Platelet Count 428 Mean Platelet Volume 7.4 Neutrophils (%) (Auto) 85.1 Lymphocytes (%) (Auto) 6.5 Monocytes (%) (Auto) 8.4 Eosinophils (%) (Auto) 0.0 Basophils (%) (Auto) 0.0 Neutrophils # (Auto) 10.5 Lymphocytes # (Auto) 0.8 Monocytes # (Auto) 1.0 Eosinophils # (Auto) 0.0 Basophils # (Auto) 0.0 CBC Comment DIFF FINAL Differential Comment Urine Color YELLOW Urine Turbidity CLEAR Urine pH 6.5 Urine Specific [place] 1.021 Urine Protein 30 Urine Glucose (UA) NEG Urine Ketones NEG Urine Occult Blood NEG Urine Nitrite NEG Urine Bilirubin NEG Urine Urobilinogen LESS THAN 2.0 Urine Leukocyte Esterase NEG Urine RBC LESS THAN 1 Urine WBC 3 Urine Squamous Epithelial <1 Cells Urine Mucus FEW Microscopic Urinalysis Comment CULT NOT INDICATED Sodium Level 135 Potassium Level 3.7 Chloride Level 94 Carbon Dioxide Level 31.4 Anion Gap 10 Blood Urea Nitrogen 18 Creatinine 1.21 Estimat Glomerular Filtration 45 Rate Random Glucose 126 Calcium Level 8.5 Total Bilirubin 0.3 Aspartate Amino Transf 22 (AST/SGOT) Alanine Aminotransferase 12 (ALT/SGPT) Alkaline Phosphatase 90 Ammonia 16 Total Protein 6.5 Albumin 2.2 Lipase 74 Lactic Acid Level 1.1 Total Creatine Kinase 44 Troponin I LESS THAN 0.02 Test 12/06/16 06:42 White Blood Count 7.3 Red Blood Count 2.97 Hemoglobin 8.2 Hematocrit 24.8 Mean Corpuscular Volume 83.3 Mean Corpuscular Hemoglobin 27.5 Mean Corpuscular Hemoglobin 33.0 Concent Red Cell Distribution Width 18.5 Platelet Count 347 Mean Platelet Volume 7.4 Neutrophils (%) (Auto) 72.3 Lymphocytes (%) (Auto) 16.2 Monocytes (%) (Auto) 10.4 Eosinophils (%) (Auto) 0.7 Basophils (%) (Auto) 0.4 Neutrophils # (Auto) 5.3 Lymphocytes # (Auto) 1.2 Monocytes # (Auto) 0.8 Eosinophils # (Auto) 0.0 Basophils # (Auto) 0.0 CBC Comment DIFF FINAL Differential Comment Date/Time Procedure Status Source Growth 12/05/16 20:01 Aerobic Blood Culture Received Blood Peripheral Pending 12/05/16 20:01 Anaerobic Blood Culture Received Blood Peripheral Pending Result Diagram: 12/06/16 0642 12/05/16 1210 Imaging Last Impressions Chest X-Ray 12/05/16 0000 Signed Impressions: Service Date/Time: November 12:15 - CONCLUSION: Small bilateral effusions and mild congestion versus airspace disease in right base. Jerry Cerna MD Assessment and Plan Problem List: (1) Ascites Status: Acute Plan: therapeutic paracentesis today daughter will call IR to schedule for para next (2) Endometrial ca Status: Chronic Plan: continue Cisplatin IV monitor weekly labs as ordered (3) Pneumonia Status: Acute Plan: IV ABX per med team monitoring labs OK to discharge home per risk management director/onc once Ok'd by med team. Discussed Condition With RN Dr. Gill is in agreement with this plan of care. Discharge Planning Problem Qualifiers (1) Pneumonia: Qualified Code: J18.1 - Pneumonia of right lower lobe due to infectious organism (2) Ascites: Qualified Code: R18.0 - Malignant ascites Lynn Ruiz December 06, 2016 08:39
[2016-12-06] MEDS ORDERED: POTASSIUM CHLORIDE 10 MEQ CONTROLLED RELEASE TAB PO SCH (09:00)
[2016-12-06 09:44] VITALS: BP 145/83; PULSE 86; RESP 16; TEMP 98.2; O2SAT 98
[2016-12-06 11:37] VITALS: BP 130/75; PULSE 82; RESP 18; TEMP 98.1; O2SAT 96
[2016-12-06 11:50] VITALS: BP 128/75; PULSE 83
--- NOTE | 2016-12-06 13:35 | HHI.PR ---
Subjective Remarks Follow-up for malignant ascites. The patient is seen with family at bedside. Patient was offered translation services, but elects to use family members for Wolof translation. The patient presented to the hospital because she had hoped to have outpatient paracentesis done, but had nausea and for some reason the paracentesis was never scheduled. The patient is seen after paracentesis today. She reports improvement in her abdominal distention and discomfort. She denies any pain. She does have some nausea, but is currently eating lunch. She does state that she takes Zofran at home for nausea. She has no acute complaints or concerns at this time. Objective Vitals Vital Signs Date Time Temp Pulse Resp B/P Pulse Ox O2 Delivery O2 Flow Rate FiO2 12/06/16 11:50 83 128/75 12/06/16 11:37 98.1 82 18 130/75 96 12/06/16 09:44 98.2 86 16 145/83 98 12/06/16 04:52 98.4 89 18 120/71 94 12/06/16 04:49 18 12/06/16 00:44 98.4 86 18 102/62 96 12/05/16 18:53 98.0 80 16 111/72 99 12/05/16 16:20 85 17 120/70 99 Room Air I/O 12/05/16 12/05/16 12/05/16 12/06/16 12/06/16 12/06/16 07:00 15:00 23:00 07:00 15:00 23:00 Intake Total 1074 ml Balance 1074 ml Intake IV Total 1074 ml Result Diagram: 12/06/16 0642 12/06/16 0642 Imaging Last Impressions Chest X-Ray 12/05/16 0000 Signed Impressions: Service Date/Time: November 12:15 - CONCLUSION: Small bilateral effusions and mild congestion versus airspace disease in right base. Jerry Cerna MD Objective Remarks GENERAL: Well-developed well-nourished. In no acute distress. SKIN: Warm and dry. No lesions noted. HEENT: Normocephalic. Pupils equal and round. Mucous membranes pink and moist. CARDIOVASCULAR: Regular rate and rhythm. No murmur appreciated. RESPIRATORY: No accessory muscle use. Clear to auscultation. Breath sounds equal bilaterally. GASTROINTESTINAL: Abdomen soft, non-tender, very mildly distended. Bowel sounds x4. MUSCULOSKELETAL: No obvious deformities. No clubbing or cyanosis. No edema. NEUROLOGICAL: Awake and alert. No focal neurological deficits. Moves upper and lower extremities spontaneously. Normal speech. PSYCHIATRIC: Appropriate mood and affect; insight and judgment normal. A/P Assessment and Plan 61-year-old female with a history of metastatic endometrial cancer and DVT who presented for ascites Malignant ascites: Second to metastatic endometrial cancer, patient's CLIENT ENGAGEMENT SPECIALIST oncologist consulted, and agrees with therapeutic paracentesis. S/P therapeutic paracentesis today with improvement in symptoms. Metastatic endometrial carcinoma: Continue outpatient CLIENT ENGAGEMENT SPECIALIST oncologists follow- up. Supportive care with pain control and antiemetics. DVT: On Eliquis. Eliquis was held for procedure today, will resume. Diabetes mellitus: Monitor Accu-Cheks. Cover with SSI. Resume home metformin at discharge. Cardiomyopathy: Chronic, stable. Systolic CHF. Continue carvedilol, statin. Pleural effusions: Chest x-ray showed small bilateral effusions with airspace disease in the right base. Likely secondary to cardiomyopathy and low protein state from malignancy as above. Afebrile. WBC today 7.3. No pulmonary complaints. Start low-dose Lasix and follow up with PCP. Discharge Planning Patient is clinically improved after paracentesis. Discussed with RN, will discharge later today if patient is able to tolerate diet. Thiago Valero December 06, 2016 13:35
[2016-12-06] MEDS ORDERED: FURO20TA PO (13:40)
[2016-12-06] MEDS: ONDANSETRON HCL 4 MG/2 ML VIAL IVP PRN (13:49)
--- NOTE | 2016-12-06 15:56 | RADRPT ---
EXAM DATE/TIME: 12/06/2016 09:40 [facility] COMPARISON: No previous studies available for comparison. INDICATIONS : Ascites. MEDICAL HISTORY : Hypercholesterolemia. Carcinoma, breast. HTN. Dyspnea. Endometrial cancer. Uterine cancer. SURGICAL HISTORY : Mastectomy, left. Cholecystectomy. Hysterectomy. Chemotherapy. Radiation therapy. Bunionectomy. Right wrist fracture repair. Left lumpectomy. Blood transfusions. ENCOUNTER: Subsequent ACUITY: 1 week PAIN SCORE: 4/10 LOCATION: Right lower quadrant FLUID: Total volume of 1,200 cc of clear, yellow fluid was removed. Fluid was discarded. Paracentesis was therapeutic only. Post procedure scanning reveals no hematoma or other complication. TECHNIQUE: 1. Ultrasound guidance for abdominal paracentesis. 2. Paracentesis. The risks, benefits, and alternatives to ultrasound guided paracentesis were explained to the patient in detail including the risk of bleeding and infection. Written and verbal informed consent was obt ained. With the patient on the ultrasound table, ultrasound imaging was used to select the most appropriate approach for paracentesis. Overlying skin was prepped and draped in the usual sterile fashion and wi th a local anesthetic, a dermatotomy was made with an 11 blade scalpel. A 6 [id number] ca theter was introduced into the peritoneal cavity and fluid was collected. The patient tolerated the procedure well and left the ultrasound suite in stable condition. CONCLUSION: Uncomplicated ultrasound guided paracentesis. Luke Farris MD on December 06, 2016 at 15:54 Board Certified Radiologist. This report was verified electronically.
[2016-12-08] MEDS ORDERED: CHOLECALCIFEROL (VIT D3) 5000 UNIT CAP PO SCH (09:00)
== END 2016-12-06 17:03 | disposition home or self-care (01) ==
LOC: NEPE 10:41 → NEDA 15:41 → NEPHCDU 18:21
PROVIDERS: ADMIT Internal Medicine; ATTEND Internal Medicine
DX: C54.1 Malignant neoplasm of endometrium (principal); R18.0 Malignant ascites; J18.9 Pneumonia, unspecified organism; C79.9 Secondary malignant neoplasm of unspecified site; E78.5 Hyperlipidemia, unspecified; I42.9 Cardiomyopathy, unspecified; E11.9 Type 2 diabetes mellitus without complications; J90 Pleural effusion, not elsewhere classified; I11.0 Hypertensive heart disease with heart failure; N13.30 Unspecified hydronephrosis; D63.8 Anemia in other chronic diseases classified elsewhere; I50.20 Unspecified systolic (congestive) heart failure; E78.00 Pure hypercholesterolemia, unspecified; Z92.3 Personal history of irradiation; Z90.710 Acquired absence of both cervix and uterus; Z90.12 Acquired absence of left breast and nipple; Z88.1 Allergy status to other antibiotic agents; Z88.8 Allergy status to other drugs, medicaments and biological substances; Z79.01 Long term (current) use of anticoagulants; Z86.718 Personal history of other venous thrombosis and embolism; Z79.84 Long term (current) use of oral hypoglycemic drugs; Z92.21 Personal history of antineoplastic chemotherapy; Z85.3 Personal history of malignant neoplasm of breast
CPT/HCPCS: 49083; 71010; 80048; 80053; 81001; 82140; 82550; 82948; 83605; 83690; 84484; 85025; 87040; 96361; 96374; 96375; 99285; C1729; G0378; J0696; J1642; J2270; J2405; J2765; J7030

== ENCOUNTER → 2016-12-13 | Day surgery (SDC) | payer MEDICAID ==
[~2016-12-13] MED LIST changes: +CHOL1CAP34 PO; +FURO20TA PO; +POLY17S PO; +WHEEMIS3
--- NOTE | 2016-12-13 11:56 | RADRPT ---
EXAM DATE/TIME: 12/13/2016 09:15 [facility] COMPARISON: No previous studies available for comparison. INDICATIONS : Ascites. MEDICAL HISTORY : Hypercholesterolemia. Carcinoma, breast. HTN. Dyspnea. Endometrial cancer. Uterine cancer. SURGICAL HISTORY : Mastectomy, left. Cholecystectomy. Hysterectomy. Chemotherapy. Radiation therapy. Bunionectomy. Right wrist fracture repair. Left lumpectomy. Blood transfusions. ENCOUNTER: Initial ACUITY: 2 weeks PAIN SCORE: 0/10 LOCATION: Bilateral upper quadrant AREA EVALUATED: Abdomen. FINDINGS: Imaging of the abdomen and pelvis was performed to evaluate for ascites for possible paracentesis. CONCLUSION: There is not enough fluid for a safe paracentesis Albino Guido MD FACR on December 13, 2016 at 11:54 Board Certified Radiologist. This report was verified electronically.
== END | disposition home or self-care (01) ==
LOC: HRAD 08:18
PROVIDERS: ATTEND Obstetrics & Gynecology Gynecologic Oncology
DX: R18.8 Other ascites (principal); I10 Essential (primary) hypertension
CPT/HCPCS: 76705

== ENCOUNTER 2017-01-14 13:28 | Day surgery (SDC) | payer MEDICAID ==
[~2017-01-14 13:28] MED LIST changes: -CHOL1CAP34 PO; -POLY17S PO; -WHEEMIS3
--- NOTE | 2017-01-14 14:22 | RADRPT ---
EXAM DATE/TIME: 01/14/2017 13:50 [facility] COMPARISON: US ABDOMEN - LOWER LIMITED, December 13, 2016, 9:15. INDICATIONS : Ascites. MEDICAL HISTORY : Hypercholesterolemia. Hypertension. Left breast cancer. SURGICAL HISTORY : Hysterectomy. Mastectomy, left. Cholecystectomy. Chemotherapy. ENCOUNTER: Subsequent ACUITY: 1 day PAIN SCORE: 2/10 LOCATION: Abdomen. AREA EVALUATED: Abdomen. FINDINGS: Imaging of the abdomen and pelvis was performed to evaluate for ascites for possible paracentesis. T here is only a small amount of ascites fluid with fluid seen primarily along the inferior margin of t he liver. CONCLUSION: Very small amount of ascites with fluid primarily along the inferior margin of the liver. This is ins ufficient for routine paracentesis. Mihai Tirado MD on January 14, 2017 at 14:18 Board Certified Radiologist. This report was verified electronically.
== END 2017-01-14 15:14 | disposition home or self-care (01) ==
LOC: HRAD 13:28 → HRIP 13:32 → HRAD 15:14
PROVIDERS: ATTEND Obstetrics & Gynecology Gynecologic Oncology
DX: R18.8 Other ascites (principal); E78.00 Pure hypercholesterolemia, unspecified; I10 Essential (primary) hypertension; Z85.3 Personal history of malignant neoplasm of breast; Z92.21 Personal history of antineoplastic chemotherapy; Z90.12 Acquired absence of left breast and nipple
CPT/HCPCS: 76705

== ENCOUNTER 2017-01-19 11:58 | Inpatient (IN) | payer MEDICAID ==
[~2017-01-19] VITALS: Ht 149.9 cm; Wt 47.0 kg
[2017-01-19 12:00] VITALS: BP 131/94; PULSE 107; RESP 15; TEMP 98.2; O2SAT 98
[2017-01-19 12:30] VITALS: BP 144/103; PULSE 97; RESP 16; O2SAT 97
--- NOTE | 2017-01-19 12:35 | PD ---
HPI . 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 She has been having these symptoms for about a month but it is now getting worse. She says the abdominal distention, back and stomach pain, and decreased urine production is worse today and is what prompted her to the ED. She tells me her urine production has decreased significantly and she is having very tiny bowel movements. She is also reporting decreased episodes of passing gas. She also reports some progressively worsening intermittent shortness of breath. There is no distinct pattern and she is not complaining of exertional dyspnea. She is now on chemotherapy last cycle on Friday. Her PCP is Dr. Corrigan and Oncologist is Dr. Gill. COUNTS INCLUDE 234 BEDS AT THE [facility] Past Medical History Blood Disorders: No Heart Rhythm Problems: No Cancer: Yes (L BREAST 2004, UTERINE ) Cardiovascular Problems: Yes High Cholesterol: Yes Chemotherapy: Yes Chest Pain: No Congestive Heart Failure: No Diabetes: No Endocrine: No Gastrointestinal Disorders: Yes Genitourinary: No Hepatitis: No Hiatal Hernia: No Hypertension: Yes Immune Disorder: No Implanted Vascular Access Dvce: No Musculoskeletal: No Neurologic: No Psychiatric: No Reproductive: Yes (endometrial cancer) Respiratory: No Immunizations Current: Yes Radiation Therapy: Yes (last done 10 years ago. Just started 10 treatments ) Thyroid Disease: No Past Surgical History Abdominal Surgery: Yes (CHOLECYSTECTOMY 1996) AICD: No Gynecologic Surgery: Yes (HYSTERECTOMY FEB 2014) Hysterectomy: Yes Joint Replacement: No Pacemaker: No Thoracic Surgery: Yes (L BREAST MASTECTOMY WITH CHEMO/RADIATION 2003) Other Surgery: Yes Social History Alcohol Use: No Tobacco Use: No Substance Use: No Allergies-Medications (Allergen,Severity, Reaction): Coded Allergies: Paclitaxel (Verified Allergy, Severe, Shortness of Breath, 12/05/16) Vancomycin (Unverified Allergy, Mild, ITCHING, 12/05/16) Reported Meds & Prescriptions Reported Meds & Active Scripts Active Furosemide 20 Mg Tab 20 Mg PO DAILY Coreg (Carvedilol) 3.125 Mg Tab 3.125 Mg PO Q12HR Zofran Odt (Ondansetron Odt) 4 Mg Tab 4 Mg SL Q6HR PRN Eliquis (Apixaban) 5 Mg Tab 5 Mg PO BID Hydrocodone-Acetaminophen 5-325 mg Tab 1 Tab PO Q4H PRN Reported Vitamin D3 (Cholecalciferol) 50,000 Unit Cap 50,000 Units PO WEEKLY Protonix (Pantoprazole Sodium) 40 Mg Tab 40 Mg PO BID Zocor (Simvastatin) 80 Mg Tab 80 Mg PO HS K-Tab (Potassium Chloride) 10 Meq Tab 10 Meq PO DAILY Review of Systems General / Constitutional: No: Fever Eyes: No: Visual changes HENT: No: Headaches Cardiovascular: No: Chest Pain or Discomfort Respiratory: Positive: Shortness of Breath Gastrointestinal: Positive: Abdominal Pain, Changes in Bowel Habits Genitourinary: Positive: Decreased Urinary Output, Hesitancy, No: Dysuria Musculoskeletal: No: Pain Skin: No Rash Neurologic: No: Weakness Psychiatric: No: Depression Endocrine: No: Polydipsia Hematologic/Lymphatic: No: Easy Bruising Physical Exam Narrative GENERAL: AAO x 3, no acute distress, Well-nourished, well-developed patient. SKIN: Warm and dry. No visible rashes or bruising. Left breast mastectomy. HEAD: Normocephalic and atraumatic. EYES: No scleral icterus. No injection or drainage. EOM intact, PERRLA ENT: No nasal drainage noted. Mucous membranes pink. Airway patent. NECK: Supple, trachea midline. No JVD. CARDIOVASCULAR: Regular rate and rhythm without murmurs, gallops, or rubs. RESPIRATORY: Breath sounds equal bilaterally. No accessory muscle use. No rhonchi or rales. GASTROINTESTINAL: Abdomen distended and somewhat firm, there is also a small amount of fluid present EXTREMITIES: No cyanosis or edema. BACK: Nontender without obvious deformity. No CVA tenderness. 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 Data Data Last Documented VS Vital Signs Date Time Temp Pulse Resp B/P Pulse Ox O2 Delivery O2 Flow Rate FiO2 01/19/17 13:27 88 14 153/99 96 Room Air 01/19/17 12:00 98.2 Orders Complete Blood Count With Diff (01/19/17 12:36) Comprehensive Metabolic Panel (01/19/17 12:36) Lipase (01/19/17 12:36) Prothrombin Time / Inr (Pt) (01/19/17 12:36) Act Partial Throm Time (Ptt) (01/19/17 12:36) Urinalysis - C+S If Indicated (01/19/17 12:36) Iv Access Insert/Monitor (01/19/17 12:36) Ecg Monitoring (01/19/17 12:36) Oximetry (01/19/17 12:36) Sodium Chloride 0.9% Flush (Ns Flush) (01/19/17 12:45) Electrocardiogram (01/19/17 12:36) Chest, Single Ap (01/19/17 12:36) Urine Culture (01/19/17 13:10) Ventilation & Perfusion Scan (01/19/17 13:50) Ct Abd/Pel W/O Iv Contrast (01/19/17 14:36) Ceftriaxone Inj (Rocephin Inj) (01/19/17 17:00) Admit Order (Ed Use Only) (01/19/17 16:52) Labs Laboratory Tests Test 01/19/17 01/19/17 12:50 13:10 White Blood Count 3.4 TH/MM3 Red Blood Count 4.90 MIL/MM3 Hemoglobin 13.7 GM/DL Hematocrit 41.5 % Mean Corpuscular Volume 84.7 FL Mean Corpuscular Hemoglobin 28.0 PG Mean Corpuscular Hemoglobin 33.0 % Concent Red Cell Distribution Width 18.2 % Platelet Count 203 TH/MM3 Mean Platelet Volume 7.1 FL Neutrophils (%) (Auto) 63.0 % Lymphocytes (%) (Auto) 26.2 % Monocytes (%) (Auto) 10.0 % Eosinophils (%) (Auto) 0.6 % Basophils (%) (Auto) 0.2 % Neutrophils # (Auto) 2.1 TH/MM3 Lymphocytes # (Auto) 0.9 TH/MM3 Monocytes # (Auto) 0.3 TH/MM3 Eosinophils # (Auto) 0.0 TH/MM3 Basophils # (Auto) 0.0 TH/MM3 CBC Comment DIFF FINAL Differential Comment Prothrombin Time 12.2 SEC Prothromb Time International 1.1 RATIO Ratio Activated Partial 34.5 SEC Thromboplast Time Sodium Level 132 MEQ/L Potassium Level 4.0 MEQ/L Chloride Level 93 MEQ/L Carbon Dioxide Level 33.2 MEQ/L Anion Gap 6 MEQ/L Blood Urea Nitrogen 25 MG/DL Creatinine 1.80 MG/DL Estimat Glomerular Filtration 29 ML/MIN Rate Random Glucose 126 MG/DL Calcium Level 9.5 MG/DL Total Bilirubin 0.3 MG/DL Aspartate Amino Transf 37 U/L (AST/SGOT) Alanine Aminotransferase 16 U/L (ALT/SGPT) Alkaline Phosphatase 101 U/L Total Protein 7.9 GM/DL Albumin 3.2 GM/DL Lipase 150 U/L Urine Color YELLOW Urine Turbidity HAZY Urine pH 6.0 Urine Specific [place] 1.029 Urine Protein 300 mg/dL Urine Glucose (UA) NEG mg/dL Urine Ketones NEG mg/dL Urine Occult Blood TRACE Urine Nitrite NEG Urine Bilirubin NEG Urine Urobilinogen 2.0 MG/DL Urine Leukocyte Esterase NEG Urine RBC 1 /hpf Urine WBC 12 /hpf Urine Squamous Epithelial 1 /hpf Cells Urine Amorphous Sediment OCC Urine Bacteria OCC /hpf Urine Granular Casts 11 /lpf Urine Mucus FEW /lpf Microscopic Urinalysis Comment CULTURE INDICATED MDM Medical Decision Making Medical Screen Exam Complete: Yes Emergency Medical Condition: Yes Medical Record Reviewed: Yes Differential Diagnosis Pulmonary emboli, bowel obstruction, constipation, fecal impaction, kidney failure, Narrative Course 61 year old female with multiple medical issues here with several complaints. Patient has been having one months worth of progressively worsening back pain, abdominal pain and distention, decreased urinary frequency and decreased bowel movement production. Patient also reported some progressively worsening shortness of breath that is intermittent in nature. IV access was obtained, labs and imaging have been ordered. Patient is anticoagulated on Eliquis, however pulmonary angiogram has been ordered as there is a high likelihood she could have a pulmonary embolism due to her malignancy status. 1350: CT department called and patient's bun/creatinine and GFR do not allow for IV contrast administration, therefore VQ scan ordered instead. 1436; I was called from the radiology department as patient's BUN and creatinine are too elevated for CT scan of the abdomen and pelvis with contrast. I explained to the technician inventory specialist that I need this examination , we have opted to do it without IV contrast. Although this will limit the study, I'm hoping that any gross abnormalities will show. Laboratory Tests Test 01/19/17 01/19/17 12:50 13:10 White Blood Count 3.4 TH/MM3 Red Blood Count 4.90 MIL/MM3 Hemoglobin 13.7 GM/DL Hematocrit 41.5 % Mean Corpuscular Volume 84.7 FL Mean Corpuscular Hemoglobin 28.0 PG Mean Corpuscular Hemoglobin 33.0 % Concent Red Cell Distribution Width 18.2 % Platelet Count 203 TH/MM3 Mean Platelet Volume 7.1 FL Neutrophils (%) (Auto) 63.0 % Lymphocytes (%) (Auto) 26.2 % Monocytes (%) (Auto) 10.0 % Eosinophils (%) (Auto) 0.6 % Basophils (%) (Auto) 0.2 % Neutrophils # (Auto) 2.1 TH/MM3 Lymphocytes # (Auto) 0.9 TH/MM3 Monocytes # (Auto) 0.3 TH/MM3 Eosinophils # (Auto) 0.0 TH/MM3 Basophils # (Auto) 0.0 TH/MM3 CBC Comment DIFF FINAL Differential Comment Prothrombin Time 12.2 SEC Prothromb Time International 1.1 RATIO Ratio Activated Partial 34.5 SEC Thromboplast Time Sodium Level 132 MEQ/L Potassium Level 4.0 MEQ/L Chloride Level 93 MEQ/L Carbon Dioxide Level 33.2 MEQ/L Anion Gap 6 MEQ/L Blood Urea Nitrogen 25 MG/DL Creatinine 1.80 MG/DL Estimat Glomerular Filtration 29 ML/MIN Rate Random Glucose 126 MG/DL Calcium Level 9.5 MG/DL Total Bilirubin 0.3 MG/DL Aspartate Amino Transf 37 U/L (AST/SGOT) Alanine Aminotransferase 16 U/L (ALT/SGPT) Alkaline Phosphatase 101 U/L Total Protein 7.9 GM/DL Albumin 3.2 GM/DL Lipase 150 U/L Urine Color YELLOW Urine Turbidity HAZY Urine pH 6.0 Urine Specific [place] 1.029 Urine Protein 300 mg/dL Urine Glucose (UA) NEG mg/dL Urine Ketones NEG mg/dL Urine Occult Blood TRACE Urine Nitrite NEG Urine Bilirubin NEG Urine Urobilinogen 2.0 MG/DL Urine Leukocyte Esterase NEG Urine RBC 1 /hpf Urine WBC 12 /hpf Urine Squamous Epithelial 1 /hpf Cells Urine Amorphous Sediment OCC Urine Bacteria OCC /hpf Urine Granular Casts 11 /lpf Urine Mucus FEW /lpf Microscopic Urinalysis Comment CULTURE INDICATED Last Impressions Chest X-Ray 01/19/17 1236 Signed Impressions: Service Date/Time: Thursday, January 19, 2017 13:12 - CONCLUSION: No acute disease. Maikel Mello MD Last Impressions Abdomen/Pelvis CT 01/19/17 1436 Signed Impressions: Service Date/Time: Thursday, January 19, 2017 14:54 - CONCLUSION: 1. Moderate to large amount of ascites with suspected omental caking. The ascites has progressed and appears more prominent on the current examination. 2. Persistent low density mass seen at the left retroperitoneum involving the left psoas and iliacus muscle. This low density mass appears relatively unchanged from the prior examination. This could represent metastatic change with necrosis. An abscess cannot be excluded in the correction clinical situation although little change has occurred since the prior study from 11/03/2016. Typically, an infectious process would ticket dispenser changer that timeframe. 3. The patient appears to be status post left mastectomy. Patient is status post hysterectomy. 4. Dilatation of the collecting systems bilaterally being severe on the left and mild on the right. This appearance is unchanged. The left ureter is dilated down to the level of the retroperitoneal mass involving the psoas. 5. IVC filter in place. The IVC and the filter are not distended. They are collapsed to some degree. Olayinka Kincaid MD Lung Scan- Nuclear Medicine 01/19/17 1350 Signed Impressions: Service Date/Time: Thursday, January 19, 2017 15:23 - CONCLUSION: Low probability for pulmonary embolus. Olayinka Kincaid MD Chest X-Ray 01/19/17 1236 Signed Impressions: Service Date/Time: Thursday, January 19, 2017 13:12 - CONCLUSION: No acute disease. Maikel Mello MD Patient has acute kidney failure. CT scan of the abdomen and pelvis demonstrates moderate to large amount of ascites with suspected omental caking. The ascites has progressed that appears more prominent on the current examination compared to prior. There is also a persistent low density mass seen at the left retroperitoneum involving the left psoas and iliacus muscle. The low-density mass appears relatively unchanged from prior examination. This could represent metastatic change with necrosis. Abscess could not be excluded. There has been little change since the prior study from November 03, 2016. It was noted that typically an infectious process would ticket dispenser changer that timeframe. Dilatation of the collecting systems bilaterally being severe on the left and mild on the right, appears unchanged. The left ureter is dilated down to the level of the retroperitoneal mass involving the psoas. CT revealed IVC filter, which was not known prior to VQ scan. Low probability for PE. Patient has acute kidney injury, urinary tract infection and ascites. I recommend admission. I discussed with patient and her daughter. They are both in agreement. 1625: call placed for admission with [facility] 1650: I spoke with Dr. Hfofman, who has accepted patient for Dr. Weems. She was admitted for observation. Patient was given Rocephin for her UTI. Case has been discussed with my attending Dr. Riley throughout the entire visit. He is in agreement with the recommendations. Diagnosis Primary Impression: LAST (acute kidney injury) Additional Impression: Ascites Qualified Code: R18.0 - Malignant ascites Admitting Information Admitting Physician Requests: Admit Condition: Stable Ana Vergara Jan 19, 2017 12:35
[2017-01-19] MEDS ORDERED: SODIUM CHLORIDE 0.9% FLUSH 10 ML FLUSH IV FLUSH PRN ×2 (12:45→18:30)
[2017-01-19 13:08] LABS: AUTOMATED NEUTROPHIL # 2.1 TH/MM3 (1.8-7.7); BASOPHIL % 0.2 % (0.0-2.0); EOSINOPHIL % 0.6 % (0.0-4.0); HEMATOCRIT 41.5 % (35.0-46.0); HEMO FLAGS DIFF FINAL; LYMPH % 26.2 % (9.0-44.0); LYMPHOCYTE # 0.9 TH/MM3 (1.0-4.8); MEAN CELL VOLUME 84.7 FL (80.0-100.0); PLATELET COUNT 203 TH/MM3 (150-450); RED CELL DISTRIBUTION WIDTH 18.2 % (11.6-17.2); WHITE BLOOD COUNT 3.4 TH/MM3 (4.0-11.0)
[2017-01-19] MEDS ORDERED: CHOL1CAP34 PO (13:09)
[2017-01-19 13:13] LABS: APTT (PATIENT) 34.5 SEC (24.3-30.1); INTERNATIONAL NORMALIZED RATIO 1.1 RATIO; PROTHROMBIN TIME - PATIENT 12.2 SEC (9.8-11.6)
--- NOTE | 2017-01-19 13:21 | RADRPT ---
EXAM DATE/TIME: 01/19/2017 13:12 [facility] COMPARISON: CHEST SINGLE AP, December 05, 2016, 12:15. INDICATIONS : Evaluate for free air. MEDICAL HISTORY : Hypertension. Diverticulitis. SURGICAL HISTORY : Mastectomy, left. ENCOUNTER: Initial ACUITY: 1 day PAIN SCORE: 2/10 LOCATION: Bilateral chest FINDINGS: A single view of the chest demonstrates the lungs to be symmetrically aerated without evidence of mas s, infiltrate or effusion. The cardiomediastinal contours are unremarkable. Osseous structures are intact. No evidence of free air. There is an [id number] on the right side. CONCLUSION: No acute disease. Maikel Mello MD on January 19, 2017 at 13:18 Board Certified Radiologist. This report was verified electronically.
[2017-01-19 13:22] LABS: ALT (GPT) 16 U/L (10-53); ANION GAP 6 MEQ/L (5-15); AST (GOT) 37 U/L (15-37); BICARBONATE 33.2 MEQ/L (21.0-32.0); BLOOD UREA NITROGEN 25 MG/DL (7-18); CHLORIDE 93 MEQ/L (98-107); GLOMERULAR FILTRATION RATE 29 ML/MIN (>89); SODIUM (NA) 132 MEQ/L (136-145)
[2017-01-19 13:25] LABS: ALKALINE PHOSPHATASE 101 U/L (45-117); TOTAL BILIRUBIN ADULT 0.3 MG/DL (0.2-1.0)
[2017-01-19 13:27] VITALS: BP 153/99; PULSE 88; RESP 14; O2SAT 96
[2017-01-19 13:42] LABS: BACTERIA, URINE OCC /hpf; BLOOD, URINE TRACE (NEG); COMMENT (UR) CULTURE INDICATED; CULTURE IF INDICATED CULTURE INDICATED; GLUCOSE,URINE NEG (NEG); GRANULAR CAST, URINE 11 /lpf; KETONE, URINE NEG (NEG); MUCUS URINE FEW /lpf (OCC); NITRITE,URINE NEG (NEG); SQUAMOUS EPITHELIAL CELL URINE 1 /hpf (0-5); URINE COLOR YELLOW (YELLW/STRAW)
--- NOTE | 2017-01-19 16:01 | RADRPT ---
EXAM DATE/TIME: 01/19/2017 14:54 [facility] COMPARISON: CT ABDOMEN & PELVIS W/O CONTRAST, November 03, 2016, 0:18. INDICATIONS : Abdomen pain and distention. ORAL CONTRAST: No oral contrast ingested. RADIATION DOSE: 9.96 CTDIvol (mGy) MEDICAL HISTORY : Carcinoma, breast. Cardiovascular disease SURGICAL HISTORY : Hysterectomy. ENCOUNTER: Initial ACUITY: 1 day PAIN SCALE: 7/10 LOCATION: Bilateral abdomen. TECHNIQUE: Volumetric scanning of the abdomen and pelvis was performed. Using automated exposure control and ad justment of the mA and/or kV according to patient size, radiation dose was kept as low as reasonably achievable to obtain optimal diagnostic quality images. DICOM format image data is available electro nically for review and comparison. FINDINGS: There is a moderate to large amount of ascites seen throughout the peritoneal cavity. There does ussana ear to be increased soft-tissue density within the mesentery raising the possibility of omental cakin g and metastatic disease. The liver, spleen and pancreas appear grossly normal. There is severe dilatation of the left collecting system and left ureter to the level of the pelvic i nlet. A renal stone is not seen. There does continue to be a low density mass seen at the left psoa s muscle abutting the expected location of the left mid ureter. This low density mass centered at th e psoas measures at least 5 cm. It extends into the left iliacus muscle. It appears unchanged from the prior examination. There is mild dilatation of the right collecting system. There is an IVC deejay ter in place. The IVC does not appear distended. The filter appears somewhat collapsed. Clips are seen in the right upper quadrant. Patient appears to be status post cholecystectomy. The bowel is unremarkable. The patient is status post hysterectomy. There is a minimal left pleural effusion. The lung bases are otherwise grossly clear. Patient appea rs to be status post left mastectomy. There is degenerative change in the lumbar spine. Focal bone lesions are not clearly identified. CONCLUSION: 1. Moderate to large amount of ascites with suspected omental caking. The ascites has progressed an d appears more prominent on the current examination. 2. Persistent low density mass seen at the left retroperitoneum involving the left psoas and iliacus muscle. This low density mass appears relatively unchanged from the prior examination. This could represent metastatic change with necrosis. An abscess cannot be excluded in the correction clinical situation although little change has occurred since the prior study from 11/03/2016. Typically, an in fectious process would place change roof bolter that timeframe. 3. The patient appears to be status post left mastectomy. Patient is status post hysterectomy. 4. Dilatation of the collecting systems bilaterally being severe on the left and mild on the right. This appearance is unchanged. The left ureter is dilated down to the level of the retroperitoneal m ass involving the psoas. 5. IVC filter in place. The IVC and the filter are not distended. They are collapsed to some degre e. Olayinka Kincaid MD on January 19, 2017 at 15:40 Board Certified Radiologist. This report was verified electronically.
--- NOTE | 2017-01-19 16:16 | RADRPT ---
EXAM DATE/TIME: 01/19/2017 15:23 [facility] COMPARISON: CHEST SINGLE AP, January 19, 2017, 13:12. INDICATIONS : Shortness of breath. DOSE: 8.1 mCi Tc99m MAA IV 0.6 mCi Tc99m DTPA aerosol MEDICAL HISTORY : Carcinoma, breast. Hyperthyroidism. Hypercholesterolemia. Endometrial cancer. SURGICAL HISTORY : Hysterectomy. Mastectomy, left. Cholecystectomy. ENCOUNTER: Initial ACUITY: 1 day PAIN SCALE: 3/10 LOCATION: Bilateral chest TECHNIQUE: Following five minutes of tidal breathing of DTPA aerosol, planar images of the lungs were performed in eight projections. The patient was then injected with MAA, and eight-view perfusion scan was perf ormed. FINDINGS: There is a homogeneous pattern of aerosol delivery to the periphery of both lungs. No focal ventilat ory defects are seen. The perfusion lung scan demonstrates a homogenous pattern of uptake in both lungs. No segmental or s ubsegmental defects are seen. CONCLUSION: Low probability for pulmonary embolus. Olayinka Kincaid MD on January 19, 2017 at 16:11 Board Certified Radiologist. This report was verified electronically.
[2017-01-19] MEDS ORDERED: cefTRIAXone INJ 1,000 MG in SODIUM CHLORIDE 0.9% INJ 25 ML IV ONE (17:00)
[2017-01-19 17:30] VITALS: BP 156/105; PULSE 97; RESP 16; O2SAT 97
--- NOTE | 2017-01-19 18:11 | HHI.HP ---
[facility] Service Family Medicine Primary Care Physician Non-Staff Admission Diagnosis LAST/UTI/ASCITES Diagnoses: International Travel<30 Days: No Contact w/Intl Traveler<30days: No Known Affected Area: No History of Present Illness Patient presenting with 1 month of back pain. The pain localized to her right lower back. The pain is intermittent, but she cannot give me a duration of the pain. It is a sharp and stabbing pain. Severity is a 7/10. The pain is located over her right flank and bladder. Her pain does not radiate into her leg. Denies burning with urination, although she has been urinating less. No fevers, chills, headaches, change in vision, hematuria, hematochezia, neck pain, or diarrhea. At her baseline she ambulates without difficulty. ROS: +Nausea, especially with meals. Can only take PO liquids. +Small BMs, last BM today +having bladder and stomach fullness, distension (had a recent US of abdomen last week and did not show enough fluid to be drained - per pt). (Zohaib Hoffman MD R2) Review of Systems Constitutional: DENIES: Fatigue, Fever, Chills Eyes: DENIES: Blurred vision Respiratory: DENIES: Cough, Sputum production, Shortness of breath Cardiovascular: DENIES: Chest pain, Palpitations, Lower Extremity Edema, Orthopnea Gastrointestinal: COMPLAINS OF: Constipation, Nausea, Vomiting, DENIES: Abdominal pain, Black stools, Bloody stools, Diarrhea Musculoskeletal: COMPLAINS OF: Back pain, DENIES: Muscle aches, Stiffness, Joint Swelling, Neck pain Neurologic: DENIES: Headache (Zohaib Hoffman MD R2) Past Family Social History Past Medical History Breast Cancer s/p mastectomy Endometrial CA receiving chemotherapy monthly Past Surgical History Mastectomy Hysterectomy (Zohaib Hoffman MD R2) Allergies: Coded Allergies: Paclitaxel (Verified Allergy, Severe, Shortness of Breath, 12/05/16) Vancomycin (Unverified Allergy, Mild, ITCHING, 12/05/16) Family History Aunt with vaginal cancer No brothers/sisters with cancer Cousin breast cancer Social History No tob, etoh, drugs. Born in [place] (Zohaib Hoffman MD R2) Physical Exam Vital Signs Vital Signs Date Time Temp Pulse Resp B/P Pulse Ox O2 Delivery O2 Flow Rate FiO2 01/19/17 17:30 97 16 156/105 97 Room Air 01/19/17 13:27 88 14 153/99 96 Room Air 01/19/17 12:30 97 16 144/103 97 Room Air 01/19/17 12:00 98.2 107 15 131/94 98 Physical Exam GENERAL: Thin appearing. NAD. SKIN: No rashes, ecchymoses or lesions. Cool and dry. HEAD: Atraumatic. Normocephalic. EYES: Pupils equal round and reactive. Extraocular motions intact. ENT: Nose without bleeding, purulent drainage or septal hematoma. MMM. NECK: Trachea midline. No JVD or lymphadenopathy. CARDIOVASCULAR: Regular rate and rhythm without murmurs, gallops, or rubs. RESPIRATORY: Clear to auscultation. GASTROINTESTINAL: Abdomen distended. Firm to palpation. BS +. Voluntary guarding to deep palpation. Mid line surgical scar. MUSCULOSKELETAL: Extremities without clubbing, cyanosis, or edema. No joint tenderness, effusion, or edema noted. No calf tenderness. NEUROLOGICAL: Awake and alert. Cranial nerves II through XII intact. Motor and sensory grossly within normal limits. Laboratory Laboratory Tests Test 01/19/17 01/19/17 12:50 13:10 White Blood Count 3.4 Red Blood Count 4.90 Hemoglobin 13.7 Hematocrit 41.5 Mean Corpuscular Volume 84.7 Mean Corpuscular Hemoglobin 28.0 Mean Corpuscular Hemoglobin 33.0 Concent Red Cell Distribution Width 18.2 Platelet Count 203 Mean Platelet Volume 7.1 Neutrophils (%) (Auto) 63.0 Lymphocytes (%) (Auto) 26.2 Monocytes (%) (Auto) 10.0 Eosinophils (%) (Auto) 0.6 Basophils (%) (Auto) 0.2 Neutrophils # (Auto) 2.1 Lymphocytes # (Auto) 0.9 Monocytes # (Auto) 0.3 Eosinophils # (Auto) 0.0 Basophils # (Auto) 0.0 CBC Comment DIFF FINAL Differential Comment Prothrombin Time 12.2 Prothromb Time International 1.1 Ratio Activated Partial 34.5 Thromboplast Time Sodium Level 132 Potassium Level 4.0 Chloride Level 93 Carbon Dioxide Level 33.2 Anion Gap 6 Blood Urea Nitrogen 25 Creatinine 1.80 Estimat Glomerular Filtration 29 Rate Random Glucose 126 Calcium Level 9.5 Total Bilirubin 0.3 Aspartate Amino Transf 37 (AST/SGOT) Alanine Aminotransferase 16 (ALT/SGPT) Alkaline Phosphatase 101 Total Protein 7.9 Albumin 3.2 Lipase 150 Urine Color YELLOW Urine Turbidity HAZY Urine pH 6.0 Urine Specific [place] 1.029 Urine Protein 300 Urine Glucose (UA) NEG Urine Ketones NEG Urine Occult Blood TRACE Urine Nitrite NEG Urine Bilirubin NEG Urine Urobilinogen 2.0 Urine Leukocyte Esterase NEG Urine RBC 1 Urine WBC 12 Urine Squamous Epithelial 1 Cells Urine Amorphous Sediment OCC Urine Bacteria OCC Urine Granular Casts 11 Urine Mucus FEW Microscopic Urinalysis Comment CULTURE INDICATED Date/Time Procedure Status Source Growth 01/19/17 13:10 Urine Culture Received Urine Clean Catch Pending (Zohaib Hoffman MD R2) Result Diagram: 01/19/17 1250 01/19/17 1250 Imaging Last 72 hours Impressions Abdomen/Pelvis CT 01/19/17 1436 Signed Impressions: Service Date/Time: Thursday, January 19, 2017 14:54 - CONCLUSION: 1. Moderate to large amount of ascites with suspected omental caking. The ascites has progressed and appears more prominent on the current examination. 2. Persistent low density mass seen at the left retroperitoneum involving the left psoas and iliacus muscle. This low density mass appears relatively unchanged from the prior examination. This could represent metastatic change with necrosis. An abscess cannot be excluded in the correction clinical situation although little change has occurred since the prior study from 11/03/2016. Typically, an infectious process would waste/materials exchange specialist that timeframe. 3. The patient appears to be status post left mastectomy. Patient is status post hysterectomy. 4. Dilatation of the collecting systems bilaterally being severe on the left and mild on the right. This appearance is unchanged. The left ureter is dilated down to the level of the retroperitoneal mass involving the psoas. 5. IVC filter in place. The IVC and the filter are not distended. They are collapsed to some degree. Olayinka Kincaid MD Lung Scan-VQ Nuclear Medicine 01/19/17 1350 Signed Impressions: Service Date/Time: Thursday, January 19, 2017 15:23 - CONCLUSION: Low probability for pulmonary embolus. Olayinka Kincaid MD Chest X-Ray 01/19/17 1236 Signed Impressions: Service Date/Time: Thursday, January 19, 2017 13:12 - CONCLUSION: No acute disease. Maikel Mello MD (Zohaib Hoffman MD R2) Septic Shock Reassessment Heart: Regular rate and rhythm Lungs: Clear Skin: Warm Peripheral Pulses: Bounding Right Radial Bounding Left Radial (Zohaib Hoffman MD R2) Assessment and Plan Assessment and Plan Mrs. Lawson is a very pleasant 61 y/o female with a PMHx of breast CA s/ p total left-sided mastectomy, endometrial cancer currently undergoing chemotherapy every month, DVT in left lower extremity s/p IVC filter, and hypertension, presenting with worsening right-sided lower back pain. CT on admission showed a moderate to large amount of ascites with suspected omental caking. She will be admitted for pain control, possible therapeutic paracentesis , and work up of back pain. Code Status Full Code. (Zohaib Hoffman MD R2) Attending Attestation The patient has been seen and examined. The chart and all resident notes have been reviewed. I agree that inpatient care is appropriate and that a two midnight stay is expected for the reasons documented in the resident history and physical. I have discussed this with the resident and certify the resident s order for inpatient admission. (Dominique Weems MD) Problem List: (1) Back pain Status: Acute Plan: Diff dx includes metastatic disease to spine not visualized on CT, muscle strain / spasm, ureteral pain 2/2 dilation of the ureter "on the left down to the level of the retroperitoneal mass involving the psoas", SBP, vs. constipation. Consider Bone scan in AM. Percocet 10 mg 1 tab pain 1-5, 2 tabs pain 6-10. IV Morphine 2 mg breakthrough pain. (2) Endometrial ca Status: Chronic Plan: Consult Dr. Gill - we appreciate her recommendations. Receiving chemotherapy q 4 weeks. Leukopenia of 3,400 WBCs. Patient may need PET scan to assess for metastatic disease to spine, or tumor debulking given low density mass seen at the left retroperitoneum involving the left psoas muscle, likely causing an obstructive uropathy. (3) UTI (urinary tract infection) Status: Acute Plan: UA showing + occ H bacterial, 12 WBCs, and Neg Leuk and Nitrites. Treat for UTI Rocephin 01/19 -- Follow cultures. (4) Nausea & vomiting Status: Acute Plan: Suspect mechanical obstruction given large amount of ascites, abdominal distension, and inability to tolerate solids. Zofran 4 mg IV q 6 hr PRN n/v. (5) Dehydration Status: Resolved Plan: Tachycardia on admission to 107 -- poor PO intake. Treat with NS at 75 ml / hr. Monitor I&Os. (6) Malignant ascites Status: Acute Plan: Moderate to large amount of ascites on CT of abdomen. Consider large volume paracentesis if persistent abdominal discomfort on exam. (7) LAST (acute kidney injury) Status: Chronic Plan: Baseline CR ~ 1.2 - 1.6. Likely 2/2 diabetes mellitus / worsening nephropathy. Slightly elevated on admission to 1.80. IVF as above. Avoid nephrotoxins. (8) Nutrition, metabolism, and development symptoms Status: Acute Plan: Reg diet as tolerated. Eliquis 5 mg BID for anticoagulation given hx of DVT. Protonix 40 mg qd. IVF as above. dw Dr. Weems. (Zohaib Hoffman MD R2) Problem Qualifiers (1) UTI (urinary tract infection): (2) Nausea & vomiting: Qualified Code: R11.2 - Nausea and vomiting, intractability of vomiting not specified, unspecified vomiting type Zohaib Hoffman MD R2 Jan 19, 2017 18:11 Dominique Weems MD Jan 22, 2017 10:59
[2017-01-19] MEDS ORDERED: oxyCODONE/ACETAMINOPHEN 10 MG/325 MG TAB PO PRN (18:15)
[2017-01-19 18:26] VITALS: O2SAT 97
[2017-01-19] MEDS ORDERED: ENOXAPARIN SODIUM 30 MG/0.3 ML SYRINGE SQ SCH (18:30)
[2017-01-19] MEDS ORDERED: NALOXONE HCL 0.4 MG/ML AMP IV PRN (18:30)
[2017-01-19] MEDS: oxyCODONE/ACETAMINOPHEN 10 MG/325 MG TAB PO PRN (18:53)
[2017-01-19] MEDS: SODIUM CHLOR 0.45% 1000 ML INJ 1,000 ML IV SCH (19:13)
[2017-01-19 20:00] VITALS: BP 149/99; PULSE 100; RESP 18; TEMP 97.4; O2SAT 96
[2017-01-19] MEDS: DOCUSATE SODIUM 50 MG/SENNA 8.6 MG TAB PO SCH (21:07)
[2017-01-19] MEDS: SODIUM CHLORIDE 0.9% FLUSH 10 ML FLUSH IV FLUSH SCH (21:07)
[2017-01-19] MEDS: PANTOPRAZOLE SOD 40 MG DELAYED RELEASE TAB PO SCH (21:07)
[2017-01-19] MEDS: APIXABAN 5 MG TABLET PO SCH (21:07)
[2017-01-19] MEDS: ONDANSETRON HCL 4 MG/2 ML VIAL IV PUSH PRN (21:08)
[2017-01-19] MEDS: CARVEDILOL 3.125 MG TAB PO SCH (21:08)
[2017-01-19] MEDS: PRAVASTATIN SOD 80 MG TAB PO SCH (21:14)
[2017-01-20] VITALS (8 sets, daily range): BP systolic 139–160; BP diastolic 80–113; PULSE 87–104; RESP 16–20; TEMP 97.1–98.3; O2SAT 95–98
[2017-01-20 02:22] LABS: AUTOMATED NEUTROPHIL # 1.9 TH/MM3 (1.8-7.7); BASOPHIL % 0.2 % (0.0-2.0); EOSINOPHIL % 1.4 % (0.0-4.0); HEMATOCRIT 37.7 % (35.0-46.0); HEMO FLAGS DIFF FINAL; LYMPH % 29.5 % (9.0-44.0); MEAN CELL VOLUME 85.3 FL (80.0-100.0); MEAN CORPUSCULAR HEMOGLOBIN 28.3 PG (27.0-34.0); MEAN CORPUSCULAR HGB CONC 33.2 % (32.0-36.0); MONO % 12.1 % (0.0-8.0); NEUT % 56.8 % (16.0-70.0); PLATELET COUNT 178 TH/MM3 (150-450); RED BLOOD COUNT 4.41 MIL/MM3 (4.00-5.30); RED CELL DISTRIBUTION WIDTH 18.4 % (11.6-17.2); WHITE BLOOD COUNT 3.4 TH/MM3 (4.0-11.0)
[2017-01-20 03:11] LABS: ALKALINE PHOSPHATASE 85 U/L (45-117); ALT (GPT) 12 U/L (10-53); ANION GAP 10 MEQ/L (5-15); AST (GOT) 30 U/L (15-37); BICARBONATE 29.1 MEQ/L (21.0-32.0); BLOOD UREA NITROGEN 23 MG/DL (7-18); CHLORIDE 94 MEQ/L (98-107); GLOMERULAR FILTRATION RATE 34 ML/MIN (>89); POTASSIUM 3.9 MEQ/L (3.5-5.1); SODIUM (NA) 133 MEQ/L (136-145); TOTAL BILIRUBIN ADULT 0.3 MG/DL (0.2-1.0)
[2017-01-20] MEDS: oxyCODONE/ACETAMINOPHEN 10 MG/325 MG TAB PO PRN ×2 (07:39→15:41)
[2017-01-20] MEDS: SODIUM CHLOR 0.45% 1000 ML INJ 1,000 ML IV SCH ×2 (07:40→20:59)
[2017-01-20] MEDS: SODIUM CHLORIDE 0.9% FLUSH 10 ML FLUSH IV FLUSH SCH ×2 (09:00→22:35)
[2017-01-20] MEDS: APIXABAN 5 MG TABLET PO SCH (09:00)
[2017-01-20] MEDS: ONDANSETRON HCL 4 MG/2 ML VIAL IV PUSH PRN ×2 (09:23→15:42)
--- NOTE | 2017-01-20 10:52 | PD.CONS ---
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 She is currently s/p cycle 3 of Cisplatin 75mg/m2 at 50% dose reduction. Her last treatment was last week on 01/15/17 and she reports back maria, abdominal pain with nausea and vomiting that she states is worse after this last treatment. She was using her Kytril patch but it was not helping much. She denies any vaginal bleeding and has not had to have a paracentesis in many weeks. She has not been eating much. She presented to ER for further evaluation for the above. Review of Systems ROS Limitations: Language Barrier Constitutional: COMPLAINS OF: Change in appetite Gastrointestinal: COMPLAINS OF: Abdominal pain, Nausea, Vomiting Past Family Social History Allergies: Coded Allergies: Paclitaxel (Verified Allergy, Severe, Shortness of Breath, 12/05/16) Vancomycin (Unverified Allergy, Mild, ITCHING, 12/05/16) Past Medical History breast cancer recurrent UPSC high cholesterol chronic kidney disease CHF hypertension previous radiation tx for breast ca Past Surgical History cholecystectomy lumpectomy and left mastectomy tubal ligation upper endoscopy hysterectomy in 2013 colonoscopy 2014 port placement Reported Medications per EMR Active Ordered Medications Current Medications Sodium Chloride 2 ml 2 ml UNSCH PRN IV FLUSH FLUSH AFTER USING IV ACCESS; Start 01/19/17 at 12:45 Ceftriaxone Sodium/Sodium Chloride (Rocephin Inj/NS Inj) 25 ml @ 50 mls/hr ONCE ONCE IV Last administered on 01/19/17 17:29; Start 01/19/17 at 17:00; Stop 01/19/17 at 17:29; Status DC Apixaban (Eliquis) 5 mg BID PO Last administered on 01/19/17 21:07; Start at 21:00 Carvedilol (Coreg) 3.125 mg Q12HR PO Last administered on 01/19/17 21:08; Start 01/19/17 at 21:00 Furosemide (Lasix) 20 mg DAILY PO ; Start 01/20/17 at 09:00 Pantoprazole Sodium (Protonix) 40 mg BID PO Last administered on 01/19/17 21: 07; Start 01/19/17 at 21:00 Potassium Chloride (KCl) 10 meq DAILY PO ; Start 01/20/17 at 09:00 Pravastatin Sodium (Pravachol) 160 mg HS PO Last administered on 01/19/17 21: 14; Start 01/19/17 at 21:00 Oxycodone/ Acetaminophen (Percocet 10-325 Mg) 1 tab Q6H PRN PO PAIN 1-5 Last administered on 01/20/17 07:39; Start 01/19/17 at 18:15 Oxycodone/ Acetaminophen 2 tab 2 tab Q6HR PRN PO PAIN 6-10; Start 01/19/17 at 18:15 Sodium Chloride (1/2 NS 1000 ml Inj) 1,000 ml @ 75 mls/hr [id number] IV Last administered on 01/20/17 07:40; Start 01/19/17 at 18:19 Sodium Chloride (NS Flush) 2 ml UNSCH PRN IV FLUSH FLUSH AFTER USING IV ACCESS ; Start 01/19/17 at 18:30 Sodium Chloride (NS Flush) 2 ml BID IV FLUSH Last administered on 01/19/17 21: 07; Start 01/19/17 at 21:00 Enoxaparin Sodium (Lovenox Inj) 30 mg Q24H SQ ; Start 01/19/17 at 18:30; Stop at 19:20; Status DC Naloxone HCl (Narcan Inj) 0.4 mg UNSCH PRN IV SEE LABEL COMMENTS; Start at 18:30 Senna/Docusate Sodium (Ana-Colace) 1 tab BID PO Last administered on 21:07; Start 01/19/17 at 21:00 Ondansetron HCl (Zofran Inj) 4 mg Q6HR PRN IV PUSH NAUSEA OR VOMITING Last administered on 01/20/17 09:23; Start 01/19/17 at 21:00 Family History per EMR Social History has 2 children denies tobacco denies alcohol Physical Exam Vital Signs Vital Signs Date Time Temp Pulse Resp B/P Pulse Ox O2 Delivery O2 Flow Rate FiO2 01/20/17 08:00 97.3 102 18 148/80 96 01/20/17 04:00 97.5 87 18 139/86 98 01/20/17 00:00 97.3 90 18 145/88 98 01/19/17 20:00 97.4 100 18 149/99 96 01/19/17 18:26 97 21 01/19/17 17:30 97 16 156/105 97 Room Air 01/19/17 13:27 88 14 153/99 96 Room Air 01/19/17 12:30 97 16 144/103 97 Room Air 01/19/17 12:00 98.2 107 15 131/94 98 Physical Exam GENERAL: frail, well-developed patient, in no apparent distress. SKIN: No rashes, ecchymoses or lesions. Cool and dry. HEAD: Atraumatic. Normocephalic. No temporal or scalp tenderness. EYES: Pupils equal round and reactive. NECK: Trachea midline. No JVD or lymphadenopathy. Supple, nontender, no meningeal signs. CARDIOVASCULAR: Regular rate and rhythm without murmurs, gallops, or rubs. RESPIRATORY: Clear to auscultation. Breath sounds equal bilaterally. GASTROINTESTINAL: Abdomen firm mostly to left side and upper abdomen, nontender MUSCULOSKELETAL: Teds and scds. NEUROLOGICAL: Awake and alert. Laboratory Laboratory Tests Test 01/19/17 01/19/17 01/20/17 12:50 13:10 01:37 White Blood Count 3.4 3.4 Red Blood Count 4.90 4.41 Hemoglobin 13.7 12.5 Hematocrit 41.5 37.7 Mean Corpuscular Volume 84.7 85.3 Mean Corpuscular Hemoglobin 28.0 28.3 Mean Corpuscular Hemoglobin 33.0 33.2 Concent Red Cell Distribution Width 18.2 18.4 Platelet Count 203 178 Mean Platelet Volume 7.1 7.4 Neutrophils (%) (Auto) 63.0 56.8 Lymphocytes (%) (Auto) 26.2 29.5 Monocytes (%) (Auto) 10.0 12.1 Eosinophils (%) (Auto) 0.6 1.4 Basophils (%) (Auto) 0.2 0.2 Neutrophils # (Auto) 2.1 1.9 Lymphocytes # (Auto) 0.9 1.0 Monocytes # (Auto) 0.3 0.4 Eosinophils # (Auto) 0.0 0.0 Basophils # (Auto) 0.0 0.0 CBC Comment DIFF FINAL DIFF FINAL Differential Comment Prothrombin Time 12.2 Prothromb Time International 1.1 Ratio Activated Partial 34.5 Thromboplast Time Sodium Level 132 133 Potassium Level 4.0 3.9 Chloride Level 93 94 Carbon Dioxide Level 33.2 29.1 Anion Gap 6 10 Blood Urea Nitrogen 25 23 Creatinine 1.80 1.55 Estimat Glomerular Filtration 29 34 Rate Random Glucose 126 81 Calcium Level 9.5 8.7 Total Bilirubin 0.3 0.3 Aspartate Amino Transf 37 30 (AST/SGOT) Alanine Aminotransferase 16 12 (ALT/SGPT) Alkaline Phosphatase 101 85 Total Protein 7.9 6.7 Albumin 3.2 2.6 Lipase 150 104 Urine Color YELLOW Urine Turbidity HAZY Urine pH 6.0 Urine Specific [place] 1.029 Urine Protein 300 Urine Glucose (UA) NEG Urine Ketones NEG Urine Occult Blood TRACE Urine Nitrite NEG Urine Bilirubin NEG Urine Urobilinogen 2.0 Urine Leukocyte Esterase NEG Urine RBC 1 Urine WBC 12 Urine Squamous Epithelial 1 Cells Urine Amorphous Sediment OCC Urine Bacteria OCC Urine Granular Casts 11 Urine Mucus FEW Microscopic Urinalysis Comment CULTURE INDICATED Troponin I LESS THAN 0.02 Date/Time Procedure Status Source Growth 01/19/17 13:10 Urine Culture Received Urine Clean Catch Pending Result Diagram: 01/20/1713601/20/17 013 Imaging Last Impressions Abdomen/Pelvis CT 01/19/17 1436 Signed Impressions: Service Date/Time: Thursday, January 19, 2017 14:54 - CONCLUSION: 1. Moderate to large amount of ascites with suspected omental caking. The ascites has progressed and appears more prominent on the current examination. 2. Persistent low density mass seen at the left retroperitoneum involving the left psoas and iliacus muscle. This low density mass appears relatively unchanged from the prior examination. This could represent metastatic change with necrosis. An abscess cannot be excluded in the correction clinical situation although little change has occurred since the prior study from 11/03/2016. Typically, an infectious process would pattern changer that timeframe. 3. The patient appears to be status post left mastectomy. Patient is status post hysterectomy. 4. Dilatation of the collecting systems bilaterally being severe on the left and mild on the right. This appearance is unchanged. The left ureter is dilated down to the level of the retroperitoneal mass involving the psoas. 5. IVC filter in place. The IVC and the filter are not distended. They are collapsed to some degree. Olayinka Kincaid MD Lung Scan-VQ Nuclear Medicine 01/19/17 1350 Signed Impressions: Service Date/Time: Thursday, January 19, 2017 15:23 - CONCLUSION: Low probability for pulmonary embolus. Olayinka Kincaid MD Chest X-Ray 01/19/17 1236 Signed Impressions: Service Date/Time: Thursday, January 19, 2017 13:12 - CONCLUSION: No acute disease. Maikel Mello MD Assessment and Plan Problem List: (1) LAST (acute kidney injury) Status: Chronic Plan: IV hydration continue to monitor labs creat is improving will consider giving her weekly hydration between chemo treatments (2) UTI (urinary tract infection) Status: Acute Plan: urine culture is pending (3) Endometrial ca Status: Chronic Plan: currently getting Cisplatin at 75mg/m2 at 50% dose reduction d/t frail and kidney function continue to monitor weekly labs at outpt treatment based on response, performance status and kidney function pt will follow up with appt with Dr. Gill once discharged for reassessment and further discussion of treatment CT showing mod to large amount of ascites. we can have IR drain ascites during her hospitalization. (4) Nausea & vomiting Status: Acute Plan: r/t poor kidney function and IV chemotherapy with next cycle of IV chemo will consider IV Aloxi and weekly hydration with antiemetic if needed. pt will continue to use Kytril patch as directed Discussed Condition With PT RN Bridget Layne who is in agreement with plan of care. Problem Qualifiers (1) Nausea & vomiting: Qualified Code: R11.2 - Nausea and vomiting, intractability of vomiting not specified, unspecified vomiting type (2) UTI (urinary tract infection): Lynn Ruiz Jan 20, 2017 10:52
[2017-01-20] MEDS: PANTOPRAZOLE SOD 40 MG DELAYED RELEASE TAB PO SCH (11:27)
[2017-01-20] MEDS: POTASSIUM CHLORIDE 10 MEQ CONTROLLED RELEASE TAB PO SCH (11:28)
[2017-01-20] MEDS: DOCUSATE SODIUM 50 MG/SENNA 8.6 MG TAB PO SCH ×2 (11:28→22:34)
[2017-01-20] MEDS: FUROSEMIDE 20 MG TAB PO SCH (11:28)
[2017-01-20] MEDS: CARVEDILOL 3.125 MG TAB PO SCH ×2 (11:28→22:34)
[2017-01-20] MEDS ORDERED: HEPARIN-D5W INJ 250 ML IV SCH (13:30)
--- NOTE | 2017-01-20 13:38 | HHI.FPPN ---
Subjective Subjective Patient seen and examined with the resident team this morning. Case reviewed and discussed. Please refer to resident H&P for further details regarding history of present illness, ROS, past medical and surgical history, family and social history. All systems reviewed and negative except as stated in history of present illness. In summary, patient is a 61-year-old female with a history of endometrial cancer known to Dr. Gill. She presented to the emergency room with worsening progressive back pain and diminished oral intake with vomiting for several weeks. Her right flank and suprapubic pain became worse prompting her to come for evaluation She is seen in her hospital bed this morning, states she feels about the same, slightly better. She also had an episode of bilious vomiting witnessed during the medical encounter [facility] Objective Objective Last Impressions Abdomen/Pelvis CT 01/19/17 1436 Signed Impressions: Service Date/Time: Thursday, January 19, 2017 14:54 - CONCLUSION: 1. Moderate to large amount of ascites with suspected omental caking. The ascites has progressed and appears more prominent on the current examination. 2. Persistent low density mass seen at the left retroperitoneum involving the left psoas and iliacus muscle. This low density mass appears relatively unchanged from the prior examination. This could represent metastatic change with necrosis. An abscess cannot be excluded in the correction clinical situation although little change has occurred since the prior study from 11/03/2016. Typically, an infectious process would change control manager that timeframe. 3. The patient appears to be status post left mastectomy. Patient is status post hysterectomy. 4. Dilatation of the collecting systems bilaterally being severe on the left and mild on the right. This appearance is unchanged. The left ureter is dilated down to the level of the retroperitoneal mass involving the psoas. 5. IVC filter in place. The IVC and the filter are not distended. They are collapsed to some degree. Olayinka Kincaid MD Lung Scan-VQ Nuclear Medicine 01/19/17 1350 Signed Impressions: Service Date/Time: Thursday, January 19, 2017 15:23 - CONCLUSION: Low probability for pulmonary embolus. Olayinka Kincaid MD Chest X-Ray 01/19/17 1236 Signed Impressions: Service Date/Time: Thursday, January 19, 2017 13:12 - CONCLUSION: No acute disease. Maikel Mello MD Laboratory Tests - Abnormals Test 01/20/17 01:37 White Blood Count 3.4 TH/MM3 Red Cell Distribution Width 18.4 % Monocytes (%) (Auto) 12.1 % Sodium Level 133 MEQ/L Chloride Level 94 MEQ/L Blood Urea Nitrogen 23 MG/DL Creatinine 1.55 MG/DL Estimat Glomerular Filtration 34 ML/MIN Rate Lactate Dehydrogenase 475 U/L Troponin I LESS THAN 0.02 NG/ML Albumin 2.6 GM/DL Vital Signs 01/19/17 01/19/17 01/19/17 01/19/17 13:27 17:30 18:26 20:00 Temp 97.4 Pulse 88 97 100 Resp 14 16 18 B/P 153/99 156/105 149/99 Pulse Ox 96 97 97 96 O2 Delivery Room Air Room Air FiO2 21 01/20/17 01/20/17 01/20/17 01/20/17 00:00 04:00 08:00 12:00 Temp 97.3 97.5 97.3 97.2 Pulse 90 87 102 98 Resp 18 18 18 20 B/P 145/88 139/86 148/80 149/102 Pulse Ox 98 98 96 98 01/20/17 12:48 Pulse Ox 95 INTAKE & OUTPUT 01/20/17 07:00 Intake Total 240 ml Balance 240 ml Physical exam GENERAL: cachectic female resting in bed SKIN: Warm and dry. no rashes HEAD: Normocephalic. AT EYES: No scleral icterus. No injection or drainage. ENT: Op clear. MM slightly dry NECK: Supple, trachea midline. No JVD or lymphadenopathy. CARDIOVASCULAR: Regular rate and rhythm without murmurs, gallops, or rubs. RESPIRATORY: Breath sounds equal bilaterally. No accessory muscle use. GASTROINTESTINAL: Abdomen firm, distended with ascites, mild voluntary guarding. No rebound MUSCULOSKELETAL: No cyanosis, or edema. NO calf tenderness BACK: Nontender without obvious deformity. No CVA tenderness. NEURO: Awake and alert. normal speech. CN grossly intact Assessment Assessment 61yoF admitted with: Endometrial CA, known to Dr. 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 Case reviewed and discussed Agree with plan of care as discussed with me and documented in the resident note. Dominique Weems MD Jan 20, 2017 13:38
--- NOTE | 2017-01-20 14:44 | RADRPT ---
EXAM DATE/TIME: 01/20/2017 14:01 [facility] COMPARISON: CT ABDOMEN & PELVIS W/O CONTRAST, January 19, 2017, 14:54. INDICATIONS : Abdominal pain. Obstruction. MEDICAL HISTORY : Carcinoma, breast. Cardiovascular disease. SURGICAL HISTORY : Hysterectomy. ENCOUNTER: Subsequent ACUITY: 2 days PAIN SCORE: Non-responsive. LOCATION: abdomen. FINDINGS: Supine and upright views of the abdomen demonstrate air within bowel in a nonobstructive pattern. The re is diffuse mild increased density over the abdomen likely related to the ascites visualized on the prior study. Cholecystectomy clips are present and an IVC filter is located to the right midline at the L2-L3 level. Visualized lung bases are clear. Right chest wall subcutaneous support is present. B ones demonstrate no acute finding. No free intraperitoneal air or air-fluid level is present. CONCLUSION: 1. No acute abdominal abnormality is identified. 2. Diffuse increased density likely related to the free fluid in the abdomen and pelvis. Olayinka Beltrán MD on January 20, 2017 at 14:37 Board Certified Radiologist. This report was verified electronically.
[2017-01-20] MEDS: PANTOPRAZOLE SODIUM 40 MG VIAL IV PUSH SCH (15:42)
[2017-01-20] MEDS: cefTRIAXone INJ 1,000 MG in SODIUM CHLORIDE 0.9% INJ 100 ML IV SCH (15:43)
[2017-01-20 18:52] LABS: HEMATOCRIT 39.1 % (35.0-46.0); MEAN CORPUSCULAR HEMOGLOBIN 27.7 PG (27.0-34.0); MEAN CORPUSCULAR HGB CONC 32.3 % (32.0-36.0); PLATELET COUNT 174 TH/MM3 (150-450); RED BLOOD COUNT 4.55 MIL/MM3 (4.00-5.30); RED CELL DISTRIBUTION WIDTH 18.2 % (11.6-17.2); REVIEW FLAG FINAL
[2017-01-20 19:02] LABS: INTERNATIONAL NORMALIZED RATIO 1.1 RATIO
[2017-01-20] MEDS ORDERED: SOD PHOSPHATE/SOD BIPHOSPHATE (ADULT) ENEMA 133ML RECTAL ONE (20:30)
[2017-01-20] MEDS ORDERED: HEPARIN SODIUM - IV 10,000 UNITS/10 ML VIAL IV PRN ×2 (21:15)
[2017-01-20] MEDS: PRAVASTATIN SOD 80 MG TAB PO SCH (22:34)
[2017-01-21] MEDS ORDERED: ENALAPRILAT 1.25 MG/ML VIAL IV PUSH ONE
[2017-01-21 00:02] LABS: APTT (PATIENT) 82.6 SEC (24.3-30.1)
[2017-01-21] MEDS ORDERED: ENALAPRILAT 1.25 MG/ML VIAL IV PUSH PRN (00:15)
[2017-01-21] MEDS: PANTOPRAZOLE SODIUM 40 MG VIAL IV PUSH SCH ×2 (01:45→13:37)
[2017-01-21 04:57] VITALS: BP 134/92; PULSE 100; RESP 16; TEMP 98.2; O2SAT 97
[2017-01-21 07:10] LABS: AUTOMATED NEUTROPHIL # 2.3 TH/MM3 (1.8-7.7); BASOPHIL % 0.2 % (0.0-2.0); EOSINOPHIL % 0.8 % (0.0-4.0); HEMATOCRIT 35.5 % (35.0-46.0); HEMO FLAGS DIFF FINAL; LYMPH % 23.8 % (9.0-44.0); LYMPHOCYTE # 0.8 TH/MM3 (1.0-4.8); MEAN CELL VOLUME 83.6 FL (80.0-100.0); MEAN CORPUSCULAR HEMOGLOBIN 28.4 PG (27.0-34.0); MEAN CORPUSCULAR HGB CONC 33.9 % (32.0-36.0); MONO % 10.1 % (0.0-8.0); NEUT % 65.1 % (16.0-70.0); PLATELET COUNT 176 TH/MM3 (150-450); RED BLOOD COUNT 4.24 MIL/MM3 (4.00-5.30); RED CELL DISTRIBUTION WIDTH 18.3 % (11.6-17.2); WHITE BLOOD COUNT 3.5 TH/MM3 (4.0-11.0)
[2017-01-21 07:25] LABS: BICARBONATE 29.5 MEQ/L (21.0-32.0); POTASSIUM 3.1 MEQ/L (3.5-5.1)
[2017-01-21 07:41] LABS: APTT (PATIENT) GREATER THAN 153.4 SEC (24.3-30.1)
[2017-01-21 08:00] VITALS: BP 144/99; PULSE 99; RESP 16; TEMP 97.8; O2SAT 99
[2017-01-21] MEDS ORDERED: PHENOL 1.4% SOLN 180 ML BTL OROPHARYNG PRN (08:30)
--- NOTE | 2017-01-21 08:41 | EKG ---
Date Performed: 01/19/2017 Time Performed: 13:17:34 PTAGE: 61 years EKG: Sinus rhythm VOLTAGE CRITERIA FOR LVH POSSIBLE ANTERIOR MYOCARDIAL INFARCTION ABNORMAL ECG PREVIOUS TRACING : 11/21/2016 03.21 DOCTOR: Manish Wells Interpretating Date/Time 01/21/2017 08:39:52
[2017-01-21] MEDS: POTASSIUM CHLORIDE 10 MEQ CONTROLLED RELEASE TAB PO SCH (08:59)
[2017-01-21] MEDS: FUROSEMIDE 20 MG TAB PO SCH (08:59)
[2017-01-21] MEDS: CARVEDILOL 3.125 MG TAB PO SCH ×2 (08:59→22:19)
[2017-01-21] MEDS: DOCUSATE SODIUM 50 MG/SENNA 8.6 MG TAB PO SCH ×2 (08:59→22:19)
[2017-01-21] MEDS: SODIUM CHLORIDE 0.9% FLUSH 10 ML FLUSH IV FLUSH SCH ×2 (09:00→22:38)
[2017-01-21] MEDS: SODIUM CHLOR 0.45% 1000 ML INJ 1,000 ML IV SCH (10:19)
[2017-01-21] MEDS: oxyCODONE/ACETAMINOPHEN 10 MG/325 MG TAB PO PRN ×2 (10:31→22:33)
--- NOTE | 2017-01-21 10:44 | RADRPT ---
EXAM DATE/TIME: 01/21/2017 09:08 [facility] COMPARISON: US ABDOMEN - LOWER LIMITED, January 14, 2017, 13:50. INDICATIONS : Ascites. MEDICAL HISTORY : Hypercholesterolemia. Hypertension. Left breast cancer. SURGICAL HISTORY : Hysterectomy. Mastectomy, left. Cholecystectomy. Chemotherapy. ENCOUNTER: Subsequent ACUITY: 1 month PAIN SCORE: 2/10 LOCATION: Bilateral lower quadrant AREA EVALUATED: ABDOMEN. FINDINGS: Imaging of the abdomen and pelvis was performed to evaluate for ascites for possible paracentesis. A very small amount of ascites is noted within the abdomen and therefore paracentesis was not performe d. CONCLUSION: Very small amount of ascites within the abdomen and therefore paracentesis was not performed. David Oorna MD on January 21, 2017 at 10:41 Board Certified Radiologist. This report was verified electronically.
[2017-01-21 10:47] LABS: APTT (PATIENT) 39.2 SEC (24.3-30.1)
[2017-01-21] MEDS ORDERED: POTASSIUM CHLORIDE 25 MEQ EFFERVESCENT TAB PO ONE (11:15)
--- NOTE | 2017-01-21 11:17 | HHI.FPPN ---
Subjective Remarks No acute events overnight. Afebrile, vital signs stable. Patient complains of being hungry. She continues to complain of diffuse abdominal pain. NG tube in place. Patient with flatus 1 this morning. No bowel movements or other flatus 3 days. (Frances Levy MD R3) Objective Vitals Vital Signs Date Time Temp Pulse Resp B/P Pulse Ox O2 Delivery O2 Flow Rate FiO2 01/21/17 10:19 Nasal Cannula 01/21/17 04:57 98.2 100 16 134/92 97 01/20/17 23:25 98.2 103 16 157/107 98 01/20/17 20:23 98.3 104 16 145/102 98 01/20/17 20:00 Room Air 01/20/17 16:00 97.1 102 18 160/113 97 01/20/17 12:48 95 01/20/17 12:00 97.2 98 20 149/102 98 I/O 01/20/17 01/20/17 01/20/17 01/21/17 01/21/17 01/21/17 07:00 15:00 23:00 07:00 15:00 23:00 Intake Total 120 ml 240 ml 1000 ml 0 ml Output Total 350 ml 150 ml Balance 120 ml 240 ml 650 ml -150 ml Intake Oral 120 ml 240 ml 0 ml 0 ml IV Total 900 ml Other 100 ml Output Urine Total 350 ml 150 ml # Voids 2 2 # Bowel Movements 0 0 0 0 (Frances Levy MD R3) Result Diagram: 01/21/17 0635 01/21/17 0635 Objective Remarks Gen.: No acute distress Head: Normocephalic. Atraumatic. EENT: Pupils equal round and reactive to light. Nose without drainage. Airway intact. Throat without injection. NG tube in place. Cardiovascular: Regular rate and rhythm. No murmurs, rubs or gallops. Respiratory: Lungs clear to auscultation bilaterally. No wheezes or rhonchi. Abdomen: Soft, diffusely tender to palpation in all 4 quadrants, mildly distended. No peritoneal signs. Musculoskeletal: No gross deformities. No edema. Skin: No obvious rashes or erythema. Neuro: Sensory and motor grossly intact. Cranial nerves II through XII grossly intact. Psych: Appropriate mood and affect (Frances Levy MD R3) A/P Assessment and Plan Mrs. Lawson is a very pleasant 61 y/o female with a PMHx of breast CA s/ p total left-sided mastectomy, endometrial cancer currently undergoing chemotherapy every month, DVT in left lower extremity s/p IVC filter, and hypertension, presenting with worsening right-sided lower back pain. CT on admission showed a moderate to large amount of ascites with suspected omental caking. She will be admitted for pain control, possible therapeutic paracentesis , and work up of back pain. (Frances Levy MD R3) Attending Attestation Patient seen and examined. Case reviewed and discussed Agree with plan of care as discussed with me and documented in the resident note. Spoke with daughter at the bedside Vomiting improved with NGT +flatus, no BM Patient has not had a significant BM x [address] with IV and PO contrast (Dominique Weems MD) Problem List: (1) Nausea & vomiting Status: Acute Plan: Concern for ileus versus obstruction. Patient with flatus 1 today, no other flatus or bowel movements for 3 days. Significant emesis yesterday that was bilious. NG tube Nothing by mouth IV fluids Gastroenterology consulted, appreciate assistance (2) Ascites Status: Acute Plan: Patient with recurrent ascites, undergoes therapeutic paracentesis when necessary. Ultrasound today showed not enough fluid for tap. Continue to monitor. (3) Endometrial ca Status: Chronic Plan: Patient currently receiving monthly chemotherapy. Consulted Dr. Gill, appreciate his assistance. New mass as documented below, concern for extension of cancer or metastatic disease. (4) Back pain Status: Acute Plan: Patient with back pain that has been consistent for the past [address] showed retroperitoneal mass involving the psoas. Continue pain control. ANALYSIS MGR /ONC consulted. (5) UTI (urinary tract infection) Status: Acute Plan: UA showing + occ H bacterial, 12 WBCs, and Neg Leuk and Nitrites. Treat for UTI Rocephin 01/19 -- Follow cultures. (6) LAST (acute kidney injury) Status: Chronic Plan: Improved with hydration (7) Nutrition, metabolism, and development symptoms Status: Acute Plan: Nothing by mouth Eliquis 5 mg BID for anticoagulation given hx of DVT. Protonix 40 mg qd. IVF NS at 75 cc/hr (Franecs Levy MD R3) Problem Qualifiers (1) Nausea & vomiting: Qualified Code: R11.2 - Nausea and vomiting, intractability of vomiting not specified, unspecified vomiting type (2) Ascites: Qualified Code: R18.0 - Malignant ascites (3) UTI (urinary tract infection): Frances eLvy MD R3 Jan 21, 2017 11:17 Dominique Weems MD Jan 22, 2017 11:00
[2017-01-21 12:00] VITALS: BP 119/79; PULSE 107; RESP 18; TEMP 97.4; O2SAT 97
--- NOTE | 2017-01-21 13:21 | MB ---
cc: DOMINIQUE WEEMS MD,AISHWARYA HENDRIX,TING GOMEZ,ARIAS Henry MD DATE OF CONSULTATION 01/21/2017 PHYSICIAN REQUESTING CONSULT Dominique Weems MD REASON FOR CONSULTATION Recurrent uterine papillary serous carcinoma. HISTORY This patient is seen. Her findings are reviewed. She was counseled, evaluated and examined by me in conjunction with our nurse practitioner (Lynn Ruiz). I agree with her findings, assessment and plan of care. This is a 61-year-old female known to our service who has been undergoing treatment for recurrent metastatic uterine papillary serous carcinoma. Her most recent treatment is that of single-agent cisplatin chemotherapy. Her most recent treatment was on 01/15/2017. I believe she gets an infusion dose reduced every three weeks to try to help suppress the tumor balance with her underlying performance status and health issues. On prior encounters, as is encounter today, she remains philosophically in favor of staying aggressive with treatment and continuing treatment to the extent possible. It is explained that the underlying illness is in all probability either directly or indirectly contributing to her feeling poorly. Her symptomatology including the recurrent ascites, the intraperitoneal and retroperitoneal tumor, the compromised renal function with some compromise to the ureter. She is seen now in consultation for further evaluation and recommendations regarding these findings. REVIEW OF SYSTEMS Her review of systems is reviewed as is documented in the chart. No additional symptoms were reported. PAST MEDICAL HISTORY, PAST SURGICAL HISTORY, FAMILY HISTORY, MEDICATIONS Are as reviewed and as are documented in the chart. I have no additional information to add. OBJECTIVE A plane film of the abdomen shows no overt obstruction. No intraperitoneal free air. There is diffuse haziness suggestive of and consistent with ascites. CT scan shows fairly significant ascites intraperitoneal and perhaps retroperitoneal tumor especially along the left pelvis, lower abdomen and overlying the psoas muscle and iliacus muscle unchanged from imaging in October of this year. Mild hydronephrosis on the right, severe on the left unchanged from prior imaging. IVC filter is in place. VQ scan low probability for pulmonary emboli. Chest x-ray showed no acute disease. LABS H&H 12.0 and 35.5, white count 3.5, platelets 176. Coags yesterday showing an INR 1.1, but the PTT was markedly elevated and probably needs to be repeated to ensure accuracy. It may have been a heparinized draw. Urine culture, immature growth reintubation this was obtained 01/19. PHYSICAL EXAM Afebrile, pulse 100-104, respirations 16-18, blood pressure 134-160/92-113. O2 saturations greater than equal to 95%. She appears in her baseline state of health in no acute distress, uncomfortable, communicative. LUNGS: Clear at apices, rales at the bases. CARDIOVASCULAR: Rapid regular rate and rhythm. ABDOMEN: Distended, tense, but nontender and nonacute, hypoactive bowel sounds. PELVIC: Exam deferred given relatively recent exam. She has known tumor infiltration into the upper and anterior vagina. She denies any recent bleeding. EXTREMITIES: Trace to 1+ edema. No palpable cords. DISCUSSION Time is spent in discussion with her reviewing the findings in her case today. I am sorry she is feeling poorly. We again discussed the issues that are present with her underlying cancer. It is hoped that paracentesis will provide her symptomatic release as there is a large volume of ascites and she could potentially feel better if that is from drainage. The underlying cancer problem remains an issue as it is at best stable and with ongoing treatment has not shown significant response to treatment and she has had multiple prior lines of treatment and we again discussed the pros and cons of continued treatment versus consideration of palliative care and Hospice care. Discussion ensued, questions were answered. She remains philosophically in favor of treatment to the extent possible and seems to understand the pertinent aspects of our discussion. ASSESSMENT 1. Recurrent uterine papillary serous carcinoma with findings as described above. 2. Discussion. PLAN 1. Grateful for the excellent medical care. Continue supportive care, IV hydration, correction of electrolytes. 2. Agree with therapeutic paracentesis as needed whenever feasible. 3. Continue current management on an outpatient may increase her antiemetics and add IV fluids as part of her ongoing scheduled outpatient care. Thank for the consultation. We will follow along in her care. MD ISABELA Arreguin/ISMAEL /8:09 AM /1:11 PM
[2017-01-21] MEDS: D5-1/2 NS + KCL 20 MEQ INJ 1,000 ML IV SCH (13:37)
--- NOTE | 2017-01-21 14:48 | PD.CONS ---
HPI History of Present Illness This is a 61 year old fijian speaking lady with hx metastatic endometrial cancer on chemo s/p radiation, malignant ascites, who presented to ER with intractable vomiting. Pt's daughter is translating and some hx obtained from EMR. She has had intermittent n/v in the last month but after her chemo treatment last friday it has been nonstop. AT times she is not nauseous and vomits immediately after eating. She feels like water and pills get stuck in her throat. She has been drinking ensure but sometimes vomits that, but tolerates better than other foods. Pt was seen by GI 11/19/16 for 2 weeks of n/v even with water. pt has been having infrequent, scant BM. No blood in stool, vomit. She last had EGD/colonoscopy in 2013 in [place], colon polyps were found. Pt takes eliquis for DVT in early October. US abd 09-23-16 --> small amt ascites, 01-20-17 abd XR --> no acute abdominal abnormality, free fluid abd and pelvis, CT 01-19-17 --> moderate to large amount ascites with suspected omental caking, the ascites ahs progressed and appears more prominent on the current exam, persistent low density mass seen at the left retroperitoneum involving the left psoas and ilacus muscle, low density mass appears relatively nchanged from the prior exam, could represent metastatic change with necrosis, an abscess cannot be excluded in the correct clinical situation thought little change occured from prev study. PFSH Past Medical History HTN Hyper lipidemia metastatic endometrial ca malignant ascites Past Surgical History cholecytectomy, hysterectomy, mastectomy, bunionectomy Coded Allergies: Paclitaxel (Verified Allergy, Severe, Shortness of Breath, 12/05/16) Vancomycin (Unverified Allergy, Mild, ITCHING, 12/05/16) Family History breast ca ovarian ca Social History no ETOH, tobacco, or illicit drug use Review of Systems Constitutional: DENIES: Fever Eyes: DENIES: Blurred vision Ears, nose, mouth, throat: DENIES: Hearing loss Respiratory: DENIES: Cough Cardiovascular: DENIES: Chest pain Gastrointestinal: COMPLAINS OF: Abdominal pain, Constipation, Nausea, Vomiting , Swelling of Abdomen, DENIES: Black stools, Bloody stools, Diarrhea, Hematemesis Genitourinary: DENIES: Hematuria Musculoskeletal: DENIES: Muscle aches Neurologic: DENIES: Abnormal gait Psychiatric: DENIES: Confusion GI Exam Vitals I&O Vital Signs Date Time Temp Pulse Resp B/P Pulse Ox O2 Delivery O2 Flow Rate FiO2 01/21/17 12:00 97.4 107 18 119/79 97 01/21/17 11:31 18 01/21/17 10:19 Nasal Cannula 01/21/17 09:00 Room Air 01/21/17 08:00 97.8 99 16 144/99 99 01/21/17 04:57 98.2 100 16 134/92 97 01/20/17 23:25 98.2 103 16 157/107 98 01/20/17 20:23 98.3 104 16 145/102 98 01/20/17 20:00 Room Air 01/20/17 16:00 97.1 102 18 160/113 97 I/O 01/20/17 01/20/17 01/20/17 01/21/17 01/21/17 01/21/17 07:00 15:00 23:00 07:00 15:00 23:00 Intake Total 120 ml 240 ml 1000 ml 0 ml Output Total 350 ml 150 ml Balance 120 ml 240 ml 650 ml -150 ml Intake Oral 120 ml 240 ml 0 ml 0 ml IV Total 900 ml Other 100 ml Output Urine Total 350 ml 150 ml # Voids 2 2 # Bowel Movements 0 0 0 0 Laboratory Test 01/20/17 01/20/17 01/21/17 01/21/17 18:45 23:00 06:35 10:00 White Blood Count 4.0 TH/MM3 3.5 TH/MM3 Red Blood Count 4.55 MIL/MM3 4.24 MIL/MM3 Hemoglobin 12.6 GM/DL 12.0 GM/DL Hematocrit 39.1 % 35.5 % Mean Corpuscular Volume 86.0 FL 83.6 FL Mean Corpuscular Hemoglobin 27.7 PG 28.4 PG Mean Corpuscular Hemoglobin 32.3 % 33.9 % Concent Red Cell Distribution Width 18.2 % 18.3 % Platelet Count 174 TH/MM3 176 TH/MM3 Mean Platelet Volume 7.1 FL 7.3 FL Prothrombin Time 12.0 SEC Prothromb Time International 1.1 RATIO Ratio Activated Partial 42.0 SEC 82.6 SEC GREATER THAN 39.2 SEC Thromboplast Time 153.4 SEC Neutrophils (%) (Auto) 65.1 % Lymphocytes (%) (Auto) 23.8 % Monocytes (%) (Auto) 10.1 % Eosinophils (%) (Auto) 0.8 % Basophils (%) (Auto) 0.2 % Neutrophils # (Auto) 2.3 TH/MM3 Lymphocytes # (Auto) 0.8 TH/MM3 Monocytes # (Auto) 0.4 TH/MM3 Eosinophils # (Auto) 0.0 TH/MM3 Basophils # (Auto) 0.0 TH/MM3 CBC Comment DIFF FINAL Differential Comment Sodium Level 131 MEQ/L Potassium Level 3.1 MEQ/L Chloride Level 91 MEQ/L Carbon Dioxide Level 29.5 MEQ/L Anion Gap 11 MEQ/L Blood Urea Nitrogen 18 MG/DL Creatinine 1.30 MG/DL Estimat Glomerular Filtration 42 ML/MIN Rate Random Glucose 81 MG/DL Calcium Level 8.5 MG/DL Date/Time Procedure Status Source Growth 01/19/17 13:10 Urine Culture - Final Complete Urine Clean Catch Staphylococcus Aureus Physical Examination HEENT: PERRL; normocephalic; atraumatic; no jaundice. CHEST: CTA CARDIAC: RRR ABDOMEN: firm, distended, diffuse TTP; bowel sounds are present in all four quadrants. EXTREMITIES: No clubbing, cyanosis, or edema. SKIN: Normal; no rash; no jaundice. PLANT MANAGER: No focal deficits; alert and oriented times three. Assessment and Plan Plan ASSESSMENT - n/v - intermittent n/v in the last month but after her chemo treatment last friday it has been nonstop. AT times she is not nauseous and vomits immediately after eating. She feels like water and pills get stuck in her throat. She has been drinking ensure but sometimes vomits that, but tolerates better than other foods. Pt was seen by GI 11/19/16 for 2 weeks of n/v even with water US abd 09-23-16 --> small amt ascites, 01-20-17 [facility] --> no acute abdominal abnormality, free fluid abd and pelvis CT 01-19-17 --> moderate to large amount ascites with suspected omental caking , the ascites ahs progressed and appears more prominent on the current exam, persistent low density mass seen at the left retroperitoneum involving the left psoas and ilacus muscle, low density mass appears relatively nchanged from the prior exam, could represent metastatic change with necrosis, an abscess cannot be excluded in the correct clinical situation thought little change occured from prev study. - constipation - poor PO intake, pt on pain meds as well. - endometrial ca w/ malignant ascites - per primary, on chemo PLAN - consider EGD - suppositories PRN - NPO for now - supportive care This pt seen by myself and Dr De Leon and this note is written on his behalf. Renetta Madden Jan 21, 2017 14:48
[2017-01-21] MEDS ORDERED: BISACODYL 10 MG SUPP RECTAL PRN (15:00)
[2017-01-21] MEDS: ONDANSETRON HCL 4 MG/2 ML VIAL IV PUSH PRN (15:34)
[2017-01-21 16:00] VITALS: BP 141/86; PULSE 103; RESP 18; TEMP 98; O2SAT 97
[2017-01-21] MEDS ORDERED: DIATRIZOATE MEGLUM/DIATRIZOATE SOD 9 ML CUP PO ONE (17:00)
[2017-01-21] MEDS: cefTRIAXone INJ 1,000 MG in SODIUM CHLORIDE 0.9% INJ 100 ML IV SCH (17:20)
[2017-01-21 20:00] VITALS: BP 136/94; PULSE 110; RESP 16; TEMP 97.3; O2SAT 98
[2017-01-21] MEDS ORDERED: IOHEXOL 350 MG/ML 10 ML VIAL (for RAD DIAG) IV ONE (21:52)
[2017-01-21 21:59] VITALS: O2SAT 98
[2017-01-21] MEDS: APIXABAN 5 MG TABLET PO SCH (22:19)
[2017-01-21] MEDS: PRAVASTATIN SOD 80 MG TAB PO SCH (22:20)
--- NOTE | 2017-01-21 22:27 | RADRPT ---
EXAM DATE/TIME: 01/21/2017 21:32 [facility] COMPARISON: CT ABDOMEN & PELVIS W/O CONTRAST, January 19, 2017, 14:54. CT ABDOMEN & PELVIS W CONTRAST, November 18, 2016, 15:07. INDICATIONS : Abdominal pain and vomiting. IV CONTRAST: 70 cc Omnipaque 350 (iohexol) IV ORAL CONTRAST: Prescribed oral contrast ingested. RADIATION DOSE: 6.64 CTDIvol (mGy) MEDICAL HISTORY : Hypertension. Carcinoma, breast. Chemotherapy. Ascites. SURGICAL HISTORY : Mastectomy, left. Cholecystectomy. Hysterectomy. ENCOUNTER: Subsequent ACUITY: 1 week PAIN SCALE: 6/10 LOCATION: All quadrants. TECHNIQUE: Volumetric scanning of the abdomen and pelvis was performed. Using automated exposure control and adjustment of the mA and/or kV according to patient size, radiation dose was kept as low as reasonably achievable to obtain optimal diagnostic quality images. DICOM format image data is av ailable electronically for review and comparison. FINDINGS: An NG tube is in place in the stomach. The stomach is not distended. Significant diste nsion of the bowel is not seen. There is a moderate amount of stool seen throughout the colon. There is a moderate to large amount of ascites. There does appear to be areas of increased density seen in the mesentery and along the peritoneal reflections in the pelvis likely related to omental caking and metastases. The liver is free of focal masses. Clips are seen in the right upper quadrant from prior cholecystect marnie. The spleen, pancreas, and adrenal glands appear normal. There is severe dilatation of the jeanmarie al collecting systems bilaterally. There is a mass seen at the left psoas muscle. This is seen as a n area of low density measuring at least 4 cm in diameter. There is increased density seen along the left lateral pelvic side wall likely related to adenopathy. This abuts and extends into the iliacus m uscle on the left side. There does appear to be increased density and enhancement seen around the int roitus and surrounding the vagina. There is an IVC filter in place. The IVC filter and the IVC itsel f appear relatively collapsed. There is some focal ill-defined sclerosis seen at the medial left iliac bone measuring 0.9 cm. This is unchanged. There is some scattered degenerative change in the lumbar spine. CONCLUSION: 1. Moderate to large amount of ascites and suspected widespread omental and peritoneal metastases. 2. Mass seen at the left psoas muscle and suspected adenopathy in the left pelvis side wall and exten ding into the left iliacus muscle. These findings appear unchanged. 3. Severe dilatation of the renal collecting systems bilaterally. This is likely secondary to the ma sses at the left pelvis side wall and some of the masses at the lower peritoneal cavity and peritonea l reflections. This suggests there is likely some invasion into the retroperitoneum resulting in th e dilatation of the collecting systems. 4. Nonspecific enhancement and increased density at the introitus and around the vagina. Neoplastic change would have to be suspected. 5. Nonspecific focal area of sclerosis at the left ilium. This was present previously and is unchang ed. A bone island could have this appearance. A solitary metastatic lesion cannot be excluded. Olayinka Kincaid MD on January 21, 2017 at 22:00 Board Certified Radiologist. This report was verified electronically.
[2017-01-22] VITALS (9 sets, daily range): BP systolic 119–149; BP diastolic 84–102; PULSE 90–112; RESP 16–22; TEMP 97.1–98.2; O2SAT 95–97
[2017-01-22] MEDS: PANTOPRAZOLE SODIUM 40 MG VIAL IV PUSH SCH ×2 (01:45→12:32)
[2017-01-22] MEDS: D5-1/2 NS + KCL 20 MEQ INJ 1,000 ML IV SCH ×2 (02:05→17:00)
[2017-01-22 05:31] LABS: AUTOMATED NEUTROPHIL # 2.4 TH/MM3 (1.8-7.7); BASOPHIL % 0.3 % (0.0-2.0); EOSINOPHIL % 0.7 % (0.0-4.0); HEMATOCRIT 35.2 % (35.0-46.0); HEMO FLAGS DIFF FINAL; LYMPHOCYTE # 0.7 TH/MM3 (1.0-4.8); MEAN CELL VOLUME 83.9 FL (80.0-100.0); MEAN CORPUSCULAR HEMOGLOBIN 28.7 PG (27.0-34.0); MEAN CORPUSCULAR HGB CONC 34.2 % (32.0-36.0); MONO % 10.8 % (0.0-8.0); NEUT % 68.2 % (16.0-70.0); PLATELET COUNT 168 TH/MM3 (150-450); RED BLOOD COUNT 4.19 MIL/MM3 (4.00-5.30); RED CELL DISTRIBUTION WIDTH 18.2 % (11.6-17.2); WHITE BLOOD COUNT 3.5 TH/MM3 (4.0-11.0)
[2017-01-22 05:58] LABS: BICARBONATE 28.5 MEQ/L (21.0-32.0); POTASSIUM 3.5 MEQ/L (3.5-5.1)
[2017-01-22] MEDS: SODIUM CHLORIDE 0.9% FLUSH 10 ML FLUSH IV FLUSH SCH ×2 (09:00→20:12)
[2017-01-22] MEDS ORDERED: SUCCINYLCHOLINE CHLORIDE 200 MG/10 ML VIAL IV ONE (10:43)
[2017-01-22] MEDS ORDERED: PROPOFOL 200 MG/20 ML AMP IV ONE (10:43)
[2017-01-22] MEDS ORDERED: PHENYLEPH/NS 1000 MCG/10 ML SYR IV ONE (10:43)
--- NOTE | 2017-01-22 11:09 | HHI.GIFU ---
Subjective Remarks Immediate post procedure note: EGD with dilatation over guidewire, with biopsy Indication: Nausea vomiting and dysphagia Meds: GET Findings: Esophagus, erythema. Dilated to 15mm, 16mm, 17mm with savary over guidewire. Relook: no bleeding Stomach: antrum two punched out ulcerations without visible vessel, in pre pyloric area, 6:00 position. Bx taken Duodenum: normal Objective Vitals I&O Vital Signs Date Time Temp Pulse Resp B/P Pulse Ox O2 Delivery O2 Flow Rate FiO2 01/22/17 08:29 97.4 112 18 143/102 97 01/22/17 08:00 97.4 112 22 143/102 97 01/22/17 04:00 97.1 100 16 138/97 96 01/22/17 00:00 97.5 100 16 119/86 95 01/21/17 21:59 98 21 01/21/17 20:00 97.3 110 16 136/94 98 01/21/17 19:47 Room Air 01/21/17 16:00 98.0 103 18 141/86 97 01/21/17 12:00 97.4 107 18 119/79 97 01/21/17 11:31 18 I/O 01/21/17 01/21/17 01/21/17 01/22/17 01/22/17 01/22/17 07:00 15:00 23:00 07:00 15:00 23:00 Intake Total 0 ml 0 ml 900 ml 0 ml Output Total 150 ml 300 ml 400 ml Balance -150 ml -300 ml 500 ml 0 ml Intake Oral 0 ml 0 ml 0 ml 0 ml IV Total 900 ml Output Urine Total 150 ml 300 ml Gastric Drainage Total 400 ml # Voids 1 4 1 # Bowel Movements 0 0 Laboratory Laboratory Tests Test 01/22/17 05:25 White Blood Count 3.5 Red Blood Count 4.19 Hemoglobin 12.0 Hematocrit 35.2 Mean Corpuscular Volume 83.9 Mean Corpuscular Hemoglobin 28.7 Mean Corpuscular Hemoglobin 34.2 Concent Red Cell Distribution Width 18.2 Platelet Count 168 Mean Platelet Volume 7.0 Neutrophils (%) (Auto) 68.2 Lymphocytes (%) (Auto) 20.0 Monocytes (%) (Auto) 10.8 Eosinophils (%) (Auto) 0.7 Basophils (%) (Auto) 0.3 Neutrophils # (Auto) 2.4 Lymphocytes # (Auto) 0.7 Monocytes # (Auto) 0.4 Eosinophils # (Auto) 0.0 Basophils # (Auto) 0.0 CBC Comment DIFF FINAL Differential Comment Sodium Level 129 Potassium Level 3.5 Chloride Level 90 Carbon Dioxide Level 28.5 Anion Gap 11 Blood Urea Nitrogen 16 Creatinine 1.23 Estimat Glomerular Filtration 44 Rate Random Glucose 101 Calcium Level 8.2 Date/Time Procedure Status Source Growth 01/19/17 13:10 Urine Culture - Final Complete Urine Clean Catch Staphylococcus Aureus Physical Exam HEENT: Pupils round and reactive to light; normocephalic; atraumatic; no jaundice. Throat is clear. NECK: Neck is supple, no JVD, no lymphadenopathy. CHEST: Chest is clear to auscultation and percussion. CARDIAC: Regular rate and rhythm with no murmur gallop or rubs. ABDOMEN: Distended, soft, non tender EXTREMITIES: No clubbing, cyanosis, or edema. SKIN: Normal; no rash; no jaundice. COMMUNICATION CLERK: No focal deficits; alert and oriented times three. Assessment and Plan Plan ASSESSMENT - n/v - intermittent n/v in the last month but after her chemo treatment last friday it has been nonstop. AT times she is not nauseous and vomits immediately after eating. She feels like water and pills get stuck in her throat. She has been drinking ensure but sometimes vomits that, but tolerates better than other foods. Pt was seen by GI 11/19/16 for 2 weeks of n/v even with water US abd 09-23-16 --> small amt ascites, 01-20-17 KUB --> no acute abdominal abnormality, free fluid abd and pelvis CT 01-19-17 --> moderate to large amount ascites with suspected omental caking , the ascites ahs progressed and appears more prominent on the current exam, persistent low density mass seen at the left retroperitoneum involving the left psoas and ilacus muscle, low density mass appears relatively nchanged from the prior exam, could represent metastatic change with necrosis, an abscess cannot be excluded in the correct clinical situation thought little change occured from prev study. - constipation - poor PO intake, pt on pain meds as well. - endometrial ca w/ malignant ascites - per primary, on chemo - EGD showed gastric ulcers. Biopsy taken. Esophagus dilated to 17mm No definite stricture PLAN - continue protonix 40mg IV bid - Trial of food, full liquids - OK for discharge if she tolerates food. - Hold eliquis if possible because of bleeding risk with ulcer. Chapito De Leon MD Jan 22, 2017 11:09
[2017-01-22] MEDS ORDERED: BISACODYL 10 MG SUPP RECTAL ONE (12:30)
[2017-01-22] MEDS ORDERED: DO NOT ADM ANY ANTICOAGULANT DRUGS PRN (12:30)
[2017-01-22] MEDS: oxyCODONE/ACETAMINOPHEN 10 MG/325 MG TAB PO PRN (12:31)
[2017-01-22] MEDS: FUROSEMIDE 20 MG TAB PO SCH (12:31)
[2017-01-22] MEDS: APIXABAN 5 MG TABLET PO SCH ×2 (12:31→20:12)
[2017-01-22] MEDS: POTASSIUM CHLORIDE 10 MEQ CONTROLLED RELEASE TAB PO SCH (12:31)
[2017-01-22] MEDS: CARVEDILOL 3.125 MG TAB PO SCH ×2 (12:31→20:12)
[2017-01-22] MEDS: DOCUSATE SODIUM 50 MG/SENNA 8.6 MG TAB PO SCH ×2 (12:31→20:12)
--- NOTE | 2017-01-22 14:07 | HHI.FPPN ---
Subjective Remarks Patient without concerns today. Son at bedside, reported that his mom was experiencing some nausea and discomfort around the NG tube. Patient in GI lab getting endoscopy performed. (Zohaib Hoffman MD R2) Objective Vitals Vital Signs Date Time Temp Pulse Resp B/P Pulse Ox O2 Delivery O2 Flow Rate FiO2 01/22/17 12:00 97.2 100 20 149/98 97 01/22/17 11:45 96 16 139/92 97 Room Air 01/22/17 11:30 105 16 134/89 98 Room Air 01/22/17 11:15 108 16 138/94 99 Nasal Cannula 2 01/22/17 11:13 98.5 108 15 133/83 100 Nasal Cannula 2 01/22/17 11:08 97 01/22/17 08:29 97.4 112 18 143/102 97 01/22/17 08:00 97.4 112 22 143/102 97 01/22/17 04:00 97.1 100 16 138/97 96 01/22/17 00:00 97.5 100 16 119/86 95 01/21/17 21:59 98 21 01/21/17 20:00 97.3 110 16 136/94 98 01/21/17 19:47 Room Air 01/21/17 16:00 98.0 103 18 141/86 97 I/O 01/21/17 01/21/17 01/21/17 01/22/17 01/22/17 01/22/17 07:00 15:00 23:00 07:00 15:00 23:00 Intake Total 0 ml 0 ml 900 ml 0 ml Output Total 150 ml 300 ml 400 ml Balance -150 ml -300 ml 500 ml 0 ml Intake Oral 0 ml 0 ml 0 ml 0 ml IV Total 900 ml Output Urine Total 150 ml 300 ml Gastric Drainage Total 400 ml # Voids 1 4 1 # Bowel Movements 0 0 (Zohaib Hoffman MD R2) Result Diagram: 01/22/1752401/22/17524 Objective Remarks Gen.: No acute distress Head: Normocephalic. Atraumatic. EENT: Pupils equal round and reactive to light. Nose without drainage. Airway intact. Throat without injection. NG tube in place. Cardiovascular: Regular rate and rhythm. No murmurs, rubs or gallops. Respiratory: Lungs clear to auscultation bilaterally. No wheezes or rhonchi. Abdomen: Soft, diffusely tender to palpation in all 4 quadrants, mildly distended. No peritoneal signs. Musculoskeletal: No gross deformities. No edema. Skin: No obvious rashes or erythema. Neuro: Sensory and motor grossly intact. Cranial nerves II through XII grossly intact. Psych: Appropriate mood and affect (Zohaib Hoffman MD R2) A/P Assessment and Plan Mrs. Lawson is a very pleasant 61 y/o female with a PMHx of breast CA s/ p total left-sided mastectomy, endometrial cancer currently undergoing chemotherapy every month, DVT in left lower extremity s/p IVC filter, and hypertension, presenting with worsening right-sided lower back pain. CT on admission showed a moderate to large amount of ascites with suspected omental caking. She will be admitted for pain control, possible therapeutic paracentesis , and work up of back pain. (Zohaib Hoffman MD R2) Attending Attestation Patient seen and examined Case reviewed and discussed with patient and daughter at the bedside Agree with plan of care as discussed with me and documented in the resident note. (Dominique Weems MD) Problem List: (1) Nausea & vomiting Status: Acute Plan: Concern for ileus versus obstruction. Patient with flatus 1 today, no other flatus or bowel movements for 3 days. Significant emesis yesterday that was bilious. S/p Upper endoscopy and NG tube removal: Findings included: EGD with dilation over guidewire with biopsy. Esophagus with erythema. Dilated to 15 mm, 16 mm, and 17 mm. No bleeding seen. Stomach: Antrum 2 punched out ulcerations without visible vessel in the pre- pyloric area. Biopsies were taken. Duodenum: WNL. Per GI: rec Protonix 40 mg IV BID, trial of full liquid diet, and holding Eliquis while in hospital. We appreciate their help in the care of Mrs. Lawson. (2) Ascites Status: Acute Plan: Patient with recurrent ascites, undergoes therapeutic paracentesis when necessary. Ultrasound during admission showed not enough fluid for tap. Continue to monitor. (3) Endometrial ca Status: Chronic Plan: Patient currently receiving monthly chemotherapy. Consulted Dr. Gill, appreciate his assistance. New mass as documented below, concern for extension of cancer or metastatic disease. (4) Back pain Status: Acute Plan: Patient with back pain that has been consistent for the past [address] showed retroperitoneal mass involving the psoas. Continue pain control. APPRENTICE ARCHITECT /ONC consulted. (5) UTI (urinary tract infection) Status: Acute Plan: UA showing + occ H bacterial, 12 WBCs, and Neg Leuk and Nitrites. Treat for UTI Rocephin 01/19 -- Follow cultures. (6) LAST (acute kidney injury) Status: Chronic Plan: Improved with hydration (7) Nutrition, metabolism, and development symptoms Status: Acute Plan: Full liquid diet as tolerated. Eliquis 5 mg BID for anticoagulation given hx of DVT (currently held given GI bleeding). Protonix 40 mg qd. IVF NS at 75 cc/hr (Zohaib Hoffman MD R2) Problem Qualifiers (1) Nausea & vomiting: Qualified Code: R11.2 - Nausea and vomiting, intractability of vomiting not specified, unspecified vomiting type (2) Ascites: Qualified Code: R18.0 - Malignant ascites (3) UTI (urinary tract infection): Zohaib Hoffman MD R2 Jan 22, 2017 14:07 Dominique Weems MD Jan 24, 2017 14:33
--- NOTE | 2017-01-22 14:08 | PD.CONS ---
Consult Service Palliative Care . Consult Requested By Dr. Hoffman . Primary Care Physician Non-Staff . Reason for Consultation a. To assist with evaluation and management of symptoms including: pain, nausea/vomiting, decreased appetite b. To assist medical decision maker(s) with: better understanding of current medical conditions; weighing benefits/burdens of medical treatment options; making medical treatment decisions. . HPI History of Present Illness Ms. Lawson is a 61-year-old Nigerian-speaking female with recurrent endometrial cancer (first diagnosed in 2013). S/p completing her third cycle of chemotherapy on 01/15/2017. Her PCP is Dr. Corrigan and her oncologist is Dr. Gill. The patient presented to [facility] on 01/19/2017 for evaluation of abdominal distention (prior to therapeutic paracentesis), back and stomach pain (rated 5/10), decreased urine production and small bowel movements stating her symptoms had progressively worsened over the past month. Reported increased, intermittent shortness of breath. Patient also reported decreased passing of gas and poor nutritional intake. Additional past medical history that is significant for hypertension, hyperlipidemia, GERD, history of DVT (on Eliquis) , diabetes, history of breast cancer in 2004 s/p left mastectomy and malignant ascites. Additional diagnostic findings while in the ED include: * Vital signs: Pulse 107, respirations 15, BP 131/94, oxygen saturation 98% on room air, oral temperature 98.2 * WBC: 3.4, hemoglobin 13.7, hematocrit 41.5, platelets 203, neutrophils 63.0% * Sodium: 132, potassium 4.0, chloride 93, carbon dioxide 33.2, random glucose 126, calcium 9.5 * BUN: 25, creatinine 1.80, GFR 29 * Total bilirubin: 0.3, AST 37, ALT 16, alkaline phosphatase 101 * Total protein: 7.9, albumin 3.2 * Lipase: 150 * PT: 12.2, INR 1.1, APTT 34.5 * Urinalysis protein-300, trace occult blood, urine WBC-12, urine bacteria and mucus. * Urine culture: + staph aureus * Chest x-ray revealed no acute disease. * V/Q scan: Low probability for pulmonary embolus. * CT abdomen/pelvis: Moderate to large amount of ascites with suspected omental caking, site is has progressed appears more prominent; persistent load density mass at the left retroperitoneum involving the left psoas and iliacus muscle, this could represent metastatic change with necrosis - abscess could not be excluded, there has been little change since the prior study from November 03, 2016 ; it was noted that typically an infectious process would microsoft exchange administrator that time frame. Dilatation of the collecting systems bilaterally being severe on the left and mild on the right, this appearance is unchanged, the left ureter is dilated down to the level of the retroperitoneal mass involving the psoas. The patient was admitted for further evaluation and medical management of acute kidney injury, UTI and ascites. She was started on Rocephin while in the ED. Patient's oncologist (Dr. Gill) evaluated the patient. Per RETAIL ASSET PROTECTION SPECIALIST/ONC, the patient was is receiving single agent Cisplatin therapy q3 weeks at a 50% dose reduction secondary to her debility and poor kidney functioning. Her most recent treatment was completed on 01/15/2017 Patient will follow-up with Dr. Gill upon discharge, further treatment will be based on patient's response, performance status and kidney functioning. = KUB on 01/20/2017 showed no acute abdominal abnormalities, diffuse increased density likely related to the free fluid in the abdomen and pelvis was noted. = CT abdomen/pelvis on 01/21/17 showed a moderate to large amount of ascites and suspected widespread omental and peritoneal metastasis; mass seen in the left psoas muscle and suspected adenopathy in the left pelvic sidewall and extending into the left iliacus muscle; severe dilatation of the renal collecting systems bilaterally, likely secondary to the mass at the left pelvic sidewall and some of the mass at the lower peritoneal cavity and peritoneal reflections, suggestive of likely invasion into the retroperitoneum resulting in the dilatation of the collecting systems; nonspecific enhancement and increased density in the introitus and around the vagina-neoplastic change would have to be suspected; nonspecific focal area of sclerosis at the left ilium, this was present previously and is unchanged, a solitary metastatic lesion cannot be excluded. Dr. Gill reviewed recent diagnostic findings with the patient; cancer not significantly responded to ongoing treatments. She has had multiple prior lines of treatment. Dr. Gill and the patient discussed the benefits versus burdens of continued aggressive treatment. Palliative care and hospice were also discussed. At this time, the patient verbalized her goals remained aggressive. Gastroenterology was consulted on 01/21/2017 for recommendations on management of nausea/vomiting, poor nutritional intake. Patient reported she is able to tolerate ensure better than other foods. She stated at times is not nauseated, vomits immediately after eating. Patient is reporting infrequent, scant bowel movements. Patient having significant emesis was bilious; concern for ileus versus obstruction. Abdominal ultrasound did not show enough fluid for paracentesis. S/p EGD today showed gastric ulcers, esophagus dilated to 17mm, no definite strictures noted. Biopsy pending. Palliative Care was consulted to assist with symptom management and to discuss with the patient/family the benefits and burdens of her current illnesses and the options regarding future care. . Function/Cognitive Trajectory Patient with metastatic endometrial cancer which was initially diagnosed in 2013. The patient is receiving single-agent Cisplatin therapy q3-4 weeks at a 50 % dose reduction secondary to her debility and poor kidney functioning. Her most recent treatment was completed on 01/15/2017. Patient has declined as evidenced by unmanaged pain, intractable nausea and vomiting, generalized weakness and decreased nutritional intake. Albumin 2.6; BMI 20.7. Patient will follow-up with Dr. Gill upon discharge, further treatment will be based on patient's response, performance status and kidney functioning. . Review of Systems ROS Limitations: Speech Impaired (Nigerian speaking, requires fiscal services manager or Stratus.) Constitutional: COMPLAINS OF: Fatigue, Change in appetite, Pain (back pain, abdominal pain) Ears, nose, mouth, throat: COMPLAINS OF: Throat pain (secondary to NGT), DENIES: Oral lesions Respiratory: COMPLAINS OF: Shortness of breath (intermittent) Cardiovascular: DENIES: Chest pain Gastrointestinal: COMPLAINS OF: Abdominal pain, Nausea, Vomiting, Anorexia Musculoskeletal: COMPLAINS OF: Back pain (right-sided, intermittent, moderate) Psychiatric: COMPLAINS OF: Anxiety Past Family Social History Coded Allergies: Paclitaxel (Verified Allergy, Severe, Shortness of Breath, 12/05/16) Vancomycin (Unverified Allergy, Mild, ITCHING, 12/05/16) Past Medical History HTN Hyperlipidemia Metastatic endometrial cancer in 2013 Malignant ascites Breast cancer in 2003 s/p left mastectomy and radiation therapy CHF History of DVT-on Eliquis Diabetes . Past Surgical History Cholecystectomy Hysterectomy in 2014 Lumpectomy and left mastectomy Bilateral tubal ligation Upper endoscopy Colonoscopy in 2013 Port placement . Reported Medications Vitamin D3 (Cholecalciferol) 50,000 Unit Cap 50,000 Units PO WEEKLY Protonix (Pantoprazole Sodium) 40 Mg Tab 40 Mg PO BID Zocor (Simvastatin) 80 Mg Tab 80 Mg PO HS K-Tab (Potassium Chloride) 10 Meq Tab 10 Meq PO DAILY . Current Medications Medications (Trade) Dose Ordered Sig/Tasha Route Start Time Stop Time Status Last Admin (NS Flush) 2 ml UNSCH PRN IV FLUSH 01/19/17 12:45 (Eliquis) 5 mg BID PO 01/19/17 21:00 01/22/17 12:31 (Coreg) 3.125 mg Q12HR PO 01/19/17 21:00 01/22/17 12:31 (Lasix) 20 mg DAILY PO 01/20/17 09:00 01/22/17 12:31 (KCl) 10 meq DAILY PO 01/20/17 09:00 01/22/17 12:31 (Pravachol) 160 mg HS PO 01/19/17 21:00 01/21/17 22:20 (Percocet 10-325 Mg) 1 tab Q6H PRN PO 01/19/17 18:15 01/22/17 12:31 (Percocet 10-325 Mg) 2 tab Q6HR PRN PO 01/19/17 18:15 (NS Flush) 2 ml UNSCH PRN IV FLUSH 01/19/17 18:30 (NS Flush) 2 ml BID IV FLUSH 01/19/17 21:00 01/22/17 09:00 (Narcan Inj) 0.4 mg UNSCH PRN IV 01/19/17 18:30 (Ana-Colace) 1 tab BID PO 01/19/17 21:00 01/22/17 12:31 (Zofran Inj) 4 mg Q6HR PRN IV PUSH 01/19/17 21:00 01/21/17 15:34 Pantoprazole Sodium 40 mg 40 mg Q12H IV PUSH 01/20/17 13:45 01/22/17 12:32 (Rocephin Inj/NS Inj) 100 ml @ 200 mls/hr Q24H IV 01/20/17 17:00 01/21/17 17:20 Phenol 2 spray 2 spray Q2H PRN OROPHARYNG 01/21/17 08:30 (D5-1/2 NS + KCl 20 Meq Inj) 1,000 ml @ 75 mls/hr [id number] IV 01/21/17 12:45 01/22/17 02:05 (Dulcolax Supp) 10 mg DAILY PRN RECTAL 01/21/17 15:00 Miscellaneous Information ALL NURSING DEPARTME... UNSCH PRN .XX 01/22/17 12:30 01/23/17 12:29 . Family History Family history positive for breast cancer and ovarian cancer. . Substance Use Tobacco: None known Alcohol: None known Prescription med abuse: None known Illicits: None Psychosocial History Patient was born in the [place]. She currently lives with her daughter. . Spiritual/Cultural Factors Restorationism isela . Living Will: Copy in medical record Health Care Surrogate: Copy in medical record Date completed: 08/12/2014 . Health Care Surrogate(s): Patient has designated Asiya Chance as her health care surrogate decision maker. . Documented care wishes: A living will, completed 08/12/2014, states that if the patient is an a persistent vegetative state and the patient's attending/treating physician and another consulting physician have determined that there is no reasonable medical probability of her recovery from such condition, she directs that life prolonging procedures be withheld or withdrawn when the application of such procedures would serve only to prolong artificially the process of dying, and that she be permitted to naturally with only the administration of medication or the performance of any medical procedure deemed necessary to provide her with comfort care or to alleviate pain. . Today's verbally stated goals: Per Dr. Gill' conversations, patient is verbalizing ongoing aggressive goals. . Family/friends goals: Pending family conversations/meeting. . Ethical and Legal Issues No known ethical or legal issues. . Physical Exam Vital Signs Date Time Temp Pulse Resp B/P Pulse Ox O2 Delivery O2 Flow Rate FiO2 01/22/17 12:00 97.2 100 20 149/98 97 01/22/17 11:45 96 16 139/92 97 Room Air 01/22/17 11:30 105 16 134/89 98 Room Air 01/22/17 11:15 108 16 138/94 99 Nasal Cannula 2 01/22/17 11:13 98.5 108 15 133/83 100 Nasal Cannula 2 01/22/17 11:08 97 01/22/17 08:29 97.4 112 18 143/102 97 01/22/17 08:00 97.4 112 22 143/102 97 01/22/17 04:00 97.1 100 16 138/97 96 01/22/17 00:00 97.5 100 16 119/86 95 01/21/17 21:59 98 21 01/21/17 20:00 97.3 110 16 136/94 98 01/21/17 19:47 Room Air 01/21/17 16:00 98.0 103 18 141/86 97 . 01/21/17 01/22/17 19:00 07:00 Intake Total 900 ml 0 ml Output Total 700 ml Balance 200 ml 0 ml Intake Oral 0 ml 0 ml IV Total 900 ml Output Urine Total 300 ml Gastric Drainage Total 400 ml # Voids 1 5 # Bowel Movements 0 . Exam CONSTITUTIONAL/GENERAL: This is a frail, appearing female in no apparent distress. TUBES/LINES/DRAINS: PIV x 2, [id number] SKIN: No jaundice, rashes, or lesions. Ecchymoses on upper extremities. No wounds seen anteriorly. Skin temperature appropriate. Not diaphoretic. HEAD: Atraumatic. Normocephalic. EYES: Pupils equal and round and reactive. Extraocular motions intact. No scleral icterus. No injection or drainage. Fundi not examined. ENT: Hearing grossly normal. Nose without bleeding or purulent drainage. Throat without visible erythema, exudates, masses, or lesions. NECK: Trachea midline. Supple, nontender. No palpable thyroid enlargement or nodularity. CARDIOVASCULAR: Regular rate and rhythm without murmurs, gallops, or rubs. No JVD. Peripheral pulses symmetric. RESPIRATORY/CHEST: Symmetric, unlabored respirations. Clear to auscultation. Breath sounds equal bilaterally. No wheezes, rales, or rhonchi. GASTROINTESTINAL: Abdomen soft, distended, tender to palpation.. Bowel sounds present. GENITOURINARY: Without palpable bladder distension. MUSCULOSKELETAL: Extremities without clubbing, cyanosis, or edema. LYMPHATICS: No palpable cervical or supraclavicular adenopathy. NEUROLOGICAL: Awake and alert. Follows commands. Moves all extremities. PSYCHIATRIC: No obvious anxiety/depression. no apparent hallucinations or other psychotic thought process. . Diagnostic Tests Laboratory Laboratory Tests Test 01/20/17 01/20/17 01/20/17 01/21/17 01:37 18:45 23:00 06:35 White Blood Count 3.4 TH/MM3 4.0 TH/MM3 3.5 TH/MM3 (4.0-11.0) (4.0-11.0) (4.0-11.0) Red Blood Count 4.41 MIL/MM3 4.55 MIL/MM3 4.24 MIL/MM3 (4.00-5.30) (4.00-5.30) (4.00-5.30) Hemoglobin 12.5 GM/DL 12.6 GM/DL 12.0 GM/DL (11.6-15.3) (11.6-15.3) (11.6-15.3) Hematocrit 37.7 % 39.1 % 35.5 % (35.0-46.0) (35.0-46.0) (35.0-46.0) Mean Corpuscular Volume 85.3 FL 86.0 FL 83.6 FL (80.0-100.0) (80.0-100.0) (80.0-100.0) Mean Corpuscular Hemoglobin 28.3 PG 27.7 PG 28.4 PG (27.0-34.0) (27.0-34.0) (27.0-34.0) Mean Corpuscular Hemoglobin 33.2 % 32.3 % 33.9 % Concent (32.0-36.0) (32.0-36.0) (32.0-36.0) Red Cell Distribution Width 18.4 % 18.2 % 18.3 % (11.6-17.2) (11.6-17.2) (11.6-17.2) Platelet Count 178 TH/MM3 174 TH/MM3 176 TH/MM3 (150-450) (150-450) (150-450) Mean Platelet Volume 7.4 FL 7.1 FL 7.3 FL (7.0-11.0) (7.0-11.0) (7.0-11.0) Neutrophils (%) (Auto) 56.8 % 65.1 % (16.0-70.0) (16.0-70.0) Lymphocytes (%) (Auto) 29.5 % 23.8 % (9.0-44.0) (9.0-44.0) Monocytes (%) (Auto) 12.1 % 10.1 % (0.0-8.0) (0.0-8.0) Eosinophils (%) (Auto) 1.4 % (0.0-4.0) 0.8 % (0.0-4.0) Basophils (%) (Auto) 0.2 % (0.0-2.0) 0.2 % (0.0-2.0) Neutrophils # (Auto) 1.9 TH/MM3 2.3 TH/MM3 (1.8-7.7) (1.8-7.7) Lymphocytes # (Auto) 1.0 TH/MM3 0.8 TH/MM3 (1.0-4.8) (1.0-4.8) Monocytes # (Auto) 0.4 TH/MM3 0.4 TH/MM3 (0-0.9) (0-0.9) Eosinophils # (Auto) 0.0 TH/MM3 0.0 TH/MM3 (0-0.4) (0-0.4) Basophils # (Auto) 0.0 TH/MM3 0.0 TH/MM3 (0-0.2) (0-0.2) CBC Comment DIFF FINAL DIFF FINAL Differential Comment Sodium Level 133 MEQ/L 131 MEQ/L (136-145) (136-145) Potassium Level 3.9 MEQ/L 3.1 MEQ/L (3.5-5.1) (3.5-5.1) Chloride Level 94 MEQ/L 91 MEQ/L (98-107) (98-107) Carbon Dioxide Level 29.1 MEQ/L 29.5 MEQ/L (21.0-32.0) (21.0-32.0) Anion Gap 10 MEQ/L (5-15) 11 MEQ/L (5-15) Blood Urea Nitrogen 23 MG/DL (7-18) 18 MG/DL (7-18) Creatinine 1.55 MG/DL 1.30 MG/DL (0.50-1.00) (0.50-1.00) Estimat Glomerular Filtration 34 ML/MIN (>89) 42 ML/MIN (>89) Rate Random Glucose 81 MG/DL 81 MG/DL (74-106) (74-106) Calcium Level 8.7 MG/DL 8.5 MG/DL (8.5-10.1) (8.5-10.1) Total Bilirubin 0.3 MG/DL (0.2-1.0) Aspartate Amino Transf 30 U/L (15-37) (AST/SGOT) Alanine Aminotransferase 12 U/L (10-53) (ALT/SGPT) Alkaline Phosphatase 85 U/L (45-117) Lactate Dehydrogenase 475 U/L (84-246) Troponin I LESS THAN 0.02 NG/ML (0.02-0.05) Total Protein 6.7 GM/DL (6.4-8.2) Albumin 2.6 GM/DL (3.4-5.0) Lipase 104 U/L (73-393) Prothrombin Time 12.0 SEC (9.8-11.6) Prothromb Time International 1.1 RATIO Ratio Activated Partial 42.0 SEC 82.6 SEC GREATER THAN Thromboplast Time (24.3-30.1) (24.3-30.1) 153.4 SEC (24.3-30.1) Test 01/21/17 01/22/17 10:00 05:25 Activated Partial 39.2 SEC Thromboplast Time (24.3-30.1) White Blood Count 3.5 TH/MM3 (4.0-11.0) Red Blood Count 4.19 MIL/MM3 (4.00-5.30) Hemoglobin 12.0 GM/DL (11.6-15.3) Hematocrit 35.2 % (35.0-46.0) Mean Corpuscular Volume 83.9 FL (80.0-100.0) Mean Corpuscular Hemoglobin 28.7 PG (27.0-34.0) Mean Corpuscular Hemoglobin 34.2 % Concent (32.0-36.0) Red Cell Distribution Width 18.2 % (11.6-17.2) Platelet Count 168 TH/MM3 (150-450) Mean Platelet Volume 7.0 FL (7.0-11.0) Neutrophils (%) (Auto) 68.2 % (16.0-70.0) Lymphocytes (%) (Auto) 20.0 % (9.0-44.0) Monocytes (%) (Auto) 10.8 % (0.0-8.0) Eosinophils (%) (Auto) 0.7 % (0.0-4.0) Basophils (%) (Auto) 0.3 % (0.0-2.0) Neutrophils # (Auto) 2.4 TH/MM3 (1.8-7.7) Lymphocytes # (Auto) 0.7 TH/MM3 (1.0-4.8) Monocytes # (Auto) 0.4 TH/MM3 (0-0.9) Eosinophils # (Auto) 0.0 TH/MM3 (0-0.4) Basophils # (Auto) 0.0 TH/MM3 (0-0.2) CBC Comment DIFF FINAL Differential Comment Sodium Level 129 MEQ/L (136-145) Potassium Level 3.5 MEQ/L (3.5-5.1) Chloride Level 90 MEQ/L (98-107) Carbon Dioxide Level 28.5 MEQ/L (21.0-32.0) Anion Gap 11 MEQ/L (5-15) Blood Urea Nitrogen 16 MG/DL (7-18) Creatinine 1.23 MG/DL (0.50-1.00) Estimat Glomerular Filtration 44 ML/MIN (>89) Rate Random Glucose 101 MG/DL (74-106) Calcium Level 8.2 MG/DL (8.5-10.1) . Result Diagram: 01/22/17 0525 01/22/17 0525 Imaging Last 72 hours Impressions Abdomen/Pelvis CT 01/21/17 0000 Signed Impressions: Service Date/Time: Saturday, January 21, 2017 21:32 - CONCLUSION: 1. Moderate to large amount of ascites and suspected widespread omental and peritoneal metastases. 2. Mass seen at the left psoas muscle and suspected adenopathy in the left pelvis side wall and extending into the left iliacus muscle. These findings appear unchanged. 3. Severe dilatation of the renal collecting systems bilaterally. This is likely secondary to the masses at the left pelvis side wall and some of the masses at the lower peritoneal cavity and peritoneal reflections. This suggests there is likely some invasion into the retroperitoneum resulting in the dilatation of the collecting systems. 4. Nonspecific enhancement and increased density at the introitus and around the vagina. Neoplastic change would have to be suspected. 5. Nonspecific focal area of sclerosis at the left ilium. This was present previously and is unchanged. A bone island could have this appearance. A solitary metastatic lesion cannot be excluded. Olayinka Kincaid MD Abdomen Ultrasound 01/21/17 0000 Signed Impressions: Service Date/Time: Saturday, January 21, 2017 09:08 - CONCLUSION: Very small amount of ascites within the abdomen and therefore paracentesis was not performed. David Orona MD Abdomen X-Ray 01/20/17 0000 Signed Impressions: Service Date/Time: Friday, January 20, 2017 14:01 - CONCLUSION: 1. No acute abdominal abnormality is identified. 2. Diffuse increased density likely related to the free fluid in the abdomen and pelvis. Olayinka Beltrán MD . Patient/Family Conference Present at Family Conference: Spoke with patient via [employer], message left on patient's daughter's voicemail. . Family Conference Location: Bedside Issues Discussed: * Palliative care role, purpose, approach * Additional medical, psychosocial, and spiritual history * Patients general health, functional status, and cognitive changes in the months leading up to the current hospitalization * Patient/family understanding of the current medical problems * Patient/family understanding of prognosis * Patients goals of care as best understood from advance directives and/or conversations and/or values * Current medical treatment options and benefits/burdens of those options * Likely scenarios comparing ongoing aggressive care with a transition to comfort measures only * Questions answered to the best of my ability * Palliative care contact information provided . Assessment and Plan Disease Oriented Problem List: (1) DVT (deep venous thrombosis) (2) Malignant ascites (3) UTI (urinary tract infection) (4) LAST (acute kidney injury) (5) Endometrial ca (6) History of breast cancer (7) GERD (gastroesophageal reflux disease) (8) Hypertension (9) Ascites Symptom Scale: (1) Nausea & vomiting (2) Pain Comment: (3) Decreased appetite Pertinent Non-Medical Issues Psychosocial: Patient was born in the [place]. She currently lives with her daughter. Spiritual: Restorationism isela Legal: Patient's daughter, Asiya Chance, is the designated [facility] Ethical issues impacting care: No known ethical issues impacting care. . Important Contacts Asiya Chance, daughter: [phone] . Prognosis Patient is a 61 yo female with recurrent endometrial cancer which was initially diagnosed in 2013. She has multiple comorbid conditions including a history of breast cancer status post left mastectomy and radiation in 2003. Patient is currently receiving single agent Cisplatin therapy at a 50% dose reduction secondary to her debility and poor kidney functioning. Malignant ascites requiring periodic therapeutic paracentesis. Recent imaging revealed a new mass that is concerning for extension of cancer or metastatic disease. Cancer has not significantly responded to current treatment, further treatment will be based on further treatment will be based on patient's response, performance status and kidney functioning. Overall prognosis remains poor. . Code Status: Full Code Plan * FULL CODE * Patient is Nigerian speaking; medical malpractice paralegal or Stratus required. * Patient designated her daughter, Asiya Chance, as her health care surrogate decision maker on 08/12/2014 * A living will, completed 08/12/2014, states that if the patient is an a persistent vegetative state and the patient's attending/treating physician and another consulting physician have determined that there is no reasonable medical probability of her recovery from such condition, she directs that life prolonging procedures be withheld or withdrawn when the application of such procedures would serve only to prolong artificially the process of dying, and that she be permitted to naturally with only the administration of medication or the performance of any medical procedure deemed necessary to provide her with comfort care or to alleviate pain. * AGGRESSIVE GOALS: Dr. Gill reviewed recent diagnostic findings with the patient; cancer is at best stable and has not significantly responded to ongoing treatments. She has had multiple prior lines of treatment. Dr. Gill and the patient discussed the benefits versus burdens of continued aggressive treatment. Palliative care and hospice were also discussed. Patient verbalizing aggressive goals at this time; further treatment will be based on patient's response, performance status and kidney functioning. * Status post EGD on 01/22/2017 showed gastric ulcers, esophagus dilated to 17mm , no definite strictures noted. Biopsy pending. * Symptom managementpain: Patient reporting ongoing intermittent right-sided back pain of moderate severity, resolving abdominal pain. CT showed retroperitoneal mass involving the psoas. Current orders for Percocet (10-325mg /tab) 1-2 tablets PO q6 hours PRN which is being sparingly use. 24-hour dosing requirements = 1 tablet x 2. Monitor PRN acquire requirements and adjust medications as indicated; PRN therapeutic paracentesis when necessary. * Symptom managementnausea/vomiting: EGD on 01/22/2017 with dilatation, showing gastric ulcers. Esophagus dilated to 17mm, no definite strictures were seen. Biopsy pending. Plan to attempt trial of food, full liquids. Patient reports tolerating small amounts this afternoon. Currently on Protonix 40 mg IV every 12 hours and Zofran 4 mg IV q6 hours PRN with 1 dose administered in the past 24 hours. * Symptom managementdecreased appetite: Patient reporting poor appetite, likely multi-factorial (Cancer diagnosis, GERD, nausea, vomiting, chemotherapy, repeated paracentesis, tumor burden, pain fatigue). Albumin level of 2.6. Consider nutritional supplementation, high calorie/high protein diet. Corticosteroid therapy may have beneficial effects on appetite, food intake and well being. May consider initiating a small dexamethasone 4mg PO daily, up to 32mg daily. Blood glucose have been running 81-126. * Palliative care contact information left at patient's bedside. Palliative care attempted to contact patient's daughter (Asiya Chance) via telephone; message left on place and with palliative care contact information. * Palliative care will continue to follow this patient throughout her hospitalization to establish trust, assist with symptom management and clarification of medical treatment goals. . Thank you for the opportunity to participate in the care of Ms. Lawson. . Attestation To help prompt me to consider important information that might be impacting today's encounter and assessment, information from prior notes written by myself or my colleagues may have been "brought forward" into today's note. My signature on this note, however, is an attestation that I personally performed the exam, history, and/or decision-making noted today, and, unless otherwise indicated, the interactions with patient, family, and staff as well as the review of records all occurred today. I also attest that the listed assessment and stated plan reflect my best clinical judgment today based on the combination of historical information, prior notes, and today's exam/ interactions. When time spent is documented, it refers only to time spent today by the signer, or if indicated, combined time spent today by collaborating physician/nurse practitioner. . Lita Langston Jan 22, 2017 14:08
--- NOTE | 2017-01-22 15:04 | PD.ONC.PN ---
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: Pt was seen this morning 01/22/17 at aprox 8am Pt is sitting along side of bed RN at bedside getting her ready to go for EGD NG tube to LIWS pt without complaints Objective Data Date Time Temp Pulse Resp B/P Pulse Ox O2 Delivery O2 Flow Rate FiO2 01/22/17 13:31 18 01/22/17 12:00 97.2 100 20 149/98 97 01/22/17 11:45 96 16 139/92 97 Room Air 01/22/17 11:30 105 16 134/89 98 Room Air 01/22/17 11:15 108 16 138/94 99 Nasal Cannula 2 01/22/17 11:13 98.5 108 15 133/83 100 Nasal Cannula 2 01/22/17 11:08 97 01/22/17 08:29 97.4 112 18 143/102 97 01/22/17 08:00 97.4 112 22 143/102 97 01/22/17 04:00 97.1 100 16 138/97 96 01/22/17 00:00 97.5 100 16 119/86 95 01/21/17 21:59 98 21 01/21/17 20:00 97.3 110 16 136/94 98 01/21/17 19:47 Room Air 01/21/17 16:00 98.0 103 18 141/86 97 01/22/17 01/22/17 01/22/17 07:00 15:00 23:00 Intake Total 0 ml Balance 0 ml Result Diagram: 01/22/17 0525 01/22/17 0525 Laboratory Results Laboratory Tests Test 01/22/17 05:25 White Blood Count 3.5 TH/MM3 Red Blood Count 4.19 MIL/MM3 Hemoglobin 12.0 GM/DL Hematocrit 35.2 % Mean Corpuscular Volume 83.9 FL Mean Corpuscular Hemoglobin 28.7 PG Mean Corpuscular Hemoglobin 34.2 % Concent Red Cell Distribution Width 18.2 % Platelet Count 168 TH/MM3 Mean Platelet Volume 7.0 FL Neutrophils (%) (Auto) 68.2 % Lymphocytes (%) (Auto) 20.0 % Monocytes (%) (Auto) 10.8 % Eosinophils (%) (Auto) 0.7 % Basophils (%) (Auto) 0.3 % Neutrophils # (Auto) 2.4 TH/MM3 Lymphocytes # (Auto) 0.7 TH/MM3 Monocytes # (Auto) 0.4 TH/MM3 Eosinophils # (Auto) 0.0 TH/MM3 Basophils # (Auto) 0.0 TH/MM3 CBC Comment DIFF FINAL Differential Comment Sodium Level 129 MEQ/L Potassium Level 3.5 MEQ/L Chloride Level 90 MEQ/L Carbon Dioxide Level 28.5 MEQ/L Anion Gap 11 MEQ/L Blood Urea Nitrogen 16 MG/DL Creatinine 1.23 MG/DL Estimat Glomerular Filtration 44 ML/MIN Rate Random Glucose 101 MG/DL Calcium Level 8.2 MG/DL Administered Medications Medications (Trade) Dose Ordered Sig/Tasha Route PRN Reason Start Time Stop Time Status Last Admin Dose Admin Apixaban (Eliquis) 5 mg BID PO 01/19/17 21:00 01/22/17 12:31 Carvedilol (Coreg) 3.125 mg Q12HR PO 01/19/17 21:00 01/22/17 12:31 Furosemide (Lasix) 20 mg DAILY PO 01/20/17 09:00 01/22/17 12:31 Potassium Chloride (KCl) 10 meq DAILY PO 01/20/17 09:00 01/22/17 12:31 Pravastatin Sodium (Pravachol) 160 mg HS PO 01/19/17 21:00 01/21/17 22:20 Oxycodone/ Acetaminophen (Percocet 10-325 Mg) 1 tab Q6H PRN PO PAIN 1-5 01/19/17 18:15 01/22/17 12:31 Sodium Chloride (NS Flush) 2 ml BID IV FLUSH 01/19/17 21:00 01/22/17 09:00 Senna/Docusate Sodium (Ana-Colace) 1 tab BID PO 01/19/17 21:00 01/22/17 12:31 Ondansetron HCl (Zofran Inj) 4 mg Q6HR PRN IV PUSH NAUSEA OR VOMITING 01/19/17 21:00 01/21/17 15:34 Pantoprazole Sodium 40 mg 40 mg Q12H IV PUSH 01/20/17 13:45 01/22/17 12:32 Ceftriaxone Sodium 1000 mg/ Sodium Chloride 100 ml @ 200 mls/hr Q24H IV 01/20/17 17:00 01/21/17 17:20 Potassium Chloride/Dextrose/ Sod Cl (D5-1/2 NS + KCl 20 Meq Inj) 1,000 ml @ 75 mls/hr [id number] IV 01/21/17 12:45 01/22/17 02:05 Objective Remarks GENERAL: Well-nourished, well-developed patient. SKIN: Warm and dry. HEAD: Normocephalic. EYES: No scleral icterus. No injection or drainage. EXTREMITIES: TEDs and SCDs NEUROLOGICAL: No obvious focal deficit. Awake & alert PSYCHIATRIC: Appropriate mood and affect. Assessment/Plan Problem List: (1) Nausea & vomiting Status: Acute Plan: NG tube to LIWS GI following to have EGD this am (2) Endometrial ca Status: Chronic Plan: will reevaluate IV chemotherapy once she is discharged from Hospital, pt's performance status and kidney function will need to improve for continued IV chemo. BUN/CREAT improving with hydration continue to monitor Problem Qualifiers (1) Nausea & vomiting: Qualified Code: R11.2 - Nausea and vomiting, intractability of vomiting not specified, unspecified vomiting type Lynn Ruiz Jan 22, 2017 15:04
[2017-01-22] MEDS: cefTRIAXone INJ 1,000 MG in SODIUM CHLORIDE 0.9% INJ 100 ML IV SCH (17:00)
[2017-01-22] MEDS: PRAVASTATIN SOD 80 MG TAB PO SCH (20:12)
[2017-01-23] VITALS (7 sets, daily range): BP systolic 129–145; BP diastolic 90–97; PULSE 90–121; RESP 16–18; TEMP 97.1–97.9; O2SAT 97–100
[2017-01-23] MEDS: PANTOPRAZOLE SODIUM 40 MG VIAL IV PUSH SCH ×2 (02:05→14:32)
[2017-01-23] MEDS: oxyCODONE/ACETAMINOPHEN 10 MG/325 MG TAB PO PRN ×2 (05:43→14:32)
[2017-01-23] MEDS: D5-1/2 NS + KCL 20 MEQ INJ 1,000 ML IV SCH (05:43)
--- NOTE | 2017-01-23 08:21 | HHI.FPPN ---
Subjective Remarks AFVSS over past 24 hours. S/p EDG with esophageal dilation and gastric ulcer repair. Today, 01/23 she is feeling much better. Tolerated full liquid diet yesterday, still no BM. Reports nausea that is relieved with Zofran. (Zohaib Hoffman MD R2) Objective Vitals Vital Signs Date Time Temp Pulse Resp B/P Pulse Ox O2 Delivery O2 Flow Rate FiO2 01/23/17 03:58 97.9 100 16 129/94 98 01/22/17 23:23 98.2 101 16 138/86 97 01/22/17 19:43 98.0 99 16 135/93 95 01/22/17 17:25 21 01/22/17 16:00 97.2 90 20 121/84 97 01/22/17 13:31 18 01/22/17 12:00 97.2 100 20 149/98 97 01/22/17 11:45 96 16 139/92 97 Room Air 01/22/17 11:30 105 16 134/89 98 Room Air 01/22/17 11:15 108 16 138/94 99 Nasal Cannula 2 01/22/17 11:13 98.5 108 15 133/83 100 Nasal Cannula 2 01/22/17 11:08 97 01/22/17 08:29 97.4 112 18 143/102 97 I/O 01/22/17 01/22/17 01/22/17 01/23/17 01/23/17 01/23/17 06:59 14:59 22:59 06:59 14:59 22:59 Intake Total 0 ml 240 ml 480 ml 940 ml Balance 0 ml 240 ml 480 ml 940 ml Intake Oral 0 ml 240 ml 480 ml 240 ml IV Total 700 ml # Voids 1 3 3 5 # Bowel Movements 0 0 0 (Zohaib Hoffman MD R2) Result Diagram: 01/22/17 0525 01/22/17 0525 Imaging Last 72 hours Impressions Abdomen/Pelvis CT 01/21/17 0000 Signed Impressions: Service Date/Time: Saturday, January 21, 2017 21:32 - CONCLUSION: 1. Moderate to large amount of ascites and suspected widespread omental and peritoneal metastases. 2. Mass seen at the left psoas muscle and suspected adenopathy in the left pelvis side wall and extending into the left iliacus muscle. These findings appear unchanged. 3. Severe dilatation of the renal collecting systems bilaterally. This is likely secondary to the masses at the left pelvis side wall and some of the masses at the lower peritoneal cavity and peritoneal reflections. This suggests there is likely some invasion into the retroperitoneum resulting in the dilatation of the collecting systems. 4. Nonspecific enhancement and increased density at the introitus and around the vagina. Neoplastic change would have to be suspected. 5. Nonspecific focal area of sclerosis at the left ilium. This was present previously and is unchanged. A bone island could have this appearance. A solitary metastatic lesion cannot be excluded. Olayinka Kincaid MD Abdomen Ultrasound 01/21/17 0000 Signed Impressions: Service Date/Time: Saturday, January 21, 2017 09:08 - CONCLUSION: Very small amount of ascites within the abdomen and therefore paracentesis was not performed. David Orona MD Objective Remarks Gen.: No acute distress Head: Normocephalic. Atraumatic. EENT: Pupils equal round and reactive to light. Nose without drainage. Airway intact. Throat without injection. NG tube in place. Cardiovascular: Regular rate and rhythm. No murmurs, rubs or gallops. Respiratory: Lungs clear to auscultation bilaterally. No wheezes or rhonchi. Abdomen: Soft, diffusely tender to palpation in all 4 quadrants, mildly distended. No peritoneal signs. Musculoskeletal: No gross deformities. No edema. Skin: No obvious rashes or erythema. Neuro: Sensory and motor grossly intact. Cranial nerves II through XII grossly intact. Psych: Appropriate mood and affect (Zohaib Hoffman MD R2) A/P Assessment and Plan Mrs. Lawson is a very pleasant 61 y/o female with a PMHx of breast CA s/ p total left-sided mastectomy, endometrial cancer currently undergoing chemotherapy every month, DVT in left lower extremity s/p IVC filter, and hypertension, presenting with worsening right-sided lower back pain. CT on admission showed a moderate to large amount of ascites with suspected omental caking. She will be admitted for pain control, possible therapeutic paracentesis , and work up of back pain. Discharge Planning 1-2 days after tolerating full diet without N/V. (Zohaib Hoffman MD R2) Attending Attestation Patient seen and examined Case reviewed and discussed Agree with plan of care as discussed with me and documented in the resident note. (Dominique Weems MD) Problem List: (1) Nausea & vomiting Status: Acute Plan: Improved. S/p Upper endoscopy and NG tube removal: Findings included: EGD with dilation over guidewire with biopsy. Esophagus with erythema. Dilated to 15 mm, 16 mm, and 17 mm. No bleeding seen. Stomach: Antrum 2 punched out ulcerations without visible vessel in the pre- pyloric area. Biopsies were taken. Duodenum: WNL. Per GI: rec Protonix 40 mg IV BID, trial of full liquid diet, and holding Eliquis while in hospital. We appreciate their help in the care of Mrs. Lawson. (2) Ascites Status: Acute Plan: Patient with recurrent ascites, undergoes therapeutic paracentesis when necessary. Ultrasound during admission showed not enough fluid for tap. Continue to monitor. (3) Endometrial ca Status: Chronic Plan: Patient currently receiving monthly chemotherapy. Consulted Dr. Gill, appreciate his assistance. New mass as documented below, concern for extension of cancer or metastatic disease. (4) Back pain Status: Acute Plan: Patient with back pain that has been consistent for the past [address] showed retroperitoneal mass involving the psoas. Continue pain control. STAVE INSPECTOR /ONC consulted. (5) UTI (urinary tract infection) Status: Acute Plan: UA showing + occ H bacterial, 12 WBCs, and Neg Leuk and Nitrites. Treat for UTI Rocephin 01/19 -- 01/22, stopped adequately treated. Cultures showed staph aureus likely contaminant. (6) LAST (acute kidney injury) Status: Chronic Plan: Improved with hydration (7) Nutrition, metabolism, and development symptoms Status: Acute Plan: Full liquid diet as tolerated. Tranistion to reg basic diet. Eliquis 5 mg BID for anticoagulation given hx of DVT (currently held given GI bleeding). HELD given ulcers in stomach. Protonix 40 mg IV BID. Tranistion to PO BID. D/c ivf wdw Dr. Weems (Zohaib Hoffman MD R2) Problem Qualifiers (1) Nausea & vomiting: Qualified Code: R11.2 - Nausea and vomiting, intractability of vomiting not specified, unspecified vomiting type (2) Ascites: Qualified Code: R18.0 - Malignant ascites (3) UTI (urinary tract infection): Zohaib Hoffman MD R2 Jan 23, 2017 08:21 Dominique Weems MD Jan 24, 2017 14:32
[2017-01-23] MEDS: CARVEDILOL 3.125 MG TAB PO SCH ×2 (08:54→21:35)
[2017-01-23] MEDS: DOCUSATE SODIUM 50 MG/SENNA 8.6 MG TAB PO SCH ×2 (08:54→21:35)
[2017-01-23] MEDS: ONDANSETRON HCL 4 MG/2 ML VIAL IV PUSH PRN ×2 (08:54→17:37)
[2017-01-23] MEDS: POTASSIUM CHLORIDE 10 MEQ CONTROLLED RELEASE TAB PO SCH (08:55)
[2017-01-23] MEDS: APIXABAN 5 MG TABLET PO SCH (08:55)
[2017-01-23] MEDS: SODIUM CHLORIDE 0.9% FLUSH 10 ML FLUSH IV FLUSH SCH ×2 (08:55→21:00)
[2017-01-23] MEDS: FUROSEMIDE 20 MG TAB PO SCH (08:55)
--- NOTE | 2017-01-23 13:41 | HHI.GIFU ---
Subjective Remarks Resting in chair. Tolerated full liquids. No n/v. Diffuse distention, some discomfort. States she had a little bowel movement. Objective Vitals I&O Vital Signs Date Time Temp Pulse Resp B/P Pulse Ox O2 Delivery O2 Flow Rate FiO2 01/23/17 12:00 97.4 114 18 136/92 100 01/23/17 10:58 98 21 01/23/17 08:00 Room Air 01/23/17 08:00 97.4 90 16 145/96 97 01/23/17 03:58 97.9 100 16 129/94 98 01/22/17 23:23 98.2 101 16 138/86 97 01/22/17 19:43 98.0 99 16 135/93 95 01/22/17 17:25 21 01/22/17 16:00 97.2 90 20 121/84 97 01/22/17 13:31 18 I/O 01/22/17 01/22/17 01/22/17 01/23/17 01/23/17 01/23/17 07:00 15:00 23:00 07:00 15:00 23:00 Intake Total 0 ml 240 ml 480 ml 940 ml Balance 0 ml 240 ml 480 ml 940 ml Intake Oral 0 ml 240 ml 480 ml 240 ml IV Total 700 ml # Voids 1 3 3 5 # Bowel Movements 0 0 0 Laboratory Date/Time Procedure Status Source Growth 01/19/17 13:10 Urine Culture - Final Complete Urine Clean Catch Staphylococcus Aureus Imaging Last Impressions Abdomen/Pelvis CT 01/21/17 0000 Signed Impressions: Service Date/Time: Saturday, January 21, 2017 21:32 - CONCLUSION: 1. Moderate to large amount of ascites and suspected widespread omental and peritoneal metastases. 2. Mass seen at the left psoas muscle and suspected adenopathy in the left pelvis side wall and extending into the left iliacus muscle. These findings appear unchanged. 3. Severe dilatation of the renal collecting systems bilaterally. This is likely secondary to the masses at the left pelvis side wall and some of the masses at the lower peritoneal cavity and peritoneal reflections. This suggests there is likely some invasion into the retroperitoneum resulting in the dilatation of the collecting systems. 4. Nonspecific enhancement and increased density at the introitus and around the vagina. Neoplastic change would have to be suspected. 5. Nonspecific focal area of sclerosis at the left ilium. This was present previously and is unchanged. A bone island could have this appearance. A solitary metastatic lesion cannot be excluded. Olayinka Kincaid MD Abdomen Ultrasound 01/21/17 0000 Signed Impressions: Service Date/Time: Saturday, January 21, 2017 09:08 - CONCLUSION: Very small amount of ascites within the abdomen and therefore paracentesis was not performed. David Orona MD Abdomen X-Ray 01/20/17 0000 Signed Impressions: Service Date/Time: Friday, January 20, 2017 14:01 - CONCLUSION: 1. No acute abdominal abnormality is identified. 2. Diffuse increased density likely related to the free fluid in the abdomen and pelvis. Olayinka Beltrán MD Lung Scan- Nuclear Medicine 01/19/17 1350 Signed Impressions: Service Date/Time: Thursday, January 19, 2017 15:23 - CONCLUSION: Low probability for pulmonary embolus. Olayinka Kincaid MD Chest X-Ray 01/19/17 1236 Signed Impressions: Service Date/Time: Thursday, January 19, 2017 13:12 - CONCLUSION: No acute disease. Maikel Mello MD Physical Exam HEENT: Normocephalic; atraumatic; no jaundice. CHEST: Resp. even/unlabored, diminished CARDIAC: RRR ABDOMEN: Semifirm, distended, diffuse tenderness, bowel sounds present. EXTREMITIES: No clubbing, cyanosis, or edema. SKIN: Normal; no rash; no jaundice. ELECTRICIAN BUS: Lethargic and oriented times three. Assessment and Plan Plan ASSESSMENT - Nausea, vomiting. She has had intermittent nausea/vomiting over past month, but his has been much worse since her last chemotherapy treatment on Friday. She feels like water and pills get stuck in her throat. Abdomen/Pelvis CT ( 01/21/17)----> 1. Moderate to large amount of ascites and suspected widespread omental and peritoneal metastases. 2. Mass seen at the left psoas muscle and suspected adenopathy in the left pelvis side wall and extending into the left iliacus muscle. These findings appear unchanged. 3. Severe dilatation of the renal collecting systems bilaterally. This is likely secondary to the masses at the left pelvis side wall and some of the masses at the lower peritoneal cavity and peritoneal reflections. This suggests there is likely some invasion into the retroperitoneum resulting in the dilatation of the collecting systems. 4. Nonspecific enhancement and increased density at the introitus and around the vagina. Neoplastic change would have to be suspected. 5. Nonspecific focal area of sclerosis at the left ilium. This was present previously and is unchanged. A bone island could have this appearance. A solitary metastatic lesion cannot be excluded. Abdomen Ultrasound (01/21/17 )---> Very small amount of ascites within the abdomen and therefore paracentesis was not performed. S/P EGD (01/22/17)----->Esophagus, erythema. Dilated to 15mm, 16mm, 17mm with savary over guidewire. Relook: no bleeding Stomach: antrum two punched out ulcerations without visible vessel, in pre pyloric area, 6: 00 position. Bx taken Duodenum: normal. Tolerating full liquids. Advance as tolerated. PPI - Constipation. Miralax. Pt states she had a small bowel movement - Endometrial ca w/ malignant ascites - per primary, on chemo PLAN - CRISTO- Full liquids, can advance as tolerated. - Await pathology - Cont. Miralax - Cont. PPI - Hold eliquis if possible because of bleeding risk with ulcer. - Supportive care - Further recommendations to follow based on results of above - Pt seen and examined by Dr. De Leon and myself and this note is written on his behalf Grisel Morejon Jan 23, 2017 13:41
[2017-01-23] MEDS: POLYETHYLENE GLYCOL 17 GM PKG PO SCH (14:32)
--- NOTE | 2017-01-23 14:34 | HHI.HCPN ---
Reason for visit a. To assist with evaluation and management of symptoms including: pain, nausea/vomiting, decreased appetite b. To assist medical decision maker(s) with: better understanding of current medical conditions; weighing benefits/burdens of medical treatment options; making medical treatment decisions. . Subjective/Interval History Ms. Lawson is a 61-year-old Irish-speaking female with metastatic endometrial cancer (first diagnosed in 2013). She presented to [facility] ED on with complaints of abdominal distention (requiring therapeutic paracentesis previously ), pain in her back/abdomen and n /v. Urine culture: + staph aureus. Creatinine of 1.80 on admission; baseline level 0.95 in August,. After being evaluated in the ED, the patient was admitted for further evaluation and medical management of acute kidney injury, UTI and ascites. An EGD with dilatation on 01/22/2017 showed gastric ulcers; esophagus was dilated to 17mm, no definite strictures were noted. Biopsy is pending. Patient is tolerating liquid diet status post procedure; she reported one episode of vomiting this morning. Patient was able to tolerate a small amount of soup and ice cream later today. PRN Zofran is available; received x 1 today with good results. Poor appetite is secondary to nausea per patient. No BM reported since admission, started on MiraLAX 17gm daily PO for constipation. Patient reported a small, soft BM today. Negative KUB on 01/20/2017. Having ongoing intermittent back pain in right lower back that radiates to the left. Pain is rated 5 out of 10; patient describes as dull with occasional spasms. Pain is worse when the patient is immobile for an extended period of time. Patient also ports abdominal "discomfort" that she describes as a heavy sensation. Current orders for Percocet (10-325mg/tab) 1-2 tablets PO q6 hours PRN which is being sparingly use. 24-hour dosing requirements = 1 tablet x 2. The patient follows Dr. Gill (PLATING TANK OPERATOR APPRENTICE/ONC The patient was is receiving single agent Cisplatin therapy at a 50% dose reduction secondary to her debility and poor kidney functioning. Her most recent treatment was completed on 01/15/2017. Per Dr. Gill, patient has not shown significant response to current treatment regime. She has been on multiple prior lines of treatment. He and the patient discussed the benefits and burdens of continued treatment versus Palliative care and Hospice care; patient has indicated she would like to continue aggressive interventions as long as she is offered that option. Further treatment will be based on patient's response, performance status and kidney functioning. . Advance Directives Living Will: Copy in medical record (completed 08/12/2014) Health Care Surrogate: Copy in medical record (completed 06/30/2014) Advance Directive Specifics Date completed: 06/30/2014 . Health Care Surrogate(s): Patient has designated Asiya Chance as her health care surrogate decision maker. Patient confirmed her son in law (Albert Chance) remains the alternate health care surrogate decision maker as documented in the HCS which was completed on 2013, accessible in patients EMR. . Documented care wishes: A living will, completed 08/12/2014, states that if the patient is an a persistent vegetative state and the patient's attending/treating physician and another consulting physician have determined that there is no reasonable medical probability of her recovery from such condition, she directs that life prolonging procedures be withheld or withdrawn when the application of such procedures would serve only to prolong artificially the process of dying, and that she be permitted to naturally with only the administration of medication or the performance of any medical procedure deemed necessary to provide her with comfort care or to alleviate pain. . Objective Vital Signs Date Time Temp Pulse Resp B/P Pulse Ox O2 Delivery O2 Flow Rate FiO2 01/23/17 12:00 97.4 114 18 136/92 100 01/23/17 10:58 98 21 01/23/17 08:00 Room Air 01/23/17 08:00 97.4 90 16 145/96 97 01/23/17 03:58 97.9 100 16 129/94 98 01/22/17 23:23 98.2 101 16 138/86 97 01/22/17 19:43 98.0 99 16 135/93 95 01/22/17 17:25 21 01/22/17 16:00 97.2 90 20 121/84 97 Intake & Output 01/23/17 01/23/17 07:00 19:00 Intake Total 1420 ml Balance 1420 ml Intake Oral 720 ml IV Total 700 ml # Voids 8 # Bowel Movements 0 . Physical Exam CONSTITUTIONAL/GENERAL: This is a frail, appearing female in no apparent distress. TUBES/LINES/DRAINS: PIV x 2, [id number] SKIN: No jaundice, rashes, or lesions. Ecchymoses on upper extremities. Skin temperature appropriate. Not diaphoretic. HEAD: Atraumatic. Normocephalic. EYES: Pupils equal and round and reactive. Extraocular motions intact. No scleral icterus. No injection or drainage. Fundi not examined. ENT: Hearing grossly normal. Nose without bleeding or purulent drainage. NECK: Trachea midline. Supple, nontender. No palpable thyroid enlargement or nodularity. CARDIOVASCULAR: Regular rate and rhythm without murmurs, gallops, or rubs. + edema in BLE RESPIRATORY/CHEST: Symmetric, unlabored respirations. Breath sounds diminished bilaterally. GASTROINTESTINAL: Semi-firm, distended, diffuse tenderness. Active bowel sounds. GENITOURINARY: Without palpable bladder distension. MUSCULOSKELETAL: Extremities without clubbing or cyanosis. Bilateral lower extremities with +1/+2 edema. LYMPHATICS: No palpable cervical or supraclavicular adenopathy. NEUROLOGICAL: Awake and alert. Follows commands. Moves all extremities. PSYCHIATRIC: No obvious anxiety/depression. no apparent hallucinations or other psychotic thought process. . Diagnostic Tests Laboratory Laboratory Tests Test 01/20/17 01/20/17 01/21/17 01/21/17 18:45 23:00 06:35 10:00 White Blood Count 4.0 TH/MM3 3.5 TH/MM3 (4.0-11.0) (4.0-11.0) Red Blood Count 4.55 MIL/MM3 4.24 MIL/MM3 (4.00-5.30) (4.00-5.30) Hemoglobin 12.6 GM/DL 12.0 GM/DL (11.6-15.3) (11.6-15.3) Hematocrit 39.1 % 35.5 % (35.0-46.0) (35.0-46.0) Mean Corpuscular Volume 86.0 FL 83.6 FL (80.0-100.0) (80.0-100.0) Mean Corpuscular Hemoglobin 27.7 PG 28.4 PG (27.0-34.0) (27.0-34.0) Mean Corpuscular Hemoglobin 32.3 % 33.9 % Concent (32.0-36.0) (32.0-36.0) Red Cell Distribution Width 18.2 % 18.3 % (11.6-17.2) (11.6-17.2) Platelet Count 174 TH/MM3 176 TH/MM3 (150-450) (150-450) Mean Platelet Volume 7.1 FL 7.3 FL (7.0-11.0) (7.0-11.0) Prothrombin Time 12.0 SEC (9.8-11.6) Prothromb Time International 1.1 RATIO Ratio Activated Partial 42.0 SEC 82.6 SEC GREATER THAN 39.2 SEC Thromboplast Time (24.3-30.1) (24.3-30.1) 153.4 SEC (24.3-30.1) (24.3-30.1) Neutrophils (%) (Auto) 65.1 % (16.0-70.0) Lymphocytes (%) (Auto) 23.8 % (9.0-44.0) Monocytes (%) (Auto) 10.1 % (0.0-8.0) Eosinophils (%) (Auto) 0.8 % (0.0-4.0) Basophils (%) (Auto) 0.2 % (0.0-2.0) Neutrophils # (Auto) 2.3 TH/MM3 (1.8-7.7) Lymphocytes # (Auto) 0.8 TH/MM3 (1.0-4.8) Monocytes # (Auto) 0.4 TH/MM3 (0-0.9) Eosinophils # (Auto) 0.0 TH/MM3 (0-0.4) Basophils # (Auto) 0.0 TH/MM3 (0-0.2) CBC Comment DIFF FINAL Differential Comment Sodium Level 131 MEQ/L (136-145) Potassium Level 3.1 MEQ/L (3.5-5.1) Chloride Level 91 MEQ/L (98-107) Carbon Dioxide Level 29.5 MEQ/L (21.0-32.0) Anion Gap 11 MEQ/L (5-15) Blood Urea Nitrogen 18 MG/DL (7-18) Creatinine 1.30 MG/DL (0.50-1.00) Estimat Glomerular Filtration 42 ML/MIN (>89) Rate Random Glucose 81 MG/DL (74-106) Calcium Level 8.5 MG/DL (8.5-10.1) Test 01/22/17 05:25 White Blood Count 3.5 TH/MM3 (4.0-11.0) Red Blood Count 4.19 MIL/MM3 (4.00-5.30) Hemoglobin 12.0 GM/DL (11.6-15.3) Hematocrit 35.2 % (35.0-46.0) Mean Corpuscular Volume 83.9 FL (80.0-100.0) Mean Corpuscular Hemoglobin 28.7 PG (27.0-34.0) Mean Corpuscular Hemoglobin 34.2 % Concent (32.0-36.0) Red Cell Distribution Width 18.2 % (11.6-17.2) Platelet Count 168 TH/MM3 (150-450) Mean Platelet Volume 7.0 FL (7.0-11.0) Neutrophils (%) (Auto) 68.2 % (16.0-70.0) Lymphocytes (%) (Auto) 20.0 % (9.0-44.0) Monocytes (%) (Auto) 10.8 % (0.0-8.0) Eosinophils (%) (Auto) 0.7 % (0.0-4.0) Basophils (%) (Auto) 0.3 % (0.0-2.0) Neutrophils # (Auto) 2.4 TH/MM3 (1.8-7.7) Lymphocytes # (Auto) 0.7 TH/MM3 (1.0-4.8) Monocytes # (Auto) 0.4 TH/MM3 (0-0.9) Eosinophils # (Auto) 0.0 TH/MM3 (0-0.4) Basophils # (Auto) 0.0 TH/MM3 (0-0.2) CBC Comment DIFF FINAL Differential Comment Sodium Level 129 MEQ/L (136-145) Potassium Level 3.5 MEQ/L (3.5-5.1) Chloride Level 90 MEQ/L (98-107) Carbon Dioxide Level 28.5 MEQ/L (21.0-32.0) Anion Gap 11 MEQ/L (5-15) Blood Urea Nitrogen 16 MG/DL (7-18) Creatinine 1.23 MG/DL (0.50-1.00) Estimat Glomerular Filtration 44 ML/MIN (>89) Rate Random Glucose 101 MG/DL (74-106) Calcium Level 8.2 MG/DL (8.5-10.1) . Result Diagram: 01/22/17 0525 01/22/17 0525 Imaging Last 72 hours Impressions Abdomen/Pelvis CT 01/21/17 0000 Signed Impressions: Service Date/Time: Saturday, January 21, 2017 21:32 - CONCLUSION: 1. Moderate to large amount of ascites and suspected widespread omental and peritoneal metastases. 2. Mass seen at the left psoas muscle and suspected adenopathy in the left pelvis side wall and extending into the left iliacus muscle. These findings appear unchanged. 3. Severe dilatation of the renal collecting systems bilaterally. This is likely secondary to the masses at the left pelvis side wall and some of the masses at the lower peritoneal cavity and peritoneal reflections. This suggests there is likely some invasion into the retroperitoneum resulting in the dilatation of the collecting systems. 4. Nonspecific enhancement and increased density at the introitus and around the vagina. Neoplastic change would have to be suspected. 5. Nonspecific focal area of sclerosis at the left ilium. This was present previously and is unchanged. A bone island could have this appearance. A solitary metastatic lesion cannot be excluded. Olayinka Kincaid MD Abdomen Ultrasound 01/21/17 0000 Signed Impressions: Service Date/Time: Saturday, January 21, 2017 09:08 - CONCLUSION: Very small amount of ascites within the abdomen and therefore paracentesis was not performed. David Orona MD . Assessment and Plan Disease Oriented Problem List: (1) DVT (deep venous thrombosis) (2) Malignant ascites (3) UTI (urinary tract infection) (4) LAST (acute kidney injury) (5) Endometrial ca (6) History of breast cancer (7) GERD (gastroesophageal reflux disease) (8) Hypertension (9) Ascites Symptom Scale: (1) Nausea & vomiting (2) Pain Comment: (3) Decreased appetite Pertinent Non-Medical Issues Psychosocial: Patient was born in the [place]. She currently lives with her daughter. Spiritual: Christian isela Legal: Patient's daughter, Asiya Chance, is the designated [facility] Ethical issues impacting care: No known ethical issues impacting care. . Important Contacts Asiya Chance, daughter: [phone] . Prognosis Patient is a 61 yo female with recurrent endometrial cancer which was initially diagnosed in 2013. She has multiple comorbid conditions including a history of breast cancer status post left mastectomy and radiation in 2003. Patient is currently receiving single agent Cisplatin therapy at a 50% dose reduction secondary to her debility and poor kidney functioning. Malignant ascites requiring periodic therapeutic paracentesis. Recent imaging revealed a new mass that is concerning for extension of cancer or metastatic disease. Cancer has not significantly responded to current treatment, further treatment will be based on further treatment will be based on patient's response, performance status and kidney functioning. Overall prognosis remains poor. . Code Status: Full Code Plan * FULL CODE * Patient is Irish speaking; medical assembler or [employer] required. Dual visit with Helen Redman, Palliative Care COMPRESSOR MECHANIC BUS and certified medical scientist. * HCS form completed 06/30/2014 designates the patient daughter (Asiya Chance) as the health care surrogate decision maker and her son in law (Albert Chance) as the alternate health care surrogate decision maker. Documents can be viewed in the patient's EMR. * A living will, completed 08/12/2014, states that if the patient is an a persistent vegetative state and the patient's attending/treating physician and another consulting physician have determined that there is no reasonable medical probability of her recovery from such condition, she directs that life prolonging procedures be withheld or withdrawn when the application of such procedures would serve only to prolong artificially the process of dying, and that she be permitted to naturally with only the administration of medication or the performance of any medical procedure deemed necessary to provide her with comfort care or to alleviate pain. * AGGRESSIVE GOALS: Dr. Gill reviewed recent diagnostic findings with the patient; cancer is at best stable and has not significantly responded to ongoing treatments. She has had multiple prior lines of treatment. Dr. Gill and the patient discussed the benefits versus burdens of continued aggressive treatment. Palliative care and hospice were also discussed. Patient verbalizing aggressive goals at this time; further treatment will be based on patient's response, performance status and kidney functioning. * Status post EGD on 01/22/2017 showed gastric ulcers, esophagus dilated to 17mm , no definite strictures noted. Biopsy pending. * Symptom managementpain: Having ongoing intermittent back pain in right lower back that radiates to the left. Pain is rated 5 out of 10; patient describes as dull with occasional spasms. Pain is worse when the patient is immobile for an extended period of time. Patient also ports abdominal "discomfort" that she describes as a heavy sensation. Pain is relived with pain meds. Current orders for Percocet (10-325mg/tab) 1-2 tablets PO q6 hours PRN which is being sparingly use. 24-hour dosing requirements = 1 tablet x 2. * Symptom managementnausea/vomiting: EGD on 01/22/2017 with dilatation, showing gastric ulcers. Esophagus dilated to 17mm, no definite strictures were seen. Biopsy pending. Patient is tolerating liquid diet status post procedure; she reported one episode of vomiting this morning. Patient was able to tolerate a small amount of soup and ice cream later today. PRN Zofran is available; received x 1 today with good results. Poor appetite is secondary to nausea per patient. Patient was on a Kytril patch at home but it was not helpful per patient. May consider lorazepam 0.5 mg PO/SL q6 hours PRN or dexamethasone 4mg PO 1-2 x daily as other pharmacological treatment options were management of nausea. Questionable newly diagnosed DM, blood glucose [place] 34861 * Symptom managementdecreased appetite: Patient reporting poor appetite, likely multi-factorial (Cancer diagnosis, GERD, nausea, vomiting, chemotherapy, repeated paracentesis, tumor burden, pain fatigue). Albumin level of 2.6. Consider nutritional supplementation, high calorie/high protein diet. Corticosteroid therapy may have beneficial effects on appetite, food intake and well being. May consider initiating a small dexamethasone 4mg PO daily, up to 32mg daily. Questionable newly diagnosed DM, blood glucose [place] 88812 * Palliative care contact information left at patient's bedside. Palliative care attempted to contact patient's daughter (Asiya Chance) via telephone; message left on place and with palliative care contact information. * Palliative care will continue to follow this patient throughout her hospitalization to establish trust, assist with symptom management and clarification of medical treatment goals. . Attestation To help prompt me to consider important information that might be impacting today's encounter and assessment, information from prior notes written by myself or my colleagues may have been "brought forward" into today's note. My signature on this note, however, is an attestation that I personally performed the exam, history, and/or decision-making noted today, and, unless otherwise indicated, the interactions with patient, family, and staff as well as the review of records all occurred today. I also attest that the listed assessment and stated plan reflect my best clinical judgment today based on the combination of historical information, prior notes, and today's exam/ interactions. When time spent is documented, it refers only to time spent today by the signer, or if indicated, combined time spent today by collaborating physician/nurse practitioner. . Lita Langston Jan 23, 2017 14:34
[2017-01-23] MEDS: PRAVASTATIN SOD 80 MG TAB PO SCH (21:34)
--- NOTE | 2017-01-23 22:11 | MR ---
cc: CHAPITO DE LEON MD DATE 01/22/17 PROCEDURE Esophagogastroduodenoscopy with esophageal dilatation of a guidewire with biopsy INDICATION Nausea, vomiting and dysphagia. REFERRING PHYSICIAN Dr. Martins PROCEDURE IN DETAIL After informed consent was obtained, the patient was placed in a left side down position. She was administered general endotracheal anesthesia because of her cancer in the abdomen with ascites. After adequate sedation was achieved, the Pentax video gastroscope was inserted in the oropharynx and advanced through the esophagus into the stomach and then down through the stomach to the descending duodenum. The scope was then withdrawn slowly examining the surfaces of the mucosa well. Biopsies were obtained of a gastric ulcer in the prepyloric area. A retroflex examination was performed of the fundus and cardia. The scope was then straightened and a guidewire was left in place as the scope was slowly withdrawn. Over the guidewire, a 15 mm Savary dilator was passed down through the esophagus into the stomach. That was removed and a 16 mm dilator was passed down through the esophagus into the stomach. That was removed and a 17 mm dilator was passed down through the esophagus into the stomach. Dilator and guidewire were removed together. A relook examination showed no bleeding and no complication. The scope was then withdrawn out the mouth and the procedure was terminated. She tolerated the procedure well and was returned to the recovery area in good condition. FINDINGS 1. The esophagus showed some erythema. It was dilated to 15 mm, 16 mm and 17 mm with Savary dilator over guidewire. A relook examination showed no evidence of bleeding. 2. In the stomach antrum there were two punched out looking ulcerations without visible vessel in the prepyloric area in the 6 o'clock position. Biopsies were taken. 3. The duodenum was normal. IMPRESSION 1. Dysphagia without apparent stricture. The esophagus was dilated to 17 mm. 2. Gastric ulcerations. This certainly could be the cause for her nausea and vomiting. RECOMMENDATION 1. Continue Protonix 40 mg IV twice a day 2. Advanced diet to full liquid diet. 3. Once patient is tolerating a substantial diet, she may be discharged home. Chapito De Leon MD [facility]/ /11:28 AM /10:05 PM
--- NOTE | 2017-01-24 00:23 | HHI.FPPN ---
Addendum to progress note ADDENDUM Reason for addendum: Additonal documentation Additional information Mrs. Lawson is a 61 y/o female with PMHx of left breast CA s/p mastectomy , and endometrial cancer s/p complete hysterectomy and adjunctive chemotherapy provided by Dr. Gill. She presenting with increasing lower back pain and was found to have metastatic disease throughout her abdominal cavity. She was previously on Xarelto for a DVT. This was held after an EGD showed gastric ulcers. She has not had a solid BM in several weeks and is unfortunately experiencing persistent Nausea and vomiting. She is s/p multiple suppositories and enema with little relief to her constipation/obstruction. We are transitioning her to PO full diet and hydration, and monitoring BMs prior to discharge. dw Dr. Weems (Zohaib Hoffman MD R2) Reason for addendum: Additonal documentation (Correction: Patient on Eliquis, not Xarelto for DVT Tx) (Dominique Weems MD) Zohaib Hoffman MD R2 Jan 24, 2017 00:23 Dominique Weems MD Jan 24, 2017 14:32
[2017-01-24] MEDS: PANTOPRAZOLE SODIUM 40 MG VIAL IV PUSH SCH ×2 (01:46→12:30)
[2017-01-24] MEDS: ONDANSETRON HCL 4 MG/2 ML VIAL IV PUSH PRN (01:48)
[2017-01-24 04:05] VITALS: BP 132/95; PULSE 98; RESP 16; TEMP 97.8; O2SAT 96
[2017-01-24 08:00] VITALS: BP 143/97; PULSE 115; RESP 18; TEMP 97.6; O2SAT 97
[2017-01-24] MEDS: SODIUM CHLORIDE 0.9% FLUSH 10 ML FLUSH IV FLUSH SCH ×2 (08:43→20:27)
[2017-01-24] MEDS: POLYETHYLENE GLYCOL 17 GM PKG PO SCH (08:44)
[2017-01-24] MEDS: DOCUSATE SODIUM 50 MG/SENNA 8.6 MG TAB PO SCH ×2 (08:44→20:27)
[2017-01-24] MEDS: CARVEDILOL 3.125 MG TAB PO SCH ×2 (08:44→20:27)
[2017-01-24] MEDS: POTASSIUM CHLORIDE 10 MEQ CONTROLLED RELEASE TAB PO SCH (08:45)
[2017-01-24] MEDS: FUROSEMIDE 20 MG TAB PO SCH (08:45)
--- NOTE | 2017-01-24 09:54 | PD.ONC.PN ---
Subjective Subjective Remarks Pt is resting in bed with son at bedside no complaints at this time NG tube out and tolerating liquids Dr. Gill spoke with Dr. Guido and he is going to try and drain some of the ascites from around the liver/upper abd. We hope that this will give her some relief. Palliative care following and pt still wishes for treatment may have to consider changing treatment based on kidney function and performance status. Pt will follow up in our office 1-2 weeks after discharge. Objective Data Date Time Temp Pulse Resp B/P Pulse Ox O2 Delivery O2 Flow Rate FiO2 01/24/17 08:00 97.6 115 18 143/97 97 01/24/17 04:05 97.8 98 16 132/95 96 01/23/17 23:20 97.6 106 16 136/93 98 01/23/17 21:35 Room Air 01/23/17 19:55 97.3 121 16 142/97 97 01/23/17 16:00 97.1 108 18 134/90 97 01/23/17 12:00 97.4 114 18 136/92 100 01/23/17 10:58 98 21 01/24/17 01/24/17 01/24/17 07:00 15:00 23:00 Intake Total 218 ml Output Total 200 ml Balance 18 ml Result Diagram: 01/22/17 0525 01/22/17 0525 Laboratory Results Laboratory Tests Test 01/20/17 01/20/17 01/21/17 01/22/17 01:37 18:45 10:00 05:25 Total Bilirubin 0.3 MG/DL Aspartate Amino Transf 30 U/L (AST/SGOT) Alanine Aminotransferase 12 U/L (ALT/SGPT) Alkaline Phosphatase 85 U/L Lactate Dehydrogenase 475 U/L Troponin I LESS THAN 0.02 NG/ML Total Protein 6.7 GM/DL Albumin 2.6 GM/DL Lipase 104 U/L Prothrombin Time 12.0 SEC Prothromb Time International 1.1 RATIO Ratio Activated Partial 39.2 SEC Thromboplast Time White Blood Count 3.5 TH/MM3 Red Blood Count 4.19 MIL/MM3 Hemoglobin 12.0 GM/DL Hematocrit 35.2 % Mean Corpuscular Volume 83.9 FL Mean Corpuscular Hemoglobin 28.7 PG Mean Corpuscular Hemoglobin 34.2 % Concent Red Cell Distribution Width 18.2 % Platelet Count 168 TH/MM3 Mean Platelet Volume 7.0 FL Neutrophils (%) (Auto) 68.2 % Lymphocytes (%) (Auto) 20.0 % Monocytes (%) (Auto) 10.8 % Eosinophils (%) (Auto) 0.7 % Basophils (%) (Auto) 0.3 % Neutrophils # (Auto) 2.4 TH/MM3 Lymphocytes # (Auto) 0.7 TH/MM3 Monocytes # (Auto) 0.4 TH/MM3 Eosinophils # (Auto) 0.0 TH/MM3 Basophils # (Auto) 0.0 TH/MM3 CBC Comment DIFF FINAL Differential Comment Sodium Level 129 MEQ/L Potassium Level 3.5 MEQ/L Chloride Level 90 MEQ/L Carbon Dioxide Level 28.5 MEQ/L Anion Gap 11 MEQ/L Blood Urea Nitrogen 16 MG/DL Creatinine 1.23 MG/DL Estimat Glomerular Filtration 44 ML/MIN Rate Random Glucose 101 MG/DL Calcium Level 8.2 MG/DL Imaging Studies Last Impressions Abdomen/Pelvis CT 01/21/17 Signed Impressions: Service Date/Time: Saturday, January 21, 2017 21:32 - CONCLUSION: 1. Moderate to large amount of ascites and suspected widespread omental and peritoneal metastases. 2. Mass seen at the left psoas muscle and suspected adenopathy in the left pelvis side wall and extending into the left iliacus muscle. These findings appear unchanged. 3. Severe dilatation of the renal collecting systems bilaterally. This is likely secondary to the masses at the left pelvis side wall and some of the masses at the lower peritoneal cavity and peritoneal reflections. This suggests there is likely some invasion into the retroperitoneum resulting in the dilatation of the collecting systems. 4. Nonspecific enhancement and increased density at the introitus and around the vagina. Neoplastic change would have to be suspected. 5. Nonspecific focal area of sclerosis at the left ilium. This was present previously and is unchanged. A bone island could have this appearance. A solitary metastatic lesion cannot be excluded. Olayinka Kincaid MD Abdomen Ultrasound 01/21/17 0000 Signed Impressions: Service Date/Time: Saturday, January 21, 2017 09:08 - CONCLUSION: Very small amount of ascites within the abdomen and therefore paracentesis was not performed. David Orona MD Abdomen X-Ray 01/20/17 0000 Signed Impressions: Service Date/Time: Friday, January 20, 2017 14:01 - CONCLUSION: 1. No acute abdominal abnormality is identified. 2. Diffuse increased density likely related to the free fluid in the abdomen and pelvis. Olayinka Beltrán MD Lung Scan-VQ Nuclear Medicine 01/19/17 1350 Signed Impressions: Service Date/Time: Thursday, January 19, 2017 15:23 - CONCLUSION: Low probability for pulmonary embolus. Olayinka Kincaid MD Chest X-Ray 01/19/17 1236 Signed Impressions: Service Date/Time: Thursday, January 19, 2017 13:12 - CONCLUSION: No acute disease. Maikel Mello MD Administered Medications Medications (Trade) Dose Ordered Sig/Tasha Route PRN Reason Start Time Stop Time Status Last Admin Dose Admin Apixaban (Eliquis) 5 mg BID PO 01/19/17 21:00 Hold 01/23/17 08:55 Carvedilol (Coreg) 3.125 mg Q12HR PO 01/19/17 21:00 01/24/17 08:44 Furosemide (Lasix) 20 mg DAILY PO 01/20/17 09:00 01/24/17 08:45 Potassium Chloride (KCl) 10 meq DAILY PO 01/20/17 09:00 01/24/17 08:45 Pravastatin Sodium (Pravachol) 160 mg HS PO 01/19/17 21:00 01/23/17 21:34 Oxycodone/ Acetaminophen (Percocet 10-325 Mg) 1 tab Q6H PRN PO PAIN 1-5 01/19/17 18:15 01/23/17 14:32 Sodium Chloride (NS Flush) 2 ml BID IV FLUSH 01/19/17 21:00 01/24/17 08:43 Senna/Docusate Sodium (Ana-Colace) 1 tab BID PO 01/19/17 21:00 01/24/17 08:44 Ondansetron HCl (Zofran Inj) 4 mg Q6HR PRN IV PUSH NAUSEA OR VOMITING 01/19/17 21:00 01/24/17 01:48 Pantoprazole Sodium 40 mg 40 mg Q12H IV PUSH 01/20/17 13:45 01/24/17 01:46 Ceftriaxone Sodium 1000 mg/ Sodium Chloride 100 ml @ 200 mls/hr Q24H IV 01/20/17 17:00 Hold 01/22/17 17:00 Potassium Chloride/Dextrose/ Sod Cl (D5-1/2 NS + KCl 20 Meq Inj) 1,000 ml @ 75 mls/hr [id number] IV 01/21/17 12:45 Hold 01/23/17 05:43 Bisacodyl (Dulcolax Supp) 10 mg DAILY PRN RECTAL CONSTIPATION 01/21/17 15:00 01/23/17 08:54 Polyethylene Glycol (Miralax) 17 gm DAILY PO 01/23/17 12:45 01/24/17 08:44 Objective Remarks GENERAL: frail SKIN: Warm and dry. HEAD: Normocephalic. EYES: No scleral icterus. No injection or drainage. EXTREMITIES: teds and scds MUSCULOSKELETAL: Adequate muscle tone. NEUROLOGICAL: No obvious focal deficit. Awake, alert, and oriented x3. PSYCHIATRIC: Appropriate mood and affect; insight and judgment normal. Assessment/Plan Problem List: (1) Nausea & vomiting Status: Acute Plan: pt is s/p EGT with esophagus dilation and bx (pending) NG D/C'd and tolerating liquids GI following (2) Endometrial ca Status: Chronic Plan: will reevaluate IV chemotherapy once she is discharged from Hospital, pt's performance status and kidney function will need to improve for continued IV chemo. BUN/CREAT improving with hydration continue to monitor reconsulted IR Dr. Albino Guido for therapeutic paracentesis ct scan shows ascites to upper abd and around liver. Attending Statement Dr. Gill is in agreement with this plan of care. Problem Qualifiers (1) Nausea & vomiting: Qualified Code: R11.2 - Nausea and vomiting, intractability of vomiting not specified, unspecified vomiting type Lynn Ruiz Jan 24, 2017 09:54
[2017-01-24 12:00] VITALS: BP 128/83; PULSE 104; RESP 18; TEMP 97.5; O2SAT 99
--- NOTE | 2017-01-24 12:01 | RADRPT ---
EXAM DATE/TIME: 01/24/2017 09:57 [facility] COMPARISON: US GUIDED ABD PARACENTESIS, December 06, 2016, 9:40. INDICATIONS : Ascites. MEDICAL HISTORY : Hypercholesterolemia. Carcinoma, breast. Uterine/endometrial cancer. HTN. Dyspnea. Anxiety. SURGICAL HISTORY : Mastectomy, left. Cholecystectomy. Bunionectomy. Right wrist fracture repair. Lumpectomy. Blood mora sfusions. Chemotherapy. Radiation therapy. ENCOUNTER: Subsequent ACUITY: 1 month PAIN SCORE: 2/10 LOCATION: Left lower quadrant FLUID: Total volume of 2200 cc of clear, yellow fluid was removed. Fluid was discarded. Paracentesis was therapeutic only. Post procedure scanning reveals no hematoma or other complication. TECHNIQUE: 1. Ultrasound guidance for abdominal paracentesis. 2. Paracentesis. The risks, benefits, and alternatives to ultrasound guided paracentesis were explained to the patient in detail including the risk of bleeding and infection. Written and verbal informed consent was obt ained. With the patient on the ultrasound table, ultrasound imaging was used to select the most appr opriate approach for paracentesis. Overlying skin was prepped and draped in the usual sterile fashio n and with a local anesthetic, a dermatotomy was made with an 11 blade scalpel. A 6 [place] Saf-T-ahsan tesis catheter was introduced into the peritoneal cavity and fluid was collected. The patient tolerated the procedure well and left the ultrasound suite in stable condition. CONCLUSION: Uncomplicated ultrasound guided paracentesis. David Orona MD on January 24, 2017 at 11:58 Board Certified Radiologist. This report was verified electronically.
--- NOTE | 2017-01-24 13:55 | HHI.FPPN ---
Subjective Remarks No acute events overnight. Afebrile, vital signs stable. Patient states she did have emesis several times overnight and nausea that was relieved with Zofran. She had one very small soft bowel movement. Denies any pain at this time. (Frances Levy MD R3) Objective Vitals Vital Signs Date Time Temp Pulse Resp B/P Pulse Ox O2 Delivery O2 Flow Rate FiO2 01/24/17 12:00 97.5 104 18 128/83 99 01/24/17 10:19 Room Air 21 01/24/17 08:00 97.6 115 18 143/97 97 01/24/17 04:05 97.8 98 16 132/95 96 01/23/17 23:20 97.6 106 16 136/93 98 01/23/17 21:35 Room Air 01/23/17 19:55 97.3 121 16 142/97 97 01/23/17 16:00 97.1 108 18 134/90 97 I/O 01/23/17 01/23/17 01/23/17 01/24/17 01/24/17 01/24/17 07:00 15:00 23:00 07:00 15:00 23:00 Intake Total 940 ml 1252 ml 240 ml 218 ml Output Total 200 ml Balance 940 ml 1252 ml 240 ml 18 ml Intake Oral 240 ml 360 ml 240 ml 210 ml IV Total 700 ml 892 ml 8 ml Output Urine Total 200 ml # Voids 5 2 3 # Bowel Movements 0 1 0 0 (Frances Levy MD R3) Result Diagram: 01/22/1752401/22/17524 Objective Remarks Gen.: No acute distress Head: Normocephalic. Atraumatic. EENT: Pupils equal round and reactive to light. Nose without drainage. Airway intact. Throat without injection. NG tube in place. Cardiovascular: Regular rate and rhythm. No murmurs, rubs or gallops. Respiratory: Lungs clear to auscultation bilaterally. No wheezes or rhonchi. Abdomen: Soft, diffusely tender to palpation in all 4 quadrants, distended. No peritoneal signs. Musculoskeletal: No gross deformities. No edema. Skin: No obvious rashes or erythema. Neuro: Sensory and motor grossly intact. Cranial nerves II through XII grossly intact. Psych: Appropriate mood and affect (Frances Levy MD R3) A/P Assessment and Plan Mrs. Lawson is a very pleasant 61 y/o female with a PMHx of breast CA s/ p total left-sided mastectomy, endometrial cancer currently undergoing chemotherapy every month, DVT in left lower extremity s/p IVC filter, and hypertension, presenting with worsening right-sided lower back pain. CT on admission showed a moderate to large amount of ascites with suspected omental caking. She will be admitted for pain control, possible therapeutic paracentesis , and work up of back pain. Discharge Planning 1-2 days after tolerating full diet without N/V. (Frances Levy MD R3) Attending Attestation Patient seen and examined. Case reviewed and discussed Agree with plan of care as discussed with me and documented in the resident note. (Dominique Weems MD) Problem List: (1) Nausea & vomiting Status: Resolved Plan: Improved. Patient will have paracentesis performed today to hopefully further relieve her symptoms. S/p Upper endoscopy and NG tube removal: Findings included: EGD with dilation over guidewire with biopsy. Esophagus with erythema. Dilated to 15 mm, 16 mm, and 17 mm. No bleeding seen. Stomach: Antrum 2 punched out ulcerations without visible vessel in the pre- pyloric area. Biopsies were taken. Duodenum: WNL. Per GI: rec Protonix 40 mg IV BID, trial of full liquid diet. We appreciate their help in the care of Mrs. Lawson. (2) Ascites Status: Acute Plan: Patient with recurrent ascites, undergoes therapeutic paracentesis when necessary. Ultrasound during admission showed not enough fluid for tap. Continue to monitor. Paracentesis today as above. (3) Endometrial ca Status: Chronic Plan: Patient currently receiving monthly chemotherapy. Consulted Dr. Gill, appreciate his assistance. New mass as documented below, concern for extension of cancer or metastatic disease. (4) Back pain Status: Acute Plan: Patient with back pain that has been consistent for the past [address] showed retroperitoneal mass involving the psoas. Continue pain control. 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 (5) UTI (urinary tract infection) Status: Resolved Plan: UA showing + occ H bacterial, 12 WBCs, and Neg Leuk and Nitrites. Treat for UTI Rocephin 01/19 -- 01/22 Urine culture showed staph aureus resistant to Cipro, susceptible to Rocephin (6) LAST (acute kidney injury) Status: Chronic Plan: Improved with hydration (7) Nutrition, metabolism, and development symptoms Status: Acute Plan: Full liquid diet as tolerated. Tranistion to reg basic diet. Eliquis 5 mg BID for anticoagulation given hx of DVT Protonix 40 mg PO BID. D/c ivf (Frances Levy MD R3) Problem Qualifiers (1) Nausea & vomiting: Qualified Code: R11.2 - Nausea and vomiting, intractability of vomiting not specified, unspecified vomiting type (2) Ascites: Qualified Code: R18.0 - Malignant ascites (3) UTI (urinary tract infection): Frances Levy MD R3 Jan 24, 2017 13:55 Dominique Weems MD Jan 27, 2017 10:37
--- NOTE | 2017-01-24 14:41 | HHI.GIFU ---
Subjective Remarks Pt resting in chair. She feels better after therapeutic paracentesis; less nausea, no vomiting, tolerating clears. SHe is asking for soup. Objective Vitals I&O Vital Signs Date Time Temp Pulse Resp B/P Pulse Ox O2 Delivery O2 Flow Rate FiO2 01/24/17 12:00 97.5 104 18 128/83 99 01/24/17 10:19 Room Air 21 01/24/17 08:00 97.6 115 18 143/97 97 01/24/17 04:05 97.8 98 16 132/95 96 01/23/17 23:20 97.6 106 16 136/93 98 01/23/17 21:35 Room Air 01/23/17 19:55 97.3 121 16 142/97 97 01/23/17 16:00 97.1 108 18 134/90 97 I/O 01/23/17 01/23/17 01/23/17 01/24/17 01/24/17 01/24/17 07:00 15:00 23:00 07:00 15:00 23:00 Intake Total 940 ml 1252 ml 240 ml 218 ml 360 ml Output Total 200 ml 500 ml Balance 940 ml 1252 ml 240 ml 18 ml -140 ml Intake Oral 240 ml 360 ml 240 ml 210 ml 360 ml IV Total 700 ml 892 ml 8 ml Output Urine Total 200 ml 500 ml # Voids 5 2 3 # Bowel Movements 0 1 0 0 1 Imaging Last Impressions Cyst Biopsy Asp-Paracentesis US 01/24/17 0000 Signed Impressions: Service Date/Time: Tuesday, January 24, 2017 09:57 - CONCLUSION: Uncomplicated ultrasound guided paracentesis. David Orona MD Abdomen/Pelvis CT 01/21/17 0000 Signed Impressions: Service Date/Time: Saturday, January 21, 2017 21:32 - CONCLUSION: 1. Moderate to large amount of ascites and suspected widespread omental and peritoneal metastases. 2. Mass seen at the left psoas muscle and suspected adenopathy in the left pelvis side wall and extending into the left iliacus muscle. These findings appear unchanged. 3. Severe dilatation of the renal collecting systems bilaterally. This is likely secondary to the masses at the left pelvis side wall and some of the masses at the lower peritoneal cavity and peritoneal reflections. This suggests there is likely some invasion into the retroperitoneum resulting in the dilatation of the collecting systems. 4. Nonspecific enhancement and increased density at the introitus and around the vagina. Neoplastic change would have to be suspected. 5. Nonspecific focal area of sclerosis at the left ilium. This was present previously and is unchanged. A bone island could have this appearance. A solitary metastatic lesion cannot be excluded. Olayinka Kincaid MD Abdomen Ultrasound 01/21/17 0000 Signed Impressions: Service Date/Time: Saturday, January 21, 2017 09:08 - CONCLUSION: Very small amount of ascites within the abdomen and therefore paracentesis was not performed. David Orona MD Abdomen X-Ray 01/20/17 0000 Signed Impressions: Service Date/Time: Friday, January 20, 2017 14:01 - CONCLUSION: 1. No acute abdominal abnormality is identified. 2. Diffuse increased density likely related to the free fluid in the abdomen and pelvis. Olayinka Beltrán MD Lung Scan-V Nuclear Medicine 01/19/17 1350 Signed Impressions: Service Date/Time: Thursday, January 19, 2017 15:23 - CONCLUSION: Low probability for pulmonary embolus. Olayinka Kincaid MD Chest X-Ray 01/19/17 1236 Signed Impressions: Service Date/Time: Thursday, January 19, 2017 13:12 - CONCLUSION: No acute disease. Maikel Mello MD Physical Exam HEENT: Normocephalic; atraumatic; no jaundice. CHEST: Resp. even/unlabored, diminished CARDIAC: RRR ABDOMEN: Semifirm, distended, nontender, bowel sounds present, bandage LLQ clean and dry EXTREMITIES: No clubbing, cyanosis, or edema. SKIN: Normal; no rash; no jaundice. SPINNING LATHE OPERATOR HYDRAULIC: Lethargic and oriented times three. Assessment and Plan Plan ASSESSMENT - Nausea, vomiting. improved with paracentesis, EGD w/ dil She has had intermittent nausea/vomiting over past month, but his has been much worse since her last chemotherapy treatment on Friday. She feels like water and pills get stuck in her throat. Abdomen/Pelvis CT ( 01/21/17)----> 1. Moderate to large amount of ascites and suspected widespread omental and peritoneal metastases. 2. Mass seen at the left psoas muscle and suspected adenopathy in the left pelvis side wall and extending into the left iliacus muscle. These findings appear unchanged. 3. Severe dilatation of the renal collecting systems bilaterally. This is likely secondary to the masses at the left pelvis side wall and some of the masses at the lower peritoneal cavity and peritoneal reflections. This suggests there is likely some invasion into the retroperitoneum resulting in the dilatation of the collecting systems. 4. Nonspecific enhancement and increased density at the introitus and around the vagina. Neoplastic change would have to be suspected. 5. Nonspecific focal area of sclerosis at the left ilium. This was present previously and is unchanged. A bone island could have this appearance. A solitary metastatic lesion cannot be excluded. Abdomen Ultrasound (01/21/17 )---> Very small amount of ascites within the abdomen and therefore paracentesis was not performed. S/P EGD (01/22/17)----->Esophagus, erythema. Dilated to 15mm, 16mm, 17mm with savary over guidewire. Relook: no bleeding Stomach: antrum two punched out ulcerations without visible vessel, in pre pyloric area, 6: 00 position. Bx taken Duodenum: normal. Tolerating full liquids. Advance as tolerated. PPI - Constipation. Miralax. Pt states she had a small bowel movement - Endometrial ca w/ malignant ascites - per primary, on chemo PLAN - CRISTO- Full liquids, can advance as tolerated. - Await pathology - Cont. Miralax - Cont. PPI - Hold eliquis if possible because of bleeding risk with ulcer. - Supportive care - Further recommendations to follow based on results of above - Pt seen and examined by Dr. De Leon and myself and this note is written on his behalf Renetta Madden Jan 24, 2017 14:41
[2017-01-24 16:00] VITALS: BP 123/75; PULSE 102; RESP 20; TEMP 97.4; O2SAT 100
[2017-01-24 20:00] VITALS: BP 141/90; PULSE 99; RESP 16; TEMP 97.9; O2SAT 97
[2017-01-24] MEDS: PRAVASTATIN SOD 80 MG TAB PO SCH (20:27)
[2017-01-24] MEDS: APIXABAN 5 MG TABLET PO SCH (20:30)
[2017-01-25] VITALS: BP 121/81; PULSE 94; RESP 16; TEMP 97.6; O2SAT 100
[2017-01-25 04:00] VITALS: BP 129/84; PULSE 93; RESP 16; TEMP 98; O2SAT 97
[2017-01-25] MEDS: PANTOPRAZOLE SODIUM 40 MG VIAL IV PUSH SCH (04:16)
[2017-01-25 05:30] LABS: AUTOMATED NEUTROPHIL # 2.6 TH/MM3 (1.8-7.7); BASOPHIL % 0.2 % (0.0-2.0); EOSINOPHIL % 0.3 % (0.0-4.0); HEMATOCRIT 35.1 % (35.0-46.0); HEMO FLAGS DIFF FINAL; LYMPH % 23.5 % (9.0-44.0); LYMPHOCYTE # 0.9 TH/MM3 (1.0-4.8); MEAN CELL VOLUME 84.3 FL (80.0-100.0); MEAN CORPUSCULAR HEMOGLOBIN 28.4 PG (27.0-34.0); MEAN CORPUSCULAR HGB CONC 33.7 % (32.0-36.0); MONO % 9.5 % (0.0-8.0); NEUT % 66.5 % (16.0-70.0); PLATELET COUNT 156 TH/MM3 (150-450); RED BLOOD COUNT 4.16 MIL/MM3 (4.00-5.30); RED CELL DISTRIBUTION WIDTH 17.6 % (11.6-17.2)
[2017-01-25 05:42] LABS: BICARBONATE 30.9 MEQ/L (21.0-32.0); POTASSIUM 3.3 MEQ/L (3.5-5.1)
[2017-01-25 08:00] VITALS: BP 127/88; PULSE 100; RESP 20; TEMP 97.3; O2SAT 99
[2017-01-25] MEDS: POLYETHYLENE GLYCOL 17 GM PKG PO SCH (09:00)
[2017-01-25] MEDS: CARVEDILOL 3.125 MG TAB PO SCH (09:00)
[2017-01-25] MEDS: SODIUM CHLORIDE 0.9% FLUSH 10 ML FLUSH IV FLUSH SCH (09:00)
[2017-01-25] MEDS: POTASSIUM CHLORIDE 10 MEQ CONTROLLED RELEASE TAB PO SCH (09:00)
[2017-01-25] MEDS: APIXABAN 5 MG TABLET PO SCH (09:00)
[2017-01-25] MEDS: FUROSEMIDE 20 MG TAB PO SCH (09:00)
[2017-01-25] MEDS: DOCUSATE SODIUM 50 MG/SENNA 8.6 MG TAB PO SCH (09:00)
--- NOTE | 2017-01-25 10:05 | HHI.DCPOC ---
Discharge Care Plan Diagnosis: (1) Malignant ascites (2) Back pain (3) Nausea & vomiting (4) status post therapeutic paracentesis (5) Endometrial ca (6) UTI (urinary tract infection) (7) History of breast cancer Goals to Promote Your Health * To prevent worsening of your condition and complications * To maintain your health at the optimal level Directions to Meet Your Goals Take your medications as prescribed Follow your dietary instruction Follow activity as directed Keep your appointments as scheduled * Follow-up with Dr. Gill (Electrocardiographic Technician Onc) in one week. * Follow-up with Dr. De Leon (Gastroenterology) in one week. * Follow-up with PCP one two weeks. Take your immunizations and boosters as scheduled If your symptoms worsen call your PCP, if no PCP go to Urgent Care Center or Emergency Room Smoking is Dangerous to Your Health. Avoid second hand smoke Call the 24-hour hour crisis hotline for domestic abuse at Tanya Mcmillan MD R1 Jan 25, 2017 10:05
--- NOTE | 2017-01-25 10:47 | HHI.FPPN ---
Subjective Remarks Patient was seen and evaluated in the morning. She reports feeling better since a therapeutic paracentesis performed yesterday (01/24). The patient had chicken broth, jello and ying lisa for dinner, which she tolerated. Patient had not had breakfast and denies any recent nausea or vomiting. Patient admits to bowel movements x3 since yesterday (01/24). She describes stool as soft and denies blood in stool. Patient denies pain. She is hoping to go home today (01/25). ( Tanya Mcmillan MD R1) Objective Vitals Vital Signs Date Time Temp Pulse Resp B/P Pulse Ox O2 Delivery O2 Flow Rate FiO2 01/25/17 08:00 97.3 100 20 127/88 99 01/25/17 04:00 98.0 93 16 129/84 97 01/25/17 00:00 97.6 94 16 121/81 100 01/24/17 20:00 97.9 99 16 141/90 97 01/24/17 16:00 97.4 102 20 123/75 100 01/24/17 12:00 97.5 104 18 128/83 99 01/24/17 10:19 Room Air 21 I/O 01/24/17 01/24/17 01/24/17 01/25/17 01/25/17 01/25/17 07:00 15:00 23:00 07:00 15:00 23:00 Intake Total 218 ml 360 ml 650 ml 500 ml Output Total 200 ml 500 ml 600 ml 900 ml Balance 18 ml -140 ml 50 ml -400 ml Intake Oral 210 ml 360 ml 650 ml 500 ml IV Total 8 ml Output Urine Total 200 ml 500 ml 600 ml 900 ml # Bowel Movements 0 1 0 1 (Tanya Mcmillan MD R1) Result Diagram: 01/25/17 0426 01/25/17 0426 Imaging Last Impressions Cyst Biopsy Asp-Paracentesis US 01/24/17 0000 Signed Impressions: Service Date/Time: Tuesday, January 24, 2017 09:57 - CONCLUSION: Uncomplicated ultrasound guided paracentesis. David Orona MD Abdomen/Pelvis CT 01/21/17 0000 Signed Impressions: Service Date/Time: Saturday, January 21, 2017 21:32 - CONCLUSION: 1. Moderate to large amount of ascites and suspected widespread omental and peritoneal metastases. 2. Mass seen at the left psoas muscle and suspected adenopathy in the left pelvis side wall and extending into the left iliacus muscle. These findings appear unchanged. 3. Severe dilatation of the renal collecting systems bilaterally. This is likely secondary to the masses at the left pelvis side wall and some of the masses at the lower peritoneal cavity and peritoneal reflections. This suggests there is likely some invasion into the retroperitoneum resulting in the dilatation of the collecting systems. 4. Nonspecific enhancement and increased density at the introitus and around the vagina. Neoplastic change would have to be suspected. 5. Nonspecific focal area of sclerosis at the left ilium. This was present previously and is unchanged. A bone island could have this appearance. A solitary metastatic lesion cannot be excluded. Olayinka Kincaid MD Abdomen Ultrasound 01/21/17 0000 Signed Impressions: Service Date/Time: Saturday, January 21, 2017 09:08 - CONCLUSION: Very small amount of ascites within the abdomen and therefore paracentesis was not performed. David Orona MD Abdomen X-Ray 01/20/17 0000 Signed Impressions: Service Date/Time: Friday, January 20, 2017 14:01 - CONCLUSION: 1. No acute abdominal abnormality is identified. 2. Diffuse increased density likely related to the free fluid in the abdomen and pelvis. Olayinka Beltrán MD Lung Scan- Nuclear Medicine 01/19/17 1350 Signed Impressions: Service Date/Time: Thursday, January 19, 2017 15:23 - CONCLUSION: Low probability for pulmonary embolus. Olayinka Kincaid MD Chest X-Ray 01/19/17 1236 Signed Impressions: Service Date/Time: Thursday, January 19, 2017 13:12 - CONCLUSION: No acute disease. Maikel Mello MD Objective Remarks Gen.: No acute distress. Patient up and walking around the room. Head: Normocephalic. Atraumatic. EENT: Pupils equal round and reactive to light. Nose without drainage. Airway intact. Cardiovascular: Regular rate and rhythm. No murmurs, rubs or gallops. Respiratory: Lungs clear to auscultation bilaterally. No wheezes or rhonchi. Abdomen: Tense. Non-tender. Normal bowel sounds. No peritoneal signs. Musculoskeletal: No gross deformities. Left leg edema; 2+ below knee - improved according to patient. Non-tender. Skin: No obvious rashes or erythema. Neuro: Sensory and motor grossly intact. Cranial nerves II through XII grossly intact. Psych: Appropriate mood and affect Medications and IVs Current Medications Medications (Trade) Dose Ordered Sig/Tasha Route Start Time Stop Time Status Last Admin (NS Flush) 2 ml UNSCH PRN IV FLUSH 01/19/17 12:45 (Eliquis) 5 mg BID PO 01/19/17 21:00 01/23/17 08:55 (Coreg) 3.125 mg Q12HR PO 01/19/17 21:00 01/24/17 20:27 (Lasix) 20 mg DAILY PO 01/20/17 09:00 01/24/17 08:45 (KCl) 10 meq DAILY PO 01/20/17 09:00 01/24/17 08:45 (Pravachol) 160 mg HS PO 01/19/17 21:00 01/24/17 20:27 (Percocet 10-325 Mg) 1 tab Q6H PRN PO 01/19/17 18:15 01/23/17 14:32 (Percocet 10-325 Mg) 2 tab Q6HR PRN PO 01/19/17 18:15 (NS Flush) 2 ml UNSCH PRN IV FLUSH 01/19/17 18:30 (NS Flush) 2 ml BID IV FLUSH 01/19/17 21:00 01/24/17 20:27 (Narcan Inj) 0.4 mg UNSCH PRN IV 01/19/17 18:30 (Ana-Colace) 1 tab BID PO 01/19/17 21:00 01/24/17 08:44 (Zofran Inj) 4 mg Q6HR PRN IV PUSH 01/19/17 21:00 01/24/17 01:48 Pantoprazole Sodium 40 mg 40 mg Q12H IV PUSH 01/20/17 13:45 01/25/17 04:16 (Rocephin Inj/NS Inj) 100 ml @ 200 mls/hr Q24H IV 01/20/17 17:00 Hold 01/22/17 17:00 Phenol 2 spray 2 spray Q2H PRN OROPHARYNG 01/21/17 08:30 (D5-1/2 NS + KCl 20 Meq Inj) 1,000 ml @ 75 mls/hr [id number] IV 01/21/17 12:45 Hold 01/23/17 05:43 (Dulcolax Supp) 10 mg DAILY PRN RECTAL 01/21/17 15:00 01/23/17 08:54 (Miralax) 17 gm DAILY PO 01/23/17 12:45 01/24/17 08:44 (Tanya Mcmillan MD R1) Urinary Catheter: No (Tanya Mcmillan MD R1) Vascular Central Line Catheter: No (Tanya Mcmillan MD R1) A/P Assessment and Plan Mrs. Lawson is a very pleasant 61 y/o female with a PMHx of breast CA s/ p total left-sided mastectomy, endometrial cancer currently undergoing chemotherapy every month, DVT in left lower extremity s/p IVC filter, and hypertension, presenting with worsening right-sided lower back pain. CT on admission showed a moderate to large amount of ascites with suspected omental caking. She was admitted for pain control. Therapeutic paracentesis was performed on 01/24. Discharge Planning Discharge once tolerating full diet without N/V. (Tanya Mcmillan MD R1) Attending Attestation Patient seen and examined. Case reviewed and discussed Agree with plan of care as discussed with me and documented in the resident note. (Dominique Weems MD) Problem List: (1) Ascites Status: Acute Plan: Patient with recurrent ascites, underwent therapeutic paracentesis yesterday (01/24). (2) Back pain Status: Acute Plan: Patient with back pain that has been consistent for the past [address] showed retroperitoneal mass involving the psoas. Continue pain control. [employer] [place] [employer] /ONC following patient. (3) Endometrial ca Status: Chronic Plan: Patient currently receiving monthly chemotherapy. Consulted Dr. Gill, appreciate his assistance. New mass as documented below, concern for extension of cancer or metastatic disease. (4) Nutrition, metabolism, and development symptoms Status: Acute Plan: Tolerates full liquid diet. Transition to renal diet as tolerated. Restart Eliquis 5 mg BID PO for anticoagulation given hx of DVT. Protonix 40 mg PO daily. (5) Nausea & vomiting Status: Resolved Plan: Resolved Patient had therapeutic paracentesis performed yesterday (01/24 ), which relieved her symptoms. Patient tolerated clears for dinner. She had not had breakfast when evaluated. S/p Upper endoscopy and NG tube removal: Findings included: EGD with dilation over guidewire with biopsy. Esophagus with erythema. Dilated to 15 mm, 16 mm, and 17 mm. No bleeding seen. Stomach: Antrum 2 punched out ulcerations without visible vessel in the pre- pyloric area. Biopsies were taken. Duodenum: WNL. (6) UTI (urinary tract infection) Status: Resolved Plan: Resolved. At admission, UA showing + occ H bacterial, 12 WBCs, and Neg Leuk and Nitrites. Treated for UTI Rocephin 01/19 -- 01/22; urine culture showed staph aureus resistant to Cipro, susceptible to Rocephin. (7) LAST (acute kidney injury) Status: Chronic Plan: Creatine: 1.55 -> 1.30 -> 1.23 -> 1.36 Estimated GFR: 34 -> 42 -> 44 -> 40 (Tanya Mcmillan MD R1) Problem Qualifiers (1) Ascites: Qualified Code: R18.0 - Malignant ascites (2) Nausea & vomiting: Qualified Code: R11.2 - Nausea and vomiting, intractability of vomiting not specified, unspecified vomiting type (3) UTI (urinary tract infection): Tanya Mcmillan MD R1 Jan 25, 2017 10:47 Dominique Weems MD Jan 27, 2017 10:38
--- NOTE | 2017-01-25 11:33 | HHI.GIFU ---
Subjective Remarks Pt had therapeutic paracentesis yesterday with removal of 2200cc of fluid. She tolerated breakfast this morning, denies any nausea or vomiting. She is moving her bowels. Denies any diarrhea. (Frances Hicks) Objective Vitals I&O Vital Signs Date Time Temp Pulse Resp B/P Pulse Ox O2 Delivery O2 Flow Rate FiO2 01/25/17 08:00 97.3 100 20 127/88 99 01/25/17 04:00 98.0 93 16 129/84 97 01/25/17 00:00 97.6 94 16 121/81 100 01/24/17 20:00 97.9 99 16 141/90 97 01/24/17 16:00 97.4 102 20 123/75 100 01/24/17 12:00 97.5 104 18 128/83 99 I/O 01/24/17 01/24/17 01/24/17 01/25/17 01/25/17 01/25/17 07:00 15:00 23:00 07:00 15:00 23:00 Intake Total 218 ml 360 ml 650 ml 500 ml Output Total 200 ml 500 ml 600 ml 900 ml Balance 18 ml -140 ml 50 ml -400 ml Intake Oral 210 ml 360 ml 650 ml 500 ml IV Total 8 ml Output Urine Total 200 ml 500 ml 600 ml 900 ml # Bowel Movements 0 1 0 1 Laboratory Laboratory Tests Test 01/25/17 04:26 White Blood Count 4.0 Red Blood Count 4.16 Hemoglobin 11.8 Hematocrit 35.1 Mean Corpuscular Volume 84.3 Mean Corpuscular Hemoglobin 28.4 Mean Corpuscular Hemoglobin 33.7 Concent Red Cell Distribution Width 17.6 Platelet Count 156 Mean Platelet Volume 7.7 Neutrophils (%) (Auto) 66.5 Lymphocytes (%) (Auto) 23.5 Monocytes (%) (Auto) 9.5 Eosinophils (%) (Auto) 0.3 Basophils (%) (Auto) 0.2 Neutrophils # (Auto) 2.6 Lymphocytes # (Auto) 0.9 Monocytes # (Auto) 0.4 Eosinophils # (Auto) 0.0 Basophils # (Auto) 0.0 CBC Comment DIFF FINAL Differential Comment Sodium Level 131 Potassium Level 3.3 Chloride Level 93 Carbon Dioxide Level 30.9 Anion Gap 7 Blood Urea Nitrogen 12 Creatinine 1.36 Estimat Glomerular Filtration 40 Rate Random Glucose 90 Calcium Level 7.8 Imaging Last Impressions Cyst Biopsy Asp-Paracentesis US 01/24/17 0000 Signed Impressions: Service Date/Time: Tuesday, January 24, 2017 09:57 - CONCLUSION: Uncomplicated ultrasound guided paracentesis. David Orona MD Abdomen/Pelvis CT 01/21/17 0000 Signed Impressions: Service Date/Time: Saturday, January 21, 2017 21:32 - CONCLUSION: 1. Moderate to large amount of ascites and suspected widespread omental and peritoneal metastases. 2. Mass seen at the left psoas muscle and suspected adenopathy in the left pelvis side wall and extending into the left iliacus muscle. These findings appear unchanged. 3. Severe dilatation of the renal collecting systems bilaterally. This is likely secondary to the masses at the left pelvis side wall and some of the masses at the lower peritoneal cavity and peritoneal reflections. This suggests there is likely some invasion into the retroperitoneum resulting in the dilatation of the collecting systems. 4. Nonspecific enhancement and increased density at the introitus and around the vagina. Neoplastic change would have to be suspected. 5. Nonspecific focal area of sclerosis at the left ilium. This was present previously and is unchanged. A bone island could have this appearance. A solitary metastatic lesion cannot be excluded. Olayinka Kincaid MD Abdomen Ultrasound 01/21/17 0000 Signed Impressions: Service Date/Time: Saturday, January 21, 2017 09:08 - CONCLUSION: Very small amount of ascites within the abdomen and therefore paracentesis was not performed. David Orona MD Abdomen X-Ray 01/20/17 0000 Signed Impressions: Service Date/Time: Friday, January 20, 2017 14:01 - CONCLUSION: 1. No acute abdominal abnormality is identified. 2. Diffuse increased density likely related to the free fluid in the abdomen and pelvis. Olayinka Beltrán MD Lung Scan-V Nuclear Medicine 01/19/17 1350 Signed Impressions: Service Date/Time: Thursday, January 19, 2017 15:23 - CONCLUSION: Low probability for pulmonary embolus. Olayinka Kincaid MD Chest X-Ray 01/19/17 1236 Signed Impressions: Service Date/Time: Thursday, January 19, 2017 13:12 - CONCLUSION: No acute disease. Maikel Mello MD Physical Exam HEENT: Normocephalic; atraumatic; no jaundice. CHEST: Resp. even/unlabored, diminished CARDIAC: RRR ABDOMEN: Semi-firm, distended, nontender, bowel sounds present EXTREMITIES: No clubbing, cyanosis, or edema. SKIN: Normal; no rash; no jaundice. OPERATIONS TRAINER: Awake and oriented times three. (Frances Hicks) Assessment and Plan Plan ASSESSMENT - Nausea, vomiting. improved with paracentesis, EGD w/ dil. She had been having intermittent nausea/vomiting over past month, but his has been much worse since her last chemotherapy treatment on Friday. Abdomen/Pelvis CT ()----> 1. Moderate to large amount of ascites and suspected widespread omental and peritoneal metastases. 2. Mass seen at the left psoas muscle and suspected adenopathy in the left pelvis side wall and extending into the left iliacus muscle. These findings appear unchanged. 3. Severe dilatation of the renal collecting systems bilaterally. This is likely secondary to the masses at the left pelvis side wall and some of the masses at the lower peritoneal cavity and peritoneal reflections. This suggests there is likely some invasion into the retroperitoneum resulting in the dilatation of the collecting systems. 4. Nonspecific enhancement and increased density at the introitus and around the vagina. Neoplastic change would have to be suspected. 5. Nonspecific focal area of sclerosis at the left ilium. This was present previously and is unchanged. A bone island could have this appearance. A solitary metastatic lesion cannot be excluded. Abdomen Ultrasound (01/21/17 )---> Very small amount of ascites within the abdomen and therefore paracentesis was not performed. S/P EGD with dilation (01/22/17)----->Esophagus, erythema. Dilated to 15mm, 16mm, 17mm with Savary dilator over guidewire, gastric antrum with two punched out ulcerations without visible vessel, in pre pyloric area, 6: 00 position. Bx pending. Tolerating regular consistency diet. Therapeutic paracentesis (01/24) with removal of 2200cc of ascetic fluid. PPI - Constipation. Miralax. Pt is moving her bowels. - Endometrial ca w/ malignant ascites - per primary, on chemo PLAN - CRISTO - Cont. Miralax - Cont. PPI - Supportive care - If patient is discharged today she will need outpt followup with GI in 2 weeks. - Pt seen and examined by Dr. Baptiste and myself and this note is written on his behalf (Frances Hicks) Physician Comments Patient seen and examined Agree with above Continue with current supportive care Monitor labs (Callum Baptiste MD) Frances Hicks Jan 25, 2017 11:33 Callum Baptiste MD Jan 25, 2017 19:19
[2017-01-25 12:00] VITALS: BP 136/90; PULSE 104; RESP 20; TEMP 97.2; O2SAT 96
[2017-01-25] MEDS ORDERED: PANTOPRAZOLE SOD 40 MG DELAYED RELEASE TAB PO SCH (12:00)
[2017-01-25] MEDS ORDERED: POLY17S PO (13:11)
[2017-01-25] MEDS ORDERED: PROT40TA PO (13:11)
--- NOTE | 2017-01-25 13:45 | HHI.DS ---
Discharge Summary Admission Date Jan 20, 2017 at 13:50 Discharge Date: Jan 25, 2017 Admitting Diagnosis LAST/UTI/ASCITES (1) Ascites Diagnosis: Principal Plan: Patient with recurrent ascites, underwent therapeutic paracentesis yesterday (01/24). (2) Back pain Diagnosis: Principal Plan: Patient with back pain that has been consistent for the past [address] showed retroperitoneal mass involving the psoas. (3) Nausea & vomiting Diagnosis: Principal Plan: Resolved Patient had therapeutic paracentesis performed yesterday (01/24 ), which relieved her symptoms. (4) Endometrial ca Diagnosis: Principal Plan: Patient currently receiving monthly chemotherapy. New mass as documented , concern for extension of cancer or metastatic disease. (5) UTI (urinary tract infection) Diagnosis: Secondary Plan: Resolved. Treated for UTI Rocephin 01/19 -- 01/22; urine culture showed staph aureus resistant to Cipro, susceptible to Rocephin. (6) LAST (acute kidney injury) Diagnosis: Secondary Plan: Creatine: 1.55 -> 1.30 -> 1.23 -> 1.36 Estimated GFR: 34 -> 42 -> 44 -> 40 Consultants Gastroenterology: Dr. De Leon Heme/Onc: Dr. Gill Palliative Care Interventional Radiology Procedures Therapeutic paracentesis on 01/24. Brief History Patient presenting with back pain. The pain localized to her right lower back. The pain is intermittent, but she cannot give me a duration of the pain. It is a sharp and stabbing pain. Severity is a 7/10. The pain is located over her right flank and bladder. Her pain does not radiate into her leg. Denies burning with urination, although she has been urinating less. No fevers, chills, headaches, change in vision, hematuria, hematochezia, neck pain, or diarrhea. At her baseline she ambulates without difficulty. CBC/BMP: 01/25/17 0426 01/25/17 0426 Significant Findings Laboratory Tests Test 01/25/17 04:26 Red Cell Distribution Width 17.6 % (11.6-17.2) Monocytes (%) (Auto) 9.5 % (0.0-8.0) Lymphocytes # (Auto) 0.9 TH/MM3 (1.0-4.8) Sodium Level 131 MEQ/L (136-145) Potassium Level 3.3 MEQ/L (3.5-5.1) Chloride Level 93 MEQ/L (98-107) Creatinine 1.36 MG/DL (0.50-1.00) Estimat Glomerular Filtration 40 ML/MIN (>89) Rate Calcium Level 7.8 MG/DL (8.5-10.1) Imaging Last 72 hours Impressions Cyst Biopsy Asp-Paracentesis US 01/24/17 0000 Signed Impressions: Service Date/Time: Tuesday, January 24, 2017 09:57 - CONCLUSION: Uncomplicated ultrasound guided paracentesis. David Orona MD PE at Discharge Gen.: No acute distress. Patient up and walking around the room. Head: Normocephalic. Atraumatic. EENT: Pupils equal round and reactive to light. Nose without drainage. Airway intact. Cardiovascular: Regular rate and rhythm. No murmurs, rubs or gallops. Respiratory: Lungs clear to auscultation bilaterally. No wheezes or rhonchi. Abdomen: Tense. Non-tender. Normal bowel sounds. No peritoneal signs. Musculoskeletal: No gross deformities. Left leg edema; 2+ below knee - improved according to patient. Non-tender. Skin: No obvious rashes or erythema. Neuro: Sensory and motor grossly intact. Cranial nerves II through XII grossly intact. Psych: Appropriate mood and affect Hospital Course CT on 01/19 Findings: * Moderate to large amount ascites with suspected omental caking * Ascites has progressed and appears more prominent on the current exam * Persistent low density mass seen at the left retroperitoneum involving the left psoas and ilacus muscle * Low density mass appears relatively unchanged from the prior exam, could represent metastatic change with necrosis, an abscess cannot be excluded in the correct clinical situation though little change occurred from prev study S/p Upper endoscopy and NG tube removal on 01/19 Findings: * Esophagus: erythematous and dilated to 17 mm. No definite stricture. * Stomach: Antrum two punched-out ulcerations without visible vessel in the pre- pyloric area. Biopsies taken. * Duodenum: WNL. KUB on 01/20 Findings: * No acute abdominal; abnormality, free fluid abd and pelvis * previous imaging showed mall amt ascites on 09/23 Therapeutic Paracentesis on 01/24. Back pain controlled. UTI resolved after treatment with Cetriaxone 01/19-01/22. Nausea/vomiting resolved following paracentesis. Patient reported bowel movements x3 and tolerated regular diet at discharge. PT eval Pt Condition on Discharge: Stable Discharge Disposition: Discharge Home Discharge Instructions DIET: Follow Instructions for: Heart Healthy Diet Speech Therapy-Diet Recommends: Regular Activities you can perform: Regular-No Restrictions Follow up Referrals: Gastroenterology - 1 Week with Chapito De Leon MD [employer] Oncology - 1 Week with Jackelin Gill MD PCP Follow-up - 2 Weeks New Medications: Polyethylene Glycol 3350 Powder (Polyethylene Glycol 3350 Powder) 17 Gm Pow 17 GM PO DAILY #1 CAN Continued Medications: Apixaban (Eliquis) 5 Mg Tab 5 MG PO BID #60 TAB Carvedilol (Coreg) 3.125 Mg Tab 3.125 MG PO Q12HR cardiomyopathy #62 TAB Cholecalciferol (Vitamin D3) 50,000 Unit Cap 82981 UNITS PO WEEKLY Nutritional Supplement #1 Ref 0 BOTTLE Furosemide (Furosemide) 20 Mg Tab 20 MG PO DAILY abdominal swelling #30 Ref 0 TAB Hydrocodone-Acetaminophen (Hydrocodone-Acetaminophen) 5-325 mg Tab 1 TAB PO Q4H PRN PAIN GREATER THAN 5 #30 TAB Ondansetron Odt (Zofran Odt) 4 Mg Tab 4 MG SL Q6HR PRN Nausea/Vomiting #30 Ref 0 TAB Pantoprazole (Protonix) 40 Mg Tab 40 MG PO BID Reflux #60 Ref 0 TAB (This prescription has been renewed) Potassium Chloride ER (K-Tab) 10 Meq Tab 10 MEQ PO DAILY Electrolyte Replacement #30 Ref 0 TAB Simvastatin (Zocor) 80 Mg Tab 80 MG PO HS Cholesterol Management #30 Ref 0 TAB Tanya Mcmillan MD R1 Jan 25, 2017 13:45
[2017-01-25 16:00] VITALS: BP 129/91; PULSE 101; RESP 20; TEMP 97.4; O2SAT 100
[2017-01-25] MEDS ORDERED: WHEEMIS3 (16:09)
[2017-01-25] MEDS ORDERED: SODIUM CHLORIDE 0.9% FLUSH 10 ML FLUSH IV FLUSH PRN (17:00)
== END 2017-01-25 17:50 | disposition home or self-care (01) | DRG 755 ==
LOC: NEPC 11:58 → NEDA 16:53 → N04A 19:47 → OBSVTOIN 01-20 13:50
PROVIDERS: ADMIT Family Medicine; ATTEND Family Medicine
PROC: 0D758ZZ Dilation of Esophagus, Via Natural or Artificial Opening Endoscopic (ICD-10-PCS; 2017-01-22)
PROC: 0DB68ZX Excision of Stomach, Via Natural or Artificial Opening Endoscopic, Diagnostic (ICD-10-PCS; principal; 2017-01-22 10:17)
PROC: 0W9G3ZZ Drainage of Peritoneal Cavity, Percutaneous Approach (ICD-10-PCS; 2017-01-24)
DX: C54.1 Malignant neoplasm of endometrium (principal); R18.0 Malignant ascites; N17.9 Acute kidney failure, unspecified; E11.22 Type 2 diabetes mellitus with diabetic chronic kidney disease; I82.402 Acute embolism and thrombosis of unspecified deep veins of left lower extremity; I13.0 Hypertensive heart and chronic kidney disease with heart failure and stage 1 through stage 4 chronic kidney disease, or unspecified chronic kidney disease; N39.0 Urinary tract infection, site not specified; K92.2 Gastrointestinal hemorrhage, unspecified; I50.9 Heart failure, unspecified; E86.0 Dehydration; K25.9 Gastric ulcer, unspecified as acute or chronic, without hemorrhage or perforation; E78.5 Hyperlipidemia, unspecified; Z85.3 Personal history of malignant neoplasm of breast; N18.9 Chronic kidney disease, unspecified; K21.9 Gastro-esophageal reflux disease without esophagitis; K59.00 Constipation, unspecified; R13.10 Dysphagia, unspecified; Z16.23 Resistance to quinolones and fluoroquinolones; Z51.5 Encounter for palliative care; Z79.01 Long term (current) use of anticoagulants; Z86.010 Personal history of colon polyps; Z86.718 Personal history of other venous thrombosis and embolism; Z90.12 Acquired absence of left breast and nipple; Z90.710 Acquired absence of both cervix and uterus; Z92.3 Personal history of irradiation
CPT/HCPCS: 49083; 71010; 74020; 74176; 74177; 76705; 78582; 80048; 80053; 81001; 82948; 83615; 83690; 84484; 85025; 85027; 85610; 85730; 87086; 88305; 88312; 88341; 88342; 93005; A9540; A9567; C1729; C1769; C9113; G0378; J0330; J0696; J1644; J2370; J2405; J3480; Q9963; Q9967